=== PATIENT | female | born 1975 | race Two or more races ===

== ENCOUNTER 2020-01-22 07:28 | Outpatient (REF) | payer OTHER, SELFPAY ==
--- NOTE | 2020-01-22 07:33 | MM_ITS ---
EXAMINATION: MM SCREENING DIGITAL BREAST TOMOSYNTHESIS, BILATERAL CLINICAL INFORMATION: Screening. Asymptomatic. The lifetime risk of breast cancer based on the Tyrer-Cuzick Model is 7.1%. COMPARISON: Mammography: September 05, 2018 and studies dating back to September 06, 2016 TECHNIQUE: Digital breast tomosynthesis is performed in both the craniocaudal and mediolateral oblique views along with computer-aided detection (CAD). Synthesized 2D images are generated from the tomosynthesis. FINDINGS: There are scattered areas of fibroglandular density (ACR BI-RADS breast composition Category b). There are no significant masses, abnormal calcifications, or other abnormalities. MM/MM tomosynthesis screening BI IMPRESSION: There are no significant changes from prior study. ASSESSMENT: BI-RADS 1: Negative RECOMMENDATION: Routine annual mammography screening. This patient's information was entered into a reminder system with a target due date for their next mammogram.
== END 2020-01-22 07:29 | disposition home or self-care (01) ==
LOC: HO.MAMMO 07:28
PROVIDERS: PCP Internal Medicine; Visit Provider Internal Medicine
DX: Z12.31 Encounter for screening mammogram for malignant neoplasm of breast (principal)
CPT/HCPCS: 77063; 77067

== ENCOUNTER → 2020-05-19 10:02 | Outpatient (BNVA) | payer OTHER, SELFPAY | PROVIDERS: PCP Internal Medicine; Visit Provider Internal Medicine ==

== ENCOUNTER 2020-09-09 09:20 | Outpatient (REF) | payer OTHER, SELFPAY ==
--- NOTE | ~2020-09-09 | XR_ITS ---
EXAMINATION: XR HIP, LEFT CLINICAL INFORMATION: Trauma, left hip pain COMPARISON: None TECHNIQUE: AP and frog-lateral projections left hip are obtained. FINDINGS: There is no fracture or dislocation. No joint narrowing or erosive change. Soft tissue planes are unremarkable. There is no diastases SI joint or pubis. Bowel gas unremarkable. XR/XR hip LT min 2V IMPRESSION: No fracture or dislocation.
--- NOTE | ~2020-09-09 | XR_ITS ---
EXAMINATION: XR KNEE, LEFT CLINICAL INFORMATION: Trauma, pain COMPARISON: Radiographs left knee 02/01/2016 TECHNIQUE: Four views of the left knee. FINDINGS: There are degenerative changes medial knee joint compartment with joint narrowing and marginal osteophyte medial femoral condyle. There is no erosive change or visible chondrocalcinosis. Lateral view suggests small suprapatellar effusion. There is no fracture or dislocation. No destructive process. XR/XR knee LT 4V IMPRESSION: 1. No fracture or dislocation. 2. Degenerative changes medial knee joint compartment with small suprapatellar effusion.
--- NOTE | ~2020-09-09 | XR_ITS ---
EXAMINATION: XR ANKLE, LEFT CLINICAL INFORMATION: Trauma, pain COMPARISON: None TECHNIQUE: AP, lateral, and mortise views of the left ankle. FINDINGS: There is no fracture or dislocation. The malleoli appear intact and the ankle mortise is symmetric. There is no visible ankle capsular effusion. Subtalar joint unremarkable. Retrocalcaneal recess is preserved. There is plantar calcaneal spur. XR/XR ankle LT min 3V IMPRESSION: No fracture or dislocation.
[2020-09-09 11:41] LABS: MANUAL DIFF FLAG NO
[2020-09-09 11:47] LABS: Basophils Percent Auto 0.5 % (0-2); Eosinophils Absolute Auto 0.3 X10*3/uL (0.0-0.4); Eosinophils Percent Auto 5.2 % (0-4); Hematocrit 37.6 % (37-47); Imm Gran Abs Auto 0.01 X10*3/uL (0.00-0.03); Imm Gran Pct Auto 0.2 % (0.0-0.4); Lymphocytes Absolute Auto 2.7 X10*3/uL (1.2-4.9); Lymphocytes Percent Auto 44.3 % (20-40); Mean Corpuscular HGB Conc 31.9 g/dl (31.0-35.0); Mean Corpuscular Hemoglobin 27.8 pg (27.0-33.0); Mean Corpuscular Volume 87.2 fL (80-98); Mean Platelet Volume 12.7 fL (9.4-12.3); Monocytes Absolute Auto 0.5 X10*3/uL (0.1-1.2); Monocytes Percent Auto 7.4 % (2-11); Neutrophils Absolute Auto 2.6 X10*3/uL (2.0-8.3); Neutrophils Percent Auto 42.4 % (45-73); Platelet Count 191 X10*3/uL (160-400); Red Blood Count 4.31 X10*6/uL (4.20-5.50); Red Cell Distribution Width 13.2 % (11.0-16.0); White Blood Count 6.2 X10*3/uL (4.8-10.8)
[2020-09-09 12:11] LABS: Alanine Aminotransferase 27 U/L (0-31); Anion Gap 12 (12-20); Aspartate Amino Transferase 17 U/L (5-31); Blood Urea Nitrogen 23 mg/dL (9-16); Calcium 10.1 mg/dL (8.4-10.2); Carbon Dioxide 26 mmol/L (22-29); Chloride 105 mmol/L (96-108); Cholesterol 212 mg/dL; Estimated Glomerular Filt Rate > 60; Glucose Fasting 91 mg/dL (60-99); HDL Cholesterol 53 mg/dL; Iron 77 mcg/dL (30-160); LDL Cholesterol Calculated 127 mg/dl; Percent Iron Saturation 25 % (15-50); Potassium 4.2 mmol/L (3.3-5.1); Sodium 139 mmol/L (135-145); Total Iron Binding Capacity 303 mcg/dL (228-428); Triglycerides 162 mg/dL; Unsaturated Iron Binding 226 ug/dL
[2020-09-09 12:34] LABS: Vitamin D 25-OH Total 45.9 ng/mL (>30)
== END 2020-09-09 09:21 | disposition home or self-care (01) ==
LOC: HO.HMGCX 09:20
PROVIDERS: PCP Internal Medicine; Visit Provider Internal Medicine
DX: Z00.00 Encounter for general adult medical examination without abnormal findings (principal); M25.562 Pain in left knee; M25.552 Pain in left hip; M25.572 Pain in left ankle and joints of left foot; I10 Essential (primary) hypertension; E66.9 Obesity, unspecified; Z68.32 Body mass index [BMI] 32.0-32.9, adult
CPT/HCPCS: 36415; 73502; 73564; 73610; 80048; 80061; 82306; 83540; 84450; 84460; 85025

== ENCOUNTER → 2020-11-15 09:34 | Outpatient (BNVA) | payer OTHER, SELFPAY | PROVIDERS: PCP Internal Medicine; Visit Provider Internal Medicine ==

== ENCOUNTER 2020-11-22 16:17 | Outpatient (REF) | payer OTHER, SELFPAY ==
[2020-11-23 01:26] LABS: CT PCR NOT DETECTED (Not Detect.); NG PCR NOT DETECTED (Not Detect.)
[2020-11-23 08:24] LABS: BV Int Neg Control Negative (Negative); BV Int Pos Control Positive (Positive)
== END 2020-11-22 16:18 | disposition home or self-care (01) ==
LOC: HO.LNP 16:17
PROVIDERS: Visit Provider Physician Assistant Medical
DX: N93.9 Abnormal uterine and vaginal bleeding, unspecified (principal); N39.0 Urinary tract infection, site not specified
CPT/HCPCS: 87086; 87147; 87480; 87491; 87510; 87591; 87660

== ENCOUNTER 2021-04-03 10:09 | Emergency (ER) | payer OTHER, SELFPAY ==
--- NOTE | ~2021-04-03 | US_ITS ---
EXAMINATION: US PELVIS CLINICAL INFORMATION: Left lower quadrant pain. Rule out torsion. COMPARISON: Previous CT of the abdomen and pelvis from earlier the same day and previous pelvic ultrasound March 2010 TECHNIQUE: Ultrasound of the pelvis is performed using both transabdominal and transvaginal transducers along with Doppler. Transvaginal imaging is performed due to inadequate visualization transabdominally. Doppler color and grayscale evaluation of the ovaries including waveform spectral analysis was also performed. FINDINGS: The uterus has been removed. There are nabothian cysts in the cervix. The right ovary measures 2.2 x 1.8 x 1.9 cm. There is a 1.5 x 1.1 x 1.2 cm right ovarian cyst. Left ovary measures 2.7 x 2.5 x 2.1 cm. There is a 1.6 x 1.5 x 1 cm left ovarian cyst. There is a 3.3 x 2.3 x 2.4 cm simple left adnexal or paraovarian cyst. It is difficult to obtain color and Doppler flow to the ovaries, particularly on the right, possibly due to patient body habitus. The ovaries are morphologically normal appearing making torsion unlikely. There is no fluid in the pelvis. US/US pelvic ovarian doppler IMPRESSION: Morphologically normal-appearing ovaries. Small simple bilateral ovarian cysts. 3.3 x 2.3 x 2.4 cm simple left adnexal or paraovarian cyst. It is difficult to obtain color and Doppler flow to the ovaries, particularly on the right. This may be due to technical factors/patient body habitus. Imaging follow-up, probably repeat pelvic ultrasound with Doppler, should be considered if clinically indicated.
--- NOTE | ~2021-04-03 | CT_ITS ---
EXAMINATION: CT ABDOMEN AND PELVIS WITHOUT CONTRAST CLINICAL INFORMATION: Left back and flank pain. Dysuria. COMPARISON: CT abdomen pelvis June 23, 2015 TECHNIQUE: Multidetector volumetric imaging was performed from the superior aspect of the liver through the pubic symphysis. Sagittal and coronal reformatted images were obtained on the technologist's workstation. This CT examination was performed using dose optimization techniques as appropriate, variously including the following: *Automated exposure control *Adjustment of mA and/or kV according to patient size (this includes techniques or standardized protocols for targeted exams where dose is matched to indication/reason for exam; i.e. extremities or head) *Use of iterative reconstruction technique DLP: 697 mGy-cm FINDINGS: Visualized lung bases demonstrate mild dependent atelectasis. The liver demonstrates normal size, contour and attenuation. The gallbladder is surgically absent. The pancreas, spleen and adrenal glands are unremarkable. Small inferior splenule. Symmetrically sized kidneys. No renal calculi or hydronephrosis bilaterally. The stomach is decompressed. Normal caliber loops of small and large bowel. Normal appendix. Tiny fat-containing left periumbilical hernia. The bladder is normal in appearance. Unremarkable CT appearance of the uterus. 3.4 cm left adnexal cyst. No inguinal lymphadenopathy. No gross free pelvic fluid. Mild diffuse degenerative changes of the spine. CT/CT abdomen pelvis wo con IMPRESSION: -No CT evidence for acute abnormality within the abdomen or pelvis. -3.4 cm left adnexal cyst. Fleischner guidelines were followed.
--- NOTE | ~2021-04-03 | US_ITS ---
EXAMINATION: US PELVIS CLINICAL INFORMATION: Left lower quadrant pain. Rule out torsion. COMPARISON: Previous CT of the abdomen and pelvis from earlier the same day and previous pelvic ultrasound March 2010 TECHNIQUE: Ultrasound of the pelvis is performed using both transabdominal and transvaginal transducers along with Doppler. Transvaginal imaging is performed due to inadequate visualization transabdominally. Doppler color and grayscale evaluation of the ovaries including waveform spectral analysis was also performed. FINDINGS: The uterus has been removed. There are nabothian cysts in the cervix. The right ovary measures 2.2 x 1.8 x 1.9 cm. There is a 1.5 x 1.1 x 1.2 cm right ovarian cyst. Left ovary measures 2.7 x 2.5 x 2.1 cm. There is a 1.6 x 1.5 x 1 cm left ovarian cyst. There is a 3.3 x 2.3 x 2.4 cm simple left adnexal or paraovarian cyst. It is difficult to obtain color and Doppler flow to the ovaries, particularly on the right, possibly due to patient body habitus. The ovaries are morphologically normal appearing making torsion unlikely. There is no fluid in the pelvis. US/US pelvic and transvaginal IMPRESSION: Morphologically normal-appearing ovaries. Small simple bilateral ovarian cysts. 3.3 x 2.3 x 2.4 cm simple left adnexal or paraovarian cyst. It is difficult to obtain color and Doppler flow to the ovaries, particularly on the right. This may be due to technical factors/patient body habitus. Imaging follow-up, probably repeat pelvic ultrasound with Doppler, should be considered if clinically indicated.
[2021-04-03 10:19] VITALS: BP 141/64; PULSE 76; RESP 18; O2SAT 99; BMI 32.5
[2021-04-03] MEDS: Ketorolac Tromethamine 60 MG/2 ML VIAL IM (11:07)
[2021-04-03 11:20] LABS: Appearance Urine HAZY; Color Urine YELLOW; Glucose Urine UA NEG (NEG); Leukocyte Esterase Urine 1+ (NEG); Nitrite Urine NEG (NEG); UACC Culture Trigger YES; Urine Blood 1+ (NEG); Urine Ketones NEG (NEG); Urine Protein NEG (NEG-TRACE)
[2021-04-03 11:22] LABS: UPreg QC Valid YES; Urine Pregnancy NEGATIVE (NEGATIVE)
[2021-04-03 11:33] LABS: Squamous Epithelial Cell Urine 2+ /LPF
[2021-04-03 11:35] LABS: Bacteria Urine 2+ /LPF
--- NOTE | 2021-04-03 12:41 | ED_ITS ---
HPI - Back Pain/Injury General Chief Complaint: Back Pain/Injury Stated Complaint: lower back and abd pain Time Seen by Provider: 04/03/21 10:35 Source: patient Mode of arrival: ambulatory Limitations: no limitations History of Present Illness HPI Narrative: 45-year-old female with a past medical history of hypertension, anxiety and depression, anemia, obstructive sleep apnea on CPAP, obesity and recurrent UTIs presenting to the ED with complaints of lower back pain that started Sunday that is now radiating to her left flank/left lower quadrant. She reports associated increased urinary frequency/urgency. 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 Patient denies any fevers, chills, dizziness, headaches, neck pain/stiffness, sore throat, trouble swallowing breathing, chest pain or shortness of breath, rashes, nausea/vomiting/diarrhea constipation, upper abdominal pain, recent falls or trauma that she is aware of, hematuria, abnormal vaginal discharge, thoughts of STDs, paresthesias, saddle anesthesia, history of IV drug use or any other symptoms complaints or concerns at this time. MD elicited complaint: back pain Onset (ago): day(s) (3) Timing: constant and progressively worsening Severity: moderate Similar Symptoms Previously: No Quality: aching Location: left flank and left lower back Radiation: abdomen (LLQ) Exacerbating factors: movement, supine positioning, walking and lifting Relieving factors: none Context: while lifting, turning/twisting and bending Associated symptoms: increased urinary urgency and increased urinary frequency Work related injury: Yes (Patient is not completely sure although started Sunday and she was working ) Related Data Home Medications Medication Instructions Recorded Confirmed docusate sodium 100 mg capsule 100 mg PO DAILY 05/19/20 07/12/20 omeprazole 20 mg capsule,delayed 20 mg PO DAILY 05/19/20 07/12/20 release diclofenac sodium 1 % topical gel 2 g TOPICAL QID 11/01/20 (Arthritis Pain (diclofenac)) Previous Rx's Medication Instructions Recorded montelukast 10 mg tablet 10 mg PO DAILY #30 tab 12/01/19 clotrimazole-betamethasone 1 1 appl TOPICAL BID 10 Days #45 g 09/28/20 %-0.05 % topical cream buspirone 5 mg tablet 5 mg PO TID #90 tab 09/30/20 nitrofurantoin macrocrystal 100 mg 100 mg PO Q12H 7 Days #14 cap 11/22/20 capsule metronidazole 0.75 % vaginal gel 1 appful VAGINAL DAILY 5 Days #70 g 11/23/20 (Metrogel Vaginal) triamcinolone acetonide 0.5 % 1 appl TOPICAL BID 10 Days #15 g 12/06/20 topical cream lisinopril 10 mg tablet 10 mg PO QAM #90 tab 02/28/21 cyclobenzaprine 10 mg tablet 10 mg PO Q8H PRN #14 tab 04/03/21 naproxen 500 mg tablet 500 mg PO BID PRN #14 tab 04/03/21 oxycodone 5 mg tablet 5 mg PO Q6H PRN #14 tab 04/03/21 Allergies Allergy/AdvReac Type Severity Reaction Status Date / Time penicillin V Allergy Unknown hives, Verified 11/22/20 13:13 closes throat Review of Systems Review of Systems: Constitutional : No trauma, No Weight loss, No Fever, No Chills, ENT/Mouth : No Hearing loss, No Ear Pain, No Nasal Congestion, No Sinus Pain, No Hoarseness, No sore throat, No Rhinorrhea, No Swallowing Difficulty Cardiovascular : No Chest Pain, No SOB Respiratory : No Cough, No Dyspnea Gastrointestinal : No Nausea, No Vomiting, No Diarrhea, No abdominal Pain, No Hematochezia, No Melena Genitourinary : No Dysuria, + Urinary Frequency, No Hematuria, No Urinary or Bowel Incontinence/retention Musculoskeletal : + Back pain, No neck pain, No joint stiffness, No joint swelling Skin : No Skin Lesions, No rash or signs of infection Neuro : No Weakness, No radiation, No Numbness, No Paresthesias, No headache, no loss of bowel or bladder incontinence, no saddle anesthesia, Focal weakness, No radiation Denies history of IV drug usage. Yes all other systems are reviewed and are negative [facility] Past Medical History Attestation statement: The following information was validated with the patient. Medical History Allergic rhinitis Congenital hearing loss of left ear Depression with anxiety Eczema of both hands Essential hypertension History of anemia History of gestational diabetes Intertrigo Left ankle pain Left anterior knee pain Left hip pain Obesity (BMI 30-39.9) BARBY on CPAP Plantar fasciitis Postsurgical menopause Tendinitis of knee Surgical History History of bilateral breast reduction surgery History of hysterectomy, supracervical History of sinus surgery History of tubal ligation Family History Family History Father CAD (coronary artery disease) Mother HTN (hypertension) Social History Social History Housing: House Alcohol intake: current Alcohol intake frequency: holidays/special occasions only Patient Tobacco Use Status: Never used Tobacco e-Cigarette/Vaping Use: Never Used Second Hand Smoke Exposure: Yes Advance Directives: No Advance Directives Information Provided: No service: No Current occupational status: employed 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 Blood pressure normal. Heart rate normal. Respiration rate normal. Temperature normal. Oxygen saturation normal. Appearance: Alert. Oriented X3. No acute distress. Head: Normal external exam. Normocephalic. Atraumatic. Eyes: PERRLA. EOMI. Conjunctiva and sclera normal. Eyelids normal. ENT: Pharynx normal. Uvula midline. Moist mucous membranes. Neck: Normal inspection. Neck supple. FROM. No adenopathy. Thyroid Normal. No meningeal signs. No neck mass noted. CVS: Normal heart rate and rhythm. Heart sound normal. No murmurs noted. Pulses normal throughout. Respiratory: No respiratory distress. Painless inspiration. Breath sounds normal. No wheezes/rales/rhonchi noted. Chest nontender. No accessory muscle usage noted or decreased air movement noted. Abdomen: Soft and mild TTP to LLQ/L flank. Bowel sounds normal in all 4 quadrants. No distention noted. No organomegaly noted. No visible injury noted. Back: No CVA tenderness. Full range of motion noted. No obvious deformities, or edema. Mild para-spinal muscular tenderness from lumbar region to coccyx. Full ROM in back and lower extremities. 5/5 strength hip extension/flexion, abducti on, adduction. Mild Lumbar pain with hip flexion against resistance. Straight leg raise test negative on right; Straight leg raise test negative on left; Reflexes normal ankle and knee bilaterally; EHL motor strength normal bilaterally. No rashes/lesion/induration/fluctuance or signs infection noted. Skin: Skin warm and dry. Normal skin color. Normal skin turgor. No rashes/lesions/lacerations noted. Extremities: Extremities exhibit normal range of motion. Extremities nontender. Neuro: Oriented X 3. No motor deficit. No sensory deficit. Reflexes normal. Patient has a normal steady gait. Course Course Course Narrative: 11am - Pt c likely muscular pain, but could be herniated disc. Neuro exam shows no deficits. Not c/w AAA/epidural abscess/dissection.No high risk Hx (Incont, fever, immunosupp, recent surgery/LP, coag, signif trauma, wt loss, puls mass, hx/o Ca, TB, or IVDU) to warrant MRI/CT today. Not c/w spinal fx. Not cauda equina syndrome. Although due to patient reporting increased urinary urgency/frequency and radiation to the left flank/left lower quadrant will obtain a UA, UHCG and a CT scan abdomen pelvis oral IV contrast to evaluate for possible UTI versus kidney stones or any other acute processes. Provide IM Toradol then re-evaluate. Reevaluation(s) Reevaluation #1: - UA with blood and leukocytes although she is noted to have epithelial cells no nitrates. Negative . - CT scan abdomen pelvis without IV contrast negative for kidney stones although they did reveal a 3.4 cm left adnexal cyst therefore will obtain ultrasound of ovary/transvaginal and re-evaluate. Time: 13:00 Reevaluation #2: - ultrasound revealed cyst to bilateral ovaries they were unable to rule out torsion although they report that the ovaries appear normal making torsion unlikely and honestly on my exam it does not appear that the patient is in torsion she is complaining more of her back therefore at this time will DC home with muscle relaxants and symptomatic treatment for back strain and a work note instructions return if any new or worsening symptoms. Patient understands agrees with this plan. Time: 15:00 [facility] - Back Pain/Injury Medical Records Attestation: I reviewed the patient's medical records. Lab Data Attestation: I reviewed the patient's lab results. Labs: Lab Results 04/03/21 04/03/21 Range/Units 11:12 11:12 Urine Color YELLOW Urine Appearance HAZY Urine pH 6.0 (5.0-8.0) Ur Specific [place] 1.010 (1.005-1.025) Urine Protein NEG (NEG-TRACE) MG/DL Urine Glucose (UA) NEG (NEG) MG/DL Urine Ketones NEG (NEG) MG/DL Urine Blood 1+ H (NEG) Urine Nitrite NEG (NEG) Ur Leukocyte Esterase 1+ H (NEG) Urine RBC 1-4 (0) /HPF Urine WBC 5-9 H (0-4) /HPF Ur Squamous Epith Cells 2+ /LPF Urine Bacteria 2+ /LPF Urine Test NEGATIVE (NEGATIVE) Imaging Data CT scan abdomen pelvis without IV contrast: Attestation: I personally reviewed and interpreted this imaging study as follows: Radiologist's impression: FINDINGS: Visualized lung bases demonstrate mild dependent atelectasis. The liver demonstrates normal size, contour and attenuation. The gallbladder is surgically absent. The pancreas, spleen and adrenal glands are unremarkable. Small inferior splenule. Symmetrically sized kidneys. No renal calculi or hydronephrosis bilaterally. The stomach is decompressed. Normal caliber loops of small and large bowel. Normal appendix. Tiny fat-containing left periumbilical hernia. The bladder is normal in appearance. Unremarkable CT appearance of the uterus. 3.4 cm left adnexal cyst. No inguinal lymphadenopathy. No gross free pelvic fluid. Mild diffuse degenerative changes of the spine. CT/CT abdomen pelvis wo con IMPRESSION: -No CT evidence for acute abnormality within the abdomen or pelvis. -3.4 cm left adnexal cyst.? ? Fleischner guidelines were followed. Ovarian/transvaginal/pelvic ultrasound: Attestation: I personally reviewed and interpreted this imaging study as follows: Radiologist's impression: FINDINGS: The uterus has been removed. There are nabothian cysts in the cervix. The right ovary measures 2.2 x 1.8 x 1.9 cm. There is a 1.5 x 1.1 x 1.2 cm right ovarian cyst. Left ovary measures 2.7 x 2.5 x 2.1 cm. There is a 1.6 x 1.5 x 1 cm left ovarian cyst. There is a 3.3 x 2.3 x 2.4 cm simple left adnexal or paraovarian cyst. It is difficult to obtain color and Doppler flow to the ovaries, particularly on the right, possibly due to patient body habitus. The ovaries are morphologically normal appearing making torsion unlikely. There is no fluid in the pelvis. US/US pelvic ovarian doppler IMPRESSION: Morphologically normal-appearing ovaries. Small simple bilateral ovarian cysts. 3.3 x 2.3 x 2.4 cm simple left adnexal or paraovarian cyst. It is difficult to obtain color and Doppler flow to the ovaries, particularly on the right. This may be due to technical factors/patient body habitus. Imaging follow-up, probably repeat pelvic ultrasound with Doppler, should be considered if clinically indicated. Discharge Plan Discharge Clinical Impression: Ovarian cyst, UTI (urinary tract infection), Back strain Patient Disposition: Home, Self-Care Instructions: Ovarian Cyst (ED), Urinary Tract Infection in Women (DC), Back Pain (ED) Prescriptions: New naproxen 500 mg tablet 500 mg PO BID PRN (Reason: pain) Qty: 14 0RF cyclobenzaprine 10 mg tablet 10 mg PO Q8H PRN (Reason: Muscle spasm) Qty: 14 0RF oxycodone 5 mg tablet 5 mg PO Q6H PRN (Reason: pain) Qty: 14 0RF No Action montelukast 10 mg tablet 10 mg PO DAILY Qty: 30 5RF clotrimazole-betamethasone 1-0.05 % cream 1 appl topical BID 10 Days Qty: 45 1RF buspirone 5 mg tablet 5 mg PO TID Qty: 90 0RF diclofenac sodium [Arthritis Pain (diclofenac)] 1 % gel 2 g topical QID 0RF Rx Instructions: apply to single elbow, wrist or hand; for hand includes palm/fingers/back of hand metronidazole [Metrogel Vaginal] 0.75 % gel 1 appful vaginal DAILY 5 Days Qty: 70 0RF triamcinolone acetonide 0.5 % cream 1 appl topical BID 10 Days Qty: 15 2RF lisinopril 10 mg tablet 10 mg PO QAM Qty: 90 0RF nitrofurantoin macrocrystal 100 mg capsule 100 mg PO Q12H 7 Days Qty: 14 0RF Rx Instructions: must administer with a meal/food docusate sodium 100 mg capsule 100 mg PO DAILY 0RF omeprazole 20 mg capsule,delayed release(DR/EC) 20 mg PO DAILY 0RF Referrals: Maria E Pappas MD [Primary Care Provider] - 2 days Stand Alone Forms: Work/School Release
[2021-04-03 15:13] VITALS: BP 139/80; PULSE 75; RESP 17; O2SAT 97
== END 2021-04-03 15:19 | disposition home or self-care (01) ==
PROVIDERS: Physician Assistant Medical; Emergency Provider Emergency Medicine; PCP Internal Medicine
DX: N83.202 Unspecified ovarian cyst, left side (principal); N83.201 Unspecified ovarian cyst, right side; M54.50 Low back pain, unspecified; R10.2 Pelvic and perineal pain; R10.32 Left lower quadrant pain; F41.9 Anxiety disorder, unspecified; Z79.899 Other long term (current) drug therapy
CPT/HCPCS: 74176; 76830; 76856; 81001; 81025; 87086; 93975; 96372; 99284; J1885

== ENCOUNTER 2021-04-08 08:49 | Outpatient (REF) | payer OTHER, SELFPAY ==
[2021-04-08 15:10] LABS: CT PCR NOT DETECTED (Not Detect.); NG PCR NOT DETECTED (Not Detect.)
[2021-04-09 11:58] LABS: BV Int Neg Control Negative (Negative); BV Int Pos Control Positive (Positive)
[2021-04-14 01:46] LABS: HPV mRNA E6/E7 rflx Not Detected (Not Detected)
== END 2021-04-08 08:50 | disposition home or self-care (01) ==
LOC: HO.LAB 08:49
PROVIDERS: PCP Internal Medicine; Visit Provider Advanced Practice Midwife
DX: Z12.4 Encounter for screening for malignant neoplasm of cervix (principal); Z11.51 Encounter for screening for human papillomavirus (HPV); Z11.3 Encounter for screening for infections with a predominantly sexual mode of transmission; N83.209 Unspecified ovarian cyst, unspecified side; N93.0 Postcoital and contact bleeding; R10.2 Pelvic and perineal pain
CPT/HCPCS: 87480; 87491; 87510; 87591; 87624; 87660; 88142

== ENCOUNTER → 2021-05-16 09:35 | Outpatient (BNVA) | payer OTHER, SELFPAY | PROVIDERS: PCP Internal Medicine; Visit Provider Internal Medicine | DX: Z13.89 Encounter for screening for other disorder (principal) ==

== ENCOUNTER 2021-06-03 15:22 | Outpatient (REF) | payer OTHER, SELFPAY ==
--- NOTE | ~2021-06-03 | US_ITS ---
EXAMINATION: US PELVIS CLINICAL INFORMATION: Postcoital and contact bleeding. COMPARISON: None TECHNIQUE: Ultrasound of the pelvis was performed using both transabdominal and transvaginal transducers along with Doppler. Transvaginal imaging was performed due to inadequate visualization transabdominally. FINDINGS: Uterus: The uterus is surgically absent. There are multiple anechoic cysts in the cervix. Right ovary measures 2.0 x 1.0 x 1.0 cm and volume 1.0 mL. No focal lesion is seen. Previously the right ovary measured 2.2 x 1.8 x 1.9 cm. The left ovary is not visualized. There is no free fluid in the cul-de-sac. US/US pelvic and transvaginal IMPRESSION: Multiple nabothian cysts in the cervix. The uterus is surgically absent. Unremarkable right ovary.
== END 2021-06-03 15:23 | disposition home or self-care (01) ==
LOC: HO.US 15:22
PROVIDERS: Visit Provider Advanced Practice Midwife
DX: R10.2 Pelvic and perineal pain (principal); N83.209 Unspecified ovarian cyst, unspecified side; N93.0 Postcoital and contact bleeding
CPT/HCPCS: 76830; 76856

== ENCOUNTER 2021-10-06 09:59 | Outpatient (REF) | payer OTHER, SELFPAY ==
[2021-10-06 11:21] LABS: MANUAL DIFF FLAG NO
[2021-10-06 11:33] LABS: Basophils Percent Auto 0.6 % (0-2); Eosinophils Absolute Auto 0.3 X10*3/uL (0.0-0.4); Eosinophils Percent Auto 3.6 % (0-4); Hematocrit 37.9 % (37.0-47.0); Hemoglobin 12.7 g/dl (12.0-16.0); Imm Gran Abs Auto 0.02 X10*3/uL (0.00-0.03); Imm Gran Pct Auto 0.3 % (0.0-0.4); Lymphocytes Absolute Auto 2.9 X10*3/uL (1.2-4.9); Lymphocytes Percent Auto 40.3 % (20-40); Mean Corpuscular HGB Conc 33.5 g/dl (31.0-35.0); Mean Corpuscular Hemoglobin 28.3 pg (27.0-33.0); Mean Corpuscular Volume 84.4 fL (80.0-98.0); Mean Platelet Volume 12.6 fL (9.4-12.3); Monocytes Absolute Auto 0.5 X10*3/uL (0.1-1.2); Monocytes Percent Auto 6.8 % (2-11); Neutrophils Absolute Auto 3.5 x10*3/uL (2.0-8.3); Neutrophils Percent Auto 48.4 % (45-73); Platelet Count 181 X10*3/uL (160-400); Red Blood Count 4.49 X10*6/uL (4.20-5.50); Red Cell Distribution Width 12.5 % (11.0-16.0); White Blood Count 7.2 X10*3/uL (4.8-10.8)
[2021-10-06 11:47] LABS: Alanine Aminotransferase 25 U/L (0-31); Anion Gap 15 (12-20); Aspartate Amino Transferase 17 U/L (5-31); Blood Urea Nitrogen 14 mg/dL (9-16); Calcium 9.8 mg/dL (8.4-10.2); Carbon Dioxide 26 mmol/L (22-29); Chloride 101 mmol/L (96-108); Cholesterol 218 mg/dL; Estimated Glomerular Filt Rate > 60; Glucose Fasting 87 mg/dL (60-99); HDL Cholesterol 58 mg/dL; LDL Cholesterol Calculated 135 mg/dl; Potassium 4.1 mmol/L (3.3-5.1); Sodium 138 mmol/L (135-145); Triglycerides 129 mg/dL
[2021-10-06 12:14] LABS: Vitamin D 25-OH Total 38.1 ng/mL (>30)
== END 2021-10-06 10:00 | disposition home or self-care (01) ==
LOC: HO.HMGCLDS 09:59
PROVIDERS: PCP Internal Medicine; Visit Provider Internal Medicine
DX: I10 Essential (primary) hypertension (principal); E89.40 Asymptomatic postprocedural ovarian failure; F41.8 Other specified anxiety disorders; E66.9 Obesity, unspecified; Z86.32 Personal history of gestational diabetes; Z86.2 Personal history of diseases of the blood and blood-forming organs and certain disorders involving the immune mechanism
CPT/HCPCS: 36415; 80048; 80061; 82306; 84450; 84460; 85025

== ENCOUNTER 2021-11-14 07:31 | Outpatient (REF) | payer OTHER, SELFPAY ==
[2021-11-14 08:31] LABS: COVID-19 Test Negative (Negative); IDNOW Serial# 16C4AD1C
== END 2021-11-14 07:32 | disposition home or self-care (01) ==
LOC: HO.LAB 07:31
PROVIDERS: Visit Provider Internal Medicine
DX: Z20.822 Contact with and (suspected) exposure to COVID-19 (principal)
CPT/HCPCS: 87635; C9803

== ENCOUNTER 2021-11-16 08:33 | Outpatient (REF) | payer OTHER, SELFPAY ==
--- NOTE | ~2021-11-16 | MM_ITS ---
EXAMINATION: MM SCREENING DIGITAL BREAST TOMOSYNTHESIS, BILATERAL CLINICAL INFORMATION: Screening. Asymptomatic. Remote reduction mammoplasty, 1994. The lifetime risk of breast cancer based on the Tyrer-Cuzick Model is 7%. COMPARISON: Mammography: 01/22/2020, 09/05/2018, 09/19/2016, 09/06/2016 (baseline); targeted left breast ultrasound 09/19/2016 TECHNIQUE: Digital breast tomosynthesis is performed in both the craniocaudal and mediolateral oblique views along with computer-aided detection (CAD). Synthesized 2D images are generated from the tomosynthesis. Additional right MLO view is provided. FINDINGS: There are scattered areas of fibroglandular density (ACR BI-RADS breast composition Category b). Parenchymal pattern is similar to prior studies and there is no developing density or interval mass or architectural abnormality or abnormal calcifications. There is minor scarring and some fine round and rim and dermal calcifications consistent with the reduction mammoplasty. Small oval nodule posterior 8:00 left breast is decreased since 2017. The axilla are unremarkable. No significant changes. MM/MM tomosynthesis screening BI IMPRESSION: No mammographic evidence of malignancy. ASSESSMENT: BI-RADS 2: Benign RECOMMENDATION: Routine annual mammography screening. This patient's information was entered into a reminder system with a target due date for their next mammogram.
== END 2021-11-16 08:34 | disposition home or self-care (01) ==
LOC: HO.MAMMO 08:33
PROVIDERS: Visit Provider Internal Medicine
DX: Z12.31 Encounter for screening mammogram for malignant neoplasm of breast (principal)
CPT/HCPCS: 77063; 77067

== ENCOUNTER 2022-04-13 06:21 | Day surgery (SDC) | payer OTHER, SELFPAY ==
[2022-03-31 12:33] VITALS: BMI 35.2
[2022-04-04 14:27] VITALS: BMI 36.0
[2022-04-04 14:32] VITALS: PULSE 74; RESP 20; O2SAT 97
--- NOTE | 2022-04-12 11:34 | P.CONAN_ITS ---
Documented by User: Leandra Ibanez NP 04/12/22 11:39 HPI - Anesthesia Eval Consult details Narrative: 46yo F for Colonoscopy Eval by Dr Sexton in [facility] Hx of DI 2012 with hyst. Anesthesia record not avail. Per Operative Report Some difficulty with intubation due to edema and the fiberoptic set up was brought in. She was then successfully intubated. No report of respiratory issues on post-op progress note POD 1. [facility] Active Problems Active Problems: All Active Problems (Updated 04/12/22 @ 09:54 by Jennifer Castaneda RN) Essential hypertension (Acute) Acute allergic rhinitis (Acute) Allergic asthma (Acute) Skin rash (Acute) Acquired deformity of toenail (Acute) Essential hypertension (Acute) Postsurgical menopause (Acute) History of anemia (Acute) Depression with anxiety (Acute) History of gestational diabetes (Acute) Congenital hearing loss of left ear (Acute) Allergic rhinitis (Acute) Plantar fasciitis (Acute) BARBY on CPAP (Acute) Obesity (BMI 30-39.9) (Acute) Past Medical History Medical History Acquired deformity of toenail Allergic rhinitis Congenital hearing loss of left ear Depression with anxiety Eczema of both hands Essential hypertension History of anemia History of gestational diabetes Intertrigo Left ankle pain Left anterior knee pain Left hip pain Obesity (BMI 30-39.9) BARBY on CPAP Plantar fasciitis Postsurgical menopause Tendinitis of knee Tooth ache Family History Family History Father CAD (coronary artery disease) Mother HTN (hypertension) Surgical History Surgical History History of bilateral breast reduction surgery History of hysterectomy, supracervical History of sinus surgery History of tubal ligation Hx of knee surgery Social History Social History Household Members Other:: son Housing: House Are you a primary home care rn to a significant other at home: No Do you presently have visiting nurse or other home services: No Alcohol intake: current Alcohol intake frequency: holidays/special occasions only Patient Tobacco Use Status: Never used Tobacco e-Cigarette/Vaping Use: Never Used Second Hand Smoke Exposure: Yes Use of substances other than those prescribed or required for medical reasons: No Have you been hit, kicked, punched, or otherwise hurt by someone within the past year? If so, by whom?: No Are you DNR?: No Advance Directives: No Advance Directives Information Provided: Yes Advance Directives on File: No Recently lost weight without trying: No Nutrition Risks: No Nutritional Risk Patient : No : No Poor oral hygiene: No (partial upper. 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 Current occupational exposures/hazards: No Cognitive needs: No Hearing needs: No Vision needs: No Meds Allergies Allergy/AdvReac Type Severity Reaction Status Date / Time Penicillins Allergy Severe Anaphylaxis Verified 04/13/22 06:33 Home Medications Medication Instructions Recorded Confirmed Last Taken Type docusate sodium 100 mg capsule 100 mg PO DAILY 05/19/20 04/13/22 Unknown History fexofenadine-pseudoephedrine ER 1 tab PO QAM PRN sinus symptoms 10/24/21 04/13/22 Unknown History 180 mg-240 mg tablet,ext.release 24 hr Exam Exam Date and Time: April 12, 2022 1134 Height,Weight and Vital Signs: Height 5 ft 4 in Weight 95.254 kg Last Vital Signs Pulse 74 04/04/22 14:32 Resp 20 04/04/22 14:32 Pulse Ox 97 04/04/22 14:32 O2 Del Method 04/04/22 14:32 Pertinent Lab Results Pertinent Lab Results: Laboratory Tests 10/06/21 10/06/21 10:03 10:03 WBC 7.2 Hgb 12.7 Hct 37.9 Plt Count 181 Sodium 138 Potassium 4.1 Chloride 101 Carbon Dioxide 26 BUN 14 Creatinine 0.66 Assessment and Plan Assessment Anesthesia Assessment: Chart Reviewed Documented by User: Elsie Sexton MD 04/13/22 07:52 [facility] Past Medical History Medical History Acquired deformity of toenail Allergic rhinitis Congenital hearing loss of left ear Depression with anxiety Eczema of both hands Essential hypertension History of anemia History of gestational diabetes Intertrigo Left ankle pain Left anterior knee pain Left hip pain Obesity (BMI 30-39.9) BARBY on CPAP Plantar fasciitis Postsurgical menopause Tendinitis of knee Tooth ache Functional capacity: independent ambulation Patient : No Family History Family History Father CAD (coronary artery disease) Mother HTN (hypertension) Family history of problems with anesthesia: No (She has h/o difficult intubation) Surgical History Surgical History History of bilateral breast reduction surgery History of hysterectomy, supracervical History of sinus surgery History of tubal ligation Hx of knee surgery Social History Social History Household Members Other:: son Housing: House Are you a primary home care rn to a significant other at home: No Do you presently have visiting nurse or other home services: No Alcohol intake: current Alcohol intake frequency: holidays/special occasions only Patient Tobacco Use Status: Never used Tobacco e-Cigarette/Vaping Use: Never Used Second Hand Smoke Exposure: Yes Use of substances other than those prescribed or required for medical reasons: No Have you been hit, kicked, punched, or otherwise hurt by someone within the past year? If so, by whom?: No Are you DNR?: No Advance Directives: No Advance Directives Information Provided: Yes Advance Directives on File: No Recently lost weight without trying: No Nutrition Risks: No Nutritional Risk Patient : No : No Poor oral hygiene: No (partial upper. 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 Current occupational exposures/hazards: No Cognitive needs: No Hearing needs: No Vision needs: No Meds Allergies Allergy/AdvReac Type Severity Reaction Status Date / Time Penicillins Allergy Severe Anaphylaxis Verified 04/13/22 06:33 Home Medications Medication Instructions Recorded Confirmed Last Taken Type docusate sodium 100 mg capsule 100 mg PO DAILY 05/19/20 04/13/22 Unknown History fexofenadine-pseudoephedrine ER 1 tab PO QAM PRN sinus symptoms 10/24/21 04/13/22 Unknown History 180 mg-240 mg tablet,ext.release 24 hr Exam Airway Mallampati Class: IV TM Dist: >3cm Neck ROM: Full Heart: RRR Lungs: CTA Assessment and Plan Final Anesthetic Review Family History of Problems with Anesthesia: No (She has h/o difficult intubation) ASA Class: II Final Preanesthetic Review: No Changes in Pt Med Stat, Meds/Allgs Chart Reviewed, Consent Obtained/Reviewed and Anes Risks/Benef Reviewed Patient Risk: Intermediate Procedure Risk: Low Anesthetic Plan Anesthetic Plan: MAC: Disposition: Standard PACU
[2022-04-13 06:36] VITALS: BP 162/82; PULSE 74; RESP 16; TEMP 36.7; O2SAT 98
[2022-04-13] MEDS: Lactated Ringers 1,000 ML 100 ML IVCONT (06:55)
--- NOTE | 2022-04-13 07:30 | PC.NURSE ---
Patient finished Miramax prep mixed with water at 0200. Dr. Wise made aware. Patient also voiced history of difficult intubation. Very nervous about procedure today. Nurse consoled patient and discussed procedure together. Notes from [facility] regarding this in chart. Dr. Wise at bedside and made aware.
--- NOTE | 2022-04-13 07:37 | P.OP_ITS ---
Operative Note Operative Note Date of Service: 04/13/22 Narrative: Procedure: Colonoscopy Indication: Screening Endoscopist: Romina Hayden MD Anesthesia Provider: Dr Elsei Wise Anesthesia type: MAC Instrument: Olympus [id number]-H190L Consent: Indication, risks vs benefits, and alternatives were discussed with the patient who gave written informed consent to proceed. EKG, pulse, pulse oximetry and blood pressure were monitored throughout the procedure. Please see anesthesia flowsheet. Procedure: The patient was brought to the procedure room and placed in the left lateral decubitus position. IV medications were administered by the anesthesia provider in attendance. A digital rectal exam was performed which was abnormal due to finding of hemorrhoids. A distal cap was affixed to the tip of the colonoscope and it was then inserted through the anus and advanced through the colon to the cecum at 85 cm. Appendiceal orifice and ileocecal valve identified. Mucosa was carefully examined under high definition white light as the instrument was slowly withdrawn in a retrograde panoramic fashion. Ascending colon was intubated twice. Retroflexion was performed in rectum. The procedure was not difficult. There were no immediate obvious complications. The quality of the prep was BBPS: 3+3+2 = adequate Withdrawal time 18 minutes. Limitations: No limitations. Findings: Mucosa: Normal to cecum. Protruding lesions: * Large internal hemorrhoids without stigmata of recent bleeding. Impression: 1. Normal colon mucosa 2. External and internal hemorrhoids Recommendations: - Increase fiber intake - Combination lidocaine-hydrocortisone cream to be applied MD at night x 7 days. - Repeat colonoscopy in 10 years for CRC screening.
--- NOTE | 2022-04-13 07:37 | MHC.SHP ---
Pre-Procedural Eval Section A Date of Service: 04/13/22 Section B Chief Complaint: screening Details of Present Illness: PMH: Acquired deformity of toenail Allergic rhinitis Congenital hearing loss of left ear Depression with anxiety Eczema of both hands Essential hypertension Essential hypertension History of anemia History of gestational diabetes Intertrigo Left ankle pain Left anterior knee pain Left hip pain Obesity (BMI 30-39.9) BARBY on CPAP Plantar fasciitis Postsurgical menopause Tendinitis of knee Surgical History: History of bilateral breast reduction surgery History of hysterectomy, supracervical History of sinus surgery History of tubal ligation Relevant Social History: None Present Medications: see Short Stay Collaborative assessment Allergies: Allergies Allergy/AdvReac Type Severity Reaction Status Date / Time Penicillins Allergy Severe Anaphylaxis Verified 04/13/22 06:33 Review of Systems Review of Systems Comment: 10 point ROS negative except as above Exam Exam Comment: Gen appear: No acute distress HEENT: no icterus Chest: No overt resp distress Abd: soft, nontender, nondistended Psych: Stable affect, answering questions appropriately Neuro: A/Ox3 noted to move all extremities spontaneously Ext: no peripheral edema Plan Diagnosis/Plan: Unchanged I have reviewed the history and physical and performed a pertinent physical examination on my patient. No changes have occurred unless specified. Time Spent With Patient Time: Total time managing care of this patient today ____ minutes.
[2022-04-13 08:27] VITALS: BP 115/68; PULSE 82; RESP 16; TEMP 36.3; O2SAT 95
[2022-04-13 08:42] VITALS: BP 134/73; PULSE 63; RESP 16; TEMP 36.2; O2SAT 99
[2022-04-13 08:57] VITALS: BP 139/69; PULSE 65; RESP 18; TEMP 36.8; O2SAT 98
--- NOTE | 2022-04-13 11:03 | HO.POSTANES ---
Post Anesthesia Evaluation Post Anesthesia Evaluation Vital Signs: Vital Signs Temp Pulse Resp BP Pulse Ox O2 Del Method 04/13/22 08:57 98.3 F 65 18 139/69 98 Room Air 04/13/22 08:42 97.2 F 63 16 134/73 99 Room Air 04/13/22 08:27 97.4 F 82 16 115/68 95 Room Air 04/13/22 06:36 98.0 F 74 16 162/82 H 98 Room Air Anesthesia: Monitored Mental Status: Awake Pain Control: Satisfactory Nausea/Vomiting: None Hydration: Adequate
== END 2022-04-13 09:26 | disposition home or self-care (01) ==
PROVIDERS: PCP Internal Medicine; Visit Provider Internal Medicine
PROC: 0DJD8ZZ Inspection of Lower Intestinal Tract, Via Natural or Artificial Opening Endoscopic (ICD-10-PCS; CPT 45378; principal; 2022-04-13 07:30)
DX: Z12.11 Encounter for screening for malignant neoplasm of colon (principal); K64.8 Other hemorrhoids; K64.4 Residual hemorrhoidal skin tags; K59.00 Constipation, unspecified; I10 Essential (primary) hypertension; G47.33 Obstructive sleep apnea (adult) (pediatric); R12 Heartburn; Z79.899 Other long term (current) drug therapy; Z99.89 Dependence on other enabling machines and devices; Z88.0 Allergy status to penicillin
CPT/HCPCS: 45378

== ENCOUNTER → 2022-04-28 15:52 | Outpatient (BNVA) | payer OTHER, SELFPAY | PROVIDERS: PCP Internal Medicine; Visit Provider Internal Medicine | DX: Z13.89 Encounter for screening for other disorder (principal) ==

== ENCOUNTER 2022-07-24 13:37 | Outpatient (REF) | payer OTHER, SELFPAY ==
[2022-07-24 17:09] LABS: Alanine Aminotransferase 20 U/L (0-31); Albumin Level 4.1 g/dL (3.5-5.0); Alkaline Phosphatase 61 U/L (39-117); Aspartate Amino Transferase 16 U/L (5-31); Bilirubin Direct < 0.1 mg/dL (0.0-0.5); Bilirubin Total 0.4 mg/dL (0.0-1.0); Total Protein 7.2 g/dL (6.5-8.0)
== END 2022-07-24 13:38 | disposition home or self-care (01) ==
LOC: HO.HMGCLDS 13:37
PROVIDERS: PCP Internal Medicine; Visit Provider Podiatrist
DX: B35.1 Tinea unguium (principal)
CPT/HCPCS: 36415; 80076

== ENCOUNTER 2022-10-09 08:04 | Outpatient (AMB) | payer OTHER, SELFPAY ==
--- NOTE | 2022-10-09 08:06 | A.OFFPC_ITS ---
Vital Signs 10/09/22 08:14 Height 5 ft 4 in Weight 222 lb BMI 38.1 BP 132/80 Blood Pressure Location Rt brachial Position Sitting Pulse 68 Pulse Source Pulse Oximeter Pulse Oximetry (%) 98 Oxygen Delivery Method Room Air Intake Visit Reasons: Annual Physical Intake Note: Pt is here today for her PE Allergies Penicillins Allergy (Severe, Verified 10/09/22 08:29) Anaphylaxis Medication List - Last Reconciled 10/09/22 by Maria E Pappas MD albuterol sulfate 90 mcg/actuation (ProAir HFA) 2 puffs inhalation Q6H PRN buspirone 5 mg PO TID clotrimazole-betamethasone 1-0.05 % 1 appl topical BID 10 days docusate sodium 100 mg PO DAILY famotidine 20 mg PO DAILY fexofenadine-pseudoephedrine 180-240 mg ER 1 tab PO QAM PRN lidocaine HCl-hydrocortison ac 3-0.5 % 1 appl RI BEDTIME lisinopril 5 mg PO .QAP meloxicam 15 mg PO DAILY montelukast 10 mg PO DAILY naproxen 500 mg PO BID PRN triamcinolone acetonide 0.5% 1 appl topical BID 10 days Tobacco use date assessed: 10/09/22 Dental Screening Dental Screen Date: 10/09/22 Did you have a dental visit in the last 12 months?: Yes Did you have a dental problem in the last 6 months where you did not have access to dental care?: Yes Was dental information given to patient?: Patient has dentist HPI Annual Physical HPI Details 47-year-old lady here today for physical exam. She is currently up-to-date with her cervical cancer screening, goes to [facility], with last Pap smear normal last year. She is up-to-date with her screening mammogram due again in November this year.. She gets yearly flu shots and is up-to-date with her Tdap but does not want to get a COVID vaccine. She is up-to-date with her screening colonoscopy done earlier this year with normal findings except for presence of internal and external hemorrhoids. Takes buspirone for depression and anxiety, but states that it does not seem to be helping. She states that she stress eats whenever she has a low mood or having anxiety. Frustrated that she gained a lot of weight since last visit. . Has hypertension, with blood pressure currently stable on lisinopril 5 mg daily. She has obstructive sleep apnea on CPAP. Complains of having pain in her left shoulder, mainly in the posterior aspect of her left shoulder, accompanied by intermittent episodes of numbness and tingling going down her left arm and fingers. Any history of trauma or strenuous exercise. Has been taking Aleve and applying heat to affected area which affords only temporary relief she also has been having intermittent episodes of pain in her left knee, where she has torn her meniscus in the past [facility] Medical History (Updated 10/09/22 @ 09:00 by Maria E Pappas MD) Acquired deformity of toenail Allergic rhinitis Congenital hearing loss of left ear Depression with anxiety Eczema of both hands History of anemia History of gestational diabetes History of torn meniscus of left knee Intertrigo Left ankle pain Left anterior knee pain Left hip pain Obesity (BMI 30-39.9) BARBY on CPAP Pain of left shoulder with external rotation Plantar fasciitis Postsurgical menopause Tendinitis of knee Tooth ache Surgical History (Updated 10/09/22 @ 08:35 by Maria E Pappas MD) History of bilateral breast reduction surgery History of hysterectomy, supracervical History of sinus surgery History of tubal ligation Hx of colonoscopy Hx of knee surgery Family History Father CAD (coronary artery disease) Mother HTN (hypertension) Social History Household Members Other:: son Housing: House Are you a primary health care sanitary technician to a significant other at home: No Do you presently have visiting nurse or other home services: No Alcohol intake: current Alcohol intake frequency: holidays/special occasions only Patient Tobacco Use Status: Never used Tobacco e-Cigarette/Vaping Use: Never Used Second Hand Smoke Exposure: Yes service: No Current occupational status: employed 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 1. Little interest or pleasure in doing things: more than half the days 2. Feeling down, depressed, or hopeless: several days 3. Trouble falling or staying asleep, or sleeping too much: several days 4. Feeling tired or having little energy: several days 5. Poor appetite or overeating: nearly every day 6. Feeling bad about yourself - or that you are a failure or have let yourself or your family down: not at all 7. Trouble concentrating on things, such as reading the newspaper or watching television: nearly every day 8. Moving or speaking so slowly that other people could have noticed. Or the opposite - being so fidgety or restless that you have been moving around a lot more than usual: several days 9. Thoughts that you would be better off or of hurting yourself in some way: not at all Total score: 12 Depression Screening Interpretation: Positive Depression Screening Follow-up: Existing condition, In treatment and Community Mental Health Worker F/U Source: Developed by Drs. Jin Butler, Joleen Velasco, Otis Ceballos and colleagues, with an educational rashad from [employer]. Thrive Questionnaire Date Thrive assessed: 10/09/22 I am a: Patient What is your living situation today?: I have a steady place to live Within the past 12 months, did the food you bought not last and you didn't have the money to get more?: Sometimes True Within the past 12 months, did you worry whether your food would run out before you got money to buy more?: I choose not to answer this question Do you have trouble paying for medicines?: I choose not to answer this question Do you have trouble getting transportation to medical appointments?: No Do you have trouble paying your heating and electricity bill?: No Do you have trouble taking care of your child, family member or friend?: No Do you have trouble with day-to-day activities such as bathing, preparing meals, shopping, managing finances, etc.?: No Are you currently unemployed and looking for a job?: No Are you interested in more education?: No AUDIT C Alcohol Use Questionnaire (AUDIT-C) 1. How often do you have a drink containing alcohol?: Monthly or less 2. How many drinks containing alcohol do you have on a typical day when you are drinking?: 1 or 2 3. How often do you have six or more drinks on one occasion?: Never Total Score: 1 MARQUISE-7 AMB Questionnaire MARQUISE-7 Date MARQUISE - 7 assessed: 10/09/22 Feeling nervous, anxious, or on edge: 1 = Several days Not being able to stop or control worryin = More than half the days Worrying too much about different things: 2 = More than half the days Trouble relaxin = Several days Being so restless that it is hard to sit still: 1 = Several days Becoming easily annoyed or irritable: 1 = Several days Feeling afraid as if something awful might happen: 0 = Not at all Total MARQUISE-7 score (0-4 normal; 5-9 mild; 10-14 moderate; 15-21 severe): 8 Source: Developed by Drs. Jin Butler, Joleen Velasco, Otis Ceballos and colleagues, with an educational rashad from [employer]. MARQUISE-7 Assessment Billing MARQUISE-7 Assessment Tool: MARQUISE-7 Assessment 34611 Review of Systems Const Denies body aches, Denies fatigue, Denies fever(s), Denies headache(s), Denies weakness and Reports weight gain (Approximately 13 lb in 5 months) Eyes Denies change in vision, Denies eye discharge and Denies itchy eyes ENT Denies dizziness, Denies headache(s), Denies nasal congestion, Denies nasal discharge and Denies sore throat Card Denies chest pain, Denies lightheadedness, Denies palpitations and Denies dyspnea Resp Denies chest congestion, Denies cough, Denies dyspnea and Denies wheezing GI Denies abdominal pain, Denies change in bowel habits and Denies heartburn Denies hematuria, Denies urinary frequency, Denies dysuria and Denies urinary urgency Musc Reports as per HPI Skin/Breast Denies breast pain, Denies breast mass, Denies lesions and Denies rash Neuro Denies dizziness, Denies headache(s) and Denies weakness Psych Reports as per HPI Endo Denies fatigue, Denies polydipsia, Denies polyuria and Denies palpitations Crispin/Lymph Denies easy bruising Aller/Immun Denies itchy eyes, Reports seasonal rhinorrhea and Denies wheezing Physical exam (Primary Care) Vital Signs: Last Vital Signs Pulse 68 10/09/22 08:14 BP 132/80 10/09/22 08:14 Pulse Ox 98 10/09/22 08:14 Oxygen Delivery Method Room Air 10/09/22 08:14 BMI result Body Mass Index 38.1 BMI Assessment/Plan discussion: High BMI High, discussed plan: lifestyle, weight reduction, dietary and physical activity Tobacco/Smoking Status: Tobacco use Status Tobacco use date assessed 10/09/22 10/09/22 08:11 Patient Tobacco Use Status Never used Tobacco 10/09/22 08:11 e-Cigarette/Vaping Use Never Used 10/09/22 08:11 PHQ-9: PHQ-9 Score PHQ-9: Total score 12 10/09/22 08:37 Depression Screening Interpretation: Positive Depression Screening Follow-up: Existing condition, In treatment and Community Mental Health Worker F/U Thrive Assessment: Date of Thrive Assessment Date Thrive assessed 10/09/22 10/09/22 08:27 Const General: cooperative, comfortable and no acute distress Nutritional Appearance: obese Orientation/consciousness: patient oriented x3 HENMT Head: Yes normocephalic Ears: external ears normal, TM's normal bilaterally and EAC's normal General nose exam: Normal external nose present, Normal nasal mucous membranes and turbinates present and No nasal discharge present Mouth: Normal oral and palatal mucosa present, oropharynx normal and moist mucous membranes Throat: Yes posterior oropharynx normal Eyes General: appearance normal, both eyes and all related structures Conjunctivae: conjunctivae normal Pupils: Equal, round and reactive pupils present EOM: EOMs intact bilaterally Neck Neck: Yes normal visual inspection, Yes full ROM, Yes no lymphadenopathy and Yes supple Thyroid: Thyroid normal Chest Chest palpation & inspection: normal inspection of the chest (Bilateral mammoplasties old surgical scar) Breast/axilla inspection: normal inspection of the breasts Breast/axilla palpation: normal palpation of the breasts Resp Effort & Inspection: normal respiratory effort and able to speak in complete sentences Auscultation: clear to auscultation bilaterally Cardio Rate: regular rate Rhythm: regular rhythm Heart sounds: S1 normal heart sound present and S2 normal heart sound present GI Inspection: Yes normal to inspection Palpation (GI): Soft to palpation, nontender and no masses Auscultation: normal bowel sounds General: Yes no CVA tenderness Back/Spine/Pelvis Back: no CVA tenderness Cervical Spine: cervical ROM normal Thoracic/Lumbar Spine: thoracic and lumbar spine normal to inspection Sacroiliac joints: on the left tender to palpation Skin General skin exam: no rashes or lesions noted Neuro General: patient oriented x3, gait normal, tone normal, moves all extremities, Normal light touch and pain sensation and no focal motor deficits Cranial nerves: Yes Equal, round and reactive pupils present Cognition (Neuro): normal cognition Gait exam (Neuro): Normal gait present Motor exam (neuro): 5/5 motor strength present throughout Extrem Other: Unable to abduct left arm more than 90 degrees due to pain in left shoulder, positive impingement sign General: Yes no joint enlargement, Yes no pedal edema and Yes normal gait Psych Appearance: grossly normal Mental Status: mental status grossly normal Speech and movement: Normal speech and movement present Affect: normal affect Attitude: cooperative Thought process: Normal thought process present Thought content: Normal thought content present Assessment and Plan Assessment & Plan (1) Essential hypertension: Code(s): I10 - Essential (primary) hypertension Plan: Blood pressure at goal of less than 130/80. Continue with current medication. Reinforced importance of following a low sodium diet, getting regular exercise, and lowering stress levels. (2) Postsurgical menopause: Code(s): E89.40 - Asymptomatic postprocedural ovarian failure Plan: Will check vitamin-D level advised to do regular weight-bearing exercise, and take adequate calcium from dietary sources. (3) Depression with anxiety: Code(s): F41.8 - Other specified anxiety disorders Plan: Stop buspirone and will change to bupropion XL 150 mg per tablet to take once a day in a.m.. Discussed possible side effects of the medication which includes increased risk for seizure disorder . Declines referral for counseling, will see her back for follow-up in 6 weeks (4) BARBY on CPAP: Comment: Very Compliant and benefitting . ADVISED TO KEEP ON USING IT REGULARLY, Code(s): G47.33 - Obstructive sleep apnea (adult) (pediatric); Z99.89 - Dependence on other enabling machines and devices (5) Obesity (BMI 30-39.9): Comment: Patient is aware of being overweight,. We discussed about diet , to be low in calories in low carbs. and need to do some exercise. Code(s): E66.9 - Obesity, unspecified Plan: Discussed need to increase activity and wt reduction. Recommended focusing on improving your health instead of dieting. : Eat Mediterranean diet, limit foods high in fat, sugar, and calories, eat slowly, pay attention to portion sizes, plan your meals ahead of time, start regular phy sical activity 150 minutes of moderate intensity exercise or 90 minutes/week of vigorous exercise and increase water intake. Referral to weight management clinic at [place], per patient request (6) Annual visit for general adult medical examination with abnormal findings: Code(s): Z00.01 - Encounter for general adult medical examination with abnormal findings Plan: Will check appropriate labs. Recommended dental visit every 6 months and regular eye exams, at least every 2 years, currently up-to-date want to well [facility]. Take adequate calcium in diet and vitamin-D 3 at 2000 IU per cap once a day, in addition to weight-bearing exercises to help maintain good muscle tone and weight control. Instructed to do self-breast exam, and reminded to get yearly mammogram, has appointment already scheduled for November 2022 does not want to get COVID vaccines, up-to-date with her Tdap, and gets yearly flu vaccines. She is also up-to-date with her screening colonoscopy done earlier this year which only showed presence of internal external hemorrhoids. Repeat again in 10 years (7) Pain of left shoulder with external rotation: Code(s): M25.512 - Pain in left shoulder Plan: Has already been taking naproxen and Tylenol with minimal relief, referred to orthopedic clinic for further evaluation management (8) History of torn meniscus of left knee: Code(s): Z87.828 - Personal history of other (healed) physical injury and trauma Plan: Referral to Orthopedic ordered (9) Left anterior knee pain: Code(s): M25.562 - Pain in left knee Plan: Orthopedic consult ordered Orders: Orders Alanine Aminotransferase 10/09/22 E66.9 - Obesity, unspecified, E89.40 - Asymptomatic postprocedural ovarian failure, F41.8 - Other specified anxiety disorders, G47.33 - Obstructive sleep apnea (adult) (pediatric), I10 - Essential (primary) hypertension, Z00.01 - Encounter for general adult medical examination with abnormal findings, Z13.220 - Encounter for screening for lipoid disorders, Z86.32 - Personal history of gestational diabetes, Z99.89 - Dependence on other enabling machines and devices Aspartate Amino Transferase 10/09/22 E66.9 - Obesity, unspecified, E89.40 - Asymptomatic postprocedural ovarian failure, F41.8 - Other specified anxiety disorders, G47.33 - Obstructive sleep apnea (adult) (pediatric), I10 - Essential (primary) hypertension, Z00.01 - Encounter for general adult medical examination with abnormal findings, Z13.220 - Encounter for screening for lipoid disorders, Z86.32 - Personal history of gestational diabetes, Z99.89 - Dependence on other enabling machines and devices Basic Metabolic Panel Fasting 10/09/22 E66.9 - Obesity, unspecified, E89.40 - Asymptomatic postprocedural ovarian failure, F41.8 - Other specified anxiety disorders, G47.33 - Obstructive sleep apnea (adult) (pediatric), I10 - Essential (primary) hypertension, Z00.01 - Encounter for general adult medical examination with abnormal findings, Z13.220 - Encounter for screening for lipoid disorders, Z86.32 - Personal history of gestational diabetes, Z99.89 - Dependence on other enabling machines and devices Lipid Panel 10/09/22 E66.9 - Obesity, unspecified, E89.40 - Asymptomatic postprocedural ovarian failure, F41.8 - Other specified anxiety disorders, G47.33 - Obstructive sleep apnea (adult) (pediatric), I10 - Essential (primary) hypertension, Z00.01 - Encounter for general adult medical examination with abnormal findings, Z13.220 - Encounter for screening for lipoid disorders, Z86.32 - Personal history of gestational diabetes, Z99.89 - Dependence on other enabling machines and devices TSH reflex Free T4 10/09/22 E66.9 - Obesity, unspecified, E89.40 - Asymptomatic postprocedural ovarian failure, F41.8 - Other specified anxiety disorders, G47.33 - Obstructive sleep apnea (adult) (pediatric), I10 - Essential (primary) hypertension, Z00.01 - Encounter for general adult medical examination with abnormal findings, Z13.220 - Encounter for screening for lipoid disorders, Z86.32 - Personal history of gestational diabetes, Z99.89 - Dependence on other enabling machines and devices Vitamin D 25-OH Total 10/09/22 E66.9 - Obesity, unspecified, E89.40 - Asymptomatic postprocedural ovarian failure, F41.8 - Other specified anxiety disorders, G47.33 - Obstructive sleep apnea (adult) (pediatric), I10 - Essential (primary) hypertension, Z00.01 - Encounter for general adult medical examination with abnormal findings, Z13.220 - Encounter for screening for lipoid disorders, Z86.32 - Personal history of gestational diabetes, Z99.89 - Dependence on other enabling machines and devices Referrals Medical Weight Management Referral E66.9 - Obesity, unspecified Orthopedics Referral M25.512 - Pain in left shoulder, M25.562 - Pain in left knee, Z87.828 - Personal history of other (healed) physical injury and trauma Medications: New bupropion HCl 150 mg PO QAM 30 tabs 1RF Discontinued buspirone Discontinued Reason: Doctor's Order 5 mg PO TID 90 tabs 5RF F41.8 - Other specified anxiety disorders Coding Level of Care Code Est Pt Prev Care 40-64y(31322) Diagnoses Essential hypertension I10 Postsurgical menopause E89.40 Depression with anxiety F41.8 BARBY on CPAP G47.33; Z99.89 Obesity (BMI 30-39.9) E66.9 Annual visit for general adult medical examination with abnormal findings Z00.01 Pain of left shoulder with external rotation M25.512 History of torn meniscus of left knee Z87.828 Left anterior knee pain M25.562 Additional Codes MARQUISE-7 Assessment Billing - MARQUISE-7 Assessment Tool: MARQUISE-7 Assessment [id number] ([id number])
[2022-10-09 08:14] VITALS: BP 132/80; PULSE 68; O2SAT 98; BMI 38.1
== END 2022-10-09 09:04 | disposition home or self-care (01) ==
PROVIDERS: Visit Provider Internal Medicine
DX: Z00.00 Encounter for general adult medical examination without abnormal findings (principal); I10 Essential (primary) hypertension; E89.40 Asymptomatic postprocedural ovarian failure; F41.8 Other specified anxiety disorders; Z87.828 Personal history of other (healed) physical injury and trauma; G47.33 Obstructive sleep apnea (adult) (pediatric); Z99.89 Dependence on other enabling machines and devices; E66.9 Obesity, unspecified; M25.512 Pain in left shoulder; M25.562 Pain in left knee
CPT/HCPCS: 99396

== ENCOUNTER 2022-10-09 09:04 | Outpatient (REF) | payer OTHER, SELFPAY ==
[2022-10-09 13:04] LABS: Alanine Aminotransferase 21 U/L (0-31); Anion Gap 11 (12-20); Aspartate Amino Transferase 16 U/L (5-31); Blood Urea Nitrogen 12 mg/dL (9-16); Carbon Dioxide 26 mmol/L (22-29); Chloride 105 mmol/L (96-108); Cholesterol 196 mg/dL (<200); Estimated Glomerular Filt Rate > 60; Glucose Fasting 82 mg/dL (60-99); HDL Cholesterol 52 mg/dL (>40); LDL Cholesterol Calculated 115 mg/dL (<100); Sodium 138 mmol/L (135-145); Triglycerides 145 mg/dL (<150)
[2022-10-09 13:22] LABS: TSH reflex Free T4 1.74 uIU/mL (0.32-4.0); Vitamin D 25-OH Total 28.9 ng/mL (>30)
== END 2022-10-09 09:05 | disposition home or self-care (01) ==
LOC: HO.HMGCLDS 09:04
PROVIDERS: PCP Internal Medicine; Visit Provider Internal Medicine
DX: Z00.01 Encounter for general adult medical examination with abnormal findings (principal); Z13.220 Encounter for screening for lipoid disorders; E66.9 Obesity, unspecified; E89.40 Asymptomatic postprocedural ovarian failure; F41.8 Other specified anxiety disorders; G47.33 Obstructive sleep apnea (adult) (pediatric); I10 Essential (primary) hypertension; Z86.32 Personal history of gestational diabetes; Z99.89 Dependence on other enabling machines and devices
CPT/HCPCS: 36415; 80048; 80061; 82306; 84443; 84450; 84460

== ENCOUNTER 2022-10-20 06:44 | Outpatient (REF) | payer OTHER, SELFPAY ==
--- NOTE | ~2022-10-20 | XR_ITS ---
EXAMINATION: XR SHOULDER, LEFT CLINICAL INFORMATION: Pain. COMPARISON: None available. TECHNIQUE: AP neutral, scapular Y, and axillary views of the left shoulder. FINDINGS: Bony alignment and mineralization are normal. The glenohumeral joint is intact. A large peripheral osteophyte arises from the inferior articular margin of the left humeral head. The acromioclavicular and coracoclavicular intervals are normal. No fracture or dislocation is seen. There is no focal soft tissue calcification or foreign body. No left pneumothorax is seen. XR/XR shoulder LT min 2V IMPRESSION: 1. There is marked osteoarthritic change of the left glenohumeral joint. 2. No fracture or dislocation is seen.
== END 2022-10-20 06:45 | disposition home or self-care (01) ==
LOC: HO.HOSX 06:44
PROVIDERS: Visit Provider Physician Assistant
DX: M19.012 Primary osteoarthritis, left shoulder (principal); M75.82 Other shoulder lesions, left shoulder; M54.12 Radiculopathy, cervical region
CPT/HCPCS: 20610; 73030; J1040

== ENCOUNTER 2022-10-20 09:02 | Outpatient (AMB) | payer OTHER, SELFPAY ==
--- NOTE | 2022-10-20 09:12 | A.OFFVIS_ITS ---
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 Patient reports pain has been present for a couple of months that has been getting worse. Denies injury. Intermittent episodes of numbness and tingling that goes down her left arm to her fingers. Limited ROM. No previous tx. Has been taking naproxen and Tylenol with minimal relief. 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 She states she has limited ROM and worsening pain in the posterior aspect of the shoulder. Her pain is aggravated at night which makes her unable to sleep. She also c/o intermittent numbness and tingling on the left arm which radiates to her fingers. She finds no relief with naproxen, heat or ice treatment. She has not had any treatment or injury in the past. She does not have a history of diabetes. [facility] Medical History (Updated 10/20/22 @ 09:46 by Suzie Quinonez PA-C) History of torn meniscus of left knee Pain of left shoulder with external rotation Tooth ache Acquired deformity of toenail Postsurgical menopause History of anemia Depression with anxiety Left ankle pain Left hip pain Left anterior knee pain Tendinitis of knee History of gestational diabetes Congenital hearing loss of left ear Allergic rhinitis Plantar fasciitis Intertrigo Eczema of both hands BARBY on CPAP Obesity (BMI 30-39.9) Surgical History (Updated 10/09/22 @ 08:35 by Maria E Pappas MD) Hx of colonoscopy Hx of knee surgery History of bilateral breast reduction surgery History of sinus surgery History of tubal ligation History of hysterectomy, supracervical Family History Father CAD (coronary artery disease) Mother HTN (hypertension) Social History (Updated 10/20/22 @ 09:17 by Deonna Ferreira Fahad) Household Members Other:: son Housing: House Are you a primary chiropractic care to a significant other at home: No Do you presently have visiting nurse or other home services: No Alcohol intake: current Alcohol intake frequency: holidays/special occasions only Patient Tobacco Use Status: Never used Tobacco e-Cigarette/Vaping Use: Never Used Second Hand Smoke Exposure: Yes service: No Current occupational status: employed 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 Current occupational exposures/hazards: No Cognitive needs: No Hearing needs: No Vision needs: No Female Reproductive History Menstrual Age of Menarche: 12 Review of Systems Const All systems reviewed & are unremarkable except as noted in HPI and below Physical Exam Vital Signs: BMI result Body Mass Index 38.1 Const General: cooperative, healthy appearing, comfortable, no acute distress, well developed and alert Orientation/consciousness: patient oriented x3 HEENT Head: Yes normal to inspection, Yes normocephalic and Yes atraumatic Eyes General: appearance normal, both eyes and all related structures Resp Effort & Inspection: normal respiratory effort and able to speak in complete sentences Cardio Rate: regular rate Peripheral pulses: Peripheral pulses 2+ throughout GI Palpation (GI): Soft to palpation Skin Lesions: no lesions Rashes: no rashes Neuro General: patient oriented x3 Extrem Other: Left shoulder normal to inspection. Tenderness over the bicipital groove and along the deltoid region of the shoulder. Forward flexion to 90, external rotation to 90, internal rotation to S1. 5/5 RTC strength. Negative Pablo and cross body abduction. NVI. Office Procedures Joint Injection/Drain Joint Injection/Drain Primary Site: left shoulder Prep: site was prepped using aseptic technique, ethochloride spray was applied and injection warnings given Injected: 80 mg of, DepoMedrol, with 8 mL of, 1% plain lidocaine and in the subcromial space Approach Used: posterolateral Procedure: The patient tolerated the procedure well and there was some relief with the local anesthesia Coding 81832 - Glenohumeral/Tronchanteric Bursa/Intraarticular Procedure code (CPT) selection complete Results Reviewed Results Reviewed: 10/20/22 09:45 Lidocaine HCl 2 % MPF [Xylocaine 2 % MPF] 5 ml .ROUTE .STK-MED ONE methylPREDNISolone acetate [DEPO-MedroL] 80 mg .ROUTE .STK-MED ONE Assessment & Plan Assessment & Plan (1) Arthritis of left shoulder region: Code(s): M19.012 - Primary osteoarthritis, left shoulder (2) Tendonitis of left rotator cuff: Code(s): M75.82 - Other shoulder lesions, left shoulder (3) Cervical radiculopathy: Code(s): M54.12 - Radiculopathy, cervical region Plan We discussed options today which include steroid injection. They did consent to move forward with the left shoulder injection, which was tolerated well. I recommended rest, ice and elevation and OTC anti-inflammatories PRN for discomfort. She was also given a course of physical therapy for her left shoulder and neck. If symptoms does not improve in the neck and she continues to have numbness and tingling, I would consider referring her to pain management or the spine group within our hospital. She is content with this plan and will see us back as needed. Orders: Orders PT Evaluation and Treatment Today M19.012 - Primary osteoarthritis, left shoulder, M54.12 - Radiculopathy, cervical region, M75.82 - Other shoulder lesions, left shoulder XR shoulder LT min 2V Today M25.512 - Pain in left shoulder Patient Instructions: Scribed for Suzie Quinonez PA-C, by Yovany Kennedy medical billing clerk, on 10/20/2022 at 9:15 AM EST. I, Suzie Quinonez PA-C, have personally reviewed and agree with the information entered by the scribe. Coding Level of Care Code New Pt Level 3 (16176) Diagnoses Arthritis of left shoulder region M19.012 Tendonitis of left rotator cuff M75.82 Cervical radiculopathy M54.12 CPT Codes Coding - Joint 7: 81096 - Glenohumeral/Tronchanteric Bursa/Intraarticular ([id number])
[2022-10-20 09:21] VITALS: BMI 38.1
== END 2022-10-20 10:06 | disposition home or self-care (01) ==
PROVIDERS: PCP Internal Medicine; Visit Provider Physician Assistant
DX: M19.012 Primary osteoarthritis, left shoulder (principal); M75.82 Other shoulder lesions, left shoulder; M54.12 Radiculopathy, cervical region
CPT/HCPCS: 20610; 99204

== ENCOUNTER 2022-11-16 15:30 | Outpatient (AMB) | payer OTHER, SELFPAY ==
[2022-11-16 15:50] VITALS: BP 150/96; PULSE 76; O2SAT 98; BMI 36.1
--- NOTE | 2022-11-16 15:50 | MHC.PC.OV ---
Vital Signs 11/16/22 15:50 Height 5 ft 4 in Weight 210 lb 4 oz BMI 36.1 BP 150/96 H Blood Pressure Location Lt brachial Position Sitting Pulse 76 Pulse Source Pulse Oximeter Pulse Oximetry (%) 98 Oxygen Delivery Method Room Air Intake Visit Reasons: 4-6 week follow up Intake Note: pt is here to follow up 4-6 weeks she picked up the bupropion but she never started it after she read all the side effects Allergies Penicillins Allergy (Severe, Verified 11/16/22 16:02) Anaphylaxis Medication List - Last Reconciled 11/16/22 by Maria E Pappas MD albuterol sulfate 90 mcg/actuation (ProAir HFA) 2 puffs inhalation Q6H PRN clotrimazole-betamethasone 1-0.05 % 1 appl topical BID 10 days docusate sodium 100 mg PO DAILY famotidine 20 mg PO DAILY fexofenadine-pseudoephedrine 180-240 mg ER 1 tab PO QAM PRN lidocaine HCl-hydrocortison ac 3-0.5 % 1 appl OH BEDTIME lisinopril 5 mg PO .QAP montelukast 10 mg PO DAILY naproxen 500 mg PO BID PRN triamcinolone acetonide 0.5% 1 appl topical BID 10 days Tobacco use date assessed: 11/16/22 Dental Screening Dental Screen Date: 11/16/22 Did you have a dental visit in the last 12 months?: Yes Did you have a dental problem in the last 6 months where you did not have access to dental care?: No Was dental information given to patient?: Patient has dentist HPI 4-6 week follow up HPI Details 47-year-old lady here today for follow-up regarding her anxiety depression. She was seen and started on bupropion on last visit, but patient never started taking the medication as she was scared of the side effects of the medication when she read the package insert. Prefers not to start taking any medication but would like to see a therapist. He has been referred and been seen by psych wellness care in the past, but patient does not want to be referred back there again as she states that the therapist was not really helping her. She is also complete having recurrent pain in her left shoulder joint, worse when she abducts her left arm or does overhead movements with her left arm. She has been seen by orthopedics for this and x-ray of the left shoulder showed marked osteoarthritic change of the left glenohumeral joint, o fracture or dislocation seen. She was referred by Orthopedics tooth physical therapy but patient never went stating that she does not think that it was going to help, has tried in the past. Has only been taking naproxen which has helped temporarily.. [facility] Medical History History of torn meniscus of left knee Pain of left shoulder with external rotation Tooth ache Acquired deformity of toenail Postsurgical menopause History of anemia Depression with anxiety Left ankle pain Left hip pain Left anterior knee pain Tendinitis of knee History of gestational diabetes Congenital hearing loss of left ear Allergic rhinitis Plantar fasciitis Intertrigo Eczema of both hands BARBY on CPAP Obesity (BMI 30-39.9) Surgical History Hx of colonoscopy Hx of knee surgery History of bilateral breast reduction surgery History of sinus surgery History of tubal ligation History of hysterectomy, supracervical Family History Father CAD (coronary artery disease) Mother HTN (hypertension) Social History Household Members Other:: son Housing: House Are you a primary daycare provider to a significant other at home: No Do you presently have visiting nurse or other home services: No Alcohol intake: current Alcohol intake frequency: holidays/special occasions only Patient Tobacco Use Status: Never used Tobacco e-Cigarette/Vaping Use: Never Used Second Hand Smoke Exposure: Yes service: No Current occupational status: employed 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 1. Little interest or pleasure in doing things: more than half the days 2. Feeling down, depressed, or hopeless: several days 3. Trouble falling or staying asleep, or sleeping too much: several days 4. Feeling tired or having little energy: several days 5. Poor appetite or overeating: nearly every day 6. Feeling bad about yourself - or that you are a failure or have let yourself or your family down: not at all 7. Trouble concentrating on things, such as reading the newspaper or watching television: nearly every day 8. Moving or speaking so slowly that other people could have noticed. Or the opposite - being so fidgety or restless that you have been moving around a lot more than usual: several days 9. Thoughts that you would be better off or of hurting yourself in some way: not at all Total score: 12 Depression Screening Interpretation: Positive Depression Screening Follow-up: Existing condition and Community Mental Health Worker F/U Depression Screening Done: Yes Source: Developed by Drs. Jin Butler, Joleen Velasco, Otis Ceballos and colleagues, with an educational rashad from [employer]. Thrive Questionnaire Date Thrive assessed: 10/09/22 MARQUISE-7 AMB Questionnaire MARQUISE-7 Date MARQUISE - 7 assessed: 11/16/22 Feeling nervous, anxious, or on edge: 1 = Several days Not being able to stop or control worryin = More than half the days Worrying too much about different things: 2 = More than half the days Trouble relaxin = Several days Being so restless that it is hard to sit still: 1 = Several days Becoming easily annoyed or irritable: 1 = Several days Feeling afraid as if something awful might happen: 0 = Not at all Total MARQUISE-7 score (0-4 normal; 5-9 mild; 10-14 moderate; 15-21 severe): 8 Source: Developed by Drs. Jin Butler, Joleen Velasco, Otis Ceballos and colleagues, with an educational rashad from [employer]. MARQUISE-7 Assessment Billing MARQUISE-7 Assessment Tool: MARQUISE-7 Assessment 93555 Review of Systems Const Denies headache(s) and Denies weakness ENT Denies dizziness, Denies headache(s), Denies nasal congestion, Denies nasal discharge and Denies sore throat Card Denies chest pain, Denies lightheadedness and Denies dyspnea Resp Denies chest congestion, Denies cough and Denies dyspnea GI Denies abdominal pain, Denies change in bowel habits and Denies heartburn Musc Reports as per HPI Skin/Breast Denies lesions and Denies rash Neuro Denies dizziness, Denies headache(s) and Denies weakness Psych Reports as per HPI Physical exam (Primary Care) Vital Signs: Last Vital Signs Pulse 76 11/16/22 15:50 BP 150/96 H 11/16/22 15:50 Pulse Ox 98 11/16/22 15:50 Oxygen Delivery Method Room Air 11/16/22 15:50 BMI result Body Mass Index 36.1 BMI Assessment/Plan discussion: High BMI High, discussed plan: lifestyle, weight reduction, dietary and physical activity Tobacco/Smoking Status: Tobacco use Status Tobacco use date assessed 11/16/22 11/16/22 15:56 Patient Tobacco Use Status Never used Tobacco 11/16/22 15:54 e-Cigarette/Vaping Use Never Used 11/16/22 15:54 Depression Screening Interpretation: Positive Depression Screening Follow-up: Existing condition and Community Mental Health Worker F/U Thrive Assessment: Date of Thrive Assessment Date Thrive assessed 10/09/22 11/16/22 15:54 Const General: cooperative, comfortable and no acute distress Nutritional Appearance: obese Orientation/consciousness: patient oriented x3 HENMT Head: Yes normocephalic General nose exam: Normal external nose present and No nasal discharge present Mouth: oropharynx normal and moist mucous membranes Eyes General: appearance normal, both eyes and all related structures Neck Neck: Yes full ROM, Yes no lymphadenopathy and Yes supple Thyroid: Thyroid normal Resp Effort & Inspection: normal respiratory effort and able to speak in complete sentences Auscultation: clear to auscultation bilaterally Cardio Rate: regular rate Rhythm: regular rhythm Heart sounds: S1 normal heart sound present and S2 normal heart sound present GI Inspection: Yes normal to inspection Palpation (GI): Soft to palpation, nontender and no masses Auscultation: normal bowel sounds Back/Spine/Pelvis Cervical Spine: cervical ROM normal Thoracic/Lumbar Spine: thoracic and lumbar spine normal to inspection Sacroiliac joints: on the left tender to palpation Skin General skin exam: no rashes or lesions noted Neuro General: patient oriented x3, gait normal, tone normal, moves all extremities, Normal light touch and pain sensation and no focal motor deficits Cognition (Neuro): normal cognition Gait exam (Neuro): Normal gait present Motor exam (neuro): 5/5 motor strength present throughout Extrem Other: Unable to abduct left arm more than 90 degrees due to pain in left shoulder, positive impingement sign General: Yes no joint enlargement, Yes no pedal edema and Yes normal gait Psych Appearance: grossly normal Mental Status: mental status grossly normal Speech and movement: Normal speech and movement present Affect: normal affect Attitude: cooperative Thought process: Normal thought process present Thought content: Normal thought content present Assessment and Plan Assessment & Plan (1) Depression with anxiety: Code(s): F41.8 - Other specified anxiety disorders Plan: Patient did not want to start taking the bupropion prescription that was sent after she read the side effects of the medication. She states that she does not really want to start any medication at present time and would prefer referral for counseling. She has tried therapy before a year ago and was referred to psych wellness care but did not like the therapist she had there. Would like to be referred somewhere else. Patient counseled that Trudy Irvingfly will be calling her to go over alternatives for therapy in the area (2) Arthritis of left shoulder region: Code(s): M19.012 - Primary osteoarthritis, left shoulder Plan: Refill prescription was sent for naproxen 500 mg to take 1 tablet twice a day as needed for pain, counseled patient to take it always with milk or on a full stomach. Advised to follow up again with ortho and inform them that the injection that she received did not afford any relief at all. Medications: Refilled naproxen 500 mg PO BID PRN 20 tabs 0RF pain Coding Level of Care Code Est Pt Level 3 (37339) Diagnoses Depression with anxiety F41.8 Arthritis of left shoulder region M19.012 Additional Codes MARQUISE-7 Assessment Billing - MARQUISE-7 Assessment Tool: MARQUISE-7 Assessment 81317 ([id number])
== END 2022-11-16 16:24 | disposition home or self-care (01) ==
PROVIDERS: PCP Internal Medicine; Visit Provider Internal Medicine
DX: F41.8 Other specified anxiety disorders (principal); M19.012 Primary osteoarthritis, left shoulder
CPT/HCPCS: 99213

== ENCOUNTER → 2022-11-22 07:45 | Outpatient (BNV) | payer OTHER, SELFPAY | PROVIDERS: PCP Internal Medicine; Visit Provider Radiology Diagnostic Radiology | DX: Z12.31 Encounter for screening mammogram for malignant neoplasm of breast (principal) | CPT/HCPCS: 77063; 77067 ==

== ENCOUNTER 2022-11-22 07:49 | Outpatient (REF) | payer OTHER, SELFPAY ==
--- NOTE | ~2022-11-22 | MM_ITS ---
EXAMINATION: MM SCREENING DIGITAL BREAST TOMOSYNTHESIS, BILATERAL CLINICAL INFORMATION: Screening. Asymptomatic. COMPARISON: Mammography: This study is compared with prior exams dating back to 2017. TECHNIQUE: Digital breast tomosynthesis is performed in both the craniocaudal and mediolateral oblique views along with computer-aided detection (CAD). Synthesized 2D images are generated from the tomosynthesis. FINDINGS: There are scattered areas of fibroglandular density (ACR BI-RADS breast composition Category b). There are no significant masses, abnormal calcifications, or other abnormalities. There is a coarse, benign calcification in the superficial third of the right breast at 12:00. This is inside outside sales representative of an involuted fibroadenoma. MM/MM tomosynthesis screening BI IMPRESSION: No mammographic evidence of malignancy. ASSESSMENT: BI-RADS BI-RADS 2 - Benign Findings RECOMMENDATION: Routine annual mammography screening. 1 year F/U This examination should not preclude the clinical evaluation of a suspicious palpable abnormality. This patient's information was entered into a reminder system with a target due date for their next mammogram.
== END 2022-11-22 07:50 | disposition home or self-care (01) ==
LOC: HO.MAMMO 07:49
PROVIDERS: PCP Internal Medicine; Visit Provider Internal Medicine
DX: Z12.31 Encounter for screening mammogram for malignant neoplasm of breast (principal)
CPT/HCPCS: 77063; 77067

== ENCOUNTER → 2023-01-03 14:54 | Outpatient (BNVA) | payer OTHER, SELFPAY | PROVIDERS: PCP Internal Medicine; Visit Provider Physician Assistant ==

== ENCOUNTER 2023-01-03 15:00 | Outpatient (AMB) | payer OTHER, SELFPAY ==
--- NOTE | 2023-01-03 14:59 | A.OFFVIS_ITS ---
Intake Vital Signs 01/03/23 15:08 Height 5 ft 4 in Weight 210 lb BMI 36.0 Intake Visit Reasons: Newprob-Pain in left knee Intake Note: Blossom ken 47 year old female presents today for an evaluation of left knee pain. Patient reports that she had a left knee injury in 2016 that required a meniscus surgery in 2017 at [facility]. Currently she has constant pain at the anterior aspect of knee that radiates down the medial aspect of leg. Her pain is worse with stair use and walking. Finds no relief with Tylenol or ibuprofen, stating unable to continues ibuprofen due to GI upset. Allergies Penicillins Allergy (Severe, Verified 01/03/23 15:08) Anaphylaxis HPI Newprob-Pain in left knee HPI Details 47-year-old female who presents to the o ffice today for evaluation of left knee pain. She currently states she has constant pain in the anterior aspect of her knee which radiates down to the medial aspect of her leg. Her pain is aggravated with stair use and ambulation. She also c/o crunching and grinding in her knee. She finds no relief with Tylenol and ibuprofen. She was unable to continue ibuprofen due to GI upset. She has a history of left knee injury in 2016 and required a meniscus surgery in 2017 at [facility]. She also continues to have pain in her left shoulder pain which is aggravated with physical therapy. She reports she cannot move her shoulder. She denies any numbness or tingling. [facility] Medical History History of torn meniscus of left knee Pain of left shoulder with external rotation Tooth ache Acquired deformity of toenail Postsurgical menopause History of anemia Depression with anxiety Left ankle pain Left hip pain Left anterior knee pain Tendinitis of knee History of gestational diabetes Congenital hearing loss of left ear Allergic rhinitis Plantar fasciitis Intertrigo Eczema of both hands BARBY on CPAP Obesity (BMI 30-39.9) Surgical History Hx of colonoscopy Hx of knee surgery History of bilateral breast reduction surgery History of sinus surgery History of tubal ligation History of hysterectomy, supracervical Family History Father CAD (coronary artery disease) Mother HTN (hypertension) Household Members Other:: son Housing: House Are you a primary child care attendant to a significant other at home: No Do you presently have visiting nurse or other home services: No Alcohol intake: current Alcohol intake frequency: holidays/special occasions only Patient Tobacco Use Status: Never used Tobacco e-Cigarette/Vaping Use: Never Used Second Hand Smoke Exposure: Yes service: No Current occupational status: employed 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 Current occupational exposures/hazards: No Cognitive needs: No Hearing needs: No Vision needs: No Female Reproductive History Menstrual Age of Menarche: 12 Review of Systems Const All systems reviewed & are unremarkable except as noted in HPI and below Physical Exam Vital Signs: BMI result Body Mass Index 36.0 Const General: cooperative, healthy appearing, comfortable, no acute distress, well developed and alert Orientation/consciousness: patient oriented x3 HEENT Head: Yes normal to inspection, Yes normocephalic and Yes atraumatic Eyes General: appearance normal, both eyes and all related structures Resp Effort & Inspection: normal respiratory effort and able to speak in complete sentences Cardio Rate: regular rate Peripheral pulses: Peripheral pulses 2+ throughout GI Palpation (GI): Soft to palpation Skin Lesions: no lesions Rashes: no rashes Neuro General: patient oriented x3 Extrem Other: Left shoulder normal to inspection. Tenderness over the bicipital groove and along the deltoid region of the shoulder. Forward flexion to 90, external rotation to 90, internal rotation to S1. 5/5 RTC strength. Negative Pablo and cross body abduction. NVI. Left knee skin intact, no erythema or joint effusion. Tenderness along the medial joint line. ROM full with crepitus. Negative steinmans. No ligamentous laxity. NVI. Results Reviewed Results Reviewed: xrays of the left shoulder obtained 10/20/22 IMPRESSION: 1. There is marked osteoarthritic change of the left glenohumeral joint. 2. No fracture or dislocation is seen. Lt knee xrays 09/09/20 IMPRESSION: 1. No fracture or dislocation. 2. Degenerative changes medial knee joint compartment with small suprapatellar effusion. Assessment & Plan Assessment & Plan (1) Tendonitis of left rotator cuff: Code(s): M75.82 - Other shoulder lesions, left shoulder (2) Arthritis of left shoulder region: Code(s): M19.012 - Primary osteoarthritis, left shoulder (3) Internal derangement of left knee: Code(s): M23.92 - Unspecified internal derangement of left knee (4) Pes anserinus bursitis of left knee: Code(s): M70.52 - Other bursitis of knee, left knee Plan We discussed options for her knee. She will begin a course of physical therapy to work on some strengthening and conditioning exercises. An MRI of her left knee has been ordered to further evaluate the ligamentous structures of the knee. We also discussed her left shoulder. She continues to have difficulty with daily activities, therefore we discussed and MRI imaging of the left shoulder as well. Once this is complete, I will contact with the results, otherwise she will follow-up as needed. Orders: Orders MR shoulder LT wo con 01/03/23 S46.009A - Unspecified injury of muscle(s) and tendon(s) of the rotator cuff of unspecified shoulder, initial encounter MR knee LT wo con 01/03/23 M17.12 - Unilateral primary osteoarthritis, left knee, M23.92 - Unspecified internal derangement of left knee, M70.52 - Other bursitis of knee, left knee PT Evaluation and Treatment 01/03/23 M23.92 - Unspecified internal derangement of left knee, M70.52 - Other bursitis of knee, left knee Patient Instructions: Scribed for Suzie Quinonez PA-C, by Yovany Kennedy medical social worker, on 01/03/2023 at 3:00 PM EST. ISuzie PA-C, have personally reviewed and agree with the information entered by the scribe. Coding Level of Care Code New Pt Level 3 (27372) Diagnoses Tendonitis of left rotator cuff M75.82 Arthritis of left shoulder region M19.012 Internal derangement of left knee M23.92 Pes anserinus bursitis of left knee M70.52
[2023-01-03 15:08] VITALS: BMI 36.0
== END 2023-01-03 15:39 | disposition home or self-care (01) ==
PROVIDERS: PCP Internal Medicine; Visit Provider Physician Assistant
DX: M23.92 Unspecified internal derangement of left knee (principal); M70.52 Other bursitis of knee, left knee; M75.82 Other shoulder lesions, left shoulder; M19.012 Primary osteoarthritis, left shoulder
CPT/HCPCS: 99214

== ENCOUNTER 2023-01-09 15:20 | Outpatient (AMB) | payer OTHER, SELFPAY ==
[2023-01-09 15:30] VITALS: BP 110/70; PULSE 76; O2SAT 97; BMI 36.9
--- NOTE | 2023-01-09 15:30 | A.OFFVIS_ITS ---
Intake Vital Signs 01/09/23 15:30 Height 5 ft 4 in Weight 214 lb 15.211 oz BMI 36.9 BP 110/70 Blood Pressure Location Lt brachial Position Sitting Pulse 76 Pulse Source Pulse Oximeter Pulse Oximetry (%) 97 Oxygen Delivery Method Room Air Intake Visit Reasons: Obstructive sleep apnea Intake Note: pt is here for follow up and having some issues strap is bothering her neck and pressure is bothering her. Meteorology Teacher Required: No Allergies Penicillins Allergy (Severe, Verified 01/09/23 16:05) Anaphylaxis Medication List - Last Reconciled 01/09/23 by Mo Holcomb MD albuterol sulfate 90 mcg/actuation (ProAir HFA) 2 puffs inhalation Q6H PRN clotrimazole-betamethasone 1-0.05 % 1 appl topical BID 10 days docusate sodium 100 mg PO DAILY PRN famotidine 20 mg PO DAILY fexofenadine-pseudoephedrine 180-240 mg ER 1 tab PO QAM PRN lidocaine HCl-hydrocortison ac 3-0.5 % 1 appl ND BEDTIME lisinopril 5 mg PO .QAP montelukast 10 mg PO DAILY naproxen 500 mg PO BID PRN triamcinolone acetonide 0.5% 1 appl topical BID 10 days Do you need a note to return to daycare/school/sports/work: No HPI Obstructive sleep apnea HPI Details This 47 years old female grossly obese is coming after more than a year for follow-up. She has been using CPAP regularly but, complains of the strap around the neck being too tight, and also is having lot of air leak problem. She has a fullface mask, but wants to try a nasal pillows or nasal mask. Has not been able to lose weight. Remains tired during the daytime. Also getting frequent headache which she attributes to tight strap around the neck. [facility] Medical History History of torn meniscus of left knee Pain of left shoulder with external rotation Tooth ache Acquired deformity of toenail Postsurgical menopause History of anemia Depression with anxiety Left ankle pain Left hip pain Left anterior knee pain Tendinitis of knee History of gestational diabetes Congenital hearing loss of left ear Allergic rhinitis Plantar fasciitis Intertrigo Eczema of both hands BARBY on CPAP Obesity (BMI 30-39.9) Surgical History Hx of colonoscopy Hx of knee surgery History of bilateral breast reduction surgery History of sinus surgery History of tubal ligation History of hysterectomy, supracervical Family History Father CAD (coronary artery disease) Mother HTN (hypertension) Social History Household Members Other:: son Housing: House Are you a primary career and technology education teacher to a significant other at home: No Do you presently have visiting nurse or other home services: No Alcohol intake: current Alcohol intake frequency: holidays/special occasions only Patient Tobacco Use Status: Never used Tobacco e-Cigarette/Vaping Use: Never Used Second Hand Smoke Exposure: Yes service: No Current occupational status: employed 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 Current occupational exposures/hazards: No Cognitive needs: No Hearing needs: No Vision needs: No Female Reproductive History Menstrual Age of Menarche: 12 Review of Systems Const All systems reviewed & are unremarkable except as noted in HPI and below Eyes Reports no additional complaints ENT Reports nasal congestion (Mild off and on) Card Denies chest pain, Denies leg edema and Denies radiating jaw, neck or arm pain Resp Reports no additional complaints, Denies cough and Denies pain with cough GI Reports heartburn (Controlled with med) Reports no additional complaints Musc Reports arthralgias (Left knee and ankle pain) Skin/Breast Reports system reviewed and no additional complaints, except as documented Neuro Reports no additional complaints Psych Reports no additional complaints Physical Exam Vital Signs: Last Vital Signs Pulse 76 01/09/23 15:30 BP 110/70 01/09/23 15:30 Pulse Ox 97 01/09/23 15:30 Oxygen Delivery Method Room Air 01/09/23 15:30 BMI result Body Mass Index 36.9 Const General: healthy appearing (Except for being overweight), comfortable, no acute distress, alert and awake Orientation/consciousness: patient oriented x3 HEENT Head: Yes normal to inspection General nose exam: No nasal polyps present and No nasal discharge present Face and sinus: Yes sinuses nontender Mouth: oropharynx normal Throat: Yes posterior oropharynx normal Eyes General: appearance normal, both eyes and all related structures Neck Neck: Yes normal visual inspection, Yes no lymphadenopathy, Yes trachea midline and Yes no JVD Thyroid: Thyroid normal Chest Chest palpation & inspection: normal inspection of the chest, normal palpation of entire chest wall and no tenderness Resp Effort & Inspection: normal respiratory effort Auscultation: clear to auscultation bilaterally, no rhonchi and no wheezes Percussion: percussion normal Cardio Palpation: normal PMI Rate: regular rate Rhythm: regular rhythm Heart sounds: no gallops and no murmurs Peripheral pulses: Peripheral pulses 2+ throughout GI Palpation (GI): Soft to palpation, nontender, No hepatosplenomegaly present and no masses Auscultation: normal bowel sounds Back/Spine/Pelvis Thoracic/Lumbar Spine: thoracic and lumbar spine normal to inspection and thoraco-lumbar ROM limited Skin General skin exam: no rashes or lesions noted Neuro General: patient oriented x3 and no focal motor deficits Cranial nerves: Yes CN's II-XII intact bilaterally Extrem General: Yes normal to inspection, Yes no clubbing, cyanosis or edema and Yes no calf tenderness Psych Appearance: grossly normal and well kempt Speech and movement: Normal speech and movement present Results Reviewed Results Reviewed: Compliance report for the last 30 nights is reviewed. She has used 30/30 nights, 100%. Average use per night 8 hours 23 minutes. Pressure 12 cm There is significant air leak recorded maximum 84 L/minute. Residual AHI 0.5 Assessment & Plan Assessment & Plan (1) Obesity (BMI 30-39.9): Comment: Patient is aware of being overweight,. We discussed about diet , to be low in calories in low carbs. and need to do some exercise. I told her to consider joining weight management program. Code(s): E66.9 - Obesity, unspecified (2) BARBY on CPAP: Comment: She is compliant and benefiting however. Has air leak problem. Complains of the strap around the neck being too tight. Wants to try a nasal interface, nasal pillows or nasal mask. . Orders are being sent I told her that she may need chinstrap, along with the nasal mask. Code(s): G47.33 - Obstructive sleep apnea (adult) (pediatric); Z99.89 - Dependence on other enabling machines and devices Coding Level of Care Code Est Pt Level 3 (20621) Diagnoses Obesity (BMI 30-39.9) E66.9 BARBY on CPAP G47.33; Z99.89
== END 2023-01-09 15:58 | disposition home or self-care (01) ==
PROVIDERS: PCP Internal Medicine; Visit Provider Internal Medicine
DX: E66.9 Obesity, unspecified (principal); G47.33 Obstructive sleep apnea (adult) (pediatric); Z99.89 Dependence on other enabling machines and devices
CPT/HCPCS: 99213

== ENCOUNTER → 2023-01-09 15:20 | Outpatient (BNVA) | payer OTHER, SELFPAY | PROVIDERS: PCP Internal Medicine; Visit Provider Internal Medicine ==

== ENCOUNTER 2023-01-19 08:34 | Outpatient (REF) | payer OTHER, SELFPAY ==
[2023-01-19 17:02] LABS: CT PCR NOT DETECTED (Not Detect.); NG PCR NOT DETECTED (Not Detect.)
[2023-01-20 11:56] LABS: BV Int Neg Control Negative (Negative); BV Int Pos Control Positive (Positive)
[2023-01-26 02:04] LABS: HPV mRNA E6/E7 rflx Not Detected (Not Detected)
== END 2023-01-19 08:35 | disposition home or self-care (01) ==
LOC: HO.LNP 08:34
PROVIDERS: PCP Internal Medicine; Visit Provider Advanced Practice Midwife
DX: Z01.419 Encounter for gynecological examination (general) (routine) without abnormal findings (principal); Z11.51 Encounter for screening for human papillomavirus (HPV); Z20.2 Contact with and (suspected) exposure to infections with a predominantly sexual mode of transmission; R30.0 Dysuria; M54.12 Radiculopathy, cervical region
CPT/HCPCS: 0353U; 81002; 87086; 87480; 87510; 87624; 87660; 88142; 88300; 88305

== ENCOUNTER 2023-01-19 08:34 | Outpatient (AMB) | payer OTHER, SELFPAY ==
--- NOTE | 2023-01-19 08:42 | A.OFFVIS_ITS ---
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 Doing well with concerns. Vaginal itching when she takes Naprosyn, burning around the area when she urinates, no odor. She tries to eat healthy and stays active with exercise. Currently is sexually active. Denies family history of breast, ovarian or colon cancer. Last pap smear 2021, negative. [facility] Medical History History of torn meniscus of left knee Pain of left shoulder with external rotation Tooth ache Acquired deformity of toenail Postsurgical menopause History of anemia Depression with anxiety Left ankle pain Left hip pain Left anterior knee pain Tendinitis of knee History of gestational diabetes Congenital hearing loss of left ear Allergic rhinitis Plantar fasciitis Intertrigo Eczema of both hands BARBY on CPAP Obesity (BMI 30-39.9) Surgical History Hx of colonoscopy Hx of knee surgery History of bilateral breast reduction surgery History of sinus surgery History of tubal ligation History of hysterectomy, supracervical Family History Father CAD (coronary artery disease) Mother HTN (hypertension) Social History (Updated 01/19/23 @ 09:02 by Yoselyn Portillo CMA) Household Members Other:: son Housing: House Are you a primary primary care nurse practitioner to a significant other at home: No Do you presently have visiting nurse or other home services: No Alcohol intake: current Alcohol intake frequency: holidays/special occasions only Patient Tobacco Use Status: Never used Tobacco e-Cigarette/Vaping Use: Never Used Second Hand Smoke Exposure: Yes service: No Current occupational status: employed 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 Current occupational exposures/hazards: No Sexually active: Yes Sexual orientation: Straight/Heterosexual Gender identity: Female Cognitive needs: No Hearing needs: No Vision needs: No Female Reproductive History Menstrual Age of Menarche: 12 Menopause type: surgical Total pregnancies: 4 Full term: 2 Number of Living Children: 2 Ab spontaneous: 2 Date of last pap smear: 04/11/21 Date of Mammogram: 11/22/22 Review of Systems Const All systems reviewed & are unremarkable except as noted in HPI and below Reports as per HPI Eyes Reports no additional complaints ENT Reports no additional complaints Card Reports no additional complaints Resp Reports no additional complaints GI Reports as per HPI and Reports no additional complaints Reports as per HPI Musc Reports no additional complaints Skin/Breast Reports as per HPI Neuro Reports no additional complaints Psych Reports no additional complaints Endo Reports no additional complaints Crispin/Lymph Reports no additional complaints Aller/Immun Reports no additional complaints Physical Exam Vital Signs: Last Vital Signs BP 124/76 01/19/23 08:43 BMI result Body Mass Index 36.9 Const General: cooperative, healthy appearing, no acute distress, well developed and alert Orientation/consciousness: patient oriented x3 HEENT Head: Yes normal to inspection Eyes General: appearance normal, both eyes and all related structures Neck Neck: Yes normal visual inspection Thyroid: Thyroid normal Chest Chest palpation & inspection: normal inspection of the chest and other (no puckering, dimpling, peau de orange, retraction, discharge, masses) Breast/axilla inspection: normal inspection of the breasts Breast/axilla palpation: normal palpation of the breasts Resp Effort & Inspection: normal respiratory effort GI Inspection: Yes normal to inspection Palpation (GI): Soft to palpation Rectal Exam - Female: deferred General: Yes bladder normal to palpation External Female Exam: normal external appearance and normal appearance of the urethra Speculum Exam - Vagina: normal appearance of the vagina, normal palpation and normal vaginal discharge Speculum Exam - Cervix: normal appearance of the cervix and normal palpation Bimanual exam- vagina & uterus: normal bimanual exam, normal palpation, bladder normal to palpation, normal palpation and uterus absent Bimanual Exam- Adnexa, other: no masses Skin General skin exam: no rashes or lesions noted Rashes: no rashes Neuro General: patient oriented x3 Cognition (Neuro): normal cognition Extrem General: Yes normal to inspection Psych Attitude: cooperative Thought process: Normal thought process present Office Procedures Office Procedure Office Procedure Documentation Office Procedure Documentation: The patient is here today for an endocervical curretage due to: post coital bleeding, to rule out any pathology including atypical cells. She was counseled regarding anticipatory guidance for the procedure including the risks for pain, infection, bleeding, perforation, potential injury to the tissues may include the cervix, uterus, tubes, bladder and bowels. These injuries may include further treatment and evaluation including surgery, blood transfusions, antibiotics, hospitalizations and anesthesia. Permanent injury and scarring can occur. She was consented for the procedure, and the consent forms were signed. She is agreeable to have the procedure today. All questions were answered. Endocervical Curretage Procedure: The patient was placed in the dorsal lithotomy position and a speculum inserted. The ECC was performed with a ECC currette with sampling on all four sides, followed by a cytobrush for residual cells. Minimal bleeding was observed. The tissue sample was placed in a patient labeled container by staff assisting and sent to the pathology department for processing and interpretation. The patient tolerate the procedure well and was in good condition when leaving the department. Post ECC Care: There may be some post insertion bleeding for several days that is usually light and can turn to a light brown or pink in color. Mild cramping may occur. Nothing in the vagina including: tampons, douching or intimacy for a week or until the bleeding has stopped. You may take an over the counter mild analgesia like Tylenol or Advil (if no allergies), per the manufacturers recommendations on dosing and frequency. Follow the directions completely. Call the office if any: fever (over 100.4), flu like symptoms, abdominal pain, worsening cramping not resolved with over the counter medications, foul smelling vaginal odor, signs of infected appearing discharge, or heavy bleeding. Return to the office for test results in 2 weeks. Results AMB Urinalysis Dipstick UR Leukocytes Negative Last Edit by Yoselyn Portillo CMA on 01/19/23 09:48 UR Nitrite Negative Last Edit by Yoselyn Portillo CMA on 01/19/23 09:48 UR Urobilinogen Normal Last Edit by Yoselyn Portillo CMA on 01/19/23 09:48 UR Protein Negative Last Edit by Yoselyn Portillo CMA on 01/19/23 09:48 UR Ph 6.0 Last Edit by Yoselyn Portillo CMA on 01/19/23 09:48 UR Blood Moderate Last Edit by Yoselyn Portillo CMA on 01/19/23 09:48 UR Specific [place] 1.015 Last Edit by Yoselyn Portillo CMA on 01/19/23 09:48 UR Ketone Negative Last Edit by Yoselyn Portillo CMA on 01/19/23 09:48 UR Bilirubin Negative Last Edit by Yoselyn Portillo CMA on 01/19/23 09:48 UR Glucose Negative Last Edit by Yoselyn Portillo CMA on 01/19/23 09:48 Results Reviewed Results Reviewed: Laboratory Last Values Urine pH (Clinic) 6.0 01/19/23 09:47 Specific [place] (Clinic) 1.015 01/19/23 09:47 Ur Protein (Clinic) Negative 01/19/23 09:47 Ur Ketones (Clinic) Negative 01/19/23 09:47 Urine Blood (Clinic) Moderate 01/19/23 09:47 Urine Nitrite Negative 01/19/23 09:47 Urine Bilirubin (Clinic) Negative 01/19/23 09:47 Urobilinogen (Clinic) Normal 01/19/23 09:47 Leukocyte Esterase (Clinic) Negative 01/19/23 09:47 Urine Glucose (Clinic) Negative 01/19/23 09:47 Assessment & Plan Assessment & Plan (1) Encounter for well woman exam with routine gynecological exam: Code(s): Z01.419 - Encounter for gynecological examination (general) (routine) without abnormal findings (2) PCB (post coital bleeding): Code(s): N93.0 - Postcoital and contact bleeding Plan: Repeat Pap today, GC chlamydia and BV panel, and endocervical curettage completed. Return to the office in 2 weeks for follow-up results and plan of care. There may be some post insertion bleeding for several days that is usually light and can turn to a light brown or pink in color. Mild cramping may occur. Nothing in the vagina including: tampons, douching or intimacy for several days. You may take an over the counter mild analgesia like Tylenol or Advil (if no allergies), per the manufacturers recommendations on dosing and frequency. Follow the directions completely. Call the office if any: fever (over 100.4), flu like symptoms, abdominal pain, worsening cramping not resolved with over the counter medications, foul smelling vaginal odor, signs of infected appearing discharge, or heavy bleeding. Plan Discussed: Current recommendations for pap smears per ASCCP guidelines. Breast awareness and periodic breast exams. Maintain a healthy lifestyle including a well balanced diet and routine exercise. All of her questions and concerns were addressed to the best of my ability. RTO in one year for annual food service attendant examination. Orders: Orders CT NG by PCR Today Z20.2 - Contact with and (suspected) exposure to infections with a predominantly sexual mode of transmission Bacterial Vaginosis Panel Today Z20.2 - Contact with and (suspected) exposure to infections with a predominantly sexual mode of transmission Urine Culture Today R30.0 - Dysuria Surgical Today M54.12 - Radiculopathy, cervical region Pap Smear Today M54.12 - Radiculopathy, cervical region AMB Urinalysis Dipstick Today R30.0 - Dysuria Coding Level of Care Code Est Pt Prev Care 40-64y(73765) Diagnoses Encounter for well woman exam with routine gynecological exam Z01.419 PCB (post coital bleeding) N93.0 Comment add modifier for ECC procedure
[2023-01-19 08:43] VITALS: BP 124/76; BMI 36.9
== END 2023-01-19 09:51 | disposition home or self-care (01) ==
LOC: HO.HWS 08:34
PROVIDERS: PCP Internal Medicine; Visit Provider Advanced Practice Midwife
DX: Z01.419 Encounter for gynecological examination (general) (routine) without abnormal findings (principal); N93.0 Postcoital and contact bleeding; R30.0 Dysuria
CPT/HCPCS: 99396

== ENCOUNTER 2023-02-16 07:20 | Outpatient (REF) | payer OTHER, SELFPAY | END 2023-02-16 07:21 | disposition home or self-care (01) | LOC: HO.MRI 07:20 | PROVIDERS: PCP Internal Medicine; Visit Provider Physician Assistant | DX: M17.12 Unilateral primary osteoarthritis, left knee (principal); M70.52 Other bursitis of knee, left knee; M23.92 Unspecified internal derangement of left knee | CPT/HCPCS: 73721 ==

== ENCOUNTER 2023-03-14 12:58 | Outpatient (AMB) | payer OTHER, SELFPAY ==
--- NOTE | 2023-03-14 13:04 | A.OFFVIS_ITS ---
Intake Intake Visit Reasons: ov- MRI Knee LT review Intake Note: 47 year old female presents to the office today for a review of her MRI of her left knee. Pt states she is still having pain and swelling in her right knee. Pt states the pain hasn't gotten any better. Pt states she is currently doing PT and states that after her PT visit she has worse pain for at least a day after her PT. Allergies Penicillins Allergy (Severe, Verified 03/14/23 13:04) Anaphylaxis HPI ov- MRI Knee LT review HPI Details 47-year-old female who returns to the [facility] today for a left knee MRI review. She states she has no change in her symptoms since the last visit and continues to have pain and swelling in her knee. She also c/o her knee giving out. She denies any catching, locking, or sharp pain in her knee. She is working with physical therapy as instructed and reports her pain is worse for at least a day s/p therapy. She had a cortisone injection in the past which provided her transient relief. [facility] Medical History History of torn meniscus of left knee Pain of left shoulder with external rotation Tooth ache Acquired deformity of toenail Postsurgical menopause History of anemia Depression with anxiety Left ankle pain Left hip pain Left anterior knee pain Tendinitis of knee History of gestational diabetes Congenital hearing loss of left ear Allergic rhinitis Plantar fasciitis Intertrigo Eczema of both hands BARBY on CPAP Obesity (BMI 30-39.9) Surgical History Hx of colonoscopy Hx of knee surgery History of bilateral breast reduction surgery History of sinus surgery History of tubal ligation History of hysterectomy, supracervical Family History Father CAD (coronary artery disease) Mother HTN (hypertension) Social History Household Members Other:: son Housing: House Are you a primary senior care provider to a significant other at home: No Do you presently have visiting nurse or other home services: No Alcohol intake: current Alcohol intake frequency: holidays/special occasions only Patient Tobacco Use Status: Never used Tobacco e-Cigarette/Vaping Use: Never Used Second Hand Smoke Exposure: Yes service: No Current occupational status: employed 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 Current occupational exposures/hazards: No Sexual orientation: Straight/Heterosexual Gender identity: Female Cognitive needs: No Hearing needs: No Vision needs: No Female Reproductive History Menstrual Age of Menarche: 12 Review of Systems Const All systems reviewed & are unremarkable except as noted in HPI and below Physical Exam Const General: cooperative, healthy appearing, comfortable, no acute distress, well developed and alert Orientation/consciousness: patient oriented x3 HEENT Head: Yes normal to inspection, Yes normocephalic and Yes atraumatic Eyes General: appearance normal, both eyes and all related structures Resp Effort & Inspection: normal respiratory effort and able to speak in complete sentences Cardio Rate: regular rate Peripheral pulses: Peripheral pulses 2+ throughout GI Palpation (GI): Soft to palpation Skin Lesions: no lesions Rashes: no rashes Neuro General: patient oriented x3 Extrem Other: Left knee skin intact, no erythema or joint effusion. Tenderness along the medial aspect of proximal tibia. ROM full with crepitus. Negative Jose's. No ligamentous laxity. NVI. Results Reviewed Results Reviewed: MR knee LT wo con 02/16/23 IMPRESSION: 1. Interval attenuation of the medial meniscal body and posterior horn when compared to the prior examination consistent with prior meniscectomy and repair of the previously seen horizontal tear. New inner margin tear of the posterior meniscal body with an inferiorly displaced meniscal flap within the medial meniscotibial recess. 2. Inner margin fraying of the lateral meniscus posterior horn/root, unchanged. 3. Severe medial as well as mild patellofemoral and lateral compartment osteoarthritis, progressed when compared to the prior examination. Small joint effusion. Focal synovitis adjacent to the lateral meniscus posterior root. Assessment & Plan Assessment & Plan (1) Internal derangement of left knee: Code(s): M23.92 - Unspecified internal derangement of left knee (2) Pes anserinus bursitis of left knee: Code(s): M70.52 - Other bursitis of knee, left knee Plan We discussed MRI findings which consist of meniscus pathology with severe arthritis. We discussed the option of cortisone injection to be diagnostic as well as therapeutic. Right knee menisectomy may not be beneficial given the amount of arthritis she has. Given her tenderness along the proximal aspect of tibia and findings on MRI suggestive for subchondral edema, she may be a candidate for an internal fixation as she is not a candidate for TKA. She will defer on injection at this time and she will make an appointment with Dr. Randall to discuss surgical intervention. I did give her a prescription of Celebrex to take twice a day for 2 weeks and once a day thereafter. She will see us back as planned. Medications: New celecoxib (Celebrex) 200 mg PO BID 60 caps 3RF 30 days Patient Instructions: Scribed for Suzie Quinonez PA-C, by Yovany Kennedy medical and health services manager, on 03/14/2023 at 1:15 PM EST. Selena, Suzie Quinonez PA-C, have personally reviewed and agree with the information entered by the scribe. Coding Level of Care Code Est Pt Level 3 (28257) Diagnoses Internal derangement of left knee M23.92 Pes anserinus bursitis of left knee M70.52
== END 2023-03-14 13:27 | disposition home or self-care (01) ==
PROVIDERS: PCP Internal Medicine; Visit Provider Physician Assistant
DX: M23.92 Unspecified internal derangement of left knee (principal); M70.52 Other bursitis of knee, left knee
CPT/HCPCS: 99214

== ENCOUNTER → 2023-03-14 12:58 | Outpatient (BNVA) | payer OTHER, SELFPAY | PROVIDERS: PCP Internal Medicine; Visit Provider Physician Assistant ==

== ENCOUNTER 2023-03-14 15:55 | Outpatient (AMB) | payer OTHER, SELFPAY ==
[2023-03-14 16:01] VITALS: BP 120/70; PULSE 88; O2SAT 96; BMI 37.8
--- NOTE | 2023-03-14 16:01 | A.OFFVIS_ITS ---
Intake Vital Signs 03/14/23 16:01 Height 5 ft 4 in Weight 220 lb BMI 37.8 BP 120/70 Blood Pressure Location Lt brachial Position Sitting Pulse 88 Pulse Source Pulse Oximeter Pulse Oximetry (%) 96 Oxygen Delivery Method Room Air Intake Visit Reasons: Obstructive sleep apnea Intake Note: pt is here for follow up and states she is using the old machine, and using it every night. 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: No Allergies Penicillins Allergy (Severe, Verified 03/14/23 16:19) Anaphylaxis Medication List - Last Reconciled 03/14/23 by Mo Holcomb MD albuterol sulfate 90 mcg/actuation (ProAir HFA) 2 puffs inhalation Q6H PRN celecoxib (Celebrex) 200 mg PO BID 30 days clotrimazole-betamethasone 1-0.05 % 1 appl topical BID 10 days docusate sodium 100 mg PO DAILY PRN famotidine 20 mg PO DAILY fexofenadine-pseudoephedrine 180-240 mg ER 1 tab PO QAM PRN lidocaine HCl-hydrocortison ac 3-0.5 % 1 appl [place] BEDTIME lidocaine HCl-hydrocortison ac 3-0.5 % appl topical BEDTIME lisinopril 5 mg PO DAILY montelukast 10 mg PO DAILY naproxen 500 mg PO BID PRN triamcinolone acetonide 0.5% 1 appl topical BID 10 days Do you need a note to return to daycare/school/sports/work: No HPI Obstructive sleep apnea HPI Details This 47 years old female is here after 2 months for follow-up. She did not get nasal pillows and has continue to use the previous mask which is full face mask. She say is it is working fine and she is really using her CPAP every night, sleeping good. She has chronic allergic rhinitis and has intermittent nasal congestion , The nasal symptoms are mostly controlled with use of montelukast and use of fexofenadine p.r.n.. Breathing has been good and she needs to use albuterol only once in a while . Weight is a problem and she has actually put on more weight. She is concerned about this. 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 [facility] Medical History History of torn meniscus of left knee Pain of left shoulder with external rotation Tooth ache Acquired deformity of toenail Postsurgical menopause History of anemia Depression with anxiety Left ankle pain Left hip pain Left anterior knee pain Tendinitis of knee History of gestational diabetes Congenital hearing loss of left ear Allergic rhinitis Plantar fasciitis Intertrigo Eczema of both hands BARBY on CPAP Obesity (BMI 30-39.9) Surgical History Hx of colonoscopy Hx of knee surgery History of bilateral breast reduction surgery History of sinus surgery History of tubal ligation History of hysterectomy, supracervical Family History Father CAD (coronary artery disease) Mother HTN (hypertension) Social History Household Members Other:: son Housing: House Are you a primary healthcare marketer to a significant other at home: No Do you presently have visiting nurse or other home services: No Alcohol intake: current Alcohol intake frequency: holidays/special occasions only Patient Tobacco Use Status: Never used Tobacco e-Cigarette/Vaping Use: Never Used Second Hand Smoke Exposure: Yes service: No Current occupational status: employed 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 Current occupational exposures/hazards: No Sexual orientation: Straight/Heterosexual Gender identity: Female Cognitive needs: No Hearing needs: No Vision needs: No Female Reproductive History Menstrual Age of Menarche: 12 Review of Systems Const All systems reviewed & are unremarkable except as noted in HPI and below Eyes Reports no additional complaints ENT Reports nasal congestion (Mild off and on) Card Denies chest pain, Denies leg edema and Denies radiating jaw, neck or arm pain Resp Reports no additional complaints, Denies cough and Denies pain with cough GI Reports heartburn (Controlled with med) Reports no additional complaints Musc Reports arthralgias (Left knee and ankle pain) Skin/Breast Reports system reviewed and no additional complaints, except as documented Neuro Reports no additional complaints Psych Reports no additional complaints Physical Exam Vital Signs: Last Vital Signs Pulse 88 03/14/23 16:01 BP 120/70 03/14/23 16:01 Pulse Ox 96 03/14/23 16:01 Oxygen Delivery Method Room Air 03/14/23 16:01 BMI result Body Mass Index 37.8 Const General: healthy appearing (Except for being overweight), comfortable, no acute distress, alert and awake Orientation/consciousness: patient oriented x3 HEENT Head: Yes normal to inspection General nose exam: No nasal polyps present and No nasal discharge present Face and sinus: Yes sinuses nontender Mouth: oropharynx normal Throat: Yes posterior oropharynx normal Eyes General: appearance normal, both eyes and all related structures Neck Neck: Yes normal visual inspection, Yes no lymphadenopathy, Yes trachea midline and Yes no JVD Thyroid: Thyroid normal Chest Chest palpation & inspection: normal inspection of the chest, normal palpation of entire chest wall and no tenderness Resp Effort & Inspection: normal respiratory effort Auscultation: clear to auscultation bilaterally, no rhonchi and no wheezes Percussion: percussion normal Cardio Palpation: normal PMI Rate: regular rate Rhythm: regular rhythm Heart sounds: no gallops and no murmurs Peripheral pulses: Peripheral pulses 2+ throughout GI Palpation (GI): Soft to palpation, nontender, No hepatosplenomegaly present and no masses Auscultation: normal bowel sounds Back/Spine/Pelvis Thoracic/Lumbar Spine: thoracic and lumbar spine normal to inspection and thoraco-lumbar ROM limited Skin General skin exam: no rashes or lesions noted Neuro General: patient oriented x3 and no focal motor deficits Cranial nerves: Yes CN's II-XII intact bilaterally Extrem General: Yes normal to inspection, Yes no clubbing, cyanosis or edema and Yes no calf tenderness Psych Appearance: grossly normal and well kempt Speech and movement: Normal speech and movement present Results Reviewed Results Reviewed: Compliance report for the last 30 nights is reviewed. She has used 30/30 nights,. 100% average use per night 8 hours 32 minutes. CPAP setting is 12 cm. She does have moderate amount of air leak maximum 97.8 L/minute. Residual AHI only 0.4 Assessment & Plan Assessment & Plan (1) Obesity (BMI 30-39.9): Comment: Patient is aware of being overweight,. We discussed about diet , to be low in calories in low carbs. and need to do some exercise. Code(s): E66.9 - Obesity, unspecified Plan: Discussed about weight management program or seeing a raw shellfish preparer She wants to join weight management program.. We have given her the information, she can also discussed with her PCP, if she would need any referral. In the meantime continue to cut down the calories intake and do daily exercise. (2) BARBY on CPAP: Comment: She is compliant and benefiting however. Still has air leak problem. She stayed with full face mask and now feels comfortable. Her COMPLIANCE IS GOOD , USING 8 HOURS 32 MINUTES EVERY NIGHT. Code(s): G47.33 - Obstructive sleep apnea (adult) (pediatric); Z99.89 - Dependence on other enabling machines and devices Plan: Commended for good compliance. Encouraged to continue using CPAP every night. (3) Allergic rhinitis: Comment: Mild intermittent, well controlled with use of montelukast 10 mg daily. And uses fexofenadine-pseudo ephedrine tablet only p.r.n.. Code(s): J30.9 - Allergic rhinitis, unspecified Plan: as above (4) Allergic asthma: Comment: She has a mild intermittent bronchial asthma which is more allergic in type, associated with her allergic rhinitis. Code(s): J45.909 - Unspecified asthma, uncomplicated Qualifiers: Asthma severity: mild Asthma persistence: intermittent Asthma complication type: with acute exacerbation Qualified Code(s): J45.21 - Mild intermittent asthma with (acute) exacerbation Plan: Continue montelukast 10 mg daily. Use albuterol HFA 2 puffs Q 6 hours only p.r.n. Coding Level of Care Code Est Pt Level 3 (21126) Diagnoses Obesity (BMI 30-39.9) E66.9 BARBY on CPAP G47.33; Z99.89 Allergic rhinitis J30.9 Mild intermittent extrinsic asthma with acute exacerbation J45.21 Asthma severity: mild Asthma persistence: intermittent Asthma complication type: with acute exacerbation
== END 2023-03-14 16:20 | disposition home or self-care (01) ==
PROVIDERS: PCP Internal Medicine; Visit Provider Internal Medicine
DX: E66.9 Obesity, unspecified (principal); G47.33 Obstructive sleep apnea (adult) (pediatric); Z99.89 Dependence on other enabling machines and devices; J30.9 Allergic rhinitis, unspecified; J45.21 Mild intermittent asthma with (acute) exacerbation
CPT/HCPCS: 99213

== ENCOUNTER 2023-03-15 17:00 | Outpatient (RCR) | payer OTHER, SELFPAY ==
--- NOTE | 2023-02-07 17:29 | MHC.PT.EP ---
[facility] [place] Office [place] Office [place] Office [address] [phone] F: [phone] F: [phone] F: [phone] F: [phone] Physical Therapy Plan of Care Date of Evaluation: 02/07/23 Date of Surgery: 2015 Diagnosis: bursitis of knee, left knee (RL) PT diagnosis: lumbar radiculopathy L side Assessment: pt is a 47 y/o female presenting to physical therapy w/ referring diagnosis of bursitis of knee, L knee. Her signs and symptoms are more consistent w/ lumbar radiculopathy. Impairments include pain, decreased range of motion, decreased strength, impaired functional mobility, impaired postural awareness, and altered ambulation mechanics. pt is a good candidate for skilled PT due to age, potential remediation of impairments, typical disease/condition progression and prognosis, comorbidities, and motivation. pt would benefit from skilled PT intervention to provide a tailored strengthening and stretching exercise program, functional training, gait training, postural re-training, neuromuscular re-education, modalities as needed for pain, equipment safety demonstration. Frequency and Duration: The patient will be seen 2x/wk for 4 wks Short Term Goals: pt will be I w/ HEP to promote self-management of condition. pt will demo proper sitting posture w/ lumbar roll to promote neutral spine w/ seated ADLs. Residential Goals: pt will report a statistically significant improvement in self-reported outcome measure, Joao, to promote return to PLOF. 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 Treatment Plan: Modalities to reduce pain, spasms and effusion. Manual therapy to restore motion and function. Therapeutic exercise to improve strength and flexibility. Neuromuscular re-education for posture and balance. Therapeutic activities to return to functional activities of daily living. Electronically signed by: Katelyn Naik PT, DPT Please sign and return to therapist. Thank you for your referral.
--- NOTE | 2023-03-29 10:26 | MHC.PT.DC ---
[facility] [place] Office [place] Office [place] Office [address] [phone] F: [phone] F: [phone] F: [phone] F: [phone] Physical Therapy Discharge Report Diagnosis: bursitis of knee, left knee (RL) PT diagnosis: lumbar radiculopathy L side Date of Surgery: 2015 Date of Evaluation: 02/07/23 Date of Discharge: 03/29/23 Treatments to Date: 9 Cancellations to Date: 2 No Shows to Date: 0 Discharge Status: Achieved Goals Improved Function Independent with HEP Discharge Summary: The patient overall was reporting improved back pain with physical therapy. She achieved all her short and buttermaker goals established at the initial evaluation. She is independent with her home exercise program and was encouraged to continue with this to maintain the gains she has made. Her progress was limited by ongoing left knee pain. She is discharged from this physical therapy plan of care. Electronically signed by: Katelyn Naik PT, DPT Please sign and return to therapist. Thank you for your referral.
== END 2023-03-29 10:26 | disposition home or self-care (01) ==
LOC: HO.PT 17:00
PROVIDERS: PCP Internal Medicine; Visit Provider Physician Assistant
DX: M23.92 Unspecified internal derangement of left knee (principal); M70.52 Other bursitis of knee, left knee
CPT/HCPCS: 97110; 97140; 97162; 97530

== ENCOUNTER 2023-03-19 14:20 | Outpatient (AMB) | payer OTHER, SELFPAY ==
--- NOTE | 2023-03-19 14:22 | A.OFFVIS_ITS ---
Intake Vital Signs 03/19/23 14:23 Height 5 ft 4 in Weight 220 lb BMI 37.8 Intake Visit Reasons: OV-s/p MRI left knee review Intake Note: Blossom is a 47 year old female who presents today for a follow up of her left knee. She was last seen with Suzie, who prescribed PT. hx meniscus surgery [place] [address] [facility]. Patient reports that the knee is feeling the same. Allergies Penicillins Allergy (Severe, Verified 03/14/23 16:19) Anaphylaxis HPI OV-s/p MRI left knee review HPI Details Blossom is a 47 year old woman who presents for an MRI review of her left knee. She complains of pain with daily activity. At her last appointment PT was ordered, and she says this has been somewhat helpful. She has a hx of a left knee done at [facility] in ~2017 [facility] Medical History History of torn meniscus of left knee Pain of left shoulder with external rotation Tooth ache Acquired deformity of toenail Postsurgical menopause History of anemia Depression with anxiety Left ankle pain Left hip pain Left anterior knee pain Tendinitis of knee History of gestational diabetes Congenital hearing loss of left ear Allergic rhinitis Plantar fasciitis Intertrigo Eczema of both hands BARBY on CPAP Obesity (BMI 30-39.9) Surgical History Hx of colonoscopy Hx of knee surgery History of bilateral breast reduction surgery History of sinus surgery History of tubal ligation History of hysterectomy, supracervical Family History Father CAD (coronary artery disease) Mother HTN (hypertension) Social History Household Members Other:: son Housing: House Are you a primary day care provider to a significant other at home: No Do you presently have visiting nurse or other home services: No Alcohol intake: current Alcohol intake frequency: holidays/special occasions only Patient Tobacco Use Status: Never used Tobacco e-Cigarette/Vaping Use: Never Used Second Hand Smoke Exposure: Yes service: No Current occupational status: employed 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 Current occupational exposures/hazards: No Sexual orientation: Straight/Heterosexual Gender identity: Female Cognitive needs: No Hearing needs: No Vision needs: No Female Reproductive History Menstrual Age of Menarche: 12 Review of Systems Const All systems reviewed & are unremarkable except as noted in HPI and below Physical Exam Vital Signs: BMI result Body Mass Index 37.8 Const General: no acute distress, alert and awake Orientation/consciousness: patient oriented x3 HEENT Head: Yes normocephalic and Yes atraumatic Eyes EOM: EOMs intact bilaterally Resp Effort & Inspection: normal respiratory effort and able to speak in complete sentences Cardio Jugular venous distension: no JVD Skin General skin exam: turgor normal Rashes: no rashes Neuro General: patient oriented x3 Extrem Other: ttp medial compartment left knee 1+ varus laxity Psych Appearance: grossly normal Affect: normal affect Attitude: cooperative Results Reviewed Results Reviewed: I personally reviewed the MR images. Severe degenerative arthritis medial compartment left knee Assessment & Plan Assessment & Plan (1) Osteoarthritis of left knee: Code(s): M17.12 - Unilateral primary osteoarthritis, left knee Plan: This is a 47 yo F with left knee medial compartment pain and advanced OA on plain imaging and MRI. 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 Plan Prepared for Andrea Rnadall MD by Praneeth Naik, medical records secretary, on 03/19/23 at 2:25 PM, EST. Orders: Orders XR knee standing BI 03/19/23 M25.569 - Pain in unspecified knee PT Evaluation and Treatment Today M17.12 - Unilateral primary osteoarthritis, left knee XR knee LT 2V 03/19/23 M25.569 - Pain in unspecified knee Coding Level of Care Code Est Pt Level 4 (86045) Diagnoses Osteoarthritis of left knee M17.12
[2023-03-19 14:23] VITALS: BMI 37.8
== END 2023-03-19 15:09 | disposition home or self-care (01) ==
PROVIDERS: PCP Internal Medicine; Visit Provider Orthopaedic Surgery
DX: M17.12 Unilateral primary osteoarthritis, left knee (principal)
CPT/HCPCS: 99213

== ENCOUNTER 2023-03-19 14:20 | Outpatient (REF) | payer OTHER, SELFPAY ==
--- NOTE | ~2023-03-19 | XR_ITS ---
EXAMINATION: XR KNEE, LEFT XR KNEE AP STANDING CLINICAL INFORMATION: Pain. COMPARISON: Radiographs dated 09/09/2020. TECHNIQUE: Lateral and axial views of the left knee are submitted. AP bilateral standing view of the knees was obtained. FINDINGS: The lateral and medial joint space compartments of the right knee are well-maintained. There is moderate asymmetric narrowing of the medial joint space compartment of the left knee, with peripheral osteophyte formation. The lateral and patellofemoral joint space compartments are well-maintained. There is mild peripheral osteophyte formation of the patellofemoral compartment. No fracture, dislocation or joint effusion is seen. There is no significant varus or valgus configuration noted bilaterally. XR/XR knee standing BI IMPRESSION: 1. No unusual degenerative change is seen of the right knee. 2. There is moderate osteoarthritic change of the medial joint space compartment of the left knee, and mild osteoarthritic change is seen of the left patellofemoral compartment. 3. No fracture, dislocation or joint effusion is seen bilaterally. 4. There is no significant varus or valgus configuration noted bilaterally.
--- NOTE | ~2023-03-19 | XR_ITS ---
EXAMINATION: XR KNEE, LEFT XR KNEE AP STANDING CLINICAL INFORMATION: Pain. COMPARISON: Radiographs dated 09/09/2020. TECHNIQUE: Lateral and axial views of the left knee are submitted. AP bilateral standing view of the knees was obtained. FINDINGS: The lateral and medial joint space compartments of the right knee are well-maintained. There is moderate asymmetric narrowing of the medial joint space compartment of the left knee, with peripheral osteophyte formation. The lateral and patellofemoral joint space compartments are well-maintained. There is mild peripheral osteophyte formation of the patellofemoral compartment. No fracture, dislocation or joint effusion is seen. There is no significant varus or valgus configuration noted bilaterally. XR/XR knee LT 2V IMPRESSION: 1. No unusual degenerative change is seen of the right knee. 2. There is moderate osteoarthritic change of the medial joint space compartment of the left knee, and mild osteoarthritic change is seen of the left patellofemoral compartment. 3. No fracture, dislocation or joint effusion is seen bilaterally. 4. There is no significant varus or valgus configuration noted bilaterally.
== END 2023-03-19 14:21 | disposition home or self-care (01) ==
LOC: HO.HOSX 14:20
PROVIDERS: PCP Internal Medicine; Visit Provider Orthopaedic Surgery
DX: M17.12 Unilateral primary osteoarthritis, left knee (principal)
CPT/HCPCS: 73560; 73565

== ENCOUNTER 2023-04-05 13:34 | Outpatient (AMB) | payer OTHER, SELFPAY ==
--- NOTE | 2023-04-05 13:48 | MHC.OFFVIS ---
Intake Vital Signs 04/05/23 13:49 Height 5 ft 4 in Weight 220 lb BMI 37.8 Intake Visit Reasons: Left Knee Synvisc One Intake Note: Blossom is a 47 year old female who presents today for a Left Knee Synvisc One Injection. Allergies Penicillins Allergy (Severe, Verified 03/14/23 16:19) Anaphylaxis HPI Left Knee Synvisc One HPI Details Blossom is a 47 year old woman with left knee OA, who presents for a Synvisc One injection. She denies any changes in her symptoms or medical history. [facility] Medical History History of torn meniscus of left knee Pain of left shoulder with external rotation Tooth ache Acquired deformity of toenail Postsurgical menopause History of anemia Depression with anxiety Left ankle pain Left hip pain Left anterior knee pain Tendinitis of knee History of gestational diabetes Congenital hearing loss of left ear Allergic rhinitis Plantar fasciitis Intertrigo Eczema of both hands BARBY on CPAP Obesity (BMI 30-39.9) Surgical History Hx of colonoscopy Hx of knee surgery History of bilateral breast reduction surgery History of sinus surgery History of tubal ligation History of hysterectomy, supracervical Family History Father CAD (coronary artery disease) Mother HTN (hypertension) Social History Household Members Other:: son Housing: House Are you a primary childbirth and infant care teacher to a significant other at home: No Do you presently have visiting nurse or other home services: No Alcohol intake: current Alcohol intake frequency: holidays/special occasions only Patient Tobacco Use Status: Never used Tobacco e-Cigarette/Vaping Use: Never Used Second Hand Smoke Exposure: Yes service: No Current occupational status: employed 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 Current occupational exposures/hazards: No Sexual orientation: Straight/Heterosexual Gender identity: Female Cognitive needs: No Hearing needs: No Vision needs: No Female Reproductive History Menstrual Age of Menarche: 12 Review of Systems Const All systems reviewed & are unremarkable except as noted in HPI and below Physical Exam Vital Signs: BMI result Body Mass Index 37.8 Const General: no acute distress, alert and awake Orientation/consciousness: patient oriented x3 HEENT Head: Yes normocephalic and Yes atraumatic Eyes EOM: EOMs intact bilaterally Resp Effort & Inspection: normal respiratory effort and able to speak in complete sentences Cardio Jugular venous distension: no JVD Skin General skin exam: turgor normal Rashes: no rashes Neuro General: patient oriented x3 Extrem Other: skin c/d/i Psych Appearance: grossly normal Affect: normal affect Attitude: cooperative Office Procedures Joint Injection/Drain Joint Injection/Drain Details: Injected Synvisc One. Site was prepped using aseptic technique. Patient tolerated the procedure well. Primary Site: left knee Approach Used: anterolateral Coding - Large joint Procedure code (CPT) selection complete Assessment & Plan Assessment & Plan (1) Osteoarthritis of left knee: Code(s): M17.12 - Unilateral primary osteoarthritis, left knee Plan: Left knee OA in 47 yo F. Injected Synvisc One. No complications. f/u 6 months. Plan Prepared for Andrea Randall MD by Praneeth Naik, biomedical repair technician, on 04/05/23 at 1:51 PM, EST. Coding Level of Care Code Est Pt Level 2 (81365) Diagnoses Osteoarthritis of left knee M17.12 CPT Codes Coding - Large joint: 24887 - Large joint ([id number])
[2023-04-05 13:49] VITALS: BMI 37.8
== END 2023-04-05 14:07 | disposition home or self-care (01) ==
PROVIDERS: PCP Internal Medicine; Visit Provider Orthopaedic Surgery
DX: M17.12 Unilateral primary osteoarthritis, left knee (principal)
CPT/HCPCS: 20610

== ENCOUNTER → 2023-04-05 13:34 | Outpatient (BNVA) | payer OTHER, SELFPAY | PROVIDERS: PCP Internal Medicine; Visit Provider Orthopaedic Surgery | DX: M17.12 Unilateral primary osteoarthritis, left knee (principal) | CPT/HCPCS: 20610; J7325 ==

== ENCOUNTER 2023-05-22 17:00 | Outpatient (RCR) | payer OTHER, SELFPAY ==
--- NOTE | 2023-04-10 18:21 | MHC.PT.EP ---
[facility] [place] Office [place] Office [place] Office [address] [phone] F: [phone] F: [phone] F: [phone] F: [phone] Physical Therapy Plan of Care Date of Evaluation: 04/10/23 Date of Surgery: Diagnosis: LEFT cervical radiculopathy, LEFT shoulder pain (MD Dx) LEFT shoulder subacromial impingement syndrome (Added PT Dx) (RS) Assessment: Patient is a pleasant 47 y.o. female who is referred to PT by Suzie Quinonez PA-C with Dx of LEFT cervical radiculopathy and LEFT shoulder pain. PT diagnosis also includes LEFT shoulder subacromial impingement syndrome. Patient impairments include pain, radicular sxs, poor posture, limited ROM, weakness in L UE. Patient current functional limitations are disturbing her sleep, looking at and holding cell phone, difficulty turning to L side, carrying purse, needs help taking off shirt, cannot reach overhead, driving (to back in), reach back pocket. Patient will benefit from skilled PT to address aforementioned impairments and functional limitations to meet established goals. Frequency and Duration: The patient will be seen 2x/week for 4 weeks Short Term Goals: 2 weeks Patient demonstrates consistency and independence with HEP to self manage symptoms. Patient shows improved seated posture with neutral cervical spine and shoulder girdle. Quality Assurance Project Manager Goals: 4 weeks Patient presents with increased cervical rotation 50 degrees bilaterally to look over shoulders when driving. Patient presents with increased LEFT shoulder flexion AROM 140 degrees to be able to reach overhead to wash/dry hair. Treatment Plan: Modalities to reduce pain, spasms and effusion. Manual therapy to restore motion and function. Therapeutic exercise to improve strength and flexibility. Neuromuscular re-education for posture and balance. Therapeutic activities to return to functional activities of daily living. Electronically signed by: Lee Ann Flood, PT, DPT Please sign and return to therapist. Thank you for your referral.
--- NOTE | 2023-07-10 12:38 | MHC.PT.EP ---
[facility] [place] Office [place] Office [place] Office [address] [phone] F: [phone] F: [phone] F: [phone] F: [phone] Physical Therapy Plan of Care Date of Evaluation: 04/10/23 Date of Surgery: Diagnosis: LEFT cervical radiculopathy, LEFT shoulder pain (MD Dx) LEFT shoulder subacromial impingement syndrome (Added PT Dx) (RS) Assessment: Patient is a pleasant 47 y.o. female who is referred to PT by Suzie Quinonez PA-C with Dx of LEFT cervical radiculopathy and LEFT shoulder pain. PT diagnosis also includes LEFT shoulder subacromial impingement syndrome. Patient impairments include pain, radicular sxs, poor posture, limited ROM, weakness in L UE. Patient current functional limitations are disturbing her sleep, looking at and holding cell phone, difficulty turning to L side, carrying purse, needs help taking off shirt, cannot reach overhead, driving (to back in), reach back pocket. Patient will benefit from skilled PT to address aforementioned impairments and functional limitations to meet established goals. Frequency and Duration: The patient will be seen 2x/week for 4 weeks Short Term Goals: 2 weeks Patient demonstrates consistency and independence with HEP to self manage symptoms. Patient shows improved seated posture with neutral cervical spine and shoulder girdle. Corn Miller Goals: 4 weeks Patient presents with increased cervical rotation 50 degrees bilaterally to look over shoulders when driving. Patient presents with increased LEFT shoulder flexion AROM 140 degrees to be able to reach overhead to wash/dry hair. Treatment Plan: Modalities to reduce pain, spasms and effusion. Manual therapy to restore motion and function. Therapeutic exercise to improve strength and flexibility. Neuromuscular re-education for posture and balance. Therapeutic activities to return to functional activities of daily living. Electronically signed by: Lee Ann Flood, PT, DPT Please sign and return to therapist. Thank you for your referral.
== END 2023-07-10 12:39 | disposition home or self-care (01) ==
LOC: HO.PT 17:00
PROVIDERS: PCP Internal Medicine; Visit Provider Physician Assistant
DX: M54.12 Radiculopathy, cervical region (principal); M75.82 Other shoulder lesions, left shoulder; M19.012 Primary osteoarthritis, left shoulder
CPT/HCPCS: 97012; 97110; 97140; 97161

== ENCOUNTER → 2023-09-13 15:51 | Outpatient (BNVA) | payer BC, SELFPAY | PROVIDERS: PCP Internal Medicine; Visit Provider Internal Medicine ==

== ENCOUNTER 2023-09-25 16:00 | Outpatient (AMB) | payer BC, SELFPAY ==
--- NOTE | 2023-09-25 16:00 | MHC.OFFVIS ---
Vital Signs 09/25/23 16:02 Height 5 ft 4 in Weight 223 lb 12.307 oz BMI 38.4 BP 126/82 Blood Pressure Location Lt brachial Position Sitting Respiration 16 Pulse 97 Pulse Source Pulse Oximeter Pulse Oximetry (%) 95 Oxygen Delivery Method Room Air Intake Visit Reasons: Obstructive sleep apnea Intake Note: Patient comes in for follow up. Allergies Penicillins Allergy (Severe, Verified 09/25/23 16:18) Anaphylaxis Medication List - Last Reconciled 09/25/23 by Mo Holcomb MD albuterol sulfate 90 mcg/actuation (ProAir HFA) 2 puffs inhalation Q6H PRN celecoxib (Celebrex) 200 mg PO BID 30 days clotrimazole-betamethasone 1-0.05 % 1 appl topical BID 10 days docusate sodium 100 mg PO DAILY PRN famotidine 20 mg PO DAILY lidocaine HCl-hydrocortison ac 3-0.5 % 1 appl DC BEDTIME lidocaine HCl-hydrocortison ac 3-0.5 % appl topical BEDTIME lisinopril 5 mg PO DAILY loratadine (Claritin) 10 mg PO DAILY montelukast 10 mg PO DAILY naproxen 500 mg PO BID PRN triamcinolone acetonide 0.5% 1 appl topical BID 10 days Do you need a note to return to daycare/school/sports/work: No HPI HPI Obstructive sleep apnea: Details: THIS 48 YEARS OLD FEMALE WHO IS GROSSLY OBESE AND HAD DIAGNOSIS OF OBSTRUCTIVE SLEEP APNEA, IN ADDITION TO ALLERGIC RHINITIS AND MILD BRONCHIAL ASTHMA, COMES FOR FOLLOW-UP AND MAINLY BECAUSE HER CPAP MACHINE IS NOT WORKING PROPERLY. SHE HAS BEEN USING THIS CPAP MACHINE SINCE ABOUT 1 YEAR AGO, BUT IN THE LAST 2-3 WEEKS IT MAKES LOT OF NOISE, SO SHE IS NOT. USING HER OWN MACHINE SHE HAS BORROWED A MACHINE FROM 1 OF HER FRIENDS WHICH SHE IS USING SHE JUST CAN NOT SLEEP WITHOUT THE CPAP USAGE. SHE ALSO HAS ONGOING NASAL ALLERGY CURRENTLY CONTROLLED WITH CLARITIN 10 MG DAILY AND ALSO MONTELUKAST. 10 MG DAILY BRONCHIAL ASTHMA IS MILD AND INTERMITTENT AND SHE USES ALBUTEROL HFA ONLY P.R.N.. HER WEIGHT REMAINS JUST THE SAME SHE HAS NOT BEEN. ABLE TO LOSE MUCH [facility] Medical History History of torn meniscus of left knee Pain of left shoulder with external rotation Tooth ache Acquired deformity of toenail Postsurgical menopause History of anemia Depression with anxiety Left ankle pain Left hip pain Left anterior knee pain Tendinitis of knee History of gestational diabetes Congenital hearing loss of left ear Allergic rhinitis Plantar fasciitis Intertrigo Eczema of both hands BARBY on CPAP Obesity (BMI 30-39.9) Surgical History Hx of colonoscopy Hx of knee surgery History of bilateral breast reduction surgery History of sinus surgery History of tubal ligation History of hysterectomy, supracervical Family History Father CAD (coronary artery disease) Mother HTN (hypertension) Social History Household Members Other:: son Housing: House Are you a primary manager of care to a significant other at home: No Do you presently have visiting nurse or other home services: No Alcohol intake: current Alcohol intake frequency: holidays/special occasions only Patient Tobacco Use Status: Never used Tobacco e-Cigarette/Vaping Use: Never Used Second Hand Smoke Exposure: Yes service: No Current occupational status: employed 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 Current occupational exposures/hazards: No Sexual orientation: Straight/Heterosexual Gender identity: Female Cognitive needs: No Hearing needs: No Vision needs: No Female Reproductive History Menstrual Age of Menarche: 12 Review of Systems Const All systems reviewed & are unremarkable except as noted in HPI and below Eyes Reports no additional complaints ENT Reports nasal congestion (Mild off and on) Card Denies chest pain, Denies leg edema and Denies radiating jaw, neck or arm pain Resp Reports no additional complaints, Denies cough and Denies pain with cough GI Reports heartburn (Controlled with med) Reports no additional complaints Musc Reports arthralgias (Left knee and ankle pain) Skin/Breast Reports system reviewed and no additional complaints, except as documented Neuro Reports no additional complaints Psych Reports no additional complaints Physical Exam Vital Signs: Last Vital Signs Pulse 97 09/25/23 16:02 BP 126/82 09/25/23 16:02 Pulse Ox 95 09/25/23 16:02 Oxygen Delivery Method Room Air 09/25/23 16:02 BMI result Body Mass Index 38.4 Const General: healthy appearing (Except for being overweight), comfortable, no acute distress, alert and awake Orientation/consciousness: patient oriented x3 HEENT Head: Yes normal to inspection General nose exam: No nasal polyps present and No nasal discharge present Face and sinus: Yes sinuses nontender Mouth: oropharynx normal Throat: Yes posterior oropharynx normal Eyes General: appearance normal, both eyes and all related structures Neck Neck: Yes normal visual inspection, Yes no lymphadenopathy, Yes trachea midline and Yes no JVD Thyroid: Thyroid normal Chest Chest palpation & inspection: normal inspection of the chest, normal palpation of entire chest wall and no tenderness Resp Effort & Inspection: normal respiratory effort Auscultation: clear to auscultation bilaterally, no rhonchi and no wheezes Percussion: percussion normal Cardio Palpation: normal PMI Rate: regular rate Rhythm: regular rhythm Heart sounds: no gallops and no murmurs Peripheral pulses: Peripheral pulses 2+ throughout GI Palpation (GI): Soft to palpation, nontender, No hepatosplenomegaly present and no masses Auscultation: normal bowel sounds Back/Spine/Pelvis Thoracic/Lumbar Spine: thoracic and lumbar spine normal to inspection and thoraco-lumbar ROM limited Skin General skin exam: no rashes or lesions noted Neuro General: patient oriented x3 and no focal motor deficits Cranial nerves: Yes CN's II-XII intact bilaterally Extrem General: Yes normal to inspection, Yes no clubbing, cyanosis or edema and Yes no calf tenderness Psych Appearance: grossly normal and well kempt Speech and movement: Normal speech and movement present Results Reviewed Results Reviewed: COMPLIANCE REPORT NOT AVAILABLE Assessment & Plan Assessment & Plan (1) Obesity (BMI 30-39.9): Comment: Patient is aware of being overweight, has not been able to lose any weight, Code(s): E66.9 - Obesity, unspecified Category: Medical Plan: We discussed about diet , to be low in calories in low carbs. and need to do some exercise. (2) BARBY on CPAP: Comment: She is compliant and benefiting however. She stayed with full face mask and now feels comfortable. She has been very, and however states that in the last several weeks her CPAP device is not working, it is making lot of noise . Currently she is using a borrowed CPAP device from 1 of her friends. Code(s): G47.33 - Obstructive sleep apnea (adult) (pediatric); Z99.89 - Dependence on other enabling machines and devices Category: Medical Plan: We are going to call DME provider , and discuss what would be the next step to do. Once they inspect and declare that CPAP device is dysfunctional, then . Then will proceed with ordering a new machine (3) Allergic rhinitis: Comment: Mild intermittent, well controlled . At this time. Code(s): J30.9 - Allergic rhinitis, unspecified Category: Medical Plan: Continue using Claritin 10 mg daily,. As needed Continue montelukast 10 mg daily. (4) Allergic asthma: Comment: She has a mild intermittent bronchial asthma which is more allergic in type, associated with her allergic rhinitis. Code(s): J45.909 - Unspecified asthma, uncomplicated Category: Medical Qualifiers: Asthma severity: mild Asthma persistence: intermittent Asthma complication type: with acute exacerbation Qualified Code(s): J45.21 - Mild intermittent asthma with (acute) exacerbation Plan: Continue to use ProAir 1 or 2 puffs Q 6 hours p.r.n. Coding Level of Care Code Est Pt Level 3 (47827) Diagnoses Obesity (BMI 30-39.9) E66.9 BARBY on CPAP G47.33; Z99.89 Allergic rhinitis J30.9 Mild intermittent extrinsic asthma with acute exacerbation J45.21 Asthma severity: mild Asthma persistence: intermittent Asthma complication type: with acute exacerbation
[2023-09-25 16:02] VITALS: BP 126/82; PULSE 97; RESP 16; O2SAT 95; BMI 38.4
== END 2023-09-25 16:19 | disposition home or self-care (01) ==
PROVIDERS: PCP Internal Medicine; Referring Provider Internal Medicine; Visit Provider Internal Medicine
DX: E66.9 Obesity, unspecified (principal); G47.33 Obstructive sleep apnea (adult) (pediatric); Z99.89 Dependence on other enabling machines and devices; J30.9 Allergic rhinitis, unspecified; J45.21 Mild intermittent asthma with (acute) exacerbation
CPT/HCPCS: 99213

== ENCOUNTER → 2023-09-25 16:00 | Outpatient (BNVA) | payer BC, SELFPAY | PROVIDERS: PCP Internal Medicine; Visit Provider Internal Medicine ==

== ENCOUNTER 2023-10-18 08:51 | Outpatient (AMB) | payer BC, SELFPAY ==
--- NOTE | 2023-10-18 08:52 | A.OFFPC_ITS ---
Vital Signs 10/18/23 08:53 Height 5 ft 4 in Weight 221 lb 6 oz BMI 38.0 BP 114/78 Blood Pressure Location Lt brachial Position Sitting Pulse 79 Pulse Source Pulse Oximeter Pulse Oximetry (%) 97 Oxygen Delivery Method Room Air Intake Visit Reasons: Annual Physical Intake Note: Patient here for physical exam. last pap: 2022 Last mammo: 2022 Allergies Penicillins Allergy (Severe, Verified 10/18/23 09:21) Anaphylaxis Medication List - Last Reconciled 10/18/23 by Maria E Pappas MD albuterol sulfate 90 mcg/actuation (ProAir HFA) 2 puffs inhalation Q6H PRN albuterol sulfate 90 mcg/actuation 2 puffs inhalation Q4-6H PRN 30 days celecoxib (Celebrex) 200 mg PO BID 30 days clotrimazole-betamethasone 1-0.05 % 1 appl topical BID 10 days docusate sodium 100 mg PO DAILY PRN famotidine 20 mg PO DAILY lidocaine HCl-hydrocortison ac 3-0.5 % 1 appl MD BEDTIME lidocaine HCl-hydrocortison ac 3-0.5 % appl topical BEDTIME lisinopril 5 mg PO DAILY loratadine (Claritin) 10 mg PO DAILY montelukast 10 mg PO DAILY naproxen 500 mg PO BID PRN triamcinolone acetonide 0.5% 1 appl topical BID 10 days Tobacco use date assessed: 11/16/22 Dental Screening Dental Screen Date: 11/16/22 HPI Annual Physical HPI Details 48-year-old lady with hypertension, asth ma, arthralgia, and seasonal environmental allergies, here today for her physical exam. Goes to [facility] for her routine Pap and pelvic exam, currently up-to-date. Up-to-date with her screening: Colonoscopy, done by Dr. Hayden last year, showed presence of internal and external hemorrhoids, repeat screening due again in 2032. She is up-to-date with her screening mammogram, due again next month She has hypertension currently stable and controlled on lisinopril 5 mg taken once a day. Has environmental and seasonal allergies currently stable controlled on the loratadine and montelukast. [facility] Medical History Environmental and seasonal allergies Hearing loss in left ear History of torn meniscus of left knee Pain of left shoulder with external rotation Acquired deformity of toenail Postsurgical menopause Depression with anxiety Tendinitis of knee History of gestational diabetes Congenital hearing loss of left ear Plantar fasciitis BARBY on CPAP Obesity (BMI 30-39.9) Surgical History Hx of colonoscopy Hx of knee surgery History of bilateral breast reduction surgery History of sinus surgery History of tubal ligation History of hysterectomy, supracervical Family History Father CAD (coronary artery disease) Mother HTN (hypertension) Social History Household Members Other:: son Housing: House Are you a primary director of home care hospice to a significant other at home: No Do you presently have visiting nurse or other home services: No Alcohol intake: current Alcohol intake frequency: holidays/special occasions only Patient Tobacco Use Status: Never used Tobacco e-Cigarette/Vaping Use: Never Used Second Hand Smoke Exposure: Yes service: No Current occupational status: employed 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 1. Little interest or pleasure in doing things: not at all 2. Feeling down, depressed, or hopeless: not at all 3. Trouble falling or staying asleep, or sleeping too much: several days 4. Feeling tired or having little energy: several days 5. Poor appetite or overeating: more than half the days 6. Feeling bad about yourself - or that you are a failure or have let yourself or your family down: not at all 7. Trouble concentrating on things, such as reading the newspaper or watching television: several days 8. Moving or speaking so slowly that other people could have noticed. Or the opposite - being so fidgety or restless that you have been moving around a lot more than usual: not at all 9. Thoughts that you would be better off or of hurting yourself in some way: not at all Total score: 5 Depression Screening Interpretation: Negative Depression Screening Done: Yes 48306 - PHQ-9 Billing: Yes Source: Developed by Drs. Jin Butler, Joleen Velasco, Otis Ceballos and colleagues, with an educational rashad from [employer]. Thrive Questionnaire Date Thrive assessed: 10/18/23 I am a: Patient What is your living situation today?: I have a steady place to live Within the past 12 months, did the food you bought not last and you didn't have the money to get more?: Sometimes True Within the past 12 months, did you worry whether your food would run out before you got money to buy more?: Sometimes True Do you have trouble paying for medicines?: I choose not to answer this question Do you have trouble getting transportation to medical appointments?: I choose not to answer this question Do you have trouble paying your heating and electricity bill?: I choose not to answer this question Do you have trouble taking care of your child, family member or friend?: I choose not to answer this question Do you have trouble with day-to-day activities such as bathing, preparing meals, shopping, managing finances, etc.?: I choose not to answer this question Are you currently unemployed and looking for a job?: I choose not to answer this question Are you interested in more education?: I choose not to answer this question Please select the resources that you would like help with: None Currently or been in a relationship where the following occur: No concerns reported THRIVE Score: 2 AUDIT C Alcohol Use Questionnaire (AUDIT-C) 1. How often do you have a drink containing alcohol?: Never Total Score: 0 MARQUISE-7 AMB Questionnaire MARQUISE-7 Date MARQUISE - 7 assessed: 10/18/23 Feeling nervous, anxious, or on edge: 1 = Several days Not being able to stop or control worryin = Not at all Worrying too much about different things: 1 = Several days Trouble relaxin = Not at all Being so restless that it is hard to sit still: 0 = Not at all Becoming easily annoyed or irritable: 1 = Several days Feeling afraid as if something awful might happen: 0 = Not at all Total MARQUISE-7 score (0-4 normal; 5-9 mild; 10-14 moderate; 15-21 severe): 3 Source: Developed by Drs. Jin Butler, Joleen Velasco, Otis Ceballos and colleagues, with an educational rashad from [employer]. MARQUISE-7 Assessment Billing MARQUISE-7 Assessment Tool: MARQUISE-7 Assessment 90031 Review of Systems Const All systems reviewed & are unremarkable except as noted in HPI and below Eyes Reports no additional complaints ENT Reports no additional complaints Card Denies chest pain and Denies leg edema Resp Reports no additional complaints GI Reports heartburn (Controlled with med) Reports no additional complaints Musc Reports arthralgias (Left knee and ankle pain) Skin/Breast Denies breast pain, Denies breast mass and Denies rash Neuro Reports no additional complaints Psych Reports no additional complaints Endo Reports no additional complaints Crispin/Lymph Reports no additional complaints Aller/Immun Reports as per HPI Physical exam (Primary Care) Vital Signs: Last Vital Signs Pulse 79 10/18/23 08:53 BP 114/78 10/18/23 08:53 Pulse Ox 97 10/18/23 08:53 Oxygen Delivery Method Room Air 10/18/23 08:53 BMI result Body Mass Index 38.0 Tobacco/Smoking Status: Tobacco use Status Tobacco use date assessed 11/16/22 10/18/23 08:53 Patient Tobacco Use Status Never used Tobacco 10/18/23 08:53 e-Cigarette/Vaping Use Never Used 10/18/23 08:53 PHQ-9: PHQ-9 Score PHQ-9: Total score 5 10/21/23 17:53 Depression Screening Interpretation: Negative Thrive Assessment: Date of Thrive Assessment Date Thrive assessed 10/18/23 10/21/23 17:53 Currently or been in a relationship where the following occur: No concerns reported Const General: cooperative, comfortable and no acute distress Nutritional Appearance: obese Orientation/consciousness: patient oriented x3 HENMT Head: Yes normocephalic General nose exam: Normal external nose present and No nasal discharge present Mouth: oropharynx normal and moist mucous membranes Eyes General: appearance normal, both eyes and all related structures Neck Neck: Yes full ROM, Yes no lymphadenopathy and Yes supple Thyroid: Thyroid normal Chest Chest palpation & inspection: normal inspection of the chest Breast/axilla palpation: normal palpation of the breasts Resp Effort & Inspection: normal respiratory effort and able to speak in complete sentences Auscultation: clear to auscultation bilaterally Cardio Rate: regular rate Rhythm: regular rhythm Heart sounds: S1 normal heart sound present and S2 normal heart sound present GI Inspection: Yes normal to inspection Palpation (GI): Soft to palpation, nontender and no masses Auscultation: normal bowel sounds General: Yes no CVA tenderness Back/Spine/Pelvis Back: no CVA tenderness Cervical Spine: cervical ROM normal Thoracic/Lumbar Spine: thoracic and lumbar spine normal to inspection Skin General skin exam: no rashes or lesions noted Neuro General: patient oriented x3, gait normal, tone normal, moves all extremities, Normal light touch and pain sensation and no focal motor deficits Cognition (Neuro): normal cognition Gait exam (Neuro): Normal gait present Motor exam (neuro): 5/5 motor strength present throughout Extrem General: Yes no joint enlargement, Yes no pedal edema and Yes normal gait Psych Appearance: grossly normal Mental Status: mental status grossly normal Speech and movement: Normal speech and movement present Affect: normal affect Attitude: cooperative Thought process: Normal thought process present Thought content: Normal thought content present Assessment and Plan Assessment & Plan (1) Annual visit for general adult medical examination with abnormal findings: Code(s): Z00.01 - Encounter for general adult medical examination with abnormal findings Plan: Will check appropriate labs. Recommended dental visit every 6 months and regular eye exams, at least every 2 years. Take adequate calcium in diet and vitamin-D 3 at 2000 IU per cap once a day, in addition to weight-bearing exercises to help maintain good muscle tone and weight control. Instructed to do self-breast exam, and continue to get yearly mammogram, up-to-date with her cervical cancer screening, sees [facility]. Reminded to get her yearly flu shot and COVID booster, up-to-date with Tdap, up-to-date with her colonoscopy screening (2) Essential hypertension: Code(s): I10 - Essential (primary) hypertension Plan: Blood pressure at goal of less than 130/80. Currently on lisinopril 5 mg daily. Reinforced importance of following a low sodium diet, getting regular exercise, and lowering stress levels. (3) Obesity (BMI 30-39.9): Comment: Patient is aware of being overweight, has not been able to lose any weight, Code(s): E66.9 - Obesity, unspecified Plan: Discussed need to increase activity and weight reduction. Recommended focusing on improving health instead of dieting. Mediterranean diet is a healthy diet that helps, limit food high in fat, sugar, and calories. Eat slowly, pay attention to portion sizes, plan your meals ahead of time, start regular physical activity, at least 150 minutes of moderate intensity exercise, or 90 minutes per week of vigorous exercise. Keeping a food diary, tracking what you eat and your physical activity can help assess what improvements you can make. There are many health problems associated with being overweight/obese, so it is important to improve your diet and exercise. There are medications and surgical options available, but Lifestyle changes are the 1st step. (4) Fatigue: Code(s): R53.83 - Other fatigue Qualifiers: Fatigue type: unspecified Qualified Code(s): R53.83 - Other fatigue Plan: Will check TSH with free T4 vitamin-D, CBC (5) Hearing loss in left ear: Code(s): H91.92 - Unspecified hearing loss, left ear Qualifiers: Hearing loss type: unspecified Qualified Code(s): H91.92 - Unspecified hearing loss, left ear Plan: ENT consult ordered for further evaluation and management (6) Environmental and seasonal allergies: Code(s): J30.89 - Other allergic rhinitis Plan: Continue montelukast 10 mg daily, and loratadine 10 mg daily as needed Orders: Orders Vitamin D 25-OH Total 10/18/23 E66.9 - Obesity, unspecified, E89.40 - Asymptomatic postprocedural ovarian failure, I10 - Essential (primary) hypertension, Z00.01 - Encounter for general adult medical examination with abnormal findings Lipid Panel 10/18/23 E66.9 - Obesity, unspecified, E89.40 - Asymptomatic postprocedural ovarian failure, I10 - Essential (primary) hypertension, Z00.01 - Encounter for general adult medical examination with abnormal findings Alanine Aminotransferase 10/18/23 E66.9 - Obesity, unspecified, E89.40 - Asymptomatic postprocedural ovarian failure, I10 - Essential (primary) hypertension, Z00.01 - Encounter for general adult medical examination with abnormal findings TSH reflex Free T4 10/18/23 R53.83 - Other fatigue Basic Metabolic Panel Fasting 10/18/23 E66.9 - Obesity, unspecified, E89.40 - Asymptomatic postprocedural ovarian failure, I10 - Essential (primary) hypertension, Z00.01 - Encounter for general adult medical examination with abnormal findings Aspartate Amino Transferase 10/18/23 E66.9 - Obesity, unspecified, E89.40 - Asymptomatic postprocedural ovarian failure, I10 - Essential (primary) hypertension, Z00.01 - Encounter for general adult medical examination with abnormal findings Complete Blood Count Auto Diff 10/18/23 R53.83 - Other fatigue Referrals Ear/Nose/Throat Referral H91.92 - Unspecified hearing loss, left ear, J30.89 - Other allergic rhinitis Coding Level of Care Code Est Pt Prev Care 40-64y(05111) Diagnoses Annual visit for general adult medical examination with abnormal findings Z00.01 Essential hypertension I10 Obesity (BMI 30-39.9) E66.9 Fatigue, unspecified type R53.83 Fatigue type: unspecified Hearing loss of left ear, unspecified hearing loss type H91.92 Hearing loss type: unspecified Environmental and seasonal allergies J30.89 Additional Codes MARQUISE-7 Assessment Billing - MARQUISE-7 Assessment Tool: MARQUISE-7 Assessment 53221 ([id number])
[2023-10-18 08:53] VITALS: BP 114/78; PULSE 79; O2SAT 97; BMI 38.0
== END 2023-10-18 09:42 | disposition home or self-care (01) ==
PROVIDERS: PCP Internal Medicine; Visit Provider Internal Medicine
DX: Z00.00 Encounter for general adult medical examination without abnormal findings (principal); I10 Essential (primary) hypertension; E66.9 Obesity, unspecified; Z68.38 Body mass index [BMI] 38.0-38.9, adult; R53.83 Other fatigue; H91.92 Unspecified hearing loss, left ear; J30.89 Other allergic rhinitis
CPT/HCPCS: 99396

== ENCOUNTER 2023-11-17 08:32 | Outpatient (REF) | payer BC, SELFPAY ==
[2023-11-17 10:59] LABS: MANUAL DIFF FLAG NO
[2023-11-17 11:20] LABS: Basophils Absolute Auto 0.1 X10*3/uL (0.0-0.2); Basophils Percent Auto 0.6 % (0-2); Eosinophils Absolute Auto 0.3 X10*3/uL (0.0-0.4); Eosinophils Percent Auto 4.3 % (0-4); Hemoglobin 12.6 g/dl (12.0-16.0); Imm Gran Abs Auto 0.01 X10*3/uL (0.00-0.03); Imm Gran Pct Auto 0.1 % (0.0-0.4); Lymphocytes Absolute Auto 3.7 X10*3/uL (1.2-4.9); Mean Corpuscular HGB Conc 33.2 g/dl (31.0-35.0); Mean Corpuscular Hemoglobin 28.4 pg (27.0-33.0); Mean Corpuscular Volume 85.8 fL (80.0-98.0); Mean Platelet Volume 12.6 fL (9.4-12.3); Monocytes Absolute Auto 0.5 X10*3/uL (0.1-1.2); Monocytes Percent Auto 6.6 % (2-11); Neutrophils Absolute Auto 3.2 x10*3/uL (2.0-8.3); Neutrophils Percent Auto 41.4 % (45-73); Platelet Count 245 X10*3/uL (160-400); Red Blood Count 4.43 X10*6/uL (4.20-5.50); Red Cell Distribution Width 13.2 % (11.0-16.0); White Blood Count 7.8 X10*3/uL (4.8-10.8)
[2023-11-17 11:48] LABS: Alanine Aminotransferase 21 U/L (0-31); Anion Gap 13 (12-20); Aspartate Amino Transferase 15 U/L (5-31); Blood Urea Nitrogen 17 mg/dL (9-16); Calcium 10.1 mg/dL (8.4-10.2); Carbon Dioxide 24 mmol/L (22-29); Chloride 106 mmol/L (96-108); Cholesterol 225 mg/dL (<200); Estimated Glomerular Filt Rate > 60; Glucose Fasting 97 mg/dL (60-99); HDL Cholesterol 54 mg/dL (>40); LDL Cholesterol Calculated 138 mg/dL (<100); Potassium 4.1 mmol/L (3.3-5.1); Sodium 139 mmol/L (135-145); Triglycerides 165 mg/dL (<150)
[2023-11-17 12:09] LABS: TSH reflex Free T4 1.36 uIU/mL (0.32-4.0); Vitamin D 25-OH Total 49.3 ng/mL (>30)
== END 2023-11-17 08:33 | disposition home or self-care (01) ==
LOC: HO.HMGCLDS 08:32
PROVIDERS: PCP Internal Medicine; Visit Provider Internal Medicine
DX: Z00.01 Encounter for general adult medical examination with abnormal findings (principal); I10 Essential (primary) hypertension; E89.40 Asymptomatic postprocedural ovarian failure; E66.9 Obesity, unspecified; R53.83 Other fatigue
CPT/HCPCS: 36415; 80048; 80061; 82306; 84443; 84450; 84460; 85025

== ENCOUNTER 2023-11-24 07:37 | Outpatient (REF) | payer BC, SELFPAY ==
--- NOTE | ~2023-11-24 | MM_ITS ---
EXAMINATION: MM SCREENING DIGITAL BREAST TOMOSYNTHESIS, BILATERAL CLINICAL INFORMATION: Screening. Asymptomatic. COMPARISON: Mammography: Comparison is made with available priors TECHNIQUE: Digital breast mammography with tomosynthesis is performed in both the craniocaudal and mediolateral oblique views along with computer-aided detection (CAD). FINDINGS: There are scattered areas of fibroglandular density (ACR BI-RADS breast composition Category b). Bilateral reduction mammoplasty. There are no significant masses, abnormal calcifications, or other abnormalities. MM/MM tomosynthesis screening BI IMPRESSION: No mammographic evidence of malignancy. ASSESSMENT: BI-RADS BI-RADS 2 - Benign Findings RECOMMENDATION: Routine annual mammography screening. 1 year F/U This examination should not preclude the clinical evaluation of a suspicious palpable abnormality. This patient's information was entered into a reminder system with a target due date for their next mammogram. Electronically signed by: Kate Chapin DO 12/06/2023 09:42 PM EDT
== END 2023-11-24 07:38 | disposition home or self-care (01) ==
LOC: HO.MAMMO 07:37
PROVIDERS: PCP Internal Medicine; Visit Provider Internal Medicine
DX: Z12.31 Encounter for screening mammogram for malignant neoplasm of breast (principal)
CPT/HCPCS: 77063; 77067

== ENCOUNTER → 2023-11-24 07:45 | Outpatient (BNV) | payer BC, SELFPAY | PROVIDERS: PCP Internal Medicine; Visit Provider Internal Medicine | DX: Z12.31 Encounter for screening mammogram for malignant neoplasm of breast (principal) | CPT/HCPCS: 77063; 77067 ==

== ENCOUNTER → 2023-11-29 14:45 | Outpatient (BNVA) | payer BC, SELFPAY | PROVIDERS: PCP Internal Medicine ==

== ENCOUNTER 2023-12-20 15:44 | Outpatient (AMB) | payer BC, SELFPAY ==
--- NOTE | 2023-12-20 15:48 | A.OFFVIS_ITS ---
Vital Signs 12/20/23 15:54 Height 5 ft 4 in Weight 228 lb 2.855 oz BMI 39.2 BP 140/78 H Blood Pressure Location Rt brachial Position Sitting Pulse 80 Pulse Source Pulse Oximeter Pulse Oximetry (%) 98 Oxygen Delivery Method Room Air Intake Visit Reasons: Obstructive sleep apnea Automobile Relocation Engineer Required: No Foreign Language Instructor: Foreign Language Instructor offered & declined Accompanied by: Self / Same As Patient Allergies Penicillins Allergy (Severe, Verified 12/20/23 15:57) Anaphylaxis Medication List - Last Reconciled 12/20/23 by Mo Holcomb MD albuterol sulfate 90 mcg/actuation (ProAir HFA) 2 puffs inhalation Q6H PRN albuterol sulfate 90 mcg/actuation 2 puffs inhalation Q4-6H PRN 30 days celecoxib (Celebrex) 200 mg PO BID 30 days clotrimazole-betamethasone 1-0.05 % 1 appl topical BID 10 days docusate sodium 100 mg PO DAILY PRN famotidine 20 mg PO DAILY lidocaine HCl-hydrocortison ac 3-0.5 % [address] BEDTIME lidocaine HCl-hydrocortison ac 3-0.5 % appl topical BEDTIME lisinopril 5 mg PO DAILY loratadine (Claritin) 10 mg PO DAILY montelukast 10 mg PO DAILY naproxen 500 mg PO BID PRN triamcinolone acetonide 0.5% 1 appl topical BID 10 days Do you need a note to return to daycare/school/sports/work: No HPI HPI Obstructive sleep apnea: Details: THIS 48 YEARS OLD FEMALE IS GROSSLY OBESE, WITH DIAGNOSIS OF OBSTRUCTIVE. SLEEP APNEA ALSO HAS MILD INTERMITTENT BRONCHIAL ASTHMA. SHE HAS NEW CPAP DEVICE WHICH SHE STARTED USING ON , AND SHE HAS BEEN USING IT EVERY NIGHT. THE COMPLIANCE IS 100%. SHE HAS SOME ISSUES WITH THE NEW MACHINE ESPECIALLY WITH HUMIDITY LEVEL, AND STATES THAT SHE DOES NOT LIKE THE NEW MODEL IT IS SOMEWHAT DIFFERENT THAN BEFORE. HOWEVER SHE DOES USE IT EVERY NIGHT, SOMETIMES EVEN DURING THE DAYTIME WHEN SHE IS SITTING AND READING SHE PUTS THE MASK ON. ASTHMA HAS BEEN UNDER GOOD CONTROL, SHE USES ALBUTEROL P.R.N., SHE CLAIMS THAT WITH THE VENTOLIN 2 PUFFS SHE EXPERIENCES SOME TACHYCARDIA. SHE SAY IS THAT SHE LIKES TO GO BACK TO PROAIR, HOWEVER I EXPLAINED TO HER THAT BOTH OF THEM HAVE THE SAME MEDICATION ALBUTEROL. [facility] Medical History Environmental and seasonal allergies Hearing loss in left ear History of torn meniscus of left knee Pain of left shoulder with external rotation Acquired deformity of toenail Postsurgical menopause Depression with anxiety Tendinitis of knee History of gestational diabetes Congenital hearing loss of left ear Plantar fasciitis BARBY on CPAP Obesity (BMI 30-39.9) Surgical History Hx of colonoscopy Hx of knee surgery History of bilateral breast reduction surgery History of sinus surgery History of tubal ligation History of hysterectomy, supracervical Family History Father CAD (coronary artery disease) Mother HTN (hypertension) Social History Household Members Other:: son Housing: House Are you a primary tire care manager to a significant other at home: No Do you presently have visiting nurse or other home services: No Alcohol intake: current Alcohol intake frequency: holidays/special occasions only Patient Tobacco Use Status: Never used Tobacco e-Cigarette/Vaping Use: Never Used Second Hand Smoke Exposure: Yes service: No Current occupational status: employed 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 Current occupational exposures/hazards: No Sexual orientation: Straight/Heterosexual Gender identity: Female Cognitive needs: No Hearing needs: No Vision needs: No Female Reproductive History Menstrual Age of Menarche: 12 Review of Systems Const All systems reviewed & are unremarkable except as noted in HPI and below Eyes Reports no additional complaints ENT Reports nasal congestion (Mild off and on) Card Denies chest pain, Denies leg edema and Denies radiating jaw, neck or arm pain Resp Reports no additional complaints, Denies cough and Denies pain with cough GI Reports heartburn (Controlled with med) Reports no additional complaints Musc Reports arthralgias (Left knee and ankle pain) Skin/Breast Reports system reviewed and no additional complaints, except as documented Neuro Reports no additional complaints Psych Reports no additional complaints Physical Exam Const General: healthy appearing (Except for being overweight), comfortable, no acute distress, alert and awake Orientation/consciousness: patient oriented x3 HEENT Head: Yes normal to inspection General nose exam: No nasal polyps present and No nasal discharge present Face and sinus: Yes sinuses nontender Mouth: oropharynx normal Throat: Yes posterior oropharynx normal Eyes General: appearance normal, both eyes and all related structures Neck Neck: Yes normal visual inspection, Yes no lymphadenopathy, Yes trachea midline and Yes no JVD Thyroid: Thyroid normal Chest Chest palpation & inspection: normal inspection of the chest, normal palpation of entire chest wall and no tenderness Resp Effort & Inspection: normal respiratory effort Auscultation: clear to auscultation bilaterally, no rhonchi and no wheezes Percussion: percussion normal Cardio Palpation: normal PMI Rate: regular rate Rhythm: regular rhythm Heart sounds: no gallops and no murmurs Peripheral pulses: Peripheral pulses 2+ throughout GI Palpation (GI): Soft to palpation, nontender, No hepatosplenomegaly present and no masses Auscultation: normal bowel sounds Back/Spine/Pelvis Thoracic/Lumbar Spine: thoracic and lumbar spine normal to inspection and thoraco-lumbar ROM limited Skin General skin exam: no rashes or lesions noted Neuro General: patient oriented x3 and no focal motor deficits Cranial nerves: Yes CN's II-XII intact bilaterally Extrem General: Yes normal to inspection, Yes no clubbing, cyanosis or edema and Yes no calf tenderness Psych Appearance: grossly normal and well kempt Speech and movement: Normal speech and movement present Results Reviewed Results Reviewed: COMPLIANCE REVIEWED, STARTING FROM SHE IS USING EVERY NIGHT, 100%. AVERAGE USE IT PER NIGHT 9 HOURS 7 MINUTES ( THIS INCLUDES THE USE OF CPAP FOR SOMETIME DURING THE DAYS ) THERE IS MODERATE AIR LEAK 95TH PERCENTILE 45 AND MAXIMUM 63 L. RESIDUAL AHI ONLY 0.7 Assessment & Plan Assessment & Plan (1) Obesity (BMI 30-39.9): Comment: Patient is aware of being overweight, has not been able to lose any weight, Code(s): E66.9 - Obesity, unspecified Category: Medical Plan: AGAIN I EXPLAINED TO HER AND STRESS THAT SHE NEEDS TO LOSE WEIGHT, SHE MAY NEED JOIN A WEIGHT MANAGEMENT PROGRAM. (2) BARBY on CPAP: Comment: She has gotten the new machine since about 2 months ago, and is using it regularly. Complains of the humidity issue , that the water finishes during the night. She thinks the new model has a smaller. Water tank Code(s): G47.33 - Obstructive sleep apnea (adult) (pediatric); Z99.89 - Dependence on other enabling machines and devices Category: Medical Plan: I advised her to talk to [employer] tech service and get the humidity level adjusted. Otherwise she can also bring the CPAP device here to our office and we will help her adjusting the humidity level. Encouraged her to keep on using it every night as much as possible. (3) Allergic asthma: Comment: She has a mild intermittent bronchial asthma which is allergic in type, associated with her allergic rhinitis. Code(s): J45.909 - Unspecified asthma, uncomplicated Category: Medical Qualifiers: Asthma severity: mild Asthma persistence: intermittent Asthma complication type: with acute exacerbation Qualified Code(s): J45.21 - Mild intermittent asthma with (acute) exacerbation Plan: Continue to use albuterol HFA 1 or 2 puffs Q 6 hours p.r.n.. Because of the complaint of tachycardia after his usage it may be better to use only 1 spray at a time. (4) Allergic rhinitis: Comment: Mild intermittent, well controlled . At this time. Code(s): J30.9 - Allergic rhinitis, unspecified Category: Medical Plan: Continue using montelukast 10 mg daily and use loratadine 10 mg once a day p.r.n. Coding Level of Care Code Est Pt Level 3 (43008) Diagnoses Obesity (BMI 30-39.9) E66.9 BARBY on CPAP G47.33; Z99.89 Mild intermittent extrinsic asthma with acute exacerbation J45.21 Asthma severity: mild Asthma persistence: intermittent Asthma complication type: with acute exacerbation Allergic rhinitis J30.9
[2023-12-20 15:54] VITALS: BP 140/78; PULSE 80; O2SAT 98; BMI 39.2
== END 2023-12-20 16:10 | disposition home or self-care (01) ==
LOC: HO.HPS 15:44
PROVIDERS: PCP Internal Medicine; Visit Provider Internal Medicine
DX: E66.9 Obesity, unspecified (principal); G47.33 Obstructive sleep apnea (adult) (pediatric); Z99.89 Dependence on other enabling machines and devices; J45.21 Mild intermittent asthma with (acute) exacerbation; J30.9 Allergic rhinitis, unspecified
CPT/HCPCS: 99213

== ENCOUNTER → 2023-12-20 15:44 | Outpatient (BNVA) | payer BC, SELFPAY | PROVIDERS: PCP Internal Medicine; Visit Provider Internal Medicine ==

== ENCOUNTER 2024-02-27 13:45 | Outpatient (AMB) | payer BC, SELFPAY ==
--- NOTE | 2024-02-27 13:48 | MHC.OFFVIS ---
Vital Signs 02/27/24 14:00 Height 5 ft 4 in Weight 228 lb BMI 39.1 Intake Visit Reasons: OV- f/u LT shoulder pain Intake Note: Blossom is a 48 year old female who presents today for a follow up of left shoulder. Patient was last seen for her left shoulder on 01/03/23 and an MRI was ordered, however MRI was not obtained due to insurance. Patient reports ongoing constant pain that is radiating down her arm. Limited ROM that is affecting AODL. She attended PT with no relief. Finds no relief with celebrex and very little relief with naproxen. She is requesting a prescription for naproxen. Allergies Penicillins Allergy (Severe, Verified 02/27/24 14:00) Anaphylaxis Medication List - Last Reconciled 02/27/24 by Suzie Quinonez PA-C albuterol sulfate 90 mcg/actuation 2 puffs inhalation Q4-6H PRN 30 days clotrimazole-betamethasone 1-0.05 % 1 appl topical BID 10 days docusate sodium 100 mg PO DAILY PRN famotidine 20 mg PO DAILY lidocaine HCl-hydrocortison ac 3-0.5 % 1 appl ME BEDTIME lidocaine HCl-hydrocortison ac 3-0.5 % appl topical BEDTIME lisinopril 5 mg PO DAILY loratadine (Claritin) 10 mg PO DAILY lorazepam 0.5 mg PO DAILY PRN montelukast 10 mg PO DAILY naproxen 500 mg PO BID PRN triamcinolone acetonide 0.5% 1 appl topical BID 10 days HPI HPI OV- f/u LT shoulder pain: Details: 48-year-old female returns to the office today for follow-up left shoulder pain. She was previously seen by myself and had left shoulder injections with no relief. She also performed physical therapy for the last 2 months with increased pain with activities. She continues to have difficulty performing anything with lifting or reaching. The pain radiates down the arm and is impacting her quality of life. [facility] Medical History Environmental and seasonal allergies Hearing loss in left ear History of torn meniscus of left knee Pain of left shoulder with external rotation Acquired deformity of toenail Postsurgical menopause Depression with anxiety Tendinitis of knee History of gestational diabetes Congenital hearing loss of left ear Plantar fasciitis BARBY on CPAP Obesity (BMI 30-39.9) Surgical History Hx of colonoscopy Hx of knee surgery History of bilateral breast reduction surgery History of sinus surgery History of tubal ligation History of hysterectomy, supracervical Family History Father CAD (coronary artery disease) Mother HTN (hypertension) Social History Household Members Other:: son Housing: House Are you a primary patient care technician to a significant other at home: No Do you presently have visiting nurse or other home services: No Alcohol intake: current Alcohol intake frequency: holidays/special occasions only Patient Tobacco Use Status: Never used Tobacco e-Cigarette/Vaping Use: Never Used Second Hand Smoke Exposure: Yes service: No Current occupational status: employed 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 Current occupational exposures/hazards: No Sexual orientation: Straight/Heterosexual Gender identity: Female Cognitive needs: No Hearing needs: No Vision needs: No Female Reproductive History Menstrual Age of Menarche: 12 Review of Systems Const All systems reviewed & are unremarkable except as noted in HPI and below Physical Exam Vital Signs: BMI result Body Mass Index 39.1 Const General: cooperative and no acute distress Orientation/consciousness: patient oriented x3 Resp Effort & Inspection: normal respiratory effort and able to speak in complete sentences Cardio Peripheral pulses: Peripheral pulses 2+ throughout Neuro General: patient oriented x3 Extrem Other: Left shoulder is normal to inspection she has significant tenderness over the proximal biceps tendon and into the trapezium muscle. She has limited forward flexion to 90 degrees. Pain with Pablo. She has weakness and pain with rotator cuff strength testing significantly with internal rotation. Assessment & Plan Assessment & Plan (1) Arthritis of left glenohumeral joint: Code(s): M19.012 - Primary osteoarthritis, left shoulder Category: Medical (2) Injury of left rotator cuff: Code(s): S46.002A - Unspecified injury of muscle(s) and tendon(s) of the rotator cuff of left shoulder, initial encounter Category: Medical Plan An MRI of the left shoulder has been ordered to further evaluate the integrity of her rotator cuff and extent of her arthritis. She was given a prescription for lorazepam to take 1 tablet 30 minutes prior to the procedure the 2nd tablet as needed she should not drive while taking this medication. She was also sent a prescription for naproxen to the pharmacy and she will see us back once the scan is complete. Orders: Orders MR shoulder LT wo con Today S46.009A - Unspecified injury of muscle(s) and tendon(s) of the rotator cuff of unspecified shoulder, initial encounter Medications: New lorazepam take 1 tab 30 mins prior to exam, another as needed. Do not drive while taking this medication 0.5 mg PO DAILY PRN 2 tabs 0RF anxiety Refilled naproxen 500 mg PO BID PRN 20 tabs 0RF pain Coding Level of Care Code Est Pt Level 3 (76654) Complex EM visit Add On G2211 Diagnoses Arthritis of left glenohumeral joint M19.012 Injury of left rotator cuff S46.002A
[2024-02-27 14:00] VITALS: BMI 39.1
== END 2024-02-27 14:16 | disposition home or self-care (01) ==
PROVIDERS: PCP Internal Medicine; Visit Provider Physician Assistant
DX: M19.012 Primary osteoarthritis, left shoulder (principal); S46.002A Unspecified injury of muscle(s) and tendon(s) of the rotator cuff of left shoulder, initial encounter
CPT/HCPCS: 99213

== ENCOUNTER 2024-03-15 19:27 | Outpatient (REF) | payer BC, SELFPAY ==
--- NOTE | ~2024-03-15 | MR_ITS ---
EXAMINATION: MR SHOULDER WITHOUT CONTRAST, LEFT CLINICAL INFORMATION: Left shoulder pain, worsening. Decreased range of motion, numbness in arm, chronic. Ineffective cortisone injection. COMPARISON: None TECHNIQUE: Multiplanar multisequence MR imaging of the shoulder was done without IV contrast. Examination performed on a 1.5 Sheila Siemens unit utilizing standard sequences. FINDINGS: Rotator Cuff and Biceps Tendon: Supraspinatus: There is a delamination type tear extending from the medial focal attachment to the region just before the myotendinous junction, measuring 10 mm in length (series 7, image 12). Subtle rim rent type tear medial footplate attachment of the anteriormost tendon (series 7, image 10). There is superior surface fraying of the tendon at the myotendinous junction (series 8, image 19). Diffuse thinning of the tendon is evident, with increased intrasubstance signal consistent with tendinopathy/degeneration. No complete tear or tendon retraction. Muscle belly is normal. Infraspinatus: Appears intact without discrete tear. Diffusely increased intrasubstance signal of the distal tendon is consistent with tendinopathy. Muscle belly is normal. Subscapularis: Full thickness tearing of the superior distal most tendon with subluxation of the bicipital tendon out of the groove. Tendon is otherwise intact with mildly increased signal suggestive of tendinopathy. Muscle belly is normal. Teres Minor: Intact and normal in signal. Muscle belly is normal. Biceps Long Head: The bicipital tendon is subluxed medially out of the groove, indicating full thickness subscapularis tear. The distal non-rotator interval tendon itself appears intact with normal signal. There is increased fluid surrounding the tendon within the sheath, consistent with tenosynovitis. The tendon within the rotator interval demonstrates increased intrasubstance signal suggestive of tendinopathy. AC Joint and Acromiohumeral Arch: There is mild to moderate arthritis in the AC joint with mild capsular distention and superior surface spurring. No significant undersurface spurring or outlet stenosis of the supraspinatus. Neutral lateral acromion without significant undersurface spurs. Glenohumeral Joint and Labrum: Severe degenerative arthritis glenohumeral joint, with large inferiorly projecting humeral head and glenoid osteophytes, moderate size joint effusion, and complete cartilage loss of the posterior and inferior glenoid with glenoid subchondral cystic changes. There are subchondral cystic changes within the articular surface of the humeral head, also demonstrates complete cartilage loss spanning the mid to superior articular surface. There is likely diffuse degenerative type tearing of the glenoid labrum. Subtle signal alterations in the joint fluid may represent small loose bodies. Osseous Structures: Aside from the above, no infiltrating abnormal bone marrow signal or evidence of fracture. Degenerative periarticular high signal as discussed. Spino-glenoid Notch: -Normal. Quadrilateral Space: -Normal. Other: -Small amount of fluid is seen in the subacromial/subdeltoid bursa, consistent with bursitis. -The glenohumeral ligaments appear intact without significant thickening. MR/MR shoulder LT wo con IMPRESSION: 1. Advanced degenerative arthritis glenohumeral joint with foci of complete cartilage loss, subchondral cystic changes in the glenoid and humeral head, and large undersurface osteophytes. There is likely diffuse degenerative type tearing of the glenoid labrum. There is a moderate joint effusion. 2. Mild to moderate degenerative arthritis AC joint. No significant undersurface spurring. 3. Several focal tears within the supraspinatus tendon, which is also somewhat thinned and high signal, consistent with tendinopathy. No full-thickness tear or tendinous retraction. 4. Full-thickness tear of the anterosuperior subscapularis tendon, with medial subluxation of the biceps tendon out of the groove. There is also tendinopathy of the tendon. 5. There is tendinopathy of the infraspinatus tendon without discrete tear. 6. There is tendinopathy of the long head of the biceps tendon with tenosynovitis. 7. See the above report for further details. Electronically signed by: Glenn Lott MD 03/17/2024 11:49 AM [facility]
== END 2024-03-15 19:28 | disposition home or self-care (01) ==
LOC: HO.MRI 19:27
PROVIDERS: Visit Provider Physician Assistant
DX: S46.002D Unspecified injury of muscle(s) and tendon(s) of the rotator cuff of left shoulder, subsequent encounter (principal)
CPT/HCPCS: 73221

== ENCOUNTER → 2024-03-15 19:38 | Outpatient (BNV) | payer BC, SELFPAY | PROVIDERS: Visit Provider Radiology Diagnostic Radiology | DX: M19.012 Primary osteoarthritis, left shoulder (principal); S46.002A Unspecified injury of muscle(s) and tendon(s) of the rotator cuff of left shoulder, initial encounter | CPT/HCPCS: 73221 ==

== ENCOUNTER 2024-04-12 09:13 | Outpatient (REF) | payer BC, SELFPAY ==
[2024-04-12 12:37] LABS: Alanine Aminotransferase 102 U/L (0-31); Anion Gap 12 (12-20); Aspartate Amino Transferase 33 U/L (5-31); Blood Urea Nitrogen 15 mg/dL (9-16); Carbon Dioxide 24 mmol/L (22-29); Chloride 107 mmol/L (96-108); Cholesterol 234 mg/dL (<200); Estimated Glomerular Filt Rate > 60; Glucose Fasting 100 mg/dL (60-99); HDL Cholesterol 52 mg/dL (>40); LDL Cholesterol Calculated 154 mg/dL (<100); Sodium 139 mmol/L (135-145); Triglycerides 141 mg/dL (<150)
[2024-04-12 12:42] LABS: Vitamin D 25-OH Total 32.1 ng/mL (>30)
== END 2024-04-12 09:14 | disposition home or self-care (01) ==
LOC: HO.HMGCLDS 09:13
PROVIDERS: PCP Internal Medicine; Visit Provider Internal Medicine
DX: I10 Essential (primary) hypertension (principal); E66.9 Obesity, unspecified; E78.5 Hyperlipidemia, unspecified; E89.40 Asymptomatic postprocedural ovarian failure; Z13.228 Encounter for screening for other metabolic disorders
CPT/HCPCS: 36415; 80048; 80061; 82306; 84450; 84460

== ENCOUNTER 2024-04-14 08:07 | Outpatient (AMB) | payer BC, SELFPAY ==
[2024-04-14 08:17] VITALS: BP 114/72; PULSE 71; RESP 15; TEMP 36.9; O2SAT 97; BMI 37.1
--- NOTE | 2024-04-14 08:17 | MHC.PC.OV ---
Vital Signs 04/14/24 08:17 Height 5 ft 4 in Weight 216 lb BMI 37.1 BP 114/72 Blood Pressure Location Lt brachial Position Sitting Respiration 15 Pulse 71 Pulse Source Pulse Oximeter Temp 98.5 F Temp Source Oral Pulse Oximetry (%) 97 Oxygen Delivery Method Room Air Intake Visit Reasons: 6 month follow up Intake Note: Pt is here today for her 6mo. f/u Allergies Penicillins Allergy (Severe, Verified 04/14/24 08:42) Anaphylaxis Medication List - Last Reconciled 04/14/24 by Maria E Pappas MD albuterol sulfate 90 mcg/actuation 2 puffs inhalation Q4-6H PRN 30 days clotrimazole-betamethasone 1-0.05 % 1 appl topical BID 10 days docusate sodium 100 mg PO DAILY PRN famotidine 20 mg PO DAILY lidocaine HCl-hydrocortison ac 3-0.5 % 1 appl NM BEDTIME lidocaine HCl-hydrocortison ac 3-0.5 % appl topical BEDTIME lisinopril 5 mg PO DAILY loratadine (Claritin) 10 mg PO DAILY montelukast 10 mg PO DAILY naproxen 500 mg PO BID PRN triamcinolone acetonide 0.5% 1 appl topical BID 10 days Tobacco use date assessed: 04/14/24 Dental Screening Dental Screen Date: 04/14/24 HPI 6 month follow up HPI Details 48-year-old lady with history of obstructive sleep apnea on CPAP, has dyslipidemia, osteoarthritis, and allergic rhinitis, here today for follow-up. Hypertension stable controlled on lisinopril which she takes 5 mg once a day, but fasting lipids on recent labs showed higher LDL cholesterol as compared to last check. Patient also has gained about 5 lb in the last month [facility] Medical History (Updated 04/14/24 @ 08:59 by Maria E Pappas MD) Supraspinatus tendon tear Elevated liver enzymes Dyslipidemia Allergic rhinitis Environmental and seasonal allergies Hearing loss in left ear History of torn meniscus of left knee Pain of left shoulder with external rotation Acquired deformity of toenail Postsurgical menopause Depression with anxiety Tendinitis of knee History of gestational diabetes Congenital hearing loss of left ear Plantar fasciitis BARBY on CPAP Obesity (BMI 30-39.9) Surgical History Hx of colonoscopy Hx of knee surgery History of bilateral breast reduction surgery History of sinus surgery History of tubal ligation History of hysterectomy, supracervical Family History Father CAD (coronary artery disease) Mother HTN (hypertension) Social History Household Members Other:: son Housing: House Are you a primary care manager cna to a significant other at home: No Do you presently have visiting nurse or other home services: No Alcohol intake: current Alcohol intake frequency: holidays/special occasions only Patient Tobacco Use Status: Never used Tobacco e-Cigarette/Vaping Use: Never Used Second Hand Smoke Exposure: Yes service: No Current occupational status: employed 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 1. Little interest or pleasure in doing things: not at all 2. Feeling down, depressed, or hopeless: not at all 3. Trouble falling or staying asleep, or sleeping too much: several days 4. Feeling tired or having little energy: not at all 5. Poor appetite or overeating: not at all 6. Feeling bad about yourself - or that you are a failure or have let yourself or your family down: not at all 7. Trouble concentrating on things, such as reading the newspaper or watching television: not at all 8. Moving or speaking so slowly that other people could have noticed. Or the opposite - being so fidgety or restless that you have been moving around a lot more than usual: not at all 9. Thoughts that you would be better off or of hurting yourself in some way: not at all Total score: 1 Depression Screening Interpretation: Negative Depression Screening Done: Yes 18695 - PHQ-9 Billing: Yes Source: Developed by Drs. Jin Butler, Joleen Velasco, Otis Ceballos and colleagues, with an educational rashad from [employer]. Thrive Questionnaire Date Thrive assessed: 04/14/24 I am a: Patient What is your living situation today?: I have a steady place to live Within the past 12 months, did the food you bought not last and you didn't have the money to get more?: Sometimes True Within the past 12 months, did you worry whether your food would run out before you got money to buy more?: Sometimes True Do you have trouble paying for medicines?: Yes Do you have trouble getting transportation to medical appointments?: No Do you have trouble paying your heating and electricity bill?: No Do you have trouble taking care of your child, family member or friend?: No Do you have trouble with day-to-day activities such as bathing, preparing meals, shopping, managing finances, etc.?: Yes Are you currently unemployed and looking for a job?: No Are you interested in more education?: No Please select the resources that you would like help with: None Currently or been in a relationship where the following occur: No concerns reported THRIVE Score: 2 AUDIT C Alcohol Use Questionnaire (AUDIT-C) 1. How often do you have a drink containing alcohol?: Never Total Score: 0 MARQUISE-7 AMB Questionnaire MARQUISE-7 Date MARQUISE - 7 assessed: 04/14/24 Feeling nervous, anxious, or on edge: 0 = Not at all Not being able to stop or control worryin = Not at all Worrying too much about different things: 0 = Not at all Trouble relaxin = More than half the days Being so restless that it is hard to sit still: 3 = Nearly every day Becoming easily annoyed or irritable: 3 = Nearly every day Feeling afraid as if something awful might happen: 0 = Not at all Total MARQUISE-7 score (0-4 normal; 5-9 mild; 10-14 moderate; 15-21 severe): 8 Source: Developed by Drs. Jin Butler, Joleen Velasco, Otis Ceballos and colleagues, with an educational rashad from [employer]. MARQUISE-7 Assessment Billing MARQUISE-7 Assessment Tool: MARQUISE-7 Assessment 01331 Review of Systems Const All systems reviewed & are unremarkable except as noted in HPI and below Eyes Reports no additional complaints ENT Reports no additional complaints Card Denies chest pain, Denies leg edema and Denies radiating jaw, neck or arm pain Resp Reports no additional complaints, Denies cough and Denies pain with cough GI Reports heartburn (Controlled with med) Reports no additional complaints Musc Reports arthralgias (Left knee and ankle pain) Skin/Breast Reports rash (Inguinal areas) Neuro Reports no additional complaints Psych Reports no additional complaints Endo Reports no additional complaints Aller/Immun Reports seasonal rhinorrhea Physical exam (Primary Care) Vital Signs: Last Vital Signs Temp 98.5 F 04/14/24 08:17 Pulse 71 04/14/24 08:17 Resp 15 04/14/24 08:17 BP 114/72 04/14/24 08:17 Pulse Ox 97 04/14/24 08:17 Oxygen Delivery Method Room Air 04/14/24 08:17 BMI result Body Mass Index 37.1 Tobacco/Smoking Status: Tobacco use Status Tobacco use date assessed 04/14/24 04/14/24 08:19 Patient Tobacco Use Status Never used Tobacco 04/14/24 08:19 e-Cigarette/Vaping Use Never Used 04/14/24 08:19 Depression Screening Interpretation: Negative Thrive Assessment: Date of Thrive Assessment Date Thrive assessed 04/14/24 04/14/24 08:24 Currently or been in a relationship where the following occur: No concerns reported Const General: cooperative, comfortable and no acute distress Nutritional Appearance: obese Orientation/consciousness: patient oriented x3 HENMT Head: Yes normocephalic General nose exam: Normal external nose present and No nasal discharge present Mouth: oropharynx normal and moist mucous membranes Eyes General: appearance normal, both eyes and all related structures Neck Neck: Yes full ROM, Yes no lymphadenopathy and Yes supple Thyroid: Thyroid normal Resp Effort & Inspection: normal respiratory effort and able to speak in complete sentences Auscultation: clear to auscultation bilaterally Cardio Rate: regular rate Rhythm: regular rhythm Heart sounds: S1 normal heart sound present and S2 normal heart sound present GI Inspection: Yes normal to inspection Palpation (GI): Soft to palpation, nontender and no masses Auscultation: normal bowel sounds Skin General skin exam: no rashes or lesions noted Neuro General: patient oriented x3, gait normal, tone normal, moves all extremities, Normal light touch and pain sensation and no focal motor deficits Cognition (Neuro): normal cognition Gait exam (Neuro): Normal gait present Motor exam (neuro): 5/5 motor strength present throughout Extrem General: Yes no joint enlargement, Yes no pedal edema and Yes normal gait Psych Appearance: grossly normal Mental Status: mental status grossly normal Speech and movement: Normal speech and movement present Affect: normal affect Attitude: cooperative Thought process: Normal thought process present Thought content: Normal thought content present Results Reviewed Results Reviewed: joanna: Blossom Lozada Age/Sex: 48/F : 1975 Unit#: [id number] Attend Dr: Maria E Pappas MD Re04/12/24 Status: DEP REF Location: [facility] Disch: SPEC : [id number] HARMONY: 04/12/24 STATUS: COMP REQ : [id number] RECD: 04/12/[address]: Maria E Pappas MD COMP: 04/12/24 ENTERED: 04/12/[address]: ORDERED: Met Prof Fast, AST, ALT, Lipid Panel, Vitamin D 25-OH Test Result Flag Reference Sodium 139 135-145 mmol/L Potassium 4.0 3.3-5.1 mmol/L CL 107 96-108 mmol/L CO2 24 22-29 mmol/L Gap 12 12-20 BUN 15 9-16 mg/dL Creat 0.65 0.5-1.4 mg/dL eGFR > 60 Chronic Kidney Disease: Estimated GFR < 60 mL/min/1.73m2 Severe Kidney Disease: Estimated GFR < 15 mL/min/1.73m2 FBS 100 H 60-99 mg/dL A fasting glucose from 100-125 mg/dl is considered impaired (pre-diabetes). CA 10.0 8.4-10.2 mg/dL AST (GOT) 33 H 5-31 U/L ALT (GPT) 102 H 0-31 U/L Triglyceride 141 <150 mg/dL Desirable Triglyceride: less than 150 mg/dL Borderline High Triglyceride 150-199 mg/dL High Triglyceride: 200-499 mg/dL Very High Triglyceride: greater than or equal to 5OO mg/dL Cholesterol 234 H <200 mg/dL Desirable Cholesterol: less than 200 mg/dL Borderline High Cholesterol: 200-239 mg/dL High Cholesterol: greater than 239 mg/dL LDL Calculated 154 H <100 mg/dL Desirable LDL: less than 100 mg/dL Near Optimal/Above Optimal LDL: 110-129 mg/dL Borderline High LDL: 130-159 mg/dL High LDL: 160-189 mg/dL Very High LDL: greater than or equal to 190 mg/dL HDL 52 >40 mg/dL Desirable HDL: greater than 40 mg/dL Note: This HDL assay may give artificially low results in patients with liver disease. Vit D 25-OH Tot 32.1 >30 ng/mL Health Based Reference Values* < 20 ng/mL Deficient 20-30 ng/mL Insufficient > 30 ng/mL Sufficient Coding Level of Care Code Est Pt Level 4 (86444) Complex EM visit Add On G2211 Diagnoses Dyslipidemia E78.5 Supraspinatus tendon tear M75.100 Arthritis of left glenohumeral joint M19.012 Essential hypertension I10 Obesity (BMI 30-39.9) E66.9 Additional Codes PHQ-9 - 20785 - PHQ-9 Billing: Yes ([id number]) MARQUISE-7 Assessment Billing - MARQUISE-7 Assessment Tool: MARQUISE-7 Assessment 52598 ([id number]) Assessment & Plan Assessment & Plan (1) Dyslipidemia: Code(s): E78.5 - Hyperlipidemia, unspecified Category: Medical Plan: Reviewed recent fasting lab results with patient, which showed higher LDL cholesterol as compared to last check. Reinforced importance of following a low-cholesterol diet and getting regular exercise. (2) Supraspinatus tendon tear: Code(s): M75.100 - Unspecified rotator cuff tear or rupture of unspecified shoulder, not specified as traumatic Category: Medical Plan: Has appointment already scheduled with Dr. Randall on 05/02/2024 for follow-up left shoulder pain (3) Arthritis of left glenohumeral joint: Code(s): M19.012 - Primary osteoarthritis, left shoulder Category: Medical Plan: Followed by Orthopedics (4) Essential hypertension: Code(s): I10 - Essential (primary) hypertension Category: Medical Plan: Blood pressure at goal of less than 130/80. Continue with current medication. Reinforced importance of following a low sodium diet, getting regular exercise, and lowering stress levels. (5) Obesity (BMI 30-39.9): Comment: Patient is aware of being overweight, currently she is more seriously working on her weight. She is doing on her own with restriction of calories. And she has lost about 17 lb in the last month. Code(s): E66.9 - Obesity, unspecified Category: Medical Plan: Continue with lifestyle changes and regular exercise and following recommended diet Orders: Orders Lipid Panel 07/05/24 E78.5 - Hyperlipidemia, unspecified, R74.8 - Abnormal levels of other serum enzymes Liver Panel 07/05/24 E78.5 - Hyperlipidemia, unspecified, R74.8 - Abnormal levels of other serum enzymes Medications: Refilled clotrimazole-betamethasone 1-0.05 % 1 appl topical BID 45 grams 1RF 10 days L30.4 - Erythema intertrigo
--- OUTSIDE RECORDS SUMMARY | 2024-04-14 08:17 | XMS_ITS | Patient Health Record ---
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 Name Role Phone Mian FOWLER, Maria E Zimmerman Primary Care Provider Un available Lyudmila Cantu Unavailable [phone] Allergies Allergen (clinical drug ingredient) Drug/Non Drug Allergy documented on EMR Reaction Allergy Type Onset Date Status Penicillin Unknown Drug Allergy Active Reason For Referral No Information Medications Medication SIG (Take, Route, Frequency, Duration) Notes Start Date End Date Status Albuterol Sulfate 108 (90 Base) MCG/ACT 1 puff as needed Inhalation every 4 hrs Active LamISIL 250 MG 1 tablet Orally Once a day for 30 days Active busPIRone HCl 5 MG 1 tablet Orally Twic e a day Active Naproxen 500 MG 1 tablet with food o r milk as needed Orally every 12 hrs PRN Active Fexofenadine-Pseudoephed ER 180-240 MG 1 tablet Orally Once a day Active Docusate Sodium 100 MG 1 capsule as need ed Orally Once a day Active Clotrimazole-Betamethasone 1-0.05 % 1 application Externally Twice a day Active Montelukast Sodium 10 MG 1 tablet Orally Once a day Active Lisinopril 5 MG 1 tablet Orally Once a day Active Ciclopirox Olamine 0.77 % USE 1 APPLICAT ION TO AFFECTED AREA EXTERNALLY TO FEET TWICE A DAY 30 DAYS for 30 Active Triamcinolone Acetonide 0.5 % 1 application Externally Two times a Week Active Social History Tobacco Use: Social History Observation Description Date Details (start date - stop date) Never Smoker NA - NA Tobacco Use/Smoking Question Answer Notes Are you a: nonsmoker Additional Findings: Tobacco Non-User Current no n-smoker Alcohol Screen Question Answer Notes Did you have a drink contain ing alcohol in the past year? Yes How often did you have a dri nk containing alcohol in the past year? Monthly or less (1 point) Points 1 Interpretation Negative Tobacco use other than smoking: Question Answer Notes Are you an other tobacco user? No Plan Of Treatment Pending Test Test Name Order Date *Liver Function Test (LFT) 06/27/2022 Insurance Providers Payer Name Payer Address Payer Phone Subscriber Number Group Number Insured Name Patient Relationship to Insured Coverage Start Date Coverage End Date [facility] [address] [place] [address] [id number] Blossom Lozada Self - patient is the insured Medical (General) History Medical History History ICD Code Allergic rhinitis Hearing loss Depression Anxiety Eczema Anemia Gestational diabetes Intertrigo Ankle Pain Knee Pain Hip pain BARBY on CPAP Plantar fasciitis Tendonitis of knee asthma Back pain covid-19 Gall bladder problems Headaches/Migraines High blood pressure Sleep apnea Sciatica Chicken pox Surgical History Surgery Date(Month/Year) breast reduction, bilateral hysterectomy, supracervical sinus surgery tubal ligation colonoscopy knee surgery- left 10/2015
== END 2024-04-14 09:01 | disposition home or self-care (01) ==
PROVIDERS: PCP Internal Medicine; Visit Provider Internal Medicine
DX: E78.5 Hyperlipidemia, unspecified (principal); Z68.37 Body mass index [BMI] 37.0-37.9, adult; E66.9 Obesity, unspecified; M75.100 Unspecified rotator cuff tear or rupture of unspecified shoulder, not specified as traumatic; M19.012 Primary osteoarthritis, left shoulder; I10 Essential (primary) hypertension

== ENCOUNTER → 2024-04-14 08:07 | Outpatient (BNVA) | payer BC, SELFPAY | PROVIDERS: PCP Internal Medicine; Visit Provider Internal Medicine | DX: E78.5 Hyperlipidemia, unspecified (principal); M75.102 Unspecified rotator cuff tear or rupture of left shoulder, not specified as traumatic; M19.012 Primary osteoarthritis, left shoulder; I10 Essential (primary) hypertension; E66.9 Obesity, unspecified; Z68.37 Body mass index [BMI] 37.0-37.9, adult; G47.33 Obstructive sleep apnea (adult) (pediatric); Z79.899 Other long term (current) drug therapy; Z99.89 Dependence on other enabling machines and devices | CPT/HCPCS: 96127 ==

== ENCOUNTER 2024-05-02 11:35 | Outpatient (AMB) | payer BC, SELFPAY ==
--- NOTE | 2024-05-02 11:39 | A.OFFVIS_ITS ---
Intake Visit Reasons: OV - Left Shoulder MRI Review Intake Note: Blossom is a 48 year old right hand dominant female who presents today for an MRI review of her left shoulder. Patient was last seen with Suzie who states that patient has tried and failed Physical therapy. Patient reports that she is having difficulty with reaching and lifting, her pain radiates down the arm and is impacting her AODL. Allergies Penicillins Allergy (Severe, Verified 04/14/24 08:42) Anaphylaxis HPI HPI OV - Left Shoulder MRI Review: Details: Blossom is a 48 year old right hand dominant female who presents today for an MRI review of her left shoulder. Patient was last seen with Suzie who states that patient has tried and failed Physical therapy. Patient reports that she is having difficulty with reaching and lifting, her pain radiates down the arm and is impacting her ADLs. She describes burning radiating down entirety of her left arm. This prevents her from sleeping well at night and she is having a difficult time with pain. She has had a long history of shoulder pain but it has not really started bothering until the last year so. She has had injections in the past which she did not find helpful. [facility] Medical History (Updated 04/14/24 @ 08:59 by Maria E Pappas MD) Supraspinatus tendon tear Elevated liver enzymes Dyslipidemia Allergic rhinitis Environmental and seasonal allergies Hearing loss in left ear History of torn meniscus of left knee Pain of left shoulder with external rotation Acquired deformity of toenail Postsurgical menopause Depression with anxiety Tendinitis of knee History of gestational diabetes Congenital hearing loss of left ear Plantar fasciitis BARBY on CPAP Obesity (BMI 30-39.9) Surgical History Hx of colonoscopy Hx of knee surgery History of bilateral breast reduction surgery History of sinus surgery History of tubal ligation History of hysterectomy, supracervical Family History Father CAD (coronary artery disease) Mother HTN (hypertension) Social History Household Members Other:: son Housing: House Are you a primary ambulatory care coordinator to a significant other at home: No Do you presently have visiting nurse or other home services: No Alcohol intake: current Alcohol intake frequency: holidays/special occasions only Patient Tobacco Use Status: Never used Tobacco e-Cigarette/Vaping Use: Never Used Second Hand Smoke Exposure: Yes service: No Current occupational status: employed 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 Positive impingement. External rotation to 15 degrees. Results Reviewed Results Reviewed: I personally reviewed relevant radiographs. IMPRESSION: 1. Advanced degenerative arthritis glenohumeral joint with foci of complete cartilage loss, subchondral cystic changes in the glenoid and humeral head, and large undersurface osteophytes. There is likely diffuse degenerative type tearing of the glenoid labrum. There is a moderate joint effusion. 2. Mild to moderate degenerative arthritis AC joint. No significant undersurface spurring. 3. Several focal tears within the supraspinatus tendon, which is also somewhat thinned and high signal, consistent with tendinopathy. No full-thickness tear or tendinous retraction. 4. Full-thickness tear of the anterosuperior subscapularis tendon, with medial subluxation of the biceps tendon out of the groove. There is also tendinopathy of the tendon. 5. There is tendinopathy of the infraspinatus tendon without discrete tear. 6. There is tendinopathy of the long head of the biceps tendon with tenosynovitis. Assessment & Plan Assessment & Plan (1) Arthritis of left glenohumeral joint: Code(s): M19.012 - Primary osteoarthritis, left shoulder Category: Medical Plan: This is a 48-year-old woman with arthritis of the left glenohumeral joint. Her superior cuff is intact and her subscapularis is partially intact. I do not recommend surgery at this time. We discussed injections which she does not want. Also think she would benefit from elucidation of any coexisting cervicalgia/radiculopathy as her primary complaint seems to be numbness and tingling (2) Cervical radiculopathy: Code(s): M54.12 - Radiculopathy, cervical region Category: Medical Plan: MRI ordered. Follow up status post MRI Orders: Orders MR cervical spine wo con Today M54.12 - Radiculopathy, cervical region Coding Level of Care Code Est Pt Level 3 (52080) Complex EM visit Add On G2211 Diagnoses Arthritis of left glenohumeral joint M19.012 Cervical radiculopathy M54.12
== END 2024-05-02 12:28 | disposition home or self-care (01) ==
LOC: HO.HOS 11:36
PROVIDERS: Visit Provider Orthopaedic Surgery
DX: M19.012 Primary osteoarthritis, left shoulder (principal); M54.12 Radiculopathy, cervical region
CPT/HCPCS: 99213

== ENCOUNTER → 2024-05-24 19:34 | Outpatient (BNV) | payer BC, SELFPAY | PROVIDERS: PCP Internal Medicine; Visit Provider Radiology Diagnostic Radiology | DX: M47.812 Spondylosis without myelopathy or radiculopathy, cervical region (principal) | CPT/HCPCS: 72141 ==

== ENCOUNTER 2024-05-24 19:35 | Outpatient (REF) | payer BC, SELFPAY ==
--- NOTE | ~2024-05-24 | MR_ITS ---
EXAMINATION: MR CERVICAL SPINE WITHOUT CONTRAST CLINICAL INFORMATION: Cervical radiculopathy; neck pain traveling down left shoulder, arm, as well as to the left lower extremity. COMPARISON: None TECHNIQUE: Multiplanar multisequence MR imaging of the cervical spine was done prior to and without the administration IV gadolinium. Examination was performed on a 1.5 Sheila Siemens unit, using standard sequences. FINDINGS: CORONAL ALIGNMENT: -Normal, without significant scoliosis. SAGITTAL ALIGNMENT: -Mild reversal of the normal lordosis centered at C5. -There is a trace 2 mm degenerative type anterolisthesis of C4 on C5. Trace retrolisthesis of C6 on C7. CRANIOCERVICAL JUNCTION/C1-2 ARTICULATIONS: -Intact and aligned. Mild degenerative arthrosis of the C1-2 articulation. VERTEBRAL BODIES/BONE MARROW: -No compression deformities or suspicious bone lesions. No bone marrow edema identified. DISCS: -There is mild to moderate diffuse loss of disc height and signal, more moderate changes at C5-6 and C6-7. CERVICAL CORD: -Normal in caliber and signal throughout. No regions of cord impingement identified. PARAVERTEBRAL SOFT TISSUES: -Normal. -The thyroid is largely obscured by a saturation band. There appears to be a T2 hyperintense left thyroid nodule measuring 2.9 x 3.4 cm, only seen on the oblique T2 sequences (series 10, image 2). VISUALIZED INTRACRANIAL STRUCTURES: -Normal. AXIAL DISC SPACE IMAGING: C2-C3: No central canal or neural foraminal narrowing. Normal facets. C3-C4: Minimal disc bulging without significant mass effect. Mild bilateral uncinate spurs. Normal facets. Minimal central canal narrowing and minimal left lateral recess narrowing. There is mild right and moderate left neural foraminal encroachment. C4-C5: No significant disc bulge. Mild left greater than right uncinate spurring bilaterally. Normal appearing facets. No central canal or lateral recess narrowing. There is mild to moderate left neural foraminal narrowing. The right neural foramen is patent. C5-C6: There is a shallow diffuse disc bulge with a superimposed right lateral protrusion of disc material. This indents upon the ventral thecal sac, minimally flattens the right ventral aspect of the cord, however there is preserved CSF signal dorsal to the cord. No cord signal abnormality. There is mild central canal stenosis. There are normal facets. There is mild to moderate right greater than left uncinate spurring. There is mild right and mild to moderate moderate left neural foraminal. C6-C7: There is a shallow disc bulge with a superimposed shallow right paracentral broad-based protrusion of disc material. This indents upon the ventral thecal sac mildly, but does not contact the cord. There is minimal central canal narrowing. No significant lateral recess narrowing. Mild to moderate uncinate spurring bilaterally, with minimal facet spurring bilaterally. There is mild right and [id number] left neural foraminal narrowing. C7-T1: There is no significant central canal or neural foraminal narrowing. Normal facets. T1-T2: No central canal or neural foraminal narrowing. T2-T3: Broad-based disc bulge without significant mass effect upon the cord. Mild central canal narrowing. Patent neural foramen. T3-T4: Broad-based disc bulge without significant mass effect upon the cord. Mild central canal narrowing. Patent neural foramen. MR/MR cervical spine wo con IMPRESSION: 1. Mild to moderate multilevel spondylosis. No regions of significant central canal narrowing, cord impingement or cord signal abnormality. No high-grade lateral recess or neural foraminal stenosis at any level. See above for details on individual disc levels. 2. Incidental note made of a T2 hyperintense 2.9 x 3.4 cm left thyroid nodule, incompletely imaged on this exam. Consider correlating with ultrasound if not already performed. Electronically signed by: Glenn Lott MD 05/27/2024 08:34 AM EDT
== END 2024-05-24 19:36 | disposition home or self-care (01) ==
LOC: HO.MRI 19:35
PROVIDERS: PCP Internal Medicine; Visit Provider Orthopaedic Surgery
DX: M54.12 Radiculopathy, cervical region (principal)
CPT/HCPCS: 72141

== ENCOUNTER 2024-06-27 10:03 | Outpatient (AMB) | payer BC, SELFPAY ==
[2024-06-27 10:12] VITALS: BMI 37.1
--- NOTE | 2024-06-27 10:12 | A.OFFVIS_ITS ---
Vital Signs 06/27/24 10:12 Height 5 ft 4 in Weight 216 lb BMI 37.1 Intake Visit Reasons: OV - C Spine MRI Follow Up Intake Note: Blossom is a 49 year old right hand dominant female who presents today for a follow up of her left shoulder. At her last visit we discussed that her MRI did not indicate surgical intervention, injections were offered but declined. An MRI of her C Spine was ordered to rule out any coexisting cervicalgia/radiculopathy as her primary complaint seems to be numbness and tingling IMPRESSION: 1. Mild to moderate multilevel spondylosis. No regions of significant central canal narrowing, cord impingement or cord signal abnormality. No high-grade lateral recess or neural foraminal stenosis at any level. See above for details on individual disc levels. 2. Incidental note made of a T2 hyperintense 2.9 x 3.4 cm left thyroid nodule, incompletely imaged on this exam. Consider correlating with ultrasound if not already performed. Allergies Penicillins Allergy (Severe, Verified 06/27/24 10:12) Anaphylaxis HPI HPI OV - C Spine MRI Follow Up: Details: Blossom comes in today for MRI review of her cervical spine. She states she continues to have neck and shoulder pain but numbness and tingling are minimal. [facility] Medical History (Updated 04/14/24 @ 08:59 by Maria E Pappas MD) Supraspinatus tendon tear Elevated liver enzymes Dyslipidemia Allergic rhinitis Environmental and seasonal allergies Hearing loss in left ear History of torn meniscus of left knee Pain of left shoulder with external rotation Acquired deformity of toenail Postsurgical menopause Depression with anxiety Tendinitis of knee History of gestational diabetes Congenital hearing loss of left ear Plantar fasciitis BARBY on CPAP Obesity (BMI 30-39.9) Surgical History Hx of colonoscopy Hx of knee surgery History of bilateral breast reduction surgery History of sinus surgery History of tubal ligation History of hysterectomy, supracervical Family History Father CAD (coronary artery disease) Mother HTN (hypertension) Social History Household Members Other:: son Housing: House Are you a primary md do resident urgent care to a significant other at home: No Do you presently have visiting nurse or other home services: No Alcohol intake: current Alcohol intake frequency: holidays/special occasions only Patient Tobacco Use Status: Never used Tobacco e-Cigarette/Vaping Use: Never Used Second Hand Smoke Exposure: Yes service: No Current occupational status: employed 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 Positive Pablo and Neer Negative empty can Results Reviewed Results Reviewed: I personally reviewed the MR images. IMPRESSION: 1. Mild to moderate multilevel spondylosis. No regions of significant central canal narrowing, cord impingement or cord signal abnormality. No high-grade lateral recess or neural foraminal stenosis at any level. See above for details on individual disc levels. 2. Incidental note made of a T2 hyperintense 2.9 x 3.4 cm left thyroid nodule, incompletely imaged on this exam. Consider correlating with ultrasound if not already performed. Assessment & Plan Assessment & Plan (1) Supraspinatus tendon tear: Code(s): M75.100 - Unspecified rotator cuff tear or rupture of unspecified shoulder, not specified as traumatic Category: Medical Plan: 49-year-old woman with unremarkable MRI of her neck and her symptoms seem minimal. She has underlying shoulder pathology as documented previously with evidence of partial-thickness rotator cuff tearing that is also minimally symptomatic. She did have some findings on MRI in her thyroid and thyroid ultrasound was recommended. I will order this and she will follow up with her PCP. Coding Level of Care Code Est Pt Level 4 (92792) Diagnoses Supraspinatus tendon tear M75.100
--- OUTSIDE RECORDS SUMMARY | 2024-06-27 10:24 | XMS_ITS | Patient Health Record ---
Author Organization [facility] Address [address] [place] [address] Care Team Providers Care Airplane Patrol Pilot Name Role Phone Mian FOWLER, Maria E Zimmerman Primary Care Provider Un available Lyudmila Cantu Unavailable [phone] Allergies Allergen (clinical drug ingredient) Drug/Non Drug [...] Insured Coverage Start Date Coverage End Date [facility] [address] [place] [address] [id number] Blossom Lozada Self - patient is the [...]
== END 2024-06-27 10:41 | disposition home or self-care (01) ==
LOC: HO.HOS 10:04
PROVIDERS: PCP Internal Medicine; Visit Provider Orthopaedic Surgery
DX: M75.102 Unspecified rotator cuff tear or rupture of left shoulder, not specified as traumatic (principal)
CPT/HCPCS: 99213

== ENCOUNTER 2024-07-08 07:23 | Outpatient (REF) | payer BC, SELFPAY ==
[2024-07-08 10:42] LABS: Alanine Aminotransferase 32 U/L (0-31); Albumin Level 4.4 g/dL (3.5-5.0); Alkaline Phosphatase 65 U/L (39-117); Aspartate Amino Transferase 18 U/L (5-31); Bilirubin Direct < 0.2 mg/dL (0.0-0.5); Bilirubin Total 0.2 mg/dL (0.0-1.0); Cholesterol 213 mg/dL (<200); HDL Cholesterol 47 mg/dL (>40); LDL Cholesterol Calculated 128 mg/dL (<100); Total Protein 7.3 g/dL (6.5-8.0); Triglycerides 193 mg/dL (<150)
== END 2024-07-08 07:24 | disposition home or self-care (01) ==
LOC: HO.HMGCLDS 07:23
PROVIDERS: PCP Internal Medicine; Visit Provider Internal Medicine
DX: E04.1 Nontoxic single thyroid nodule (principal); R74.8 Abnormal levels of other serum enzymes
CPT/HCPCS: 36415; 80061; 80076

== ENCOUNTER 2024-07-09 09:02 | Outpatient (REF) | payer BC, SELFPAY ==
[2024-07-09 14:20] LABS: Free T4 (Free Thyroxine) 0.92 ng/dL (0.71-1.85); Thyroid Stimulating Hormone 1.37 uIU/mL (0.32-4.0)
[2024-07-10 19:08] LABS: Thyroid Peroxidase Antibodies <1 IU/mL (<9)
== END 2024-07-09 09:03 | disposition home or self-care (01) ==
LOC: HO.HMGCLDS 09:02
PROVIDERS: PCP Internal Medicine; Visit Provider Internal Medicine
DX: E04.1 Nontoxic single thyroid nodule (principal)
CPT/HCPCS: 36415; 84439; 84443; 86376

== ENCOUNTER 2024-07-09 09:02 | Outpatient (AMB) | payer BC, SELFPAY ==
--- NOTE | 2024-07-09 09:04 | A.OFFPC_ITS ---
Vital Signs 07/09/24 09:06 Height 5 ft 4 in Weight 224 lb 8 oz BMI 38.5 BP 132/88 Blood Pressure Location Rt brachial Position Sitting Respiration 22 H Pulse 79 Pulse Source Pulse Oximeter Temp 98.3 F Temp Source Oral Pulse Oximetry (%) 98 Oxygen Delivery Method Room Air Intake Visit Reasons: 2m f/u Allergies Penicillins Allergy (Severe, Verified 07/09/24 09:27) Anaphylaxis Medication List - Last Reconciled 07/09/24 by Maria E Pappas MD albuterol sulfate 90 mcg/actuation 2 puffs inhalation Q4-6H PRN 30 days alprazolam (Xanax) 1 mg PO ONCE clotrimazole-betamethasone 1-0.05 % 1 appl topical BID 10 days docusate sodium 100 mg PO DAILY PRN famotidine 20 mg PO DAILY lidocaine HCl-hydrocortison ac 3-0.5 % 1 appl [place] BEDTIME lidocaine HCl-hydrocortison ac 3-0.5 % appl topical BEDTIME lisinopril 5 mg PO DAILY loratadine (Claritin) 10 mg PO DAILY montelukast 10 mg PO DAILY naproxen 500 mg PO BID PRN triamcinolone acetonide 0.5% 1 appl topical BID 10 days Tobacco use date assessed: 07/09/24 Dental Screening Dental Screen Date: 07/09/24 Did you have a dental visit in the last 12 months?: No Did you have a dental problem in the last 6 months where you did not have access to dental care?: No Was dental information given to patient?: Patient has dentist HPI 2m f/u HPI Details 49-year-old lady here today for follow-u p on her lipids. She states that she has not been very compliant with her diet, has been eating a lot of junk food, consisting mainly potato chips and cookies, and has not been getting any regular exercise at home due to pain in her posterior neck and left shoulder.. Latest fasting labs showed higher triglycerides but there has been improvement in her LDL cholesterol levels and total cholesterol, and liver enzymes is starting to normalize.. She recently had. Her nail d an MRI of her cervical spine ordered by Dr. Randall and an incidental finding of a left thyroid nodule was seen. Patient denies any pain over thyroid gland but does complain of occasional regularly swallowing especially with pills. Denies any palpitations, no increased fatigue or alteration in bowel habits. She also complains of discoloration in her left big toenail which has been present now for the last several weeks. No history of trauma or strenuous ex ertion reported. Affected nail is not painful to touch. Complains of frequent heartburn especially worse at night. She was initially taking omeprazole but had to stop taking it due to episodes of diarrhea and cramping. She has been seen by her GI specialist and omeprazole was switched to Pepcid AC instead, which he states was ineffective in controlling her heartburn symptoms. [facility] Medical History (Updated 07/09/24 @ 09:46 by Maria E Pappas MD) Mixed dyslipidemia GERD (gastroesophageal reflux disease) Supraspinatus tendon tear Elevated liver enzymes Dyslipidemia Allergic rhinitis Environmental and seasonal allergies Hearing loss in left ear History of torn meniscus of left knee Pain of left shoulder with external rotation Acquired deformity of toenail Postsurgical menopause Depression with anxiety Tendinitis of knee History of gestational diabetes Congenital hearing loss of left ear Plantar fasciitis BARBY on CPAP Obesity (BMI 30-39.9) Surgical History Hx of colonoscopy Hx of knee surgery History of bilateral breast reduction surgery History of sinus surgery History of tubal ligation History of hysterectomy, supracervical Family History Father CAD (coronary artery disease) Mother HTN (hypertension) Social History Household Members Other:: son Housing: House Are you a primary healthcare management to a significant other at home: No Do you presently have visiting nurse or other home services: No Alcohol intake: current Alcohol intake frequency: holidays/special occasions only Patient Tobacco Use Status: Never used Tobacco e-Cigarette/Vaping Use: Never Used Second Hand Smoke Exposure: Yes service: No Current occupational status: employed 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 1. Little interest or pleasure in doing things: several days 2. Feeling down, depressed, or hopeless: several days 3. Trouble falling or staying asleep, or sleeping too much: several days 4. Feeling tired or having little energy: several days 5. Poor appetite or overeating: nearly every day 6. Feeling bad about yourself - or that you are a failure or have let yourself or your family down: not at all 7. Trouble concentrating on things, such as reading the newspaper or watching television: nearly every day 8. Moving or speaking so slowly that other people could have noticed. Or the opposite - being so fidgety or restless that you have been moving around a lot more than usual: not at all 9. Thoughts that you would be better off or of hurting yourself in some way: not at all Total score: 10 Source: Developed by Drs. Jin Butler, Otis Brown and colleagues, with an educational rashad from [employer]. Thrive Questionnaire Date Thrive assessed: 04/14/24 I am a: Patient What is your living situation today?: I have a steady place to live Within the past 12 months, did the food you bought not last and you didn't have the money to get more?: Sometimes True Within the past 12 months, did you worry whether your food would run out before you got money to buy more?: Sometimes True Do you have trouble paying for medicines?: Yes Do you have trouble getting transportation to medical appointments?: No Do you have trouble paying your heating and electricity bill?: No Do you have trouble taking care of your child, family member or friend?: No Do you have trouble with day-to-day activities such as bathing, preparing meals, shopping, managing finances, etc.?: Yes Are you currently unemployed and looking for a job?: No Are you interested in more education?: No Please select the resources that you would like help with: None Currently or been in a relationship where the following occur: No concerns reported THRIVE Score: 2 MARQUISE-7 AMB Questionnaire MARQUISE-7 Date MARQUISE - 7 assessed: 04/14/24 Source: Developed by Drs. Jin Butler, Joleen B.W. Otis Velasco and colleagues, with an educational rashad from [employer]. Review of Systems Const Reports no additional complaints Eyes Denies change in vision ENT Details: Unable to palpate thyroid gland, area nontender to palpation Reports no additional complaints Card Denies chest pain, Denies chest pain with activity, Denies rapid heart rate, Denies irregular heart rhythm, Denies lightheadedness and Denies dyspnea Resp Denies dyspnea GI Reports no additional complaints Reports no additional complaints and Denies nipple discharge Musc Details: Discomfort on abduction of left shoulder joint, slight tenderness on palpation over left AC joint, no overlying erythema or swelling noted. Skin/Breast Denies breast pain, Denies breast mass, Denies nipple discharge and Denies rash Neuro Reports no additional complaints Endo Reports no additional complaints Crispin/Lymph Reports no additional complaints Aller/Immun Reports no additional complaints Physical exam (Primary Care) Vital Signs: Last Vital Signs Temp 98.3 F 07/09/24 09:06 Pulse 79 07/09/24 09:06 Resp 22 H 07/09/24 09:06 BP 132/88 07/09/24 09:06 Pulse Ox 98 07/09/24 09:06 Oxygen Delivery Method Room Air 07/09/24 09:06 BMI result Body Mass Index 38.5 Tobacco/Smoking Status: Tobacco use Status Tobacco use date assessed 07/09/24 07/09/24 09:14 Patient Tobacco Use Status Never used Tobacco 07/09/24 09:14 e-Cigarette/Vaping Use Never Used 07/09/24 09:14 PHQ-9: PHQ-9 Score PHQ-9: Total score 10 07/10/24 00:30 Thrive Assessment: Date of Thrive Assessment Date Thrive assessed 04/14/24 07/09/24 09:14 Currently or been in a relationship where the following occur: No concerns reported Const General: cooperative, comfortable and no acute distress Nutritional Appearance: obese Orientation/consciousness: patient oriented x3 HENMT Head: Yes normocephalic General nose exam: Normal external nose present and No nasal discharge present Mouth: oropharynx normal and moist mucous membranes Eyes General: appearance normal, both eyes and all related structures Neck Neck: Yes full ROM, Yes no lymphadenopathy and Yes supple Thyroid: nontender Chest Breast/axilla inspection: normal inspection of the breasts Breast/axilla palpation: normal palpation of the breasts Resp Effort & Inspection: normal respiratory effort and able to speak in complete sentences Auscultation: clear to auscultation bilaterally Cardio Rate: regular rate Rhythm: regular rhythm Heart sounds: S1 normal heart sound present and S2 normal heart sound present GI Inspection: Yes normal to inspection Palpation (GI): Soft to palpation, nontender and no masses Auscultation: normal bowel sounds Skin General skin exam: no rashes or lesions noted Nails: discolored (Brownish pigmentation underneath left big toenail) Neuro General: patient oriented x3, gait normal, tone normal, moves all extremities, Normal light touch and pain sensation and no focal motor deficits Cognition (Neuro): normal cognition Gait exam (Neuro): Normal gait present Motor exam (neuro): 5/5 motor strength present throughout Extrem General: Yes no joint enlargement, Yes no pedal edema and Yes normal gait Psych Appearance: grossly normal Mental Status: mental status grossly normal Speech and movement: Normal speech and movement present Affect: normal affect Attitude: cooperative Thought process: Normal thought process present Thought content: Normal thought content present Results Reviewed Results Reviewed: Name: Blossom Lozada Age/Sex: 49/F : 1975 Unit#: [id number] Attend Dr: Maria E Pappas MD Re07/08/24 Status: DEP REF Location: [facility] Disch: SPEC : [id number] HARMONY: 07/08/24 STATUS: COMP REQ : [id number] RECD: 07/08/[address]: Maria E Pappas MD COMP: 07/08/241042 ENTERED: 07/08/24 [facility]: ORDERED: Liver Panel, Lipid Panel Test Result Flag Reference Total Bili 0.2 0.0-1.0 mg/dL Direct Bili < 0.2 0.0-0.5 mg/dL AST (GOT) 18 5-31 U/L ALT (GPT) 32 H 0-31 U/L Protein, Total 7.3 6.5-8.0 g/dL Alb 4.4 3.5-5.0 g/dL Triglyceride 193 H <150 mg/dL Desirable Triglyceride: less than 150 mg/dL Borderline High Triglyceride 150-199 mg/dL High Triglyceride: 200-499 mg/dL Very High Triglyceride: greater than or equal to 5OO mg/dL Cholesterol 213 H <200 mg/dL Desirable Cholesterol: less than 200 mg/dL Borderline High Cholesterol: 200-239 mg/dL High Cholesterol: greater than 239 mg/dL LDL Calculated 128 H <100 mg/dL Desirable LDL: less than 100 mg/dL Near Optimal/Above Optimal LDL: 110-129 mg/dL Borderline High LDL: 130-159 mg/dL High LDL: 160-189 mg/dL Very High LDL: greater than or equal to 190 mg/dL HDL 47 >40 mg/dL Desirable HDL: greater than 40 mg/dL Note: This HDL assay may give artificially low results in patients with liver disease. Alk Phos 65 39-117 U/L Coding Level of Care Code Est Pt Level 4 (66578) Complex EM visit Add On G2211 Diagnoses Thyroid nodule incidentally noted on imaging study E04.1 GERD (gastroesophageal reflux disease) K21.9 Dysplasia of toenail Q84.6 Mixed dyslipidemia E78.2 Essential hypertension I10 Assessment & Plan Assessment & Plan (1) Thyroid nodule incidentally noted on imaging study: Code(s): E04.1 - Nontoxic single thyroid nodule Category: Medical Plan: Already booked for a thyroid ultrasound 07/31/2024, ordered TSH, free T4 thumb thyroid peroxidase antibody, referral made for her to see endocrine clinic for further evaluation management (2) GERD (gastroesophageal reflux disease): Code(s): K21.9 - Gastro-esophageal reflux disease without esophagitis Category: Medical Plan: Prescription sent for pantoprazole 20 mg per capsule to take once a day an hour before eating take it for 2 months. 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 Pinto (4) Mixed dyslipidemia: Code(s): E78.2 - Mixed hyperlipidemia Category: Medical Plan: Recent fasting labs showed elevated triglycerides, and elevated cholesterol and lower LDL cholesterol levels. Advised to adhere to a healthy diet, avoidance of a lot of junk foods, processed foods, sugars with juices, reinforced importance of following a healthy diet. And getting at least 30 minutes of regular exercise of moderate intensity 3 to 4 times a week. She is up-to-date with her Tdap, does not want to get any further flu vaccine and never had a COVID vaccination (5) Essential hypertension: Code(s): I10 - Essential (primary) hypertension Category: Medical Plan: Reinforced importance of following a low-salt diet and getting regular exercise. Continue with lisinopril 5 mg once a day Orders: Orders Thyroid Peroxidase Antibodies 07/09/24 E04.1 - Nontoxic single thyroid nodule Thyroid Stimulating Hormone 07/09/24 E04.1 - Nontoxic single thyroid nodule Free T4 (Free Thyroxine) 07/09/24 E04.1 - Nontoxic single thyroid nodule Aspartate Amino Transferase 11/17/24 E78.2 - Mixed hyperlipidemia, K21.9 - Gastro-esophageal reflux disease without esophagitis, R74.8 - Abnormal levels of other serum enzymes Basic Metabolic Panel Fasting 11/17/24 E78.2 - Mixed hyperlipidemia, K21.9 - Gastro-esophageal reflux disease without esophagitis, R74.8 - Abnormal levels of other serum enzymes Lipid Panel 11/17/24 E78.2 - Mixed hyperlipidemia, K21.9 - Gastro-esophageal reflux disease without esophagitis, R74.8 - Abnormal levels of other serum enzymes Hemoglobin A1c 11/17/24 E78.2 - Mixed hyperlipidemia, K21.9 - Gastro-esophageal reflux disease without esophagitis, R74.8 - Abnormal levels of other serum enzymes Alanine Aminotransferase 11/17/24 E78.2 - Mixed hyperlipidemia, K21.9 - Gastro- esophageal reflux disease without esophagitis, R74.8 - Abnormal levels of other serum enzymes Referrals Podiatry Referral 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
[2024-07-09 09:06] VITALS: BP 132/88; PULSE 79; RESP 22; TEMP 36.8; O2SAT 98; BMI 38.5
--- OUTSIDE RECORDS SUMMARY | 2024-07-09 09:34 | XMS_ITS | Patient Health Record ---
[facility] Organization [facility] Address [address] [place] [address] Care Team Providers Care Cigarette Lighter Repairer Name Role Phone Mian FOWLER, Maria E Zimmerman Primary Care Provider Un available Lyudmila Cantu Unavailable [phone] Allergies Allergen (clinical drug ingredient) Drug/Non Drug [...] Insured Coverage Start Date Coverage End Date [facility] [address] [place] [address] [id number] Blossom Lozada Self - patient is the [...]
== END 2024-07-09 10:14 | disposition home or self-care (01) ==
LOC: HO.HMCC 09:03
PROVIDERS: PCP Internal Medicine; Visit Provider Internal Medicine
DX: E04.1 Nontoxic single thyroid nodule (principal); K21.9 Gastro-esophageal reflux disease without esophagitis; Q84.6 Other congenital malformations of nails; E78.2 Mixed hyperlipidemia; I10 Essential (primary) hypertension

== ENCOUNTER 2024-07-31 11:28 | Outpatient (REF) | payer BC, SELFPAY ==
--- NOTE | ~2024-07-31 | US_ITS ---
EXAMINATION: US THYROID CLINICAL INFORMATION: Nontoxic single thyroid nodule. COMPARISON: None available. TECHNIQUE: Linear transducer grayscale and color Doppler examination with attention to the region of the thyroid. FINDINGS: SIZE: Measurements of the thyroid lobes and nodules are given in sagittal, anteroposterior and transverse dimensions respectively. Right Thyroid Lobe: 3.7 x 1.5 x 1.5 cm, volume 4.6 mL. Parenchyma: The gland echotexture is normal. Thyroid vascularity is normal. Left Thyroid Lobe: 4.3 x 2.5 x 3.0 cm, volume 16.2 mL. Parenchyma: The gland echotexture is heterogeneous. Thyroid vascularity is normal. Isthmus: 0.5 cm in maximum AP dimension. Estimated total number of nodules greater than or equal to 1 cm: 1. In Store Marketing Associate nodules are described as follows: 1. Location: Left-sided lobe. Size: 2.4 x 2.5 x 3.6 cm, volume 11.4 mL. Nodule characteristics: Composition: Solid (2). Echogenicity: Hypoechoic (2). Shape: Not taller than wide (0). Margins: Smooth (0). Echogenic Foci: None (0). ACR TI-RADS total points: 4 ACR TI-RADS category: 4 NODES: No lymphadenopathy is seen in the tissue surrounding the thyroid gland. US/US thyroid IMPRESSION: ACR TI-RADS category: 4, left thyroid lobe. ACR TI-RADS RECOMMENDATION REFERENCE: Ultrasound-guided fine-needle aspiration, followup ultrasound, no further follow up. * TR1 (0 point) and TR2 (2 points): No FNA or follow up. * TR3 (3 points): FNA if more than or equal to 2.5 cm in maximum dimension, followup ultrasound in 1, 3 and 5 years if 1.5 to 2.4 cm in maximum dimension. * TR4 (4-6 points): FNA if more than or equal to 1.5 cm in maximum dimension, followup ultrasound in 1, 2, 3 and 5 years if 1 to 1.4 cm in maximum dimension. * TR5 (more than or equal to 7 points): FNA if more than or equal to 1 cm in maximum dimension, followup ultrasound every year for 5 years if 0.5 to 0.9 cm in maximum dimension. * TR3, TR4 or TR5 nodules that are below the size threshold for followup receive no follow up. Electronically signed by: Ari Ortiz MD 07/31/2024 12:00 PM EDT
--- OUTSIDE RECORDS SUMMARY | 2024-07-31 13:01 | XMS_ITS | Patient Health Record ---
Author Organization [facility] Address [address] [place] [address] Care Team Providers Care Folder Taper Operator Name Role Phone Mian FOWLER, Maria E Zimmerman Primary Care Provider Un available Lyudmila Cantu Unavailable [phone] Marco French Unavailable [phone] Allergies Allergen (clinical drug ingredient) Drug/Non Drug [...] Are you an other tobacco user? No Encounters Encounter Location Date Provider Diagnosis [facility] [address] [place] [address] 07/31/2024 Marco Barbosaier Plan Of Treatment Pending Test Test Name Order Date *Liver Function Test (LFT) 06/27/2022 Next Appt Details Provider Name:Marco French , 08/06/2024 01:15:00 PM, [address] [facility], [facility] [address], [place], [address], Insurance Providers Payer Name Payer Address Payer Phone Subscriber Number Group Number Insured Name Patient Relationship to Insured Coverage Start Date Coverage End Date [facility] [address] [place] [address] [id number] Blossom Lozada Self - patient is the [...]
== END 2024-07-31 11:29 | disposition home or self-care (01) ==
LOC: HO.HMGCX 11:28
PROVIDERS: PCP Internal Medicine; Visit Provider Orthopaedic Surgery
DX: E04.1 Nontoxic single thyroid nodule (principal)
CPT/HCPCS: 76536

== ENCOUNTER → 2024-07-31 11:32 | Outpatient (BNV) | payer BC, SELFPAY | PROVIDERS: PCP Internal Medicine; Visit Provider Radiology Diagnostic Radiology | DX: E04.2 Nontoxic multinodular goiter (principal) | CPT/HCPCS: 76536 ==

== ENCOUNTER 2024-07-31 13:44 | Outpatient (AMB) | payer BC, SELFPAY ==
[2024-07-31 13:46] VITALS: BP 132/76; PULSE 67; O2SAT 97; BMI 38.7
--- NOTE | 2024-07-31 13:46 | A.OFFVIS_ITS ---
Vital Signs 07/31/24 13:46 Height 5 ft 4 in Weight 225 lb 4.999 oz BMI 38.7 BP 132/76 Blood Pressure Location Lt brachial Position Sitting Pulse 67 Pulse Source Pulse Oximeter Pulse Oximetry (%) 97 Oxygen Delivery Method Room Air Intake Visit Reasons: Nontoxic single thyroid nodule Intake Note: Patient present today for Nontoxic single thyroid nodule. 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 Required: No Accompanied by: Self / Same As Patient Allergies Penicillins Allergy (Severe, Verified 07/31/24 13:50) Anaphylaxis Medication List - Last Reconciled 07/31/24 by Colleen Varela MD albuterol sulfate 90 mcg/actuation 2 puffs inhalation Q4-6H PRN 30 days alprazolam (Xanax) 1 mg PO ONCE clotrimazole-betamethasone 1-0.05 % 1 appl topical BID 10 days docusate sodium 100 mg PO DAILY PRN lansoprazole 15 mg PO DAILY lidocaine HCl-hydrocortison ac 3-0.5 % 1 appl AL BEDTIME lidocaine HCl-hydrocortison ac 3-0.5 % appl topical BEDTIME lisinopril 5 mg PO DAILY loratadine (Claritin) 10 mg PO DAILY montelukast 10 mg PO DAILY naproxen 500 mg PO BID PRN triamcinolone acetonide 0.5% 1 appl topical BID 10 days HPI Comments Details: 49-year-old female here today for initial evaluation of nontoxic multinodular goiter She had a cervical spine MRI for neck pain radiating down the arm, in May 2024 which showed a T2 hyperintense left thyroid nodule measuring 2.9 next 3.4 cm. Ultrasound of the thyroid 07/31/2024 I reviewed the images myself which show a heterogenous left gland, with a left mid lobe 3.6 cm solid hypoechoic TR 4 category nodule meeting criteria for FNA. Other subcentimeter right-sided cysts noted. A right midpole 0.6 cm solid isoechoic nodule also noted. Normal TFTs June 2024. Patient currently denies heat or cold intolerance, diarrhea or constipation, hair loss, palpitation, , weight changes, mood changes, low energy, changes in appearance of eyes or vision changes, tremors, increased diaphoresis or dry skin. ?reports history of anxiety. Reports some worsening dysphagia over the past year. Patient denies pain on swallowing or voice changes or difficulty breathing. Patient denies any history of childhood neck radiation. Denies having ever used lithium, amiodarone or biotin supplements. Patient denies any family history of thyroid cancer or thyroid disease. 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 COMPARISON: None available. TECHNIQUE: Linear transducer grayscale and color Doppler examination with attention to the region of the thyroid. FINDINGS: SIZE: Measurements of the thyroid lobes and nodules are given in sagittal, anteroposterior and transverse dimensions respectively. Right Thyroid Lobe: 3.7 x 1.5 x 1.5 cm, volume 4.6 mL. Parenchyma: The gland echotexture is normal. Thyroid vascularity is normal. Left Thyroid Lobe: 4.3 x 2.5 x 3.0 cm, volume 16.2 mL. Parenchyma: The gland echotexture is heterogeneous. Thyroid vascularity is normal. Isthmus: 0.5 cm in maximum AP dimension. Estimated total number of nodules greater than or equal to 1 cm: 1. Environmental Sciences Professor nodules are described as follows: 1. Location: Left-sided lobe. Size: 2.4 x 2.5 x 3.6 cm, volume 11.4 mL. Nodule characteristics: Composition: Solid (2). Echogenicity: Hypoechoic (2). Shape: Not taller than wide (0). Margins: Smooth (0). Echogenic Foci: None (0). ACR TI-RADS total points: 4 ACR TI-RADS category: 4 NODES: No lymphadenopathy is seen in the tissue surrounding the thyroid gland. US/US thyroid IMPRESSION: ACR TI-RADS category: 4, left thyroid lobe. MR CERVICAL SPINE WITHOUT CONTRAST 07/31/24 CLINICAL INFORMATION: Cervical radiculopathy; neck pain traveling down left shoulder, arm, as well as to the left lower extremity. COMPARISON: None TECHNIQUE: Multiplanar multisequence MR imaging of the cervical spine was done prior to and without the administration IV gadolinium. Examination was performed on a 1.5 Sheila Siemens unit, using standard sequences. FINDINGS: CORONAL ALIGNMENT: -Normal, without significant scoliosis. SAGITTAL ALIGNMENT: -Mild reversal of the normal lordosis centered at C5. -There is a trace 2 mm degenerative type anterolisthesis of C4 on C5. Trace retrolisthesis of C6 on C7. CRANIOCERVICAL JUNCTION/C1-2 ARTICULATIONS: -Intact and aligned. Mild degenerative arthrosis of the C1-2 articulation. VERTEBRAL BODIES/BONE MARROW: -No compression deformities or suspicious bone lesions. No bone marrow edema identified. DISCS: -There is mild to moderate diffuse loss of disc height and signal, more moderate changes at C5-6 and C6-7. CERVICAL CORD: -Normal in caliber and signal throughout. No regions of cord impingement identified. PARAVERTEBRAL SOFT TISSUES: -Normal. -The thyroid is largely obscured by a saturation band. There appears to be a T2 hyperintense left thyroid nodule measuring 2.9 x 3.4 cm, only seen on the oblique T2 sequences (series 10, image 2). VISUALIZED INTRACRANIAL STRUCTURES: -Normal. AXIAL DISC SPACE IMAGING: C2-C3: No central canal or neural foraminal narrowing. Normal facets. C3-C4: Minimal disc bulging without significant mass effect. Mild bilateral uncinate spurs. Normal facets. Minimal central canal narrowing and minimal left lateral recess narrowing. There is mild right and moderate left neural foraminal encroachment. C4-C5: No significant disc bulge. Mild left greater than right uncinate spurring bilaterally. Normal appearing facets. No central canal or lateral recess narrowing. There is mild to moderate left neural foraminal narrowing. The right neural foramen is patent. C5-C6: There is a shallow diffuse disc bulge with a superimposed right lateral protrusion of disc material. This indents upon the ventral thecal sac, minimally flattens the right ventral aspect of the cord, however there is preserved CSF signal dorsal to the cord. No cord signal abnormality. There is mild central canal stenosis. There are normal facets. There is mild to moderate right greater than left uncinate spurring. There is mild right and mild to moderate moderate left neural foraminal. C6-C7: There is a shallow disc bulge with a superimposed shallow right paracentral broad-based protrusion of disc material. This indents upon the ventral thecal sac mildly, but does not contact the cord. There is minimal central canal narrowing. No significant lateral recess narrowing. Mild to moderate uncinate spurring bilaterally, with minimal facet spurring bilaterally. There is mild right and [id number] left neural foraminal narrowing. C7-T1: There is no significant central canal or neural foraminal narrowing. Normal facets. T1-T2: No central canal or neural foraminal narrowing. T2-T3: Broad-based disc bulge without significant mass effect upon the cord. Mild central canal narrowing. Patent neural foramen. T3-T4: Broad-based disc bulge without significant mass effect upon the cord. Mild central canal narrowing. Patent neural foramen. MR/MR cervical spine wo con IMPRESSION: 1. Mild to moderate multilevel spondylosis. No regions of significant central canal narrowing, cord impingement or cord signal abnormality. No high-grade lateral recess or neural foraminal stenosis at any level. See above for details on individual disc levels. 2. Incidental note made of a T2 hyperintense 2.9 x 3.4 cm left thyroid nodule, incompletely imaged on this exam. Consider correlating with ultrasound if not already performed. Electronically signed by: Glenn Lott MD 05/27/2024 08:34 AM EDT [facility] Medical History (Updated 07/31/24 @ 14:10 by Colleen Varela MD) Multinodular goiter (nontoxic) Mixed dyslipidemia GERD (gastroesophageal reflux disease) Supraspinatus tendon tear Elevated liver enzymes Dyslipidemia Allergic rhinitis Environmental and seasonal allergies Hearing loss in left ear History of torn meniscus of left knee Pain of left shoulder with external rotation Acquired deformity of toenail Postsurgical menopause Depression with anxiety Tendinitis of knee History of gestational diabetes Congenital hearing loss of left ear Plantar fasciitis BARBY on CPAP Obesity (BMI 30-39.9) Surgical History Hx of colonoscopy Hx of knee surgery History of bilateral breast reduction surgery History of sinus surgery History of tubal ligation History of hysterectomy, supracervical Family History Father CAD (coronary artery disease) Mother HTN (hypertension) Social History (Reviewed 07/31/24 @ 13:52 by GRANT Blevins Household Members Other:: son Housing: House Are you a primary home health aide caregiver to a significant other at home: No Do you presently have visiting nurse or other home services: No Alcohol intake: current Alcohol intake frequency: holidays/special occasions only Patient Tobacco Use Status: Never used Tobacco e-Cigarette/Vaping Use: Never Used Second Hand Smoke Exposure: Yes service: No Current occupational status: employed 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 Current occupational exposures/hazards: No Sexual orientation: Straight/Heterosexual Gender identity: Female Cognitive needs: No Hearing needs: No Vision needs: No Female Reproductive History Menstrual Age of Menarche: 12 Physical Exam Vital Signs: Last Vital Signs Pulse 67 07/31/24 13:46 BP 132/76 07/31/24 13:46 Pulse Ox 97 07/31/24 13:46 Oxygen Delivery Method Room Air 07/31/24 13:46 BMI result Body Mass Index 38.7 Assessment & Plan Assessment & Plan (1) Multinodular goiter (nontoxic): Code(s): E04.2 - Nontoxic multinodular goiter Category: Medical Plan: 49-year-old female with no family history of thyroid cancer, with no personal history of head or neck radiation coming in today for initial evaluation of nontoxic multinodular goiter. She had a cervical spine MRI for neck pain radiating down the arm, in May 2024 which showed a T2 hyperintense left thyroid nodule measuring 2.9 next 3.4 cm. Ultrasound of the thyroid 07/31/2024 I reviewed the images myself which show a heterogenous left gland, with a left mid lobe 3.6 cm solid hypoechoic TR 4 category nodule meeting criteria for FNA. Other subcentimeter right-sided cysts noted. A right midpole 0.6 cm solid isoechoic nodule also noted. She does have some degree of compressive symptoms. Normal TFTs from July 2024. I explained that it is common to have thyroid nodules. About 95% of the time these nodules are benign. However if the nodule is > 1 cm in size or suspicious on ultrasound then a fine need aspiration biopsy is recommended. We discussed that a FNAB involves 4-5 passes with a small gauge needle and material obtained is sent off for cytology.If the cytopathology is benign then the nodule will be followed annually with repeat ultrasounds. However if it is suspicious or malignant, we will need to discuss further management. Indeterminate cytology can be further investigated with repeat FNA, genetic testing or empiric lobectomy. Malignant cytology is managed with either lobectomy or total thyroidectomy. We discussed briefly that thyroid cancer is, in most patients, an indolent disease that does not affect mortality. We will arrange for FNA left midpole 3.6 cm thyroid nodule at next available opening and patient will follow up with me in clinic thereafter for results and further decision making. Plan: -scheduled for FNA of the left midpole 3.6 cm thyroid nodule and a follow up 2 weeks after to discuss results Plan I spent 45 minutes in reviewing the record, seeing the patient and documenting in the medical record. Orders: Orders US biopsy thyroid Today E04.2 - Nontoxic multinodular goiter Coding Level of Care Code New Pt Level 4 (97394) Diagnoses Multinodular goiter (nontoxic) E04.2 Time Spent (min) 45
== END 2024-07-31 14:21 | disposition home or self-care (01) ==
PROVIDERS: PCP Internal Medicine; Visit Provider Student in an Organized Health Care Education/Training Program
DX: E04.2 Nontoxic multinodular goiter (principal)
CPT/HCPCS: 99204

== ENCOUNTER 2024-08-06 08:26 | Outpatient (REF) | payer BC, SELFPAY ==
--- OUTSIDE RECORDS SUMMARY | 2024-08-06 08:41 | XMS_ITS | Patient Health Record ---
Author Organization [facility] [place] Address [address] [place] [address] Care Team Providers Care Auto Body Man Name Role Phone Mian FOWLER, Maria E Zimmerman Primary Care Provider Un available Lyudmila Cantu Unavailable [phone] Marco French Unavailable [phone] Allergies Allergen (clinical drug ingredient) Drug/Non Drug Allergy documented on EMR Reaction Allergy Type Onset Date Status Penicillin Unknown Drug Allergy Active Reason For Referral Diagnosis 1 Tinea unguium (B35.1 ) Diagnosis 2 Tinea pedis (B35.3) Diagnosis 3 Dystrophic nail (L60 .3) Referring Provider First Name Maria E Deleon Referring Provider Last Name Mina Referring Provider Speciality Internal M edicine [facility] Referred Provider Marco French Referred Address [address],[place], [place],[address], Referred Provider Specialty Podiatry Referral Priority Routine Medications Medication SIG (Take, Route, Frequency, Duration) [...] No Encounters Encounter Location Date Provider Diagnosis [facility] [place] [address] [place] [address] 07/31/2024 Marco French Plan Of Treatment Pending Test Test Name Order Date *Liver Function Test (LFT) 06/27/2022 Next Appt Details Provider Name:Marco French , 08/06/2024 01:15:00 PM, [address] [address], [place], [address], Insurance Providers Payer Name Payer Address Payer Phone Subscriber Number Group Number Insured Name Patient Relationship to Insured Coverage Start Date Coverage End Date [facility] [address] [place] [address] [id number] Blossom Lozada Self - patient is [...]
--- NOTE | 2024-08-06 09:18 | PM.PROC ---
Brief Operative Note Date of procedure: 08/06/24 Pre-op diagnosis: left mid pole 3.6 cm thyroid nodule FNA biopsy Post-op diagnosis: same Procedure: THYROID FINE NEEDLE ASPIRATION PROCEDURE NOTE ? PROCEDURE PERFORMED: Ultrasound-guided FNA of thyroid nodule ? OPERATORS: Dr. Colleen Varela ? INDICATION: left mid pole 3.6 cm thyroid nodule ; FNA performed to assess for malignancy ? DESCRIPTION OF PROCEDURE: The indications for FNA (to assess for malignancy) were reviewed with the patient in detail. Potential complications (e.g., bleeding, infection, damage to local structures, absence of clear diagnosis after FNA) were reviewed. Alternatives to FNA including conservative observation or surgery were described. The patient understood and agreed to proceed. This was documented by the signing of the written informed consent form. A time-out was performed to confirm the patient's identity and the site of planned FNA. The nodule of interest was identified using ultrasound (14 MHz linear array probe). The site of FNA was then draped in the usual fashion and carefully cleaned and prepared using alcohol swabs. The skin at the previously-identified site of needle insertion was iced and sprayed with numbing spray. Under ultrasound guidance, _4_ passes were performed using a 1.5-inch, 25-gauge needle, and sample was obtained via capillary action. The needle tip was clearly visualized to be within the nodule at the time of sampling for _4_ of 4__ passes The patient tolerated the procedure well. There were no immediate complications. A small adhesive bandage was applied, and the patient was advised to take acetaminophen (rather than NSAIDs) for any discomfort and to report any signs of inflammation/infection or marked swelling. IMPRESSION: Technically successful ultrasound-guided fine needle aspiration of left mid pole 3.6 cm thyroid nodule . PLAN: The patient was advised that I will provide follow-up regarding the cytology result and any subsequent plans. Colleen Varela MD Endocrinology Attending Condition: stable Disposition: same day
== END 2024-08-06 08:27 | disposition home or self-care (01) ==
LOC: HO.US 08:26
PROVIDERS: PCP Internal Medicine; Visit Provider Student in an Organized Health Care Education/Training Program
DX: E04.2 Nontoxic multinodular goiter (principal)
CPT/HCPCS: 10005; 88173; 88305

== ENCOUNTER → 2024-08-06 08:26 | Outpatient (BNV) | payer BC, SELFPAY | PROVIDERS: PCP Internal Medicine; Visit Provider Student in an Organized Health Care Education/Training Program | DX: E04.1 Nontoxic single thyroid nodule (principal) | CPT/HCPCS: 10005 ==

== ENCOUNTER 2024-08-20 14:46 | Outpatient (AMB) | payer BC, SELFPAY ==
[2024-08-20 14:48] VITALS: BP 100/72; PULSE 76; O2SAT 96; BMI 38.6
--- NOTE | 2024-08-20 14:48 | MHC.OFFVIS ---
Vital Signs 08/20/24 14:48 Height 5 ft 4 in Weight 224 lb 13.944 oz BMI 38.6 BP 100/72 Blood Pressure Location Lt brachial Position Sitting Pulse 76 Pulse Source Pulse Oximeter Pulse Oximetry (%) 96 Oxygen Delivery Method Room Air Intake Visit Reasons: Biopsy f/u Intake Note: Patient present today for biopsy results. Planning Rn Required: No Accompanied by: Self / Same As Patient Allergies Penicillins Allergy (Severe, Verified 08/20/24 14:51) Anaphylaxis Medication List - Last Reconciled 08/20/24 by Colleen Varela MD albuterol sulfate 90 mcg/actuation 2 puffs inhalation Q4-6H PRN 30 days alprazolam (Xanax) 1 mg PO ONCE clotrimazole-betamethasone 1-0.05 % 1 appl topical BID 10 days docusate sodium 100 mg PO DAILY PRN lansoprazole 15 mg PO DAILY lidocaine HCl-hydrocortison ac 3-0.5 % 1 appl ME BEDTIME lidocaine HCl-hydrocortison ac 3-0.5 % appl topical BEDTIME lisinopril 5 mg PO DAILY loratadine (Claritin) 10 mg PO DAILY montelukast 10 mg PO DAILY naproxen 500 mg PO BID PRN triamcinolone acetonide 0.5% 1 appl topical BID 10 days HPI Comments Details: 49-year-old female here today for follow up of nontoxic multinodular goiter HPI She had a cervical spine MRI for neck pain radiating down the arm, in May 2024 which showed a T2 hyperintense left thyroid nodule measuring 2.9 next 3.4 cm. Ultrasound of the thyroid 07/31/2024 I reviewed the images myself which show a heterogenous left gland, with a left mid lobe 3.6 cm solid hypoechoic TR 4 category nodule meeting criteria for FNA. Other subcentimeter right-sided cysts noted. A right midpole 0.6 cm solid isoechoic nodule also noted. Normal TFTs June 2024. Patient currently denies heat or cold intolerance, diarrhea or constipation, hair loss, palpitation, , weight changes, mood changes, low energy, changes in appearance of eyes or vision changes, tremors, increased diaphoresis or dry skin. ?reports history of anxiety. Reports some worsening dysphagia over the past year. Patient denies pain on swallowing or voice changes or difficulty breathing. Patient denies any history of childhood neck radiation. Denies having ever used lithium, amiodarone or biotin supplements. Patient denies any family history of thyroid cancer or thyroid disease. 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 Physical exam General: sitting comfortably in no acute distress HEENT: normocephalic/atraumatic Neck: supple, palpable 2 cm left nodule Cardiac: normal heart sounds Pulm: normal breath sounds B/L, no added breath sounds Abd: not distended, no tenderness Extremities: no edema, no signs of myxedema Laboratory Tests 07/09/24 10:17 TSH 1.37 Free T4 0.92 Thyroid Peroxidase Ab <1 US THYROID 07/31/2024 CLINICAL INFORMATION: Nontoxic single thyroid nodule. COMPARISON: None available. TECHNIQUE: Linear transducer grayscale and color Doppler examination with attention to the region of the thyroid. FINDINGS: SIZE: Measurements of the thyroid lobes and nodules are given in sagittal, anteroposterior and transverse dimensions respectively. Right Thyroid Lobe: 3.7 x 1.5 x 1.5 cm, volume 4.6 mL. Parenchyma: The gland echotexture is normal. Thyroid vascularity is normal. Left Thyroid Lobe: 4.3 x 2.5 x 3.0 cm, volume 16.2 mL. Parenchyma: The gland echotexture is heterogeneous. Thyroid vascularity is normal. Isthmus: 0.5 cm in maximum AP dimension. Estimated total number of nodules greater than or equal to 1 cm: 1. Religious Education Coordinator nodules are described as follows: 1. Location: Left-sided lobe. Size: 2.4 x 2.5 x 3.6 cm, volume 11.4 mL. Nodule characteristics: Composition: Solid (2). Echogenicity: Hypoechoic (2). Shape: Not taller than wide (0). Margins: Smooth (0). Echogenic Foci: None (0). ACR TI-RADS total points: 4 ACR TI-RADS category: 4 NODES: No lymphadenopathy is seen in the tissue surrounding the thyroid gland. US/US thyroid IMPRESSION: ACR TI-RADS category: 4, left thyroid lobe. MR CERVICAL SPINE WITHOUT CONTRAST 07/31/24 CLINICAL INFORMATION: Cervical radiculopathy; neck pain traveling down left shoulder, arm, as well as to the left lower extremity. COMPARISON: None TECHNIQUE: Multiplanar multisequence MR imaging of the cervical spine was done prior to and without the administration IV gadolinium. Examination was performed on a 1.5 Sheila Siemens unit, using standard sequences. FINDINGS: CORONAL ALIGNMENT: -Normal, without significant scoliosis. SAGITTAL ALIGNMENT: -Mild reversal of the normal lordosis centered at C5. -There is a trace 2 mm degenerative type anterolisthesis of C4 on C5. Trace retrolisthesis of C6 on C7. CRANIOCERVICAL JUNCTION/C1-2 ARTICULATIONS: -Intact and aligned. Mild degenerative arthrosis of the C1-2 articulation. VERTEBRAL BODIES/BONE MARROW: -No compression deformities or suspicious bone lesions. No bone marrow edema identified. DISCS: -There is mild to moderate diffuse loss of disc height and signal, more moderate changes at C5-6 and C6-7. CERVICAL CORD: -Normal in caliber and signal throughout. No regions of cord impingement identified. PARAVERTEBRAL SOFT TISSUES: -Normal. -The thyroid is largely obscured by a saturation band. There appears to be a T2 hyperintense left thyroid nodule measuring 2.9 x 3.4 cm, only seen on the oblique T2 sequences (series 10, image 2). VISUALIZED INTRACRANIAL STRUCTURES: -Normal. AXIAL DISC SPACE IMAGING: C2-C3: No central canal or neural foraminal narrowing. Normal facets. C3-C4: Minimal disc bulging without significant mass effect. Mild bilateral uncinate spurs. Normal facets. Minimal central canal narrowing and minimal left lateral recess narrowing. There is mild right and moderate left neural foraminal encroachment. C4-C5: No significant disc bulge. Mild left greater than right uncinate spurring bilaterally. Normal appearing facets. No central canal or lateral recess narrowing. There is mild to moderate left neural foraminal narrowing. The right neural foramen is patent. C5-C6: There is a shallow diffuse disc bulge with a superimposed right lateral protrusion of disc material. This indents upon the ventral thecal sac, minimally flattens the right ventral aspect of the cord, however there is preserved CSF signal dorsal to the cord. No cord signal abnormality. There is mild central canal stenosis. There are normal facets. There is mild to moderate right greater than left uncinate spurring. There is mild right and mild to moderate moderate left neural foraminal. C6-C7: There is a shallow disc bulge with a superimposed shallow right paracentral broad-based protrusion of disc material. This indents upon the ventral thecal sac mildly, but does not contact the cord. There is minimal central canal narrowing. No significant lateral recess narrowing. Mild to moderate uncinate spurring bilaterally, with minimal facet spurring bilaterally. There is mild right and [id number] left neural foraminal narrowing. C7-T1: There is no significant central canal or neural foraminal narrowing. Normal facets. T1-T2: No central canal or neural foraminal narrowing. T2-T3: Broad-based disc bulge without significant mass effect upon the cord. Mild central canal narrowing. Patent neural foramen. T3-T4: Broad-based disc bulge without significant mass effect upon the cord. Mild central canal narrowing. Patent neural foramen. MR/MR cervical spine wo con IMPRESSION: 1. Mild to moderate multilevel spondylosis. No regions of significant central canal narrowing, cord impingement or cord signal abnormality. No high-grade lateral recess or neural foraminal stenosis at any level. See above for details on individual disc levels. 2. Incidental note made of a T2 hyperintense 2.9 x 3.4 cm left thyroid nodule, incompletely imaged on this exam. Consider correlating with ultrasound if not already performed. Electronically signed by: Glenn Lott MD 05/27/2024 08:34 AM EDT [facility] Medical History (Updated 07/31/24 @ 14:10 by Colleen Varela MD) Multinodular goiter (nontoxic) Mixed dyslipidemia GERD (gastroesophageal reflux disease) Supraspinatus tendon tear Elevated liver enzymes Dyslipidemia Allergic rhinitis Environmental and seasonal allergies Hearing loss in left ear History of torn meniscus of left knee Pain of left shoulder with external rotation Acquired deformity of toenail Postsurgical menopause Depression with anxiety Tendinitis of knee History of gestational diabetes Congenital hearing loss of left ear Plantar fasciitis BARBY on CPAP Obesity (BMI 30-39.9) Surgical History Hx of colonoscopy Hx of knee surgery History of bilateral breast reduction surgery History of sinus surgery History of tubal ligation History of hysterectomy, supracervical Family History Father CAD (coronary artery disease) Mother HTN (hypertension) Social History Household Members Other:: son Housing: House Are you a primary urgent care nurse practitioner to a significant other at home: No Do you presently have visiting nurse or other home services: No Alcohol intake: current Alcohol intake frequency: holidays/special occasions only Patient Tobacco Use Status: Never used Tobacco e-Cigarette/Vaping Use: Never Used Second Hand Smoke Exposure: Yes service: No Current occupational status: employed 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 She had a cervical spine MRI for neck pain radiating down the arm, in May 2024 which showed a T2 hyperintense left thyroid nodule measuring 2.9 next 3.4 cm. Ultrasound of the thyroid 07/31/2024 I reviewed the images myself which show a heterogenous left gland, with a left mid lobe 3.6 cm solid hypoechoic TR 4 category nodule meeting criteria for FNA. Other subcentimeter right-sided cysts noted. A right midpole 0.6 cm solid isoechoic nodule also noted. She does have some degree of compressive symptoms. Normal TFTs from July 2024. 08/06/2024: Status post FNA of the left mid 3.6 cm nodule, which came back as nondiagnostic, [place] category 1. I discussed with the patient nondiagnostic results yield a 3-20% chance of malignancy. At this time we would recommend repeating the biopsy in about 3 months. Plan: -scheduled for repeat FNA of the left midpole 3.6 cm thyroid nodule in 3 months and a follow up 2 weeks after to discuss results Plan See above Orders: Orders US biopsy thyroid Today E04.2 - Nontoxic multinodular goiter Coding Level of Care Code Est Pt Level 3 (30534) Diagnoses Multinodular goiter (nontoxic) E04.2
--- OUTSIDE RECORDS SUMMARY | 2024-08-20 15:16 | XMS_ITS | Patient Health Record ---
Author Organization [facility] [place] [facility] Address [address] [place] [address] Care Team Providers Care Manager Assembly Name Role Phone Mian FOWLER, Maria E Zimmerman Primary Care Provider Un available Marco French Unavailable [phone] Allergies Allergen (clinical drug ingredient) Drug/Non Drug Allergy documented on EMR Reaction Allergy Type Onset Date Status Penicillin Unknown Drug Allergy Active Reason For Referral Diagnosis 1 Tinea unguium (B35.1 ) Diagnosis 2 Tinea pedis (B35.3) Diagnosis 3 Dystrophic nail (L60 .3) Referring Provider First Name Maria E Deleon Referring Provider Last Name Mian Referring Provider Speciality Internal M edicine [facility] Referred Provider Marco French Referred Address [address] [facility],[place],[address], Referred Provider Specialty Podiatry Referral Priority Routine Medications Medication SIG (Take, Route, Frequency, Duration) Notes Start Date End Date Status Lisinopril 5 MG 1 tablet Orally Once a day Active Montelukast Sodium 10 MG 1 tablet Orally Once a day Active Clotrimazole-Betamethason e 1-0.05 % 1 application Externally Twice a day Active busPIRone HCl 5 MG 1 tablet Orally Twic e a day Active Triamcinolone Acetonide 0.5 % 1 application Externally Two times a Week Active Fexofenadine-Pseudoephed ER 180-240 MG 1 tablet Orally Once a day Active Naproxen 500 MG 1 tablet with food o r milk as needed Orally every 12 hrs PRN Active Ciclopirox 0.77 % 1 application thin f ilm topically to nails Externally Once a day; Duration: 30 days Active Albuterol Sulfate 108 (90 Base) MCG/ACT 1 puff as needed Inhalation every 4 hrs Active LamISIL 250 MG 1 tablet Orally Once a day; Duration: 30 days Not-Takin g Ciclopirox Olamine 0.77 % USE 1 APPLICAT ION TO AFFECTED AREA EXTERNALLY TO FEET TWICE A DAY 30 DAYS; Duration: 30 Active Docusate Sodium 100 MG 1 capsule as need ed Orally Once a day Active Social History Tobacco Use: Social History Observation Description Date Details (start date - stop date) Never Smoker NA - NA Alcohol Screen Question Answer Notes Did you have a drink contain ing alcohol in the past year? Yes How often did you have a dri nk containing alcohol in the past year? Monthly or less (1 point) Points 1 Interpretation Negative Tobacco use other than smoking: Question Answer Notes Are you an other tobacco user? No Tobacco Control (Standard) Question Answer Notes Tobacco use: Nonsmoker Additional Findings: Tobacco non-user Current no nsmoker Vital Signs Blood pressure diastolic 70 mm Hg 08/06/2024 Height 5ft 4in in 08/06/2024 Blood pressure systolic 125 mm Hg 08/06/2024 Weight 211 lbs 08/06/2024 BMI 36.21 kg/m2 08/06/2024 Encounters Encounter [facility] Date [facility] [address] 08/06/2024 Marco French Onychomycosis B35.1 and Pain in left toe(s) M79.675 [facility] [address] [place] [address] 07/31/2024 Marco French Assessments Encounter Date Diagnosis (ICD Code) Assessment Notes Treatment Notes Treatment Clinical Notes Section Notes 08/06/2024 Pain in left toe(s) (ICD-10 - M79.675) 08/06/2024 Onychomycosis (ICD-10 - B35.1) Plan Of Treatment Pending Test Test Name Order Date *Liver Function Test (LFT) 06/27/2022 Next Appt Details Provider Name:Marco French , 11/06/2024 03:30:00 PM, [address] [place] [address], [place], [address], Insurance Providers Payer Name Payer Address Payer Phone Subscriber Number Group Number Insured Name Patient Relationship to Insured Coverage Start Date Coverage End Date [facility] [address] [place] [address] [id number] Blossom Lozada Self - patient is [...] tubal ligation colonoscopy knee surgery- left 10/2015 thyroid biopsy 08/06/24
== END 2024-08-20 15:06 | disposition home or self-care (01) ==
LOC: HO.ENCR 14:47
PROVIDERS: PCP Internal Medicine; Visit Provider Student in an Organized Health Care Education/Training Program
DX: E04.2 Nontoxic multinodular goiter (principal)
CPT/HCPCS: 99213

== ENCOUNTER 2024-10-02 15:47 | Outpatient (AMB) | payer BC, SELFPAY ==
--- OUTSIDE RECORDS SUMMARY | 2024-10-02 15:50 | XMS_ITS | Patient Health Record ---
Author Organization [facility] [place] Address [address] [place] [address] Care Team Providers Care Marketing Operations Assistant Name Role Phone Mian FOWLER, Maria E iZmmerman Primary Care Provider Un available Marco French Unavailable [phone] Allergies Allergen (clinical drug ingredient) Drug/Non Drug Allergy documented on EMR Reaction Allergy Type Onset Date Status Penicillin Unknown Drug Allergy Active Reason For Referral Diagnosis 1 Tinea unguium (B35.1 ) Diagnosis 2 Tinea pedis (B35.3) Diagnosis 3 Dystrophic nail (L60 .3) Referring Provider First Name Maria E Deleon Referring Provider Last Name Mian Referring Provider Speciality Internal M edicine [facility] Referred Provider Marco French Referred Address [address] [facility],[place], [place],[address], Referred Provider Specialty Podiatry Referral Priority Routine [...] 08/06/2024 Encounters Encounter Location Date [facility] [address] 08/06/2024 Marco French Onychomycosis B35.1 and Pain in left toe(s) M79.675 [facility] [address] [place] [address] 07/31/2024 Marco French Assessments Encounter Date Diagnosis (ICD Code) Assessment Notes Treatment Notes Treatment Clinical Notes Section Notes 08/06/2024 Pain in left toe(s) (ICD-10 - M79.675) 08/06/2024 Onychomycosis (ICD-10 - B35.1) Plan Of Treatment Pending Test Test Name Order Date *Liver Function Test (LFT) 06/27/2022 Next Appt Details Provider Name:Marco French , 11/06/2024 03:30:00 PM, [address] [place] [address], [place], [address], Insurance Providers Payer Name Payer Address Payer Phone Subscriber Number Group Number Insured Name Patient Relationship to Insured Coverage Start Date Coverage End Date [facility] [address] [place] [address] [id number] Blossom Lozada Self - patient is [...]
[2024-10-02 16:03] VITALS: BP 140/70; PULSE 86; O2SAT 96; BMI 39.0
--- NOTE | 2024-10-02 16:03 | MHC.OFFVIS ---
Vital Signs 10/02/24 16:03 Height 5 ft 4 in Weight 227 lb 1.218 oz BMI 39.0 BP 140/70 H Blood Pressure Location Lt brachial Position Sitting Pulse 86 Pulse Source Pulse Oximeter Pulse Oximetry (%) 96 Oxygen Delivery Method Room Air Intake Visit Reasons: crow Intake Note: pt is here for follow up and states the cpap is working well Bone Grinder Required: No Allergies Penicillins Allergy (Severe, Verified 10/02/24 16:18) Anaphylaxis Medication List - Last Reconciled 10/02/24 by Mo Holcomb MD albuterol sulfate 90 mcg/actuation 2 puffs inhalation Q4-6H PRN 30 days clotrimazole-betamethasone 1-0.05 % 1 appl topical BID 10 days docusate sodium 100 mg PO DAILY PRN lansoprazole 15 mg PO DAILY lidocaine HCl-hydrocortison ac 3-0.5 % 1 appl MT BEDTIME lidocaine HCl-hydrocortison ac 3-0.5 % appl topical BEDTIME lisinopril 5 mg PO DAILY loratadine (Claritin) 10 mg PO DAILY montelukast 10 mg PO DAILY naproxen 500 mg PO BID PRN triamcinolone acetonide 0.5% 1 appl topical BID 10 days Do you need a note to return to daycare/school/sports/work: No HPI HPI crow: Details: THIS 49 YEARS OLD FEMALE A CASE OF GROSS OBESITY AND OBSTRUCTIVE SLEEP APNEA COMES AFTER. 6 MONTHS FOR FOLLOW-UP SHE USES CPAP EVERY NIGHT REGULARLY AND SLEEPS WELL. SHE DENIES ANY ISSUES WITH THE MASK OR CPAP DEVICE REGIONALLY SHE HAD LOST SOME WEIGHT BUT NOW FOR THE PAST 6 MONTHS SHE HAS BEEN GAINING . THIS IS BECAUSE SHE HAS NOT BEEN WATCHING HER DIET CLOSELY. NOW SHE PLANS TO START ON WEIGHT REDUCTION BY STRICT DIETING. BUT SHE IS UNDERGOING SOME TESTS FOR THE THYROID GLAND. PROBABLY A NEEDLE BIOPSY OF A NODULE. I LOOKED AT THE RESULTS AND I TOLD HER THAT HER THYROID FUNCTION REFLECTED BY T4 AND TSH A FEW MONTHS AGO WAS NORMAL. SHE USES CPAP VERY REGULARLY. AND SLEEPS GOOD SHE DOES HAVE MILD NASAL CONGESTION AND USES CLARITIN PRN ALSO SHE IS ON MONTELUKAST 10 MG DAILY. COUNT INCLUDES THE [facility] Medical History Multinodular goiter (nontoxic) Mixed dyslipidemia GERD (gastroesophageal reflux disease) Supraspinatus tendon tear Elevated liver enzymes Dyslipidemia Allergic rhinitis Environmental and seasonal allergies Hearing loss in left ear History of torn meniscus of left knee Pain of left shoulder with external rotation Acquired deformity of toenail Postsurgical menopause Depression with anxiety Tendinitis of knee History of gestational diabetes Congenital hearing loss of left ear Plantar fasciitis CROW on CPAP Obesity (BMI 30-39.9) Surgical History Hx of colonoscopy Hx of knee surgery History of bilateral breast reduction surgery History of sinus surgery History of tubal ligation History of hysterectomy, supracervical Family History Father CAD (coronary artery disease) Mother HTN (hypertension) Social History Household Members Other:: son Housing: House Are you a primary transitional care nurse to a significant other at home: No Do you presently have visiting nurse or other home services: No Alcohol intake: current Alcohol intake frequency: holidays/special occasions only Patient Tobacco Use Status: Never used Tobacco e-Cigarette/Vaping Use: Never Used Second Hand Smoke Exposure: Yes service: No Current occupational status: employed 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 Current occupational exposures/hazards: No Sexual orientation: Straight/Heterosexual Gender identity: Female Cognitive needs: No Hearing needs: No Vision needs: No Female Reproductive History Menstrual Age of Menarche: 12 Review of Systems Const All systems reviewed & are unremarkable except as noted in HPI and below Eyes Reports no additional complaints ENT Reports nasal congestion (Mild off and on) Card Denies chest pain, Denies leg edema and Denies radiating jaw, neck or arm pain Resp Reports no additional complaints, Denies cough and Denies pain with cough GI Reports heartburn (Controlled with med) Reports no additional complaints Musc Reports arthralgias (Left knee and ankle pain) Skin/Breast Reports system reviewed and no additional complaints, except as documented Neuro Reports no additional complaints Psych Reports no additional complaints Physical Exam Vital Signs: Last Vital Signs Pulse 86 10/02/24 16:03 BP 140/70 H 10/02/24 16:03 Pulse Ox 96 10/02/24 16:03 Oxygen Delivery Method Room Air 10/02/24 16:03 BMI result Body Mass Index 39.0 Const General: healthy appearing (Except for being overweight), comfortable, no acute distress, alert and awake Orientation/consciousness: patient oriented x3 HEENT Head: Yes normal to inspection General nose exam: No nasal polyps present and No nasal discharge present Face and sinus: Yes sinuses nontender Mouth: oropharynx normal Throat: Yes posterior oropharynx normal Eyes General: appearance normal, both eyes and all related structures Neck Neck: Yes normal visual inspection, Yes no lymphadenopathy, Yes trachea midline and Yes no JVD Thyroid: Thyroid normal Chest Chest palpation & inspection: normal inspection of the chest, normal palpation of entire chest wall and no tenderness Resp Effort & Inspection: normal respiratory effort Auscultation: clear to auscultation bilaterally, no rhonchi and no wheezes Percussion: percussion normal Cardio Palpation: normal PMI Rate: regular rate Rhythm: regular rhythm Heart sounds: no gallops and no murmurs Peripheral pulses: Peripheral pulses 2+ throughout GI Palpation (GI): Soft to palpation, nontender, No hepatosplenomegaly present and no masses Auscultation: normal bowel sounds Back/Spine/Pelvis Thoracic/Lumbar Spine: thoracic and lumbar spine normal to inspection and thoraco-lumbar ROM limited Skin General skin exam: no rashes or lesions noted Neuro General: patient oriented x3 and no focal motor deficits Cranial nerves: Yes CN's II-XII intact bilaterally Extrem General: Yes normal to inspection, Yes no clubbing, cyanosis or edema and Yes no calf tenderness Psych Appearance: grossly normal and well kempt Speech and movement: Normal speech and movement present Results Reviewed Results Reviewed: COMPLIANCE REPORT FOR THE LAST 30 NIGHTS SHOWS THAT SHE HAS USED EVERY NIGHT EXCEPT FOR 1 NIGHT WHEN SHE WAS TRAVELING. AVERAGE USE IT PER NIGHT 8 HOURS 50 MINUTES WHICH IS EXCELLENT. PRESSURE SETTING CPAP OF 12 CM. SHE DOES HAVE SOME AIR LEAK BUT IT. DOES NOT BOTHER RESIDUAL AHI ONLY 0.7 Assessment & Plan Assessment & Plan (1) CROW on CPAP: Comment: SHE IS A KNOWN CASE OF OBSTRUCTIVE SLEEP APNEA RELATED TO HER GROSS OBESITY. USES CPAP VERY REGULARLY AND SLEEPS GOOD. NO ISSUES WITH THE CPAP MASK OR DEVICE. COMPLIANCE IS EXCELLENT. Code(s): G47.33 - Obstructive sleep apnea (adult) (pediatric); Z99.89 - Dependence on other enabling machines and devices Category: Medical Plan: COMMENDED FOR GOOD COMPLIANCE AND ADVISED THAT SHE SHOULD CONTINUE TO USE THE CPAP REGULARLY EVERY NIGHT (2) Allergic asthma: Comment: She has a mild intermittent bronchial asthma which is allergic in type, associated with her allergic rhinitis. Code(s): J45.909 - Unspecified asthma, uncomplicated Category: Medical Qualifiers: Asthma severity: mild Asthma persistence: intermittent Asthma complication type: with acute exacerbation Qualified Code(s): J45.21 - Mild intermittent asthma with (acute) exacerbation Plan: USE ALBUTEROL HFA 2 PUFFS Q 6 HOURS ONLY P.R.N. CONTINUE MONTELUKAST 10 MG DAILY (3) Obesity (BMI 30-39.9): Comment: Patient is aware of being overweight, has not been watching her diet strictly. And has gained some weight. Code(s): E66.9 - Obesity, unspecified Category: Medical Plan: She is fully aware of the issue of gaining weight and now she is going to watch her diet more carefully. Coding Level of Care Code Est Pt Level 3 (04012) Diagnoses CROW on CPAP G47.33; Z99.89 Mild intermittent extrinsic asthma with acute exacerbation J45.21 Asthma severity: mild Asthma persistence: intermittent Asthma complication type: with acute exacerbation Obesity (BMI 30-39.9) E66.9
== END 2024-10-02 16:18 | disposition home or self-care (01) ==
LOC: HO.HPS 15:48
PROVIDERS: PCP Internal Medicine; Visit Provider Internal Medicine
DX: G47.33 Obstructive sleep apnea (adult) (pediatric) (principal); Z99.89 Dependence on other enabling machines and devices; J45.21 Mild intermittent asthma with (acute) exacerbation; E66.9 Obesity, unspecified
CPT/HCPCS: 99213

== ENCOUNTER 2024-10-22 07:59 | Outpatient (REF) | payer BC, SELFPAY ==
--- OUTSIDE RECORDS SUMMARY | 2024-10-22 08:21 | XMS_ITS | Patient Health Record ---
Author Organization [facility] [place] [address] [place] Address [address] [place] [address] Care Team Providers Care Brake Machine Operator Name Role Phone Mian FOWLER, Maria E Zimmerman Primary Care Provider Un available Marco French Unavailable [phone] Allergies Allergen (clinical drug ingredient) Drug/Non Drug Allergy documented on EMR Reaction Allergy Type Onset Date Status Penicillin Unknown Drug Allergy Active Reason For Referral Diagnosis 1 Tinea unguium (B35.1 ) Diagnosis 2 Tinea pedis (B35.3) Diagnosis 3 Dystrophic nail (L60 .3) Referring Provider First Name Maria E Deleon Referring Provider Last Name Mian Referring Provider Speciality Internal M edicine Ref[facility] Referred Provider Marco French Referred Address [address] [facility],[place], [place],[address], Referred Provider Specialty Podiatry Referral Priority Routine [...] 08/06/2024 Encounters Encounter Location Date [facility] [address] 08/06/2024 Marco French Onychomycosis B35.1 and Pain in left toe(s) M79.675 [facility] [address] [place] [address] 07/31/2024 Marco French Assessments Encounter Date Diagnosis (ICD Code) Assessment Notes Treatment Notes Treatment Clinical Notes Section Notes 08/06/2024 Pain in left toe(s) (ICD-10 - M79.675) 08/06/2024 Onychomycosis (ICD-10 - B35.1) Plan Of Treatment Pending Test Test Name Order Date *Liver Function Test (LFT) 06/27/2022 Next Appt Details Provider Name:Marco French , 11/06/2024 03:30:00 PM, [address] [place] [address], [place], [address], Insurance Providers Payer Name Payer Address Payer Phone Subscriber Number Group Number Insured Name Patient Relationship to Insured Coverage Start Date Coverage End Date [facility] [address] [place] [address] [phone] [id number] Blossom Lozada Self - patient is [...]
--- NOTE | 2024-10-22 08:40 | PM.PROC ---
Brief Operative Note Date of procedure: 10/22/24 Pre-op diagnosis: left mid 3.6 cm thyroid nodule FNA biopsy Post-op diagnosis: same Procedure: THYROID FINE NEEDLE ASPIRATION PROCEDURE NOTE ? PROCEDURE PERFORMED: Ultrasound-guided FNA of thyroid nodule ? OPERATORS: Dr. Colleen Varela ? INDICATION: left mid 3.6 cm thyroid nodule ; FNA performed to assess for malignancy ? DESCRIPTION OF PROCEDURE: The indications for FNA (to assess for malignancy) were reviewed with the patient in detail. Potential complications (e.g., bleeding, infection, damage to local structures, absence of clear diagnosis after FNA) were reviewed. Alternatives to FNA including conservative observation or surgery were described. The patient understood and agreed to proceed. This was documented by the signing of the written informed consent form. A time-out was performed to confirm the patient's identity and the site of planned FNA. The nodule of interest was identified using ultrasound (14 MHz linear array probe). The site of FNA was then draped in the usual fashion and carefully cleaned and prepared using alcohol swabs. The skin at the previously-identified site of needle insertion was iced and sprayed with numbing spray. Under ultrasound guidance, _6_ passes were performed using a 1.5-inch, 25-gauge needle, and sample was obtained via capillary action. The needle tip was clearly visualized to be within the nodule at the time of sampling for _6_ of _6_ passes. For the second pass, the blood clotted in the syringe and sample could not be used. The patient tolerated the procedure well. There were no immediate complications. A small adhesive bandage was applied, and the patient was advised to take acetaminophen (rather than NSAIDs) for any discomfort and to report any signs of inflammation/infection or marked swelling. IMPRESSION: Technically successful ultrasound-guided fine needle aspiration of left mid 3.6 cm thyroid nodule. PLAN: The patient was advised that I will provide follow-up regarding the cytology result and any subsequent plans. Colleen Varela MD Endocrinology Attending Condition: stable Disposition: same day
== END 2024-10-22 08:00 | disposition home or self-care (01) ==
LOC: HO.US 07:59
PROVIDERS: PCP Internal Medicine; Visit Provider Student in an Organized Health Care Education/Training Program
DX: E04.2 Nontoxic multinodular goiter (principal)
CPT/HCPCS: 10005; 88173; 88305

== ENCOUNTER → 2024-10-22 07:59 | Outpatient (BNV) | payer BC, SELFPAY | PROVIDERS: PCP Internal Medicine; Visit Provider Student in an Organized Health Care Education/Training Program | DX: E04.1 Nontoxic single thyroid nodule (principal) | CPT/HCPCS: 10005 ==

== ENCOUNTER 2024-11-04 08:33 | Outpatient (AMB) | payer BC, SELFPAY ==
[2024-11-04 08:39] VITALS: BP 120/82; PULSE 73; RESP 16; TEMP 36.9; O2SAT 97; BMI 40.2
--- NOTE | 2024-11-04 08:39 | A.OFFPC_ITS ---
Vital Signs 11/04/24 08:39 Height 5 ft 4 in Weight 234 lb BMI 40.2 BP 120/82 Blood Pressure Location Rt brachial Position Sitting Respiration 16 Pulse 73 Pulse Source Pulse Oximeter Temp 98.4 F Temp Source Oral Pulse Oximetry (%) 97 Oxygen Delivery Method Room Air Intake Visit Reasons: Annual Physical Intake Note: Pt is here today for her PE: Last mammogram 11/24/23, papsmear 01/22/23, colonoscopy 04/13/22 Allergies Penicillins Allergy (Severe, Verified 11/09/24 22:29) Anaphylaxis Medication List - Last Reconciled 11/04/24 by Maria E Pappas MD albuterol sulfate 90 mcg/actuation 2 puffs inhalation Q4-6H PRN 30 days clotrimazole-betamethasone 1-0.05 % 1 appl topical BID 10 days docusate sodium 100 mg PO DAILY PRN lansoprazole 15 mg PO DAILY lidocaine HCl-hydrocortison ac 3-0.5 % 1 appl MO BEDTIME lidocaine HCl-hydrocortison ac 3-0.5 % appl topical BEDTIME lisinopril 5 mg PO DAILY loratadine (Claritin) 10 mg PO DAILY montelukast 10 mg PO DAILY naproxen 500 mg PO BID PRN triamcinolone acetonide 0.5% 1 appl topical BID 10 days Tobacco use date assessed: 11/04/24 Dental Screening Dental Screen Date: 11/04/24 Did you have a dental visit in the last 12 months?: Yes Did you have a dental problem in the last 6 months where you did not have access to dental care?: No Was dental information given to patient?: Patient has dentist HPI Annual Physical HPI Details 49-year-old lady with history of mixed d yslipidemia, gastroesophageal reflux disease, multinodular goiter, arthritis, hypertension and obstructive sleep apnea on CPAP, here today for her physical exam. Last mammogram was done in November 2023, already has an appointment scheduled for 11/29/2024 for her repeat breast cancer screening. Last cervical cancer screening was done in 2022 with benign findings, done at [facility] clinic. She had a screening colonoscopy done by Dr Hayden, with internal and external hemorrhoids seen. The patient has a history of dyslipidemia, which has been managed with atorvastatin, and her lipid levels are currently normal. She reports a slight deviation from her diet and a weight gain over the past summer. The patient has gastroesophageal reflux disease, for which she occasionally takes [id number] Pepcid. The patient has a multinodular goiter with nodules that have been biopsied twice, both resulting in nondiagnostic outcomes. She experiences difficulty swallowing, which she initially attributed to sleep apnea, but now suspects may be related to the thyroid nodules. The patient has arthritis, which is contributing to her joint pain and mobility issues. She has a history of a meniscal tear in the left knee, which has worse barb over time, and she is considering a second orthopedic opinion. The patient has hypertension, currently managed with lisinopril, and her blood pressure is well-controlled. The patient has sleep apnea and uses a CPAP machine, which she reports is effective, but has been having recurrent nasal congestion lately , which interferes with CPAP use, and has been advised to use otc allergy medications. The patient has a rotator cuff tear, which is contributing to her shoulder pain and functional limitations. [facility] Medical History (Updated 11/09/24 @ 22:45 by Maria E Pappas MD) Multinodular goiter (nontoxic) Mixed dyslipidemia GERD (gastroesophageal reflux disease) Supraspinatus tendon tear Elevated liver enzymes Allergic rhinitis Environmental and seasonal allergies Hearing loss in left ear History of torn meniscus of left knee Pain of left shoulder with external rotation Acquired deformity of toenail Postsurgical menopause Depression with anxiety Tendinitis of knee History of gestational diabetes Congenital hearing loss of left ear Plantar fasciitis BARBY on CPAP Obesity (BMI 30-39.9) Surgical History Hx of colonoscopy Hx of knee surgery History of bilateral breast reduction surgery History of sinus surgery History of tubal ligation History of hysterectomy, supracervical Family History Father CAD (coronary artery disease) Mother HTN (hypertension) Social History Household Members Other:: son Housing: House Are you a primary home health care worker to a significant other at home: No Do you presently have visiting nurse or other home services: No Alcohol intake: current Alcohol intake frequency: holidays/special occasions only Patient Tobacco Use Status: Never used Tobacco e-Cigarette/Vaping Use: Never Used Second Hand Smoke Exposure: Yes service: No Current occupational status: employed 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 1. Little interest or pleasure in doing things: not at all 2. Feeling down, depressed, or hopeless: not at all 3. Trouble falling or staying asleep, or sleeping too much: several days 4. Feeling tired or having little energy: several days 5. Poor appetite or overeating: several days 6. Feeling bad about yourself - or that you are a failure or have let yourself or your family down: not at all 7. Trouble concentrating on things, such as reading the newspaper or watching television: several days 8. Moving or speaking so slowly that other people could have noticed. Or the opposite - being so fidgety or restless that you have been moving around a lot more than usual: not at all 9. Thoughts that you would be better off or of hurting yourself in some way: not at all Total score: 4 Depression Screening Interpretation: Negative Depression Screening Done: Yes 82402 - PHQ-9 Billing: Yes Source: Developed by Drs. Jin Butler, Joleen Velasco, Otis Ceballos and colleagues, with an educational rashad from [employer]. Thrive Questionnaire Date Thrive assessed: 04/14/24 I am a: Patient What is your living situation today?: I have a steady place to live Within the past 12 months, did the food you bought not last and you didn't have the money to get more?: Sometimes True Within the past 12 months, did you worry whether your food would run out before you got money to buy more?: Sometimes True Do you have trouble paying for medicines?: Yes Do you have trouble getting transportation to medical appointments?: No Do you have trouble paying your heating and electricity bill?: No Do you have trouble taking care of your child, family member or friend?: No Do you have trouble with day-to-day activities such as bathing, preparing meals, shopping, managing finances, etc.?: Yes Are you currently unemployed and looking for a job?: No Are you interested in more education?: No Please select the resources that you would like help with: None Currently or been in a relationship where the following occur: No concerns reported THRIVE Score: 2 AUDIT C Alcohol Use Questionnaire (AUDIT-C) 2. How many drinks containing alcohol do you have on a typical day when you are drinking?: 1 or 2 3. How often do you have six or more drinks on one occasion?: Less than monthly Total Score: 1 MARQUISE-7 AMB Questionnaire MARQUISE-7 Date MARQUISE - 7 assessed: 11/04/24 Feeling nervous, anxious, or on edge: 0 = Not at all Not being able to stop or control worryin = Not at all Worrying too much about different things: 0 = Not at all Trouble relaxin = Not at all Being so restless that it is hard to sit still: 0 = Not at all Becoming easily annoyed or irritable: 0 = Not at all Feeling afraid as if something awful might happen: 0 = Not at all Total MARQUISE-7 score (0-4 normal; 5-9 mild; 10-14 moderate; 15-21 severe): 0 Source: Developed by Drs. Jin Butler, Joleen Velasco, Otis Ceballos and colleagues, with an educational rashad from [employer]. MARQUISE-7 Assessment Billing MARQUISE-7 Assessment Tool: MARQUISE-7 Assessment 75673 Review of Systems Const Reports as per HPI and Reports no additional complaints Eyes Denies change in vision ENT Details: Unable to palpate thyroid gland, area nontender to palpation Reports no additional complaints Card Denies chest pain, Denies chest pain with activity, Denies rapid heart rate, Denies irregular heart rhythm, Denies lightheadedness and Denies dyspnea Resp Denies cough, Denies dyspnea and Denies wheezing GI Reports no additional complaints Reports no additional complaints and Denies nipple discharge Musc Details: Discomfort on abduction of left shoulder joint, slight tenderness on palpation over left AC joint, no overlying erythema or swelling noted. Skin/Breast Denies breast pain, Denies breast mass, Denies nipple discharge and Denies rash Neuro Reports no additional complaints Psych Reports no additional complaints Endo Reports no additional complaints Crispin/Lymph Reports no additional complaints Aller/Immun Reports seasonal rhinorrhea and Denies wheezing Physical exam (Primary Care) Vital Signs: Last Vital Signs Temp 98.4 F 11/04/24 08:39 Pulse 73 11/04/24 08:39 Resp 16 11/04/24 08:39 BP 120/82 11/04/24 08:39 Pulse Ox 97 11/04/24 08:39 Oxygen Delivery Method Room Air 11/04/24 08:39 BMI result Body Mass Index 40.2 Tobacco/Smoking Status: Tobacco use Status Tobacco use date assessed 11/04/24 11/04/24 08:42 Patient Tobacco Use Status Never used Tobacco 11/04/24 08:39 e-Cigarette/Vaping Use Never Used 11/04/24 08:39 PHQ-9: PHQ-9 Score PHQ-9: Total score 10 11/04/24 09:00 Depression Screening Interpretation: Negative Thrive Assessment: Date of Thrive Assessment Date Thrive assessed 04/14/24 11/04/24 08:39 Currently or been in a relationship where the following occur: No concerns reported Advance Care Planning discussion: Completed/Scanned Date of discussion: 11/04/24 Who was present: Patient Forms completed: Health Care Proxy Time spent: 16-45 minutes Actual minutes spent: 2 Const General: no acute distress Nutritional Appearance: obese Orientation/consciousness: patient oriented x3 HENMT Head: Yes normocephalic General nose exam: Normal external nose present and No nasal discharge present Mouth: oropharynx normal and moist mucous membranes Eyes General: appearance normal, both eyes and all related structures Neck Neck: Yes full ROM, Yes no lymphadenopathy and Yes supple Thyroid: nontender Chest Breast/axilla inspection: normal inspection of the breasts Breast/axilla palpation: normal palpation of the breasts Resp Effort & Inspection: normal respiratory effort and able to speak in complete sentences Auscultation: clear to auscultation bilaterally Cardio Rate: regular rate Rhythm: regular rhythm Heart sounds: S1 normal heart sound present and S2 normal heart sound present GI Inspection: Yes normal to inspection Palpation (GI): Soft to palpation, nontender and no masses Auscultation: normal bowel sounds Other: sees C [facility] General: Yes no CVA tenderness Back/Spine/Pelvis Other: Increase range of motion of right shoulder due to pain, unable to abduct more than 90 degrees without pain Back: no CVA tenderness and No back tenderness Skin General skin exam: no rashes or lesions noted Neuro General: patient oriented x3, gait normal, tone normal, Normal light touch and pain sensation and no focal motor deficits Cognition (Neuro): normal cognition Gait exam (Neuro): Normal gait present Extrem Other: Pain over medial aspect of left knee, no gross bone deformity or joint swelling seen. Decreased range of motion in right shoulder joint due to pain, slight tenderness on palpation over right AC General: Yes no joint enlargement, Yes no pedal edema and Yes normal gait Psych Appearance: grossly normal Mental Status: mental status grossly normal Speech and movement: Normal speech and movement present Affect: normal affect Results Reviewed Results Reviewed: Laboratory Tests 07/09/24 10:17 TSH 1.37 Free T4 0.92 Name: Blossom Lozada Age/Sex: 49/F : 1975 Unit#: [id number] Attend Dr: Maria E Pappas MD Re07/08/24 Status: DEP [facility] Disch: SPEC : [id number] HARMONY: 07/08/24 STATUS: COMP REQ : [id number] RECD: 07/08/[address]: Maria E Pappas MD COMP: 07/08/24 ENTERED: 07/08/[address] [facility] [address]: ORDERED: Liver Panel, Lipid Panel Test Result Flag Reference Total Bili 0.2 0.0-1.0 mg/dL Direct Bili < 0.2 0.0-0.5 mg/dL AST (GOT) 18 5-31 U/L ALT (GPT) 32 H 0-31 U/L Protein, Total 7.3 6.5-8.0 g/dL Alb 4.4 3.5-5.0 g/dL Triglyceride 193 H <150 mg/dL Desirable Triglyceride: less than 150 mg/dL Borderline High Triglyceride 150-199 mg/dL High Triglyceride: 200-499 mg/dL Very High Triglyceride: greater than or equal to 5OO mg/dL Cholesterol 213 H <200 mg/dL Desirable Cholesterol: less than 200 mg/dL Borderline High Cholesterol: 200-239 mg/dL High Cholesterol: greater than 239 mg/dL LDL Calculated 128 H <100 mg/dL Desirable LDL: less than 100 mg/dL Near Optimal/Above Optimal LDL: 110-129 mg/dL Borderline High LDL: 130-159 mg/dL High LDL: 160-189 mg/dL Very High LDL: greater than or equal to 190 mg/dL HDL 47 >40 mg/dL Desirable HDL: greater than 40 mg/dL Note: This HDL assay may give artificially low results in patients with liver disease. Alk Phos 65 39-117 U/L Coding Level of Care Code Est Pt Prev Care 40-64y(19302) Diagnoses Acute meniscal tear of left knee, subsequent encounter S83.207D Encounter type: subsequent encounter Dysphagia, unspecified type R13.10 Dysphagia type: unspecified Essential hypertension I10 Mixed dyslipidemia E78.2 Multinodular goiter (nontoxic) E04.2 Obesity (BMI 30-39.9) E66.9 GERD (gastroesophageal reflux disease) K21.9 Supraspinatus tendon tear M75.100 Environmental and seasonal allergies J30.89 Plantar fasciitis M72.2 BARBY on CPAP G47.33; Z99.89 Annual visit for general adult medical examination with abnormal findings Z00.01 Advance directive discussed with patient Z71.89 Additional Codes MARQUISE-7 Assessment Billing - MARQUISE-7 Assessment Tool: MARQUISE-7 Assessment 44946 ([id number]) PHQ-9 - 32709 - PHQ-9 Billing: Yes ([id number]) Vital Signs *Quality* - Advance Care Planning discussion: Completed/Scanned ([id number]) Vital Signs *Quality* - Time spent: 16-45 minutes ([id number]) Assessment & Plan Assessment & Plan (1) Acute meniscal tear of left knee: Code(s): S83.207A - Unspecified tear of unspecified meniscus, current injury, left knee, initial encounter Qualifiers: Encounter type: subsequent encounter Qualified Code(s): S83.207D - Unspecified tear of unspecified meniscus, current injury, left knee, subsequent encounter Plan: Followed by [facility] orthopedics. (2) Dysphagia: Code(s): R13.10 - Dysphagia, unspecified Qualifiers: Dysphagia type: unspecified Qualified Code(s): R13.10 - Dysphagia, unspecified Plan: Ordered barium swallow (3) Essential hypertension: Code(s): I10 - Essential (primary) hypertension Category: Medical Plan: Blood pressure at goal of less than 130/80. Continue lisinopril 5 mg daily Reinforced importance of following a low sodium diet, getting regular exercise, and lowering stress levels. (4) Mixed dyslipidemia: Code(s): E78.2 - Mixed hyperlipidemia Category: Medical Plan: Fasting lipids are within normal limits, continued adherence to healthy eating habits and regular exercise (5) Multinodular goiter (nontoxic): Code(s): E04.2 - Nontoxic multinodular goiter Category: Medical Plan: Thyroid levels are within normal limits. Has had 2 nondiagnostic fine-needle aspiration biopsy of nodule. 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 And has gained some weight. Code(s): E66.9 - Obesity, unspecified Category: Medical Plan: Referred for medical weight management. Discussed need to increase activity and weight reduction. Recommended focusing on improving health instead of dieting. Mediterranean diet is a healthy diet that helps, limit food high in fat, sugar, and calories. Eat slowly, pay attention to portion sizes, plan your meals ahead of time, start regular physical activity, at least 150 minutes of moderate intensity exercise, or 90 minutes per week of vigorous exercise. (7) GERD (gastroesophageal reflux disease): Code(s): K21.9 - Gastro-esophageal reflux disease without esophagitis Category: Medical Plan: Continue lansoprazole (8) Supraspinatus tendon tear: Code(s): M75.100 - Unspecified rotator cuff tear or rupture of unspecified shoulder, not specified as traumatic Category: Medical Plan: Referred back to orthopedics for further evaluation (9) Environmental and seasonal allergies: Code(s): J30.89 - Other allergic rhinitis Category: Medical Plan: Advised to take Claritin 10 mg daily and continue montelukast 10 mg once a day (10) Plantar fasciitis: Comment: Sees Dr. French Code(s): M72.2 - Plantar fascial fibromatosis Category: Medical Plan: Followed by podiatry (11) BARBY on CPAP: Comment: SHE IS A KNOWN CASE OF OBSTRUCTIVE SLEEP APNEA RELATED TO HER GROSS OBESITY. USES CPAP VERY REGULARLY AND SLEEPS GOOD. NO ISSUES WITH THE CPAP MASK OR DEVICE. COMPLIANCE IS EXCELLENT. Code(s): G47.33 - Obstructive sleep apnea (adult) (pediatric); Z99.89 - Dependence on other enabling machines and devices Category: Medical Plan: Continue CPAP, take antihistamines as needed to help with clearing nasal passages (12) Annual visit for general adult medical examination with abnormal findings: Code(s): Z00.01 - Encounter for general adult medical examination with abnormal findings Plan: Reviewed recent fasting lab results with patient. Recommended dental visit every 6 months and regular eye exams, at least every 2 years. Take adequate calcium in diet and vitamin-D 3 at 2000 IU per cap once a day, in addition to weight-bearing exercises to help maintain good muscle tone and weight control. Instructed to do self-breast exam, and continue to get yearly mammogram, goes to [facility] clinic for her routine Pap and pelvic exam which is currently up-to-date. Up-to-date with her screening colonoscopy. Up-to-date with her Tdap, but does not want to get flu or COVID vaccines (13) Advance directive discussed with patient: Code(s): Z71.89 - Other specified counseling Plan: Initiated the conversation about Advanced Directives. Advanced Directives help patients prepare for current and future decisions about their medical treatment and place of care. Discussed with patient that it is a process where a patients current condition and prognosis are reviewed, their wishes for information regarding their illness are elicited, and likely medical dilemmas are presented and options discussed. Healthcare proxy form completed today. The form can be amended as needed, reviewed yearly and make changes as needed Orders: Orders [place] barium swallow 11/04/24 R13.10 - Dysphagia, unspecified Referrals Orthopedics Referral M75.100 - Unspecified rotator cuff tear or rupture of unspecified shoulder, not specified as traumatic, S83.207A - Unspecified tear of unspecified meniscus, current injury, left knee, initial encounter Medical Weight Management Referral E66.9 - Obesity, unspecified
--- OUTSIDE RECORDS SUMMARY | 2024-11-04 09:33 | XMS_ITS | Patient Health Record ---
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 Name Role Phone Mian FOWLER, Maria E Zimmerman Primary Care Provider Un available Marco French Unavailable [phone] Allergies Allergen (clinical drug ingredient) Drug/Non Drug Allergy documented on EMR Reaction Allergy Type Onset Date Status Penicillin Unknown Drug Allergy Active Reason For Referral Diagnosis 1 Tinea unguium (B35.1 ) Diagnosis 2 Tinea pedis (B35.3) Diagnosis 3 Dystrophic nail (L60 .3) Referring Provider First Name Maria E Deleon Referring Provider Last Name Mian Referring Provider Speciality Internal M edicine [facility]erred Provider Marco French Referred Address [address],[place], [place],[address], Referred Provider Specialty Podiatry Referral Priority Routine [...] 08/06/2024 Encounters Encounter Location Date [facility] [address] 08/06/2024 Marco French Onychomycosis B35.1 and Pain in left toe(s) M79.675 [facility] [address] [place] [address] 07/31/2024 Marco French Assessments Encounter Date Diagnosis (ICD Code) Assessment Notes Treatment Notes Treatment Clinical Notes Section Notes 08/06/2024 Pain in left toe(s) (ICD-10 - M79.675) 08/06/2024 Onychomycosis (ICD-10 - B35.1) Plan Of Treatment Pending Test Test Name Order Date *Liver Function Test (LFT) 06/27/2022 Next Appt Details Provider Name:Marco French , 11/06/2024 03:30:00 PM, [address] [place] [address], [place], [address], Insurance Providers Payer Name Payer Address Payer Phone Subscriber Number Group Number Insured Name Patient Relationship to Insured Coverage Start Date Coverage End Date [facility] [address] [place] [address] [phone] [id number] Blossom Lozada Self - patient is [...]
== END 2024-11-04 10:09 | disposition home or self-care (01) ==
LOC: HO.HMCC 08:34
PROVIDERS: PCP Internal Medicine; Visit Provider Internal Medicine
DX: Z00.01 Encounter for general adult medical examination with abnormal findings (principal); S83.207D Unspecified tear of unspecified meniscus, current injury, left knee, subsequent encounter; R13.10 Dysphagia, unspecified; I10 Essential (primary) hypertension; E78.2 Mixed hyperlipidemia; E04.2 Nontoxic multinodular goiter; E66.9 Obesity, unspecified; K21.9 Gastro-esophageal reflux disease without esophagitis; M75.100 Unspecified rotator cuff tear or rupture of unspecified shoulder, not specified as traumatic; J30.89 Other allergic rhinitis; M72.2 Plantar fascial fibromatosis; G47.33 Obstructive sleep apnea (adult) (pediatric); Z99.89 Dependence on other enabling machines and devices; Z71.89 Other specified counseling

== ENCOUNTER → 2024-11-04 08:33 | Outpatient (BNVA) | payer BC, SELFPAY | PROVIDERS: PCP Internal Medicine; Visit Provider Internal Medicine | DX: Z00.01 Encounter for general adult medical examination with abnormal findings (principal); E78.2 Mixed hyperlipidemia; K21.9 Gastro-esophageal reflux disease without esophagitis; I10 Essential (primary) hypertension; G47.33 Obstructive sleep apnea (adult) (pediatric); E04.2 Nontoxic multinodular goiter; R13.10 Dysphagia, unspecified; M75.100 Unspecified rotator cuff tear or rupture of unspecified shoulder, not specified as traumatic; J30.89 Other allergic rhinitis; M72.2 Plantar fascial fibromatosis; E66.9 Obesity, unspecified; S83.207D Unspecified tear of unspecified meniscus, current injury, left knee, subsequent encounter; X58.XXXD Exposure to other specified factors, subsequent encounter; Z71.89 Other specified counseling; Z68.41 Body mass index [BMI] 40.0-44.9, adult; Z99.89 Dependence on other enabling machines and devices | CPT/HCPCS: 96127 ==

== ENCOUNTER 2024-11-05 15:30 | Outpatient (AMB) | payer BC, SELFPAY ==
[2024-11-05 15:33] VITALS: BP 120/82; PULSE 74; O2SAT 97; BMI 40.1
--- NOTE | 2024-11-05 15:33 | MHC.OFFVIS ---
Vital Signs 11/05/24 15:33 Height 5 ft 4 in Weight 233 lb 11.04 oz BMI 40.1 BP 120/82 Blood Pressure Location Lt brachial Position Sitting Pulse 74 Pulse Source Pulse Oximeter Pulse Oximetry (%) 97 Oxygen Delivery Method Room Air Intake Visit Reasons: Biopsy f/u Intake Note: Patient present today for biopsy results. Retail Advertising Sales Manager Required: No Accompanied by: Self / Same As Patient Allergies Penicillins Allergy (Severe, Verified 11/05/24 15:38) Anaphylaxis Medication List - Last Reconciled 11/05/24 by Colleen Varela MD albuterol sulfate 90 mcg/actuation 2 puffs inhalation Q4-6H PRN 30 days clotrimazole-betamethasone 1-0.05 % 1 appl topical BID 10 days docusate sodium 100 mg PO DAILY PRN lansoprazole 15 mg PO DAILY lidocaine HCl-hydrocortison ac 3-0.5 % 1 appl [place] BEDTIME lidocaine HCl-hydrocortison ac 3-0.5 % appl topical BEDTIME lisinopril 5 mg PO DAILY loratadine (Claritin) 10 mg PO DAILY montelukast 10 mg PO DAILY naproxen 500 mg PO BID PRN triamcinolone acetonide 0.5% 1 appl topical BID 10 days HPI Comments Details: 49-year-old female here today for follow up of nontoxic multinodular goiter HPI She had a cervical spine MRI for neck pain radiating down the arm, in May 2024 which showed a T2 hyperintense left thyroid nodule measuring 2.9 next 3.4 cm. Ultrasound of the thyroid 07/31/2024 I reviewed the images myself which show a heterogenous left gland, with a left mid lobe 3.6 cm solid hypoechoic TR 4 category nodule meeting criteria for FNA. Other subcentimeter right-sided cysts noted. A right midpole 0.6 cm solid isoechoic nodule also noted. Normal TFTs June 2024. Patient currently denies heat or cold intolerance, diarrhea or constipation, hair loss, palpitation, , weight changes, mood changes, low energy, changes in appearance of eyes or vision changes, tremors, increased diaphoresis or dry skin. ?reports history of anxiety. Reports some worsening dysphagia over the past year. Patient denies pain on swallowing or voice changes or difficulty breathing. Patient denies any history of childhood neck radiation. Denies having ever used lithium, amiodarone or biotin supplements. Patient denies any family history of thyroid cancer or thyroid disease. 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 Interval history 10/22/2024: Status post repeat FNA of the left midpole 3.6 cm nodule which again came back as nondiagnostic, [place] category 1. Too few follicular cells seen. Physical exam General: sitting comfortably in no acute distress HEENT: normocephalic/atraumatic Neck: supple, palpable 2 cm left nodule Cardiac: normal heart sounds Pulm: normal breath sounds B/L, no added breath sounds Abd: not distended, no tenderness Extremities: no edema, no signs of myxedema Laboratory Tests 07/09/24 10:17 TSH 1.37 Free T4 0.92 Thyroid Peroxidase Ab <1 US THYROID 07/31/2024 CLINICAL INFORMATION: Nontoxic single thyroid nodule. COMPARISON: None available. TECHNIQUE: Linear transducer grayscale and color Doppler examination with attention to the region of the thyroid. FINDINGS: SIZE: Measurements of the thyroid lobes and nodules are given in sagittal, anteroposterior and transverse dimensions respectively. Right Thyroid Lobe: 3.7 x 1.5 x 1.5 cm, volume 4.6 mL. Parenchyma: The gland echotexture is normal. Thyroid vascularity is normal. Left Thyroid Lobe: 4.3 x 2.5 x 3.0 cm, volume 16.2 mL. Parenchyma: The gland echotexture is heterogeneous. Thyroid vascularity is normal. Isthmus: 0.5 cm in maximum AP dimension. Estimated total number of nodules greater than or equal to 1 cm: 1. Iv Rn nodules are described as follows: 1. Location: Left-sided lobe. Size: 2.4 x 2.5 x 3.6 cm, volume 11.4 mL. Nodule characteristics: Composition: Solid (2). Echogenicity: Hypoechoic (2). Shape: Not taller than wide (0). Margins: Smooth (0). Echogenic Foci: None (0). ACR TI-RADS total points: 4 ACR TI-RADS category: 4 NODES: No lymphadenopathy is seen in the tissue surrounding the thyroid gland. US/US thyroid IMPRESSION: ACR TI-RADS category: 4, left thyroid lobe. MR CERVICAL SPINE WITHOUT CONTRAST 07/31/24 CLINICAL INFORMATION: Cervical radiculopathy; neck pain traveling down left shoulder, arm, as well as to the left lower extremity. COMPARISON: None TECHNIQUE: Multiplanar multisequence MR imaging of the cervical spine was done prior to and without the administration IV gadolinium. Examination was performed on a 1.5 Sheila Siemens unit, using standard sequences. FINDINGS: CORONAL ALIGNMENT: -Normal, without significant scoliosis. SAGITTAL ALIGNMENT: -Mild reversal of the normal lordosis centered at C5. -There is a trace 2 mm degenerative type anterolisthesis of C4 on C5. Trace retrolisthesis of C6 on C7. CRANIOCERVICAL JUNCTION/C1-2 ARTICULATIONS: -Intact and aligned. Mild degenerative arthrosis of the C1-2 articulation. VERTEBRAL BODIES/BONE MARROW: -No compression deformities or suspicious bone lesions. No bone marrow edema identified. DISCS: -There is mild to moderate diffuse loss of disc height and signal, more moderate changes at C5-6 and C6-7. CERVICAL CORD: -Normal in caliber and signal throughout. No regions of cord impingement identified. PARAVERTEBRAL SOFT TISSUES: -Normal. -The thyroid is largely obscured by a saturation band. There appears to be a T2 hyperintense left thyroid nodule measuring 2.9 x 3.4 cm, only seen on the oblique T2 sequences (series 10, image 2). VISUALIZED INTRACRANIAL STRUCTURES: -Normal. AXIAL DISC SPACE IMAGING: C2-C3: No central canal or neural foraminal narrowing. Normal facets. C3-C4: Minimal disc bulging without significant mass effect. Mild bilateral uncinate spurs. Normal facets. Minimal central canal narrowing and minimal left lateral recess narrowing. There is mild right and moderate left neural foraminal encroachment. C4-C5: No significant disc bulge. Mild left greater than right uncinate spurring bilaterally. Normal appearing facets. No central canal or lateral recess narrowing. There is mild to moderate left neural foraminal narrowing. The right neural foramen is patent. C5-C6: There is a shallow diffuse disc bulge with a superimposed right lateral protrusion of disc material. This indents upon the ventral thecal sac, minimally flattens the right ventral aspect of the cord, however there is preserved CSF signal dorsal to the cord. No cord signal abnormality. There is mild central canal stenosis. There are normal facets. There is mild to moderate right greater than left uncinate spurring. There is mild right and mild to moderate moderate left neural foraminal. C6-C7: There is a shallow disc bulge with a superimposed shallow right paracentral broad-based protrusion of disc material. This indents upon the ventral thecal sac mildly, but does not contact the cord. There is minimal central canal narrowing. No significant lateral recess narrowing. Mild to moderate uncinate spurring bilaterally, with minimal facet spurring bilaterally. There is mild right and [id number] left neural foraminal narrowing. C7-T1: There is no significant central canal or neural foraminal narrowing. Normal facets. T1-T2: No central canal or neural foraminal narrowing. T2-T3: Broad-based disc bulge without significant mass effect upon the cord. Mild central canal narrowing. Patent neural foramen. T3-T4: Broad-based disc bulge without significant mass effect upon the cord. Mild central canal narrowing. Patent neural foramen. MR/MR cervical spine wo con IMPRESSION: 1. Mild to moderate multilevel spondylosis. No regions of significant central canal narrowing, cord impingement or cord signal abnormality. No high-grade lateral recess or neural foraminal stenosis at any level. See above for details on individual disc levels. 2. Incidental note made of a T2 hyperintense 2.9 x 3.4 cm left thyroid nodule, incompletely imaged on this exam. Consider correlating with ultrasound if not already performed. Electronically signed by: Glenn Lott MD 05/27/2024 08:34 AM EDT [facility] Medical History Multinodular goiter (nontoxic) Mixed dyslipidemia GERD (gastroesophageal reflux disease) Supraspinatus tendon tear Elevated liver enzymes Dyslipidemia Allergic rhinitis Environmental and seasonal allergies Hearing loss in left ear History of torn meniscus of left knee Pain of left shoulder with external rotation Acquired deformity of toenail Postsurgical menopause Depression with anxiety Tendinitis of knee History of gestational diabetes Congenital hearing loss of left ear Plantar fasciitis BARBY on CPAP Obesity (BMI 30-39.9) Surgical History Hx of colonoscopy Hx of knee surgery History of bilateral breast reduction surgery History of sinus surgery History of tubal ligation History of hysterectomy, supracervical Family History Father CAD (coronary artery disease) Mother HTN (hypertension) Social History Household Members Other:: son Housing: House Are you a primary progressive care unit registered nurse to a significant other at home: No Do you presently have visiting nurse or other home services: No Alcohol intake: current Alcohol intake frequency: holidays/special occasions only Patient Tobacco Use Status: Never used Tobacco e-Cigarette/Vaping Use: Never Used Second Hand Smoke Exposure: Yes service: No Current occupational status: employed 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 Current occupational exposures/hazards: No Sexual orientation: Straight/Heterosexual Gender identity: Female Cognitive needs: No Hearing needs: No Vision needs: No Female Reproductive History Menstrual Age of Menarche: 12 Physical Exam Vital Signs: Last Vital Signs Pulse 74 11/05/24 15:33 BP 120/82 11/05/24 15:33 Pulse Ox 97 11/05/24 15:33 Oxygen Delivery Method Room Air 11/05/24 15:33 BMI result Body Mass Index 40.1 Assessment & Plan Assessment & Plan (1) Multinodular goiter (nontoxic): Code(s): E04.2 - Nontoxic multinodular goiter Category: Medical Plan: 49-year-old female with no family history of thyroid cancer, with no personal history of head or neck radiation coming in today for follow up of nontoxic multinodular goiter. She had a cervical spine MRI for neck pain radiating down the arm, in May 2024 which showed a T2 hyperintense left thyroid nodule measuring 2.9 next 3.4 cm. Ultrasound of the thyroid 07/31/2024 I reviewed the images myself which show a heterogenous left gland, with a left mid lobe 3.6 cm solid hypoechoic TR 4 category nodule meeting criteria for FNA. Other subcentimeter right-sided cysts noted. A right midpole 0.6 cm solid isoechoic nodule also noted. Normal TFTs from July 2024. 08/06/2024: Status post FNA of the left mid 3.6 cm nodule, which came back as nondiagnostic, [place] category 1. 10/22/2024: Status post repeat FNA of the left midpole 3.6 cm nodule which again came back as nondiagnostic, [place] category 1. Too few follicular cells seen. At this point I again discussed with her that nondiagnostic results yield a 5-20% risk of malignancy. We have 2 options 1 is to continue to monitor this nodule with repeat ultrasounds especially given it appears like a low risk nodule, versus surgery for diagnostic purposes. At this point patient also describes that she has been having worsening compressive symptoms with difficulty swallowing and fullness in her neck. I discussed with her that it could possibly be related to her thyroid nodule, however we can not say for sure if surgical management we will improve her symptoms. At this point patient would like to get a surgical evaluation. I discussed with her that she has bilateral nodules, however I would recommend left diagnostic lobectomy as that is her main dominant nodule and could possibly improve her compressive symptoms. Discussed with her need for levothyroxine 50% of the time after lobectomy, versus 100% of the time after total thyroidectomy. She had good vitamin-D levels from April 2024, I have asked her to start taking vitamin-D 1000 units daily. Plan: -start taking vitamin-D 1000 units daily -referral placed for surgical evaluation to Dr. Dl Hoff for consideration of left diagnostic lobectomy -follow up in 6 months, however if she decides to proceed with surgery, she will call and let us know about surgical date and I told her I will have to see her 6 weeks postoperatively. Plan See above Orders: Referrals General Surgery Referral E04.2 - Nontoxic multinodular goiter Coding Level of Care Code Est Pt Level 4 (61479) Diagnoses Multinodular goiter (nontoxic) E04.2 Time Spent (min) 30
--- OUTSIDE RECORDS SUMMARY | 2024-11-05 17:51 | XMS_ITS | Patient Health Record ---
Author Organization [facility] [place] Address [address] [place] [address] Care Team Providers Care Energy Conservation Technician Name Role Phone Mian FOWLER, Maria E Zimmerman Primary Care Provider Un available Marco French Unavailable [phone] Allergies Allergen (clinical drug ingredient) Drug/Non Drug Allergy documented on EMR Reaction Allergy Type Onset Date Status Penicillin Unknown Drug Allergy Active Reason For Referral Diagnosis 1 Tinea unguium (B35.1 ) Diagnosis 2 Tinea pedis (B35.3) Diagnosis 3 Dystrophic nail (L60 .3) Referring Provider First Name Maria E Deleon Referring Provider Last Name Mian Referring Provider Speciality Internal M edicine [facility]erred Provider Marco French Referred Address [address] [facility],[place], [place],[address], Referred Provider Specialty Podiatry Referral Priority Routine [...] 08/06/2024 Encounters Encounter [facility] Date [facility] [address] 08/06/2024 Marco French Onychomycosis B35.1 and Pain in left toe(s) M79.675 [facility] [address] [place] [address] 07/31/2024 Marco French Assessments Encounter Date Diagnosis (ICD Code) Assessment Notes Treatment Notes Treatment Clinical Notes Section Notes 08/06/2024 Pain in left toe(s) (ICD-10 - M79.675) 08/06/2024 Onychomycosis (ICD-10 - B35.1) Plan Of Treatment Pending Test Test Name Order Date *Liver Function Test (LFT) 06/27/2022 Next Appt Details Provider Name:Marco French , 11/06/2024 03:30:00 PM, [address] [place] [address], [place], [address], Insurance Providers Payer Name Payer Address Payer Phone Subscriber Number Group Number Insured Name Patient Relationship to Insured Coverage Start Date Coverage End Date [facility] [address] [place] [address] [id number] Blossom Lozada Self - patient is [...]
== END 2024-11-05 15:54 | disposition home or self-care (01) ==
LOC: HO.ENCR 15:31
PROVIDERS: PCP Internal Medicine; Visit Provider Student in an Organized Health Care Education/Training Program
DX: E04.2 Nontoxic multinodular goiter (principal)
CPT/HCPCS: 99214

== ENCOUNTER 2024-11-29 07:52 | Outpatient (REF) | payer BC, SELFPAY ==
--- NOTE | ~2024-11-29 | MM_ITS ---
EXAMINATION: MM SCREENING DIGITAL BREAST TOMOSYNTHESIS, BILATERAL CLINICAL INFORMATION: Screening. Asymptomatic. COMPARISON: Mammography: Comparison is made with available priors TECHNIQUE: Digital breast mammography with tomosynthesis is performed in both the craniocaudal and mediolateral oblique views along with computer-aided detection (CAD). FINDINGS: There are scattered areas of fibroglandular density. Bilateral reduction mammoplasty. Right: Asymmetry inferior breast posterior depth on MLO view. No suspicious calcifications or other abnormal findings. Left: There are no significant masses, abnormal calcifications, or other abnormalities. MM/MM tomosynthesis screening BI IMPRESSION: Additional imaging is recommended ASSESSMENT: BI-RADS Category 0: Incomplete - Need additional Imaging Evaluation RECOMMENDATION: 1. Additional views of the ...... 2. Targeted ultrasound if warranted after review of the additional views. 3. Radiology department staff will contact the patient for additional imaging. Additional Imaging required Electronically signed by: Ktae Chapin DO 12/02/2024 09:59 AM EDT
--- OUTSIDE RECORDS SUMMARY | 2024-11-29 07:55 | XMS_ITS | Patient Health Record ---
[facility] [place] [facility] [place] Address [address] [place] [address] Care Team Providers Care It Programmer Analyst Name Role Phone Mian FOWLER, Maria E Zimmerman Primary Care Provider Un available Marco French Unavailable [phone] Allergies Allergen (clinical drug ingredient) Drug/Non Drug Allergy documented on EMR Reaction Allergy Type Onset Date Status Penicillin Unknown Drug Allergy Active Reason For Referral Diagnosis 1 Tinea unguium (B35.1 ) Diagnosis 2 Tinea pedis (B35.3) Diagnosis 3 Dystrophic nail (L60 .3) Referring Provider First Name Maria E Deleon Referring Provider Last Name Mian Referring Provider Speciality Internal M edicine [facility] Referred Provider Marco French Referred Address [address] [facility],[place], [place],[address], Referred Provider Specialty Podiatry Referral Priority Routine Medications Medication SIG (Take, Route, Frequency, Duration) Notes Start Date End Date Status Ciclopirox 0.77 % 1 application thin f ilm topically to nails Externally Once a day; Duration: 30 days Active Ciclopirox Olamine 0.77 % USE 1 APPLICAT ION TO AFFECTED AREA EXTERNALLY TO FEET TWICE A DAY 30 DAYS; Duration: 30 Active Docusate Sodium 100 MG 1 capsule as need ed Orally Once a day Active Fexofenadine-Pseudoephed ER 180-240 MG 1 tablet Orally Once a day Active Montelukast Sodium 10 MG 1 tablet Orally Once a day Active Clotrimazole-Betamethason e 1-0.05 % 1 application Externally Twice a day Active busPIRone HCl 5 MG 1 tablet Orally Twic e a day Active Albuterol Sulfate 108 (90 Base) MCG/ACT 1 puff as needed Inhalation every 4 hrs Active LamISIL 250 MG 1 tablet Orally Once a day; Duration: 30 days Not-Takin g Naproxen 500 MG 1 tablet with food o r milk as needed Orally every 12 hrs PRN Active Triamcinolone Acetonide 0.5 % 1 application Externally Two times a Week Active Lisinopril 5 MG 1 tablet Orally Once a day Active Social History Tobacco Use: Social History Observation Description Date Details (start date - stop date) Never Smoker NA - NA Tobacco use other than smoking: Question Answer Notes Are you an other tobacco user? No Tobacco Control (Standard) Question Answer Notes Tobacco use: Nonsmoker Additional Findings: Tobacco non-user Current no nsmoker AUDIT-C (Standard) Question Answer Notes Did you have a drink contain ing alcohol in the past year? Yes How often did you have a dri nk containing alcohol in the past year? Monthly or less (1 point) How many drinks did you have on a typical day when you were drinking in the past year? 1 or 2 drinks (0 point) How often did you have six o r more drinks on one occasion in the past year? Never (0 point) Points 1 Interpretation Negative Vital Signs Heart Rate 74 /min 11/06/2024 Blood pressure diastolic 93 R mm Hg 11/06/2024 Height 5ft 4in in 11/06/2024 Blood pressure systolic 159 mm Hg 11/06/2024 Weight 233 lbs 11/06/2024 BMI 39.99 kg/m2 11/06/2024 Encounters Encounter Location Date Provider Diagnosis [facility] [address] 08/06/2024 Marco French Onychomycosis B35.1 and Pain in left toe(s) [facility]79.[facility] [address] 11/06/2024 Marco French Onychomycosis B35.1 and Pain in left toe(s) M79.675 [facility] [address] [place] [address] 07/31/2024 Marco French Assessments Encounter Date Diagnosis (ICD Code) Assessment Notes Treatment Notes Treatment Clinical Notes Section Notes 08/06/2024 Pain in left toe(s) (ICD-10 - M79.675) 08/06/2024 Onychomycosis (ICD-10 - B35.1) 11/06/2024 Pain in left toe(s) (ICD-10 - M79.675) 11/06/2024 Onychomycosis (ICD-10 - B35.1) Response to treatment - Unchanged Plan Of Treatment Pending Test Test Name Order Date *Liver Function Test (LFT) 06/27/2022 Next Appt Details Provider Name:Marco French , 02/25/2025 04:00:00 PM, [address] [facility] [address], [place], [address], Insurance Providers Payer Name Payer Address Payer Phone Subscriber Number Group Number Insured Name Patient Relationship to Insured Coverage Start Date Coverage End Date [facility] [address] [place] [address] [id number] Blossom Lozada Self - patient is [...]
== END 2024-11-29 07:53 | disposition home or self-care (01) ==
LOC: HO.MAMMO 07:52
PROVIDERS: PCP Internal Medicine; Visit Provider Internal Medicine
DX: Z12.31 Encounter for screening mammogram for malignant neoplasm of breast (principal)
CPT/HCPCS: 77063; 77067

== ENCOUNTER → 2024-11-29 08:00 | Outpatient (BNV) | payer BC, SELFPAY | PROVIDERS: PCP Internal Medicine; Visit Provider Internal Medicine | DX: Z12.31 Encounter for screening mammogram for malignant neoplasm of breast (principal) | CPT/HCPCS: 77063; 77067 ==

== ENCOUNTER 2024-12-23 09:00 | Outpatient (REF) | payer BC, SELFPAY ==
--- NOTE | ~2024-12-23 | US_ITS ---
EXAMINATION(S): 1. MM DIAGNOSTIC DIGITAL BREAST TOMOSYNTHESIS, RIGHT 2. TARGETED ULTRASOUND OF THE RIGHT BREAST CLINICAL INFORMATION: Callback from screening for asymmetry in the inferior breast posterior depth on the MLO view. Personal history of reduction mammoplasty. COMPARISON: Comparison made to multiple prior, most recent November 29, 2024, and most remote September 06, 2016. TECHNIQUE: Digital breast tomosynthesis is performed in field ML 90 degrees and MLO views along with computer-aided detection (CAD). Synthesized 2D images are generated from the tomosynthesis. Spot compression tomosynthesis in MLO were obtained. FINDINGS: BREAST COMPOSITION: There are scattered areas of fibroglandular density. RIGHT BREAST: History of previous reduction mammoplasty. Previously suggested asymmetry in the lower breast is pliable with spot compression. On today's images, the local parenchyma has similar appearance to multiple prior studies as far back as 2016, and most likely represented overlapping fibroglandular breast tissue. Targeted ultrasound of the right breast was performed at the location of the mammographic finding. The survey throughout the lower outer quadrant did not reveal suspicious sonographic findings. US/US Breast RT Limited Mamm Only IMPRESSION: RIGHT BREAST: Benign, no evidence of malignancy. Normal interval follow-up is recommended in 12 months. ASSESSMENT: BI-RADS: Category 2: Benign RECOMMENDATION: 1 year F/U Results were provided to the patient at time of visit by the technologist. This patient's information was entered into a reminder system with a target due date for their next mammogram. Electronically signed by: Sherry Hills MD 12/23/2024 01:11 PM KENNETH GARCIA
--- OUTSIDE RECORDS SUMMARY | 2024-12-23 09:36 | XMS_ITS | Patient Health Record ---
[facility] [place] [facility] [place] Address [address] [place] [address] Care Team Providers Care Parts Puller Name Role Phone Mian FOWLER, Maria E Zimmerman Primary Care Provider Un available Marco French Unavailable [phone] Allergies Allergen (clinical drug ingredient) Drug/Non Drug Allergy documented on EMR Reaction Allergy Type Onset Date Status Penicillin Unknown Drug Allergy Active Reason For Referral Diagnosis 1 Tinea unguium (B35.1 ) Diagnosis 2 Tinea pedis (B35.3) Diagnosis 3 Dystrophic nail (L60 .3) Referring Provider First Name Maria E Deleon Referring Provider Last Name Mian Referring Provider Speciality Internal M edicine [facility] Referred Provider Mraco French Referred Address [address] [facility],[place],[address], Referred Provider Specialty Podiatry Referral Priority Routine [...] 11/06/2024 Encounters Encounter Location Date Provider Diagnosis [facility] [address] 08/06/2024 Marco French Onychomycosis B35.1 and Pain in left toe(s) M79.675 [facility] [address] 11/06/2024 Marco French Onychomycosis B35.1 and Pain in left toe(s) M79.675 [facility] [address] [place] [address] 07/31/2024 Marco French Assessments Encounter Date Diagnosis [...] Name:Marco French , 02/25/2025 04:00:00 PM, [address] [facility], [facility] [address], [place], [address], Insurance Providers Payer Name Payer Address Payer Phone Subscriber Number Group Number Insured Name Patient Relationship to Insured Coverage Start Date Coverage End Date [facility] [address] [place] [address] [id number] Blossom Lozada Self - patient is [...]
== END 2024-12-23 09:01 | disposition home or self-care (01) ==
LOC: HO.MAMMO 09:00
PROVIDERS: PCP Internal Medicine; Visit Provider Internal Medicine
DX: N64.89 Other specified disorders of breast (principal)
CPT/HCPCS: 76642; 77061; 77065

== ENCOUNTER → 2024-12-23 09:00 | Outpatient (BNV) | payer BC, SELFPAY | PROVIDERS: PCP Internal Medicine; Visit Provider Radiology Body Imaging | DX: R92.8 Other abnormal and inconclusive findings on diagnostic imaging of breast (principal) | CPT/HCPCS: 76642; 77061; 77065 ==

== ENCOUNTER 2025-01-12 09:44 | Outpatient (REF) | payer BC, SELFPAY ==
--- NOTE | ~2025-01-12 | XR_ITS ---
EXAMINATION: XR KNEE, LEFT CLINICAL INFORMATION: M25.562 - Pain in left knee COMPARISON: Previous x-ray March 2023 TECHNIQUE: Four views of the left knee. FINDINGS: There is medial subluxation of the distal femur respect to the proximal tibia. Bone alignment is otherwise normal. No fracture or dislocation. There is tricompartment arthritis greatest at the medial femoral tibial joint. This is increased from previous exam. There is a moderate to large joint effusion. XR/XR knee LT 4V IMPRESSION: Slight medial subluxation of the distal femur with respect to the proximal tibia. Tricompartment arthritis increased from March 2023 exam. Moderate to large joint effusion. Electronically signed by: Meghna Albert MD 01/12/2025 11:30 AM KENNETH
--- OUTSIDE RECORDS SUMMARY | 2025-01-12 14:36 | XMS_ITS | Continuity of Care Document ---
Author Organization [place] - [facility], [place] - [facility] 2nd floor Address [address] [place] [address] Assessment No assessment recorded. Plan of Treatment Reminders Order Date Submit Date Provider Last Modified By Organization Details Last Modified Time Details Appointments None recorded. Lab None recorded. Referral None recorded. Procedures None recorded. Surgeries None recorded. Imaging XR, shoulder, 2 or more view - room 220 left shoulder/ lateral cervical [facility]24 [facility] [address], [place], [address], 5 12:57:56 XR, cervical spine, 1 view - room 220 lateral cervical 2024 025 [facility] Office, [address], [address], [place], [address], 5 12:57:56 Medication Orders None recorded. Patient [...] a4ajBk vP9nXo QUaueC m3YtLR FvZlgJ JJ8mAn HZtai3 2e6132 AC0KlY 3%2BHU aanKiQ trMwF INTERFACE [facility] [address], [place], [address], 12/24/2024 08:37:47 12/25/19 25 12/24/2024 XR, cervi ras spine , 1 view http:/ [email or web address] ?Encry pted=s hAaTro YD8dLq bEUv6g %2BXZw aYqtaq 0bqfl% 2Fg9IQ a4ajBk vP9nXo QUaueC m3YtLR FvZlgJ JJ8mAn HZtai3 1d1927 AC0KlY 3%2BHU aanKiQ trMwF INTERFACE [facility] [address], [place], [address], 12/24/2024 08:37:49 12/25/19 25 12/24/2024 XR, shoul neil, 2 or more view http:/ [email or web address] ?Encry pted=s hAaTro YD8dLq bEUv6g %2BXZw aYqtaq 0bqfl% 2Fg9IQ a4ajBk vP9nXo QUaueC m3YtLR FvZlgJ JJ8mAn HZtai3 2w6626 AC0KlY 3%2BHU aamKiQ trMwF INTERFACE [facility] [address], [place], [address], 12/24/2024 08:41:07 12/25/19 25 12/24/2024 XR, shoul neil, 2 or more view http:/ [email or web address] ?Encry pted=s hAaTro YD8dLq bEUv6g %2BXZw aYqtaq 0bqfl% 2Fg9IQ a4ajBk vP9nXo QUaueC m3YtLR FvZlgJ JJ8mAn HZtai3 7f4682 AC0KlY 3%2BHU aamKiQ trMwF INTERFACE [facility] [address] [facility] [address], [place], [address], 12/24/2024 08:41:09 Result Notes Documentation Provider Name and Address Organization Details Recorded Time Xr, Cervical Spine, 1 View : [email or web address] Encrypted=irWcQwlGA3gJmkV Uv6g%3SSOrjXwciv1cbyk%2Fg 7JOc3kpIseC5jXgZHjvbHr1Kn FRLwApjDYD7dEfVJqso81q076 3RC0BjB5%2BHUaanKiQtrMwF Not Available [facility] 12/24/2024 08:3 7:48 Xr, Cervical Spine, 1 View : [email or web address] Encrypted=gkBgRvkMQ1fLgtI Uv6g%0MTCuxBvvat7qbre%2Fg 5QCh4ueHviN5dHzLMwzkHe8Up JDSaUehEKJ1tCuZIwec77g751 5QJ0PqT8%2BHUaanKiQtrMwF Not Available [facility] 12/24/2024 08:3 7:49 Xr, Shoulder, 2 Or More View : [email or web address] Encrypted=trOzDrlLS1fJqcG Uv6g%6ORAxjRbual7tgzf%2Fg 7CDl1kjTcyE9cHsVIybnCa6Wj UVOkGmcSSB5dUxMJhsf22e254 9ED3VqI8%2BHUaamKiQtrMwF Not Available [facility] 12/24/2024 08:4 1:08 Xr, Shoulder, 2 Or More View : [email or web address] Encrypted=ehZxDszAB0aPhrF Uv6g%4KZYwrLrxyz4cxir%2Fg 4XOp9mjRogI2nEzSAhpbLo1Ir ODLcExwTDG9hDrYYubo53j735 8DX6BiI3%2BHUaamKiQtrMwF Not Available [facility] 12/24/2024 08:4 1:09 Problems Name Problem SNOMED Code Status Onset Date Resolution Date Notes Provider Name and Address Organization Details Recorded Time Pain of left shoulder region Active 2024 Tu Gutierrez PA-C [address], [place], [address], [facility] 5 08:30:59 Inflammation of joint of left shoulder region Active 2024 Tu Gutierrez PA-C [address], [place], [address], [facility] 5 09:38:59 Neck pain 70906685 Active 2024 Tu Gutierrez PA-C [address], [place], [address], [facility] 5 09:39:05 Problem Notes None recorded. Medical Equipment None Reported. Allergies Allergen ID Allergen Name Allergen Category Reaction Reaction Severity Criticality Documentation Date Start Date Code Code System Note Provider Name and Address Organization Details Recorded Time 365519 Product containin g penicilli n (product) medicatio n Not available Not available Not available 12/24/2024 73743 8001 SNOMED Tu Gutierrez PA-C [address], [place], [address], [facility] 5 08:30:07 Medications Name [...] Updated DateTime 12/24/2024 162.56 cm 39.8 kg/m2 743470.43 g Tu Gutierrez PA-C [address] [facility] [address] [facility] [address], [place], [address] 12/24/2024 08:29:54 Social History Question Answer Notes LastModified by [employer]ód[employer] Details LastModified Time Tobacco Smoking Status Never Smoker Tu Gutierrez PA-C [address] [facility] [address], [place], [address], [facility] 12/24/2024 08:30:43 What Is Your Relationship Status? Single Information not available 12/24/2024 Sex: Unknown Functional Status Question Answer Note LastModified by [employer] Details LastModified Time How many times per [...] ICD10 Code Diagnosis IMO Codes Diagnosis Note [id number] Tu Gutierrez PA-C [facility] 2nd floor [address] [place] [address] 12/24/2024 08:22:43 01/01/2025 12:57:55 Pain of left shoulder region 0667439448 M25.512 47001142 Inflammati on of joint of left shoulder region 4361166448 97356 M19.012 87628679 Neck pain 04584304 M54.2 86652 Health Concerns Section Related Observation LastModified by [...] injury. She has been cared for at [place] [facility] Dr. Randall she has had 1 [...] ordered, obtained and independently reviewed today at [facility]. Four views of the Left shoulder [...] who she has seen in the past. [facility] speech recognition secondary education professor software was used to create portions of this document. An attempt at proofreading has been made to minimize errors. Please call for corrections. Tu Gutierrez PA-C [address], [place], [address], [facility] 12/24/2024 09:39:27 OBGyn Episode No OBEpisode recorded.
--- OUTSIDE RECORDS SUMMARY | 2025-01-12 14:36 | XMS_ITS | Data Portability ---
Author Organization [facility], [facility] Address [address] [place] [address] Assessment No assessment recorded. Plan of Treatment Reminders Order Date Submit Date Provider Last Modified By Organization Details Last Modified Time Details Appointments None recorded. Lab None recorded. Referral None recorded. Procedures None recorded. Surgeries None recorded. Imaging XR, shoulder, 2 or more view - room 220 left shoulder/ lateral cervical 2024 [facility], [address], [place], [address], 5 12:57:56 XR, cervical spine, 1 view - room 220 lateral cervical [facility], [address], [address], [place], [address], 5 12:57:56 Medication Orders None recorded. Patient [...] a4ajBk vP9nXo QUaueC m3YtLR FvZlgJ JJ8mAn HZtai3 3h6894 AC0KlY 3%2BHU aanKiQ trMwF INTERFACE [facility] [address], [place], [address], 12/24/2024 08:37:47 12/25/19 25 12/24/2024 XR, cervi ras spine , 1 view http:/ [email or web address] ?Encry pted=s hAaTro YD8dLq bEUv6g %2BXZw aYqtaq 0bqfl% 2Fg9IQ a4ajBk vP9nXo QUaueC m3YtLR FvZlgJ JJ8mAn HZtai3 6h4119 AC0KlY 3%2BHU aanKiQ trMwF INTERFACE [facility] [address], [place], [address], 12/24/2024 08:37:49 12/25/19 25 12/24/2024 XR, shoul neil, 2 or more view http:/ [email or web address] ?Encry pted=s hAaTro YD8dLq bEUv6g %2BXZw aYqtaq 0bqfl% 2Fg9IQ a4ajBk vP9nXo QUaueC m3YtLR FvZlgJ JJ8mAn HZtai3 5n8323 AC0KlY 3%2BHU aamKiQ trMwF INTERFACE [facility] [address], [place], [address], 12/24/2024 08:41:07 12/25/19 25 12/24/2024 XR, shoul neil, 2 or more view http:/ [email or web address] ?Encry pted=s hAaTro YD8dLq bEUv6g %2BXZw aYqtaq 0bqfl% 2Fg9IQ a4ajBk vP9nXo QUaueC m3YtLR FvZlgJ JJ8mAn HZtai3 1m5729 AC0KlY 3%2BHU aamKiQ trMwF INTERFACE [facility] [address], [place], [address], 12/24/2024 08:41:09 Result Notes Documentation Provider Name and Address Organization Details Recorded Time Xr, Cervical Spine, 1 View : [email or web address] Encrypted=ohFsCutIZ2iIqvH Uv6g%6PRKfjZzxuq0nvmv%2Fg 9QMj3zmMtlK8hZsEZyqhOj8Af LNPhYhoBAQ5tKzDWnpr24j998 2SI2PpT1%2BHUaanKiQtrMwF Not Available [facility] 12/24/2024 08:3 7:48 Xr, Cervical Spine, 1 View : [email or web address] Encrypted=tzDvQrfVY9rBanU Uv6g%7LSCcaDpvqv8huej%2Fg 2FMw6xhXolY2eZtJFykvYt7Cb LQYnSxbHVS2lPcMJens24g680 8JQ2YjF3%2BHUaanKiQtrMwF Not Available [facility] 12/24/2024 08:3 7:49 Xr, Shoulder, 2 Or More View : [email or web address]? Encrypted=qaQoLjvJC4jFzmM Uv6g%2PJIofQjdme4qshi%2Fg 5UEx6mzXzyS2sYjFVceoXd6Ku NXXlTvoGWZ5cKqXUyde86x193 4RK5ZgA7%2BHUaamKiQtrMwF Not Available [facility] 12/24/2024 08:4 1:08 Xr, Shoulder, 2 Or More View : [email or web address] Encrypted=piPlFusXD9uLjhE Uv6g%2JGSgcGvlzd0nlmf%2Fg 9GJy3piRtyD6iNfLJannXz5Bq KRClYcpSOA9bEiSXnck28h760 2JN1LpJ1%2BHUaamKiQtrMwF Not Available [facility] 12/24/2024 08:4 1:09 Problems Name Problem SNOMED Code Status Onset Date Resolution Date Notes Provider Name and Address Organization Details Recorded Time Pain of left shoulder region Active 2024 Tu Gutierrez PA-C [address], [place], [address], [facility] 5 08:30:59 Inflammation of joint of left shoulder region Active 2024 Tu Gutierrez PA-C [address], [place], [address], [facility] 5 09:38:59 Neck pain 95284462 Active 2024 Tu Gutierrez PA-C [address], [place], [address], [facility] 5 09:39:05 Problem Notes None recorded. Medical Equipment None Reported. Allergies Allergen ID Allergen Name Allergen Category Reaction Reaction Severity Criticality Documentation Date Start Date Code Code System Note Provider Name and Address Organization Details Recorded Time 884755 Product containin g penicilli n (product) medicatio n Not available Not available Not available 12/24/2024 07404 8001 SNOMED Tu Gutierrez PA-C [address], [place], [address], [facility] 5 08:30:07 Medications Name [...] Updated DateTime 12/24/2024 162.56 cm 39.8 kg/m2 666196.43 g Tu Gutierrez PA-C [address] [facility] [address], [place], [address] 12/24/2024 08:29:54 Social History Question Answer Notes LastModified by Connected Details LastModified Time Tobacco Smoking Status Never Smoker Tu Gutierrez PA-C [address] [facility] [address], [place], [address], [facility] 12/24/2024 08:30:43 What Is Your Relationship Status? Single Information not available 12/24/2024 Sex: Unknown Functional Status Question Answer Note LastModified by Connected Details LastModified Time How many times per [...] ICD10 Code Diagnosis IMO Codes Diagnosis Note [id number] Tu Gutierrez PA-C [facility] 2nd floor [address] [place] [address] 12/24/2024 08:22:43 01/01/2025 12:57:55 Pain of left shoulder region 2817814248 M25.512 90794942 Inflammati on of joint of left shoulder region 1594062428 59666 M19.012 63149172 Neck pain 73735754 M54.2 45157 Health Concerns Section Related Observation LastModified by Organization Detai ls LastModified Time None Recorded Concern Status LastModified by Organization Details LastModified Time None Recorded Advance Directives Directive None Recorded Payers Insurance Date Sequence Insurance Name Policy Number Policy Sanders Covered Member ID Sanders Member ID Guarantor Name 01/01/[address] [facility] [place] [place] [id number] Blossom Campa Neville [id number] Blossom Lozada Notes Date Note Type [...] injury. She has been cared for at [facility] [facility] Dr. Randall she has had 1 [...] ordered, obtained and independently reviewed today at [facility]. Four views of the Left shoulder demonstrate [...] who she has seen in the past. [facility] speech recognition drywall finisher software was used to create portions of this document. An attempt at proofreading has been made to minimize errors. Please call for corrections. Tu Gutierrez PA-C [address], [place], [address], [facility] 12/24/2024 09:39:27 OBGyn Episode No OBEpisode recorded.
== END 2025-01-12 09:45 | disposition home or self-care (01) ==
LOC: HO.HMGCX 09:44
PROVIDERS: PCP Internal Medicine; Visit Provider Physician Assistant Medical
DX: M25.562 Pain in left knee (principal); G89.29 Other chronic pain
CPT/HCPCS: 73564

== ENCOUNTER 2025-01-12 09:44 | Outpatient (AMB) | payer BC, SELFPAY ==
[2025-01-12 10:15] VITALS: BP 140/90; PULSE 77; O2SAT 96; BMI 40.0
--- NOTE | 2025-01-12 10:15 | AM.OFFWIN_ITS ---
Intake Vital Signs 01/12/25 10:15 Height 5 ft 4 in Weight 233 lb BMI 40.0 BP 140/90 H Blood Pressure Location Rt brachial Position Sitting Pulse 77 Pulse Source Pulse Oximeter Pulse Oximetry (%) 96 Oxygen Delivery Method Room Air Intake Visit Reasons: EP-lt knee pain Intake Note: Patient presents c/o left knee pain/swelling x4 days. Patient states hurts to put pressure/weight on it. Patient Tobacco Use Status: Never used Tobacco Allergies Penicillins Allergy (Severe, Verified 01/12/25 10:18) Anaphylaxis HPI HPI Comments History of Present Illness Details History of Present Illness - The patient is a 49 year old individua l presenting with left knee pain and swelling. - The patient's left knee pain began on Sunday after prolonged standing the previous day, and the patient awoke with swelling. - The patient is unable to bear weight o n the affected knee. - Initial self-treatment with ice and el evation did not provide relief. - The pain is located in the back of the knee, radiates down the calf to the ankle, and is accompanied by a tingling sensation in a toe and down the back of the leg. - The patient also reports swelling in t he left ankle, to the extent that shoes do not fit, and a sensation of pressure in the leg. - The patient has a history of a torn me niscus in the same knee, which was previously treated with surgery. - The patient reports currently having a recurrent torn meniscus in the same knee. - Additional medical history includes a supraspinatus tear of the shoulder and a thyroid issue, for which the patient is scheduled to see a surgeon, which has delayed orthopedic follow-up. - She denies trauma or fall. - She denies upper leg pain or hip pain. Physical Exam General: Cooperative, healthy appearing, comfortable, no acute distress and well developed Respiratory: Normal respiratory effort and able to speak in complete sentences. Clear to auscultation bilaterally Cardiovascular: Regular rate and rhythm. Normal S1 and S2 Skin: No rashes or lesions noted. Musculoskeletal: Swelling noted in the left knee. FROM of the knee. No click noted. Pain and tenderness noted in the posterior fossa and back of the knee. TTP of the medial and lateral meniscus and suprapatellar region on the left. Negative anterior drawer test. Negative Bobby noted. DTR are 1+ on the LE. Negative Homans noted. Swelling noted in the ankle. NO TTP of the left ankle. Ambulates with a steady gait. Strength is 5/5 on the LE bilaterally. Neuro: Sensation is intact on the LE bilaterally. [facility] Medical History (Updated 11/09/24 @ 22:45 by Maria E Pappas MD) Multinodular goiter (nontoxic) Mixed dyslipidemia GERD (gastroesophageal reflux disease) Supraspinatus tendon tear Elevated liver enzymes Allergic rhinitis Environmental and seasonal allergies Hearing loss in left ear History of torn meniscus of left knee Pain of left shoulder with external rotation Acquired deformity of toenail Postsurgical menopause Depression with anxiety Tendinitis of knee History of gestational diabetes Congenital hearing loss of left ear Plantar fasciitis BARBY on CPAP Obesity (BMI 30-39.9) Surgical History Hx of colonoscopy Hx of knee surgery History of bilateral breast reduction surgery History of sinus surgery History of tubal ligation History of hysterectomy, supracervical Family History Father CAD (coronary artery disease) Mother HTN (hypertension) Social History Household Members Other:: son Housing: House Are you a primary home care consultant to a significant other at home: No Do you presently have visiting nurse or other home services: No Alcohol intake: current Alcohol intake frequency: holidays/special occasions only Patient Tobacco Use Status: Never used Tobacco e-Cigarette/Vaping Use: Never Used Second Hand Smoke Exposure: Yes service: No Current occupational status: employed 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 Current occupational exposures/hazards: No Sexual orientation: Straight/Heterosexual Gender identity: Female Cognitive needs: No Hearing needs: No Vision needs: No Female Reproductive History Menstrual Age of Menarche: 12 Review of Systems Const All systems reviewed & are unremarkable except as noted in HPI and below Physical Exam Vital Signs: Last Vital Signs Pulse 77 01/12/25 10:15 BP 140/90 H 01/12/25 10:15 Pulse Ox 96 01/12/25 10:15 Oxygen Delivery Method Room Air 01/12/25 10:15 BMI result Body Mass Index 40.0 Assessment & Plan Assessment & Plan (1) Left knee pain: Code(s): M25.562 - Pain in left knee Qualifiers: Chronicity: chronic Qualified Code(s): M25.562 - Pain in left knee; G89.29 - Other chronic pain Plan Most likely due to meniscal tear plan - will order an xray today - rest, ice and elevation - encouraged her to wear her knee brace - naproxen as needed for pain - will add Diclofenac gel for pain - pt was referred to ortho in Oct and needs to call [facility] for an appt - will call her with the results of the xray - wants to be out of work until she is seen by ortho but I am only allowed to give her 3 days - needs to f/u with her PCP Medications: New diclofenac sodium 3% 1 appl topical BID 100 grams 0RF Coding Level of Care Code Est Pt Level 4 (86440) Diagnoses Chronic pain of left knee M25.562; G89.29 Chronicity: chronic
--- OUTSIDE RECORDS SUMMARY | 2025-01-12 11:42 | XMS_ITS | Continuity of Care Document ---
Author Organization [place] - [facility], [place] - [facility] 2nd floor Address [address] [place] [address] Assessment No assessment recorded. Plan of Treatment Reminders Order Date Submit Date Provider Last Modified By Organization Details Last Modified Time Details Appointments None recorded. Lab None recorded. Referral None recorded. Procedures None recorded. Surgeries None recorded. Imaging XR, shoulder, 2 or more view - room 220 left shoulder/ lateral cervical [facility] [address], [address], [place], [address], 5 12:57:56 XR, cervical spine, 1 view - room 220 lateral cervical 2024 025 [facility] Office, [address], [address], [place], [address], 5 12:57:56 Medication Orders None recorded. Patient TargetsNo targets recorded. Patient InstructionsNo instructions recorded. Reason for Referral None Reported. Results Created Date Observation Date Name Description Value Unit Range Abnormal Flag Note LastModifiedBy Organization Detail LastModifiedTime 12/25/19 25 12/24/2024 XR, cervi ras spine , 1 view http:/ [email or web address] ?Encry pted=s hAaTro YD8dLq bEUv6g %2BXZw aYqtaq 0bqfl% 2Fg9IQ a4ajBk vP9nXo QUaueC m3YtLR FvZlgJ JJ8mAn HZtai3 4x4337 AC0KlY 3%2BHU aanKiQ trMwF INTERFACE [facility] [address], [place], [address], 12/24/2024 08:37:47 12/25/19 25 12/24/2024 XR, cervi ras spine , 1 view http:/ [email or web address] ?Encry pted=s hAaTro YD8dLq bEUv6g %2BXZw aYqtaq 0bqfl% 2Fg9IQ a4ajBk vP9nXo QUaueC m3YtLR FvZlgJ JJ8mAn HZtai3 2h0242 AC0KlY 3%2BHU aanKiQ trMwF INTERFACE [facility] [address], [place], [address], 12/24/2024 08:37:49 12/25/19 25 12/24/2024 XR, shoul neil, 2 or more view http:/ [email or web address] ?Encry pted=s hAaTro YD8dLq bEUv6g %2BXZw aYqtaq 0bqfl% 2Fg9IQ a4ajBk vP9nXo QUaueC m3YtLR FvZlgJ JJ8mAn HZtai3 4f6443 AC0KlY 3%2BHU aamKiQ trMwF INTERFACE [facility] [address], [place], [address], 12/24/2024 08:41:07 12/25/19 25 12/24/2024 XR, shoul neil, 2 or more view http:/ [email or web address] ?Encry pted=s hAaTro YD8dLq bEUv6g %2BXZw aYqtaq 0bqfl% 2Fg9IQ a4ajBk vP9nXo QUaueC m3YtLR FvZlgJ JJ8mAn HZtai3 6a5499 AC0KlY 3%2BHU aamKiQ trMwF INTERFACE [facility] [address] [facility] [address], [place], [address], 12/24/2024 08:41:09 Result Notes Documentation Provider Name and Address Organization Details Recorded Time Xr, Cervical Spine, 1 View : [email or web address] Encrypted=jiSoLdiSF2oFrgT Uv6g%8DUMnuUacbu5zhzl%2Fg 8EEo4ujBddQ2hQoTOctrRd1Fj LNNhBrgIJW7qGbTGths67d229 6ZN2RsR7%2BHUaanKiQtrMwF Not Available [facility] 12/24/2024 08:3 7:48 Xr, Cervical Spine, 1 View : [email or web address] Encrypted=omJfYvyWI9wOciN Uv6g%9HSLhuJwmia4vazp%2Fg 8EAc0vzUhqE2yCeAKdgtHx8Af VEWbUepBCS8wLwUYswh90u842 1VC5DbA8%2BHUaanKiQtrMwF Not Available [facility] 12/24/2024 08:3 7:49 Xr, Shoulder, 2 Or More View : [email or web address]? Encrypted=euPuOglFD0fRipP Uv6g%6FZXivWecqw6iveb%2Fg 9RYs1hgGynX1sAjCFhltYu8Nf TPOrWsuMTL9nKxWIuly32s639 8QU2YnJ1%2BHUaamKiQtrMwF Not Available [facility] 12/24/2024 08:4 1:08 Xr, Shoulder, 2 Or More View : [email or web address] Encrypted=hxPhIbnIG3rTrfN Uv6g%1DYIasEqxrc4hsvu%2Fg 7JVw0uiIhaS2mPgJPqvzEw3Zj ANZkHbzHRP4kVgAWmab79z811 7RE6XhV4%2BHUaamKiQtrMwF Not Available [facility] 12/24/2024 08:4 1:09 Problems Name Problem SNOMED Code Status Onset Date Resolution Date Notes Provider Name and Address Organization Details Recorded Time Pain of left shoulder region Active 2024 Tu Gutierrez PA-C [address], [place], [address], [facility] 5 08:30:59 Inflammation of joint of left shoulder region Active 2024 Tu Gutierrez PA-C [address], [employer] [place] [place], [address], [facility] 5 09:38:59 Neck pain 78015900 Active 2024 Tu Gutierrez PA-C [address], [place], [address], [facility] 5 09:39:05 Problem Notes None recorded. Medical Equipment None Reported. Allergies Allergen ID Allergen Name Allergen Category Reaction Reaction Severity Criticality Documentation Date Start Date Code Code System Note Provider Name and Address Organization Details Recorded Time 992223 Product containin g penicilli n (product) medicatio n Not available Not available Not available 12/24/2024 33282 8001 SNOMED Tu Gutierrez PA-C [address], [place], [address], [facility] 5 08:30:07 Medications Name Sig Start Date Stop Date Status Note LastModified by Organization Details LastModified Time alprazolam 1 mg tablet TAKE 1 TAB BY MOUTH ONCE TAKE 30-60 MIN PRIOR TO MRI active Not Available Not Available No t Available lorazepam 0.5 mg tablet TAKE 1 TABLET BY MOUTH 30 MINUTES PRIOR TO EXAM, ANOTHER NEEDED. DO NOT DRIVE WHILE TAKING active Not Available Not Available No t Available clotrimazole -betamethaso ne 1 %-0.05 % topical cream APPLY TOPICALLY TWICE A DAY FOR 10 DAYS active Not Available Not Available Not Available lisinopril 5 mg tablet TAKE 1 TABLET BY MOUTH EVERY DAY active Not Available Not Available No t Available albuterol sulfate HFA 90 mcg/actuatio n aerosol inhaler INHALE 2 PUFFS BY MOUTH EVERY 4 TO 6 HOURS NEEDED FOR SHORTNESS OF BREATH OR WHEEZE active Not Available Not Available No t Available naproxen 500 mg tablet TAKE 1 TABLET BY MOUTH TWICE A DAY NEEDED FOR PAIN active Not Available Not Available No t Available ciclopirox 0.77 % topical gel APPLY 1 A THIN FILM TOPICALLY TO NAILS ONCE DAILY X 30 DAYS active Not Available Not Available No t Available Vitals Date Recorded Body height Body mass index (BMI) Body weight Provider Name and Address Organization Details Last Updated DateTime 12/24/2024 162.56 cm 39.8 kg/m2 692431.43 g Tu Gutierrez PA-C [address] [facility] [address] [facility] [address] [facility] [address], [place], [address] 12/24/2024 08:29:54 Social History Question Answer Notes LastModified by [employer] Details LastModified Time Tobacco Smoking Status Never Smoker Tu Gutierrez PA-C [address] [facility] [address], [place], [address], [facility] 12/24/2024 08:30:43 What Is Your Relationship Status? Single Information not available 12/24/2024 Sex: Unknown Functional Status Question Answer Note LastModified by [employer] Details LastModified Time How many times per week do you consume alcohol? Less than 1 time per week Information not available 12/24/2024 Do you use any illicit or recreational drugs? No Information not available 12/24/2024 What is your level of alcohol consumption? Occasional Information not available 12/24/2024 Mental Status None recorded. Family History Nothing Reported. Medical History Condition Response Anxiety/Depression Y Anemia Y Thyroid Problems Y Hypertension Y Asthma Y Gynecological HistoryNo gynecological history recorded. Obstetrics History GPAL:G 0 P 0 0 0 0 Past Encounters Encounter ID Performer Location Encounter Start Date Encounter Closed Date Diagnosis/Indication Diagnosis SNOMED-CT Code Diagnosis ICD10 Code Diagnosis IMO Codes Diagnosis Note [id number] Tu Gutierrez PA-C [facility] 2[address] floor [address] [place] [address] 12/24/2024 08:22:43 01/01/2025 12:57:55 Pain of left shoulder region 5271495946 M25.512 71754805 Inflammati on of joint of left shoulder region 3241462728 26107 M19.012 38301924 Neck pain 74026396 M54.2 06829 Health Concerns Section Related Observation LastModified by Organization Detai ls LastModified Time None Recorded Concern Status LastModified by Organization Details LastModified Time None Recorded Payers None recorded. Notes Date Note Type Note Provider Name and Address Organization Details Recorded Time 12/24/2024 text/html I am seeing this patient under the supervision of Dr. Christensen who was available but did not see the patient. HPI: Patient is a 49-year-old female presents the office today for evaluation chief complaint of left shoulder pain. She reports approximately 1 year duration of symptoms have been ongoing without a specific injury. She has been cared for at [facility] Dr. Randall she has had 1 injection which gave her an adverse reaction. She has limited range of motion intermittent symptoms into her neck. She has had no prior physical therapy, she has been utilizing oral NSAIDs. Frustrated by that she now presents to the office for orthopedic evaluation with outside MRI scan of the cervical spine and MRI. PFMSH and ROS has been reviewed, updated, and signed by me and is located in the patient s chart. PHYSICAL EXAMINATION: The patient is well appearing and in no apparent distress. Alert and oriented x 3. Gait is symmetric. Examination of the shoulder findings include: Forward elevation to 110 degrees, external rotates 15 degrees, internal rotates back pocket, rotator cuff strength 4+/5 with external rotation and forward elevation, AC joint nontender, deltoid supple bicep contour normal. Cervical ROM slightly restricted however without radicular symptoms. No erythema, no redness, no warmth. Peripheral, vascular, lymphatic examination, skin, neurological, coordination, reflexes, sensation are within normal limits. X-RAY REPORT: X-rays were ordered, obtained and independently reviewed today at [facility]. Four views of the Left shoulder demonstrate advanced clinical joint arthritis with B2 glenoid, inferior humeral head osteophyte, type III acromion. Lateral C-spine x-ray shows loss of normal cervical lordosis but otherwise good preservation. MRI findings of the left shoulder independently reviewed today findings demonstrate mild rotator cuff tendinopathy but no evidence of rotator cuff tear, intact subscapularis, mild biceps tendinopathy, advanced glenohumeral joint arthritis. MRI findings of the cervical spine demonstrate some mild multilevel degenerative disc disease without significant neuroforaminal stenosis. IMPRESSION: Advanced left shoulder glenohumeral joint osteoarthritis with intact rotator cuff and mild intermittent cervical complaints. PLAN: Today we had a brief conversation with Danielle and we talked about do's and don'ts going forward recommend slow return to normal activities she understands that definitive treatment for her condition is anatomic total shoulder arthroplasty however secondary to her young age we will try to optimize conservative treatment. Complicating factors she has recently been diagnosed with a thyroid nodule which is going through formal workup at this time. She will contact us once this has been completed and if so I think she would be a good candidate for anatomic total shoulder arthroplasty with Dr. Ovalles who she has seen in the past. [facility] speech recognition databases computer consultant software was used to create portions of this document. An attempt at proofreading has been made to minimize errors. Please call for corrections. Tu Gutierrez PA-C [address], [place], [address], [facility] 12/24/2024 09:39:27 OBGyn Episode No OBEpisode recorded.
--- OUTSIDE RECORDS SUMMARY | 2025-01-12 11:42 | XMS_ITS | Data Portability ---
Author Organization [facility], [facility] Address [address] [place] [address] Assessment No assessment recorded. Plan of Treatment Reminders Order Date Submit Date Provider Last Modified By Organization Details Last Modified Time Details Appointments None recorded. Lab None recorded. Referral None recorded. Procedures None recorded. Surgeries None recorded. Imaging XR, shoulder, 2 or more view - room 220 left shoulder/ lateral cervical [facility]24 [facility], [address], [place], [address], 5 12:57:56 XR, cervical spine, 1 view - room 220 lateral cervical [facility], [address], [address], [place], [address], 5 12:57:56 Medication Orders None recorded. Patient [...] a4ajBk vP9nXo QUaueC m3YtLR FvZlgJ JJ8mAn HZtai3 8a4803 AC0KlY 3%2BHU aanKiQ trMwF INTERFACE [facility] [address], [place], [address], 12/24/2024 08:37:47 12/25/19 25 12/24/2024 XR, cervi ras spine , 1 view http:/ [email or web address] ?Encry pted=s hAaTro YD8dLq bEUv6g %2BXZw aYqtaq 0bqfl% 2Fg9IQ a4ajBk vP9nXo QUaueC m3YtLR FvZlgJ JJ8mAn HZtai3 1f8059 AC0KlY 3%2BHU aanKiQ trMwF INTERFACE [facility] [address], [place], [address], 12/24/2024 08:37:49 12/25/19 25 12/24/2024 XR, shoul neil, 2 or more view http:/ [email or web address] ?Encry pted=s hAaTro YD8dLq bEUv6g %2BXZw aYqtaq 0bqfl% 2Fg9IQ a4ajBk vP9nXo QUaueC m3YtLR FvZlgJ JJ8mAn HZtai3 8o9705 AC0KlY 3%2BHU aamKiQ trMwF INTERFACE [facility] [address], [place], [address], 12/24/2024 08:41:07 12/25/19 25 12/24/2024 XR, shoul neil, 2 or more view http:/ [email or web address] ?Encry pted=s hAaTro YD8dLq bEUv6g %2BXZw aYqtaq 0bqfl% 2Fg9IQ a4ajBk vP9nXo QUaueC m3YtLR FvZlgJ JJ8mAn HZtai3 5m4986 AC0KlY 3%2BHU aamKiQ trMwF INTERFACE [facility] [address], [place], [address], 12/24/2024 08:41:09 Result Notes Documentation Provider Name and Address Organization Details Recorded Time Xr, Cervical Spine, 1 View : [email or web address] Encrypted=pkHzTsgKA1lFovM Uv6g%9FMYmoHzawa5osjc%2Fg 9EBi8qwXfoA7vJzEAvqiUt0Pk LSDcEjdMNO5wXjMUgsu42f632 6QI5WfY9%2BHUaanKiQtrMwF Not Available [facility] 12/24/2024 08:3 7:48 Xr, Cervical Spine, 1 View : [email or web address]? Encrypted=dkXeGerTY9sSgaE Uv6g%9JHZpkDxqzb0isql%2Fg 3UHb9nuKwyS7sDqZUjoxYr7If JYPdLdeDRJ5kWgPVyfk01j635 9HB5ThL4%2BHUaanKiQtrMwF Not Available [facility] 12/24/2024 08:3 7:49 Xr, Shoulder, 2 Or More View : [email or web address] Encrypted=zhPuEhzPA6qHoyJ Uv6g%3TALatEakuj2lcyn%2Fg 9UCq2gtQejV5lYxTWgpeAd2Ah MZXjQllJTZ8oKrVKddw97t673 1IB6DcW8%2BHUaamKiQtrMwF Not Available [facility] 12/24/2024 08:4 1:08 Xr, Shoulder, 2 Or More View : [email or web address] Encrypted=bcAsEfoWK6jUatW Uv6g%4XQDaqTvdwq5dwwg%2Fg 9LDg6lcNueI2sTnMSmunTg2Ss KVEcWnfNKD5uFwZElpi44n607 4CV9XhY7%2BHUaamKiQtrMwF Not Available [facility] 12/24/2024 08:4 1:09 Problems Name Problem SNOMED Code Status Onset Date Resolution Date Notes Provider Name and Address Organization Details Recorded Time Pain of left shoulder region Active 2024 Tu Gutierrez PA-C [address], [employer] [place], [address], [facility] 5 08:30:59 Inflammation of joint of left shoulder region Active 2024 Tu Gutierrez PA-C [address], [place], [address], [facility] 5 09:38:59 Neck pain 40215178 Active 2024 Tu Gutierrez PA-C [address], [employer], [address], [facility] 5 09:39:05 Problem Notes None recorded. Medical Equipment None Reported. Allergies Allergen ID Allergen Name Allergen Category Reaction Reaction Severity Criticality Documentation Date Start Date Code Code System Note Provider Name and Address Organization Details Recorded Time 174304 Product containin g penicilli n (product) medicatio n Not available Not available Not available 12/24/2024 88892 8001 SNOMED Tu Gutierrez PA-C [address], [employer], [address], [facility] 5 08:30:07 Medications Name [...] Updated DateTime 12/24/2024 162.56 cm 39.8 kg/m2 488244.43 g Tu Gutierrez PA-C [address] [facility] [address], [place], [address] 12/24/2024 08:29:54 Social History Question Answer Notes LastModified by [employer] Details LastModified Time Tobacco Smoking Status Never Smoker Tu Gutierrez PA-C [address] [facility] [address], [place], [address], [facility] 12/24/2024 08:30:43 What Is Your Relationship Status? Single Information not available 12/24/2024 Sex: Unknown Functional Status Question Answer Note LastModified by [employer] Details LastModified Time How many times per [...] ICD10 Code Diagnosis IMO Codes Diagnosis Note [id number] Tu Gutierrez PA-C [facility] [address] [place] [address] 12/24/2024 08:22:43 01/01/2025 12:57:55 Pain of left shoulder region 1417105127 M25.512 17408160 Inflammati on of joint of left shoulder region 6657226087 99546 M19.012 34517501 Neck pain 12819690 M54.2 62228 Health Concerns Section Related Observation LastModified by Organization Detai ls LastModified Time None Recorded Concern Status LastModified by Organization Details LastModified Time None Recorded Advance Directives Directive None Recorded Payers Insurance Date Sequence Insurance Name Policy Number Policy Sanders Covered Member ID Sanders Member ID Guarantor Name 01/01/2025 1 [facility] [place] [facility] [id number] Blossom [place] [id number] Blossom Lozada Notes Date Note Type Note Provider Name [...] injury. She has been cared for at [facility] Dr. Randall she has had 1 [...] ordered, obtained and independently reviewed today at [facility]. Four views of the Left shoulder demonstrate [...] who she has seen in the past. [facility] speech recognition machine packager software was used to create portions of this document. An attempt at proofreading has been made to minimize errors. Please call for corrections. Tu Gutierrez PA-C [address], [place], [address], [facility] 12/24/2024 09:39:27 OBGyn Episode No OBEpisode recorded.
== END 2025-01-12 11:15 | disposition home or self-care (01) ==
PROVIDERS: PCP Internal Medicine; Visit Provider Physician Assistant Medical
DX: M25.562 Pain in left knee (principal); G89.29 Other chronic pain

== ENCOUNTER → 2025-01-12 11:15 | Outpatient (BNV) | payer BC, SELFPAY | PROVIDERS: PCP Internal Medicine; Visit Provider Radiology Diagnostic Radiology | DX: M17.12 Unilateral primary osteoarthritis, left knee (principal); M25.462 Effusion, left knee | CPT/HCPCS: 73564 ==

== ENCOUNTER 2025-01-19 16:12 | Outpatient (AMB) | payer BC, SELFPAY ==
[2025-01-19 16:36] VITALS: BP 132/80; PULSE 84; TEMP 36.9; O2SAT 96; BMI 40.0
--- NOTE | 2025-01-19 16:36 | AM.OFFWIN_ITS ---
Intake Vital Signs 01/19/25 16:36 Height 5 ft 4 in Weight 233 lb BMI 40.0 BP 132/80 Blood Pressure Location Lt brachial Position Sitting Pulse 84 Pulse Source Pulse Oximeter Temp 98.5 F Temp Source Oral Pulse Oximetry (%) 96 Oxygen Delivery Method Room Air Intake Visit Reasons: EP Pain in left calf Intake Note: pt presents with left calf pain and tightness and sometimes warm for 7 days directly after joint fluid aspirated from left knee at [facility] also c/o left eye swelling and irritation starting yesterday Patient Tobacco Use Status: Never used Tobacco Allergies Penicillins Allergy (Severe, Verified 01/19/25 16:40) Anaphylaxis Do you need a note to return to daycare/school/sports/work: Yes HPI HPI Comments History of Present Illness Details 49 y/o female presents to the walk-in [facility] with complaints of left eye swelling and redness since this morning. Describes the eye as ?heavy? but denies pain. Denies vision changes, photophobia, discharge, tearing, or foreign- body sensation. Denies recent URI symptoms or infections. Denies use of new cosmetic eye products. Does not wear contact lenses. Also reports left calf pain and tightness for the past 7 days, sometimes feels warm. Symptoms started directly after joint fluid aspiration from the left knee performed at [facility]. Denies trauma, recent prolonged travel, chest pain, shortness of breath, fever, or chills. [facility] Medical History (Updated 01/19/25 @ 17:26 by Cheyenne Bryant NP) Hordeolum externum left upper eyelid Multinodular goiter (nontoxic) Mixed dyslipidemia GERD (gastroesophageal reflux disease) Supraspinatus tendon tear Elevated liver enzymes Allergic rhinitis Environmental and seasonal allergies Hearing loss in left ear History of torn meniscus of left knee Pain of left shoulder with external rotation Acquired deformity of toenail Postsurgical menopause Depression with anxiety Tendinitis of knee History of gestational diabetes Congenital hearing loss of left ear Plantar fasciitis BARBY on CPAP Obesity (BMI 30-39.9) Surgical History Hx of colonoscopy Hx of knee surgery History of bilateral breast reduction surgery History of sinus surgery History of tubal ligation History of hysterectomy, supracervical Family History Father CAD (coronary artery disease) Mother HTN (hypertension) Social History Household Members Other:: son Housing: House Are you a primary personal care service provider to a significant other at home: No Do you presently have visiting nurse or other home services: No Alcohol intake: current Alcohol intake frequency: holidays/special occasions only Patient Tobacco Use Status: Never used Tobacco e-Cigarette/Vaping Use: Never Used Second Hand Smoke Exposure: Yes service: No Current occupational status: employed 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 Current occupational exposures/hazards: No Sexual orientation: Straight/Heterosexual Gender identity: Female Cognitive needs: No Hearing needs: No Vision needs: No Female Reproductive History Menstrual Age of Menarche: 12 Review of Systems Const All systems reviewed & are unremarkable except as noted in HPI and below Physical Exam Vital Signs: Last Vital Signs Temp 98.5 F 01/19/25 16:36 Pulse 84 01/19/25 16:36 BP 132/80 01/19/25 16:36 Pulse Ox 96 01/19/25 16:36 Oxygen Delivery Method Room Air 01/19/25 16:36 BMI result Body Mass Index 40.0 Const General: no acute distress Nutritional Appearance: obese Orientation/consciousness: patient oriented x3 Eyes Other: Left eye: Mild periorbital swelling and erythema noted. No conjunctival i njection, no discharge. No tenderness on palpation. Extraocular movements intact without pain. Vision grossly intact. No proptosis. Neuro General: patient oriented x3, gait normal and moves all extremities Psych Speech and movement: Normal speech and movement present Assessment & Plan Assessment & Plan (1) Hordeolum externum left upper eyelid: Code(s): H00.014 - Hordeolum externum left upper eyelid Plan: Left eye periorbital swelling ? likely allergic or irritant conjunctival/periorbital inflammation; less likely Pre-septal cellulitis given absence of pain, fever, or tenderness. Start warm compresses 10?15 minutes, 3?4x/day. Trial oral antihistamine (Claritin/Zyrtec) daily. Return precautions: eye pain, fever, worsening swelling, vision changes. Consider ophthalmology follow-up if symptoms persist >48?72 hours. Knee not evaluated - Pt to call [facility] for a F/U appointment after Aspiration. Coding Level of Care Code Est Pt Level 4 (54069) Diagnoses Hordeolum externum left upper eyelid H00.014 Time Spent (min) 20
--- OUTSIDE RECORDS SUMMARY | 2025-01-20 01:43 | XMS_ITS | Continuity of Care Document ---
Author Organization [facility] Surgeons [facility], VAL Am[place] 2nd floor Address [address] [place] [address] Care Team Providers Care Splitter Machine Name Role Phone ELSIE MOFFETT Primary Care Provider Assessment No assessment recorded. Plan of Treatment Reminders Order Date Submit Date Provider Last Modified By Organization Details Last Modified Time Details Appointments None recorded. Lab None recorded. Referral None recorded. Procedures None recorded. Surgeries None recorded. Imaging XR, shoulder, 2 or more view - room 220 left shoulder/ lateral cervical 2024 025 [facility] Office, [address], [place], [address], 5 12:57:56 XR, cervical spine, 1 view - room 220 lateral cervical 2024 025 [facility], [address], [place], [address], 5 12:57:56 Medication Orders None recorded. Patient TargetsNo targets recorded. Patient InstructionsNo instructions recorded. Reason for Referral None Reported. Results Created Date Observation Date Name Description Value Unit Range Abnormal Flag Note LastModifiedBy Organization Detail LastModifiedTime 12/25/1912/24/2024 XR, cervi ras spine , 1 view http:/ [email or web address] ?Encry pted=s hAaTro YD8dLq bEUv6g %2BXZw aYqtaq 0bqfl% 2Fg9IQ a4ajBk vP9nXo QUaueC m3YtLR FvZlgJ JJ8mAn HZtai3 8n9676 AC0KlY 3%2BHU aanKiQ trMwF INTERFACE [facility] [address], [place], [address], 12/24/2024 08:37:47 12/25/19 25 12/24/2024 XR, cervi ras spine , 1 view http:/ [email or web address] ?Encry pted=s hAaTro YD8dLq bEUv6g %2BXZw aYqtaq 0bqfl% 2Fg9IQ a4ajBk vP9nXo QUaueC m3YtLR FvZlgJ JJ8mAn HZtai3 3e2661 AC0KlY 3%2BHU aanKiQ trMwF INTERFACE [facility] [address] [facility] [address], [place], [address], 12/24/2024 08:37:49 12/25/19 25 12/24/2024 XR, shoul neil, 2 or more view http:/ [email or web address] ?Encry pted=s hAaTro YD8dLq bEUv6g %2BXZw aYqtaq 0bqfl% 2Fg9IQ a4ajBk vP9nXo QUaueC m3YtLR FvZlgJ JJ8mAn HZtai3 3z7514 AC0KlY 3%2BHU aamKiQ trMwF INTERFACE [facility] [address] [facility] [address], [place], [address], 12/24/2024 08:41:07 12/25/19 25 12/24/2024 XR, shoul neil, 2 or more view http:/ [email or web address] ?Encry pted=s hAaTro YD8dLq bEUv6g %2BXZw aYqtaq 0bqfl% 2Fg9IQ a4ajBk vP9nXo QUaueC m3YtLR FvZlgJ JJ8mAn HZtai3 3r7569 AC0KlY 3%2BHU aamKiQ trMwF INTERFACE [facility] [address] [facility] [address], [place], [address], 12/24/2024 08:41:09 01/14/20 25 01/13/2025 XR, knee, 3 view http:/ [email or web address] ?Encry pted=s hAaTro YD8dLq bEUv6g %2BXZw aYqtaq 0bqfl% 2Fg9IQ a4ajBk vP9nXo QUaueC m3YtLR FvZlgJ JJ8mAn HZtai3 2r5396 AC0Kka n2NUaG vKiQtr MwF INTERFACE [facility] [address] [facility] [address], [place], [address], 01/13/2025 15:53:04 01/14/20 25 01/13/2025 XR, knee, 3 view http:/ [email or web address] ?Encry pted=s hAaTro YD8dLq bEUv6g %2BXZw aYqtaq 0bqfl% 2Fg9IQ a4ajBk vP9nXo QUaueC m3YtLR FvZlgJ JJ8mAn HZtai3 8x5579 AC0Kka n2NUaG vKiQtr MwF INTERFACE [facility] [address] [address], [place], [address], 01/13/2025 15:53:07 Result Notes Documentation Provider Name and Address Organization Details Recorded Time Xr, Cervical Spine, 1 View : [email or web address] Encrypted=jhZxWhjWL8kFyxG Uv6g%5RAHkvQsqaf0itdv%2Fg 2XPp0ifSqdF7uUxBLlhwGv6Ew SVLuTiiQID6nMbWJuhy60g306 4XB9NrZ5%2BHUaanKiQtrMwF Not Available [facility] 12/24/2024 08:3 7:48 Xr, Cervical Spine, 1 View : [email or web address] Encrypted=msPiYibZU9fSbmN Uv6g%4RJYduCfzqo4ntpl%2Fg 6CJk1ymJmiF6cTpVLrvnHe7Sf FBStSbkYBP8sFmIWvkg55z033 0RN1HuT2%2BHUaanKiQtrMwF Not Available [facility] 12/24/2024 08:3 7:49 Xr, Shoulder, 2 Or More View : [email or web address] Encrypted=soXmYouTS5mIgoD Uv6g%2GLFjhEbwon8teyc%2Fg 0MMo2ivZmgX6pArDMqoeSg7Qb DTQvOqiBCR7lXpPTlyj64p876 0NR5DiD5%2BHUaamKiQtrMwF Not Available [facility] 12/24/2024 08:4 1:08 Xr, Shoulder, 2 Or More View : [email or web address] Encrypted=wxBzFzlKC7kQquS Uv6g%4ZUCrfIdfvz4mmvr%2Fg 9LMg4njMzeT9iPvRLxplNq3Iy BRAiHdsAGR9gNmZIhau48v248 7NH1QwC2%2BHUaamKiQtrMwF Not Available [facility] 12/24/2024 08:4 1:09 Problems Name Problem SNOMED Code Status Onset Date Resolution Date Notes Provider Name and Address Organization Details Recorded Time Pain of left shoulder region Active 2024 Tu Gutierrez PA-C [address], [place], [address], [facility] 08:30:59 Inflammatio n of joint of left shoulder region Active 2024 Tu Gutierrez PA-C [address], [place], [address], [facility] 5 09:38:59 Neck pain 31645989 Active 2024 Tu Gutierrez PA-C [address], [place], [address], [facility] 5 09:39:05 Osteoarthri tis of left knee joint 7371810196917 09 Active 2024 Adam Sosa PA-C [address] [facility] [address], [place], [address], [facility] 5 07:07:42 Problem Notes None recorded. Procedures Surgical History Date Name Laterality Status Provider Name and Address Organization Details Recorded Time 01/13/2025 Sports Knee Asp & Inj completed Adam Sosa PA-C [address], [place], [address], [facility] 01/14/2025 07:07:32 Imaging Results None recorded. Procedure Notes None recorded. Medical Equipment None Reported. Allergies Allergen ID Allergen Name Allergen Category Reaction Reaction Severity Criticality Documentation Date Start Date Code Code System Note Provider Name and Address Organization Details Recorded Time 609866 Product containin g penicilli n (product) medicatio n Not available Not available Not available 12/24/2024 22076 8001 SNOMED Tu Gutierrez PA-C [address], [place], [address], [facility] 5 08:30:07 Medications Name [...] Updated DateTime 12/24/2024 162.56 cm 39.8 kg/m2 117710.43 g Tu Gutierrez PA-C [address] [facility] [address], [place], [address] 12/24/2024 08:29:54 Social History Question Answer Notes LastModified by [employer] Details LastModified Time Tobacco Smoking Status Never Smoker Tu Gutierrez PA-C [address] [facility] [address], [place], [address], [facility] 12/24/2024 08:30:43 What Is Your Relationship Status? Single Information not available 12/24/2024 Sex: Unknown Functional Status Question Answer Note LastModified by [employer] Details LastModified Time How many times per [...] ICD10 Code Diagnosis IMO Codes Diagnosis Note [id number] Tu Gutierrez PA-C [facility] [address] 2[address] floor [address] [place] [address] 12/24/2024 08:22:43 01/01/2025 12:57:55 Pain of left shoulder region 7975464781 M25.512 50354441 Inflammati on of joint of left shoulder region 7357422120 16480 M19.012 75972597 Neck pain 16542617 M54.2 06308 Health Concerns Section Related Observation LastModified by [...] injury. She has been cared for at [facility] Dr. Randall she has had 1 [...] ordered, obtained and independently reviewed today at [facility]. Four views of the Left shoulder [...] who she has seen in the past. [facility] speech recognition drafter structural software was used to create portions of this document. An attempt at proofreading has been made to minimize errors. Please call for corrections. Tu Gutierrez PA-C [address], [place], [address], [facility] 12/24/2024 09:39:27 OBGyn Episode No OBEpisode recorded.
--- OUTSIDE RECORDS SUMMARY | 2025-01-20 01:43 | XMS_ITS | Data Portability ---
Author Organization [facility], [facility] [place] [facility] Address [address] [place] [address] Care Team Providers Care Acquisition Marketing Manager Name Role Phone ELSIE MOFFETT Primary Care Provider Assessment No assessment recorded. Plan of Treatment Reminders Order Date Submit Date Provider Last Modified By Organization Details Last Modified Time Details Appointments None recorded. Lab None recorded. Referral None recorded. Procedures None recorded. Surgeries None recorded. Imaging XR, knee, 3 view - 3v left knee 2024 025 [facility], [address], [place], [address], 5 16:33:54 XR, shoulder, 2 or more view - room 220 left shoulder/ lateral cervical 2024 025 [facility], [address], [place], [address], 5 12:57:56 XR, cervical spine, 1 view - room 220 lateral cervical 2024 025 [facility], [address], [place], [address], 5 12:57:56 Medication Orders None recorded. Patient [...] a4ajBk vP9nXo QUaueC m3YtLR FvZlgJ JJ8mAn HZtai3 9q3044 AC0KlY 3%2BHU aanKiQ trMwF INTERFACE [facility] [address], [place], [address], 12/24/2024 08:37:47 12/25/19 25 12/24/2024 XR, cervi ras spine , 1 view [email or web address]:/ [email or web address] ?Encry pted=s hAaTro YD8dLq bEUv6g %2BXZw aYqtaq 0bqfl% 2Fg9IQ a4ajBk vP9nXo QUaueC m3YtLR FvZlgJ JJ8mAn HZtai3 1k8948 AC0KlY 3%2BHU aanKiQ trMwF INTERFACE [facility] [address], [place], [address], 12/24/2024 08:37:49 12/25/19 25 12/24/2024 XR, shoul neil, 2 or more view http:/ [email or web address] ?Encry pted=s hAaTro YD8dLq bEUv6g %2BXZw aYqtaq 0bqfl% 2Fg9IQ a4ajBk vP9nXo QUaueC m3YtLR FvZlgJ JJ8mAn HZtai3 5g5976 AC0KlY 3%2BHU aamKiQ trMwF INTERFACE [facility] [address], [place], [address], 12/24/2024 08:41:07 12/25/19 25 12/24/2024 XR, shoul neil, 2 or more view http:/ [email or web address] ?Encry pted=s hAaTro YD8dLq bEUv6g %2BXZw aYqtaq 0bqfl% 2Fg9IQ a4ajBk vP9nXo QUaueC m3YtLR FvZlgJ JJ8[place] HZtai3 0n2589 AC0KlY 3%2BHU aamKiQ trMwF INTERFACE [facility] [address], [place], [address], 12/24/2024 08:41:09 01/14/20 25 01/13/2025 XR, knee, 3 view [email or web address]:/ [email or web address] ?Encry pted=s hAaTro YD8dLq bEUv6g %2BXZw aYqtaq 0bqfl% 2Fg9IQ a4ajBk vP9nXo QUaueC m3YtLR Zl JJ8[place] HZtai3 5d7833 AC0Kka n2NUaG vKiQtr MwF INTERFACE [facility] [address] [facility] [address], [place], [address], 01/13/2025 15:53:04 01/14/20 25 01/13/2025 XR, knee, 3 view http:/ [email or web address] ?Encry pted=s hAaTro YD8dLq bEUv6g %2BXZw aYqtaq 0bqfl% 2Fg9IQ a4ajBk vP9nXo QUaueC m3YtLR FvZl JJ8mAn HZtai3 4l3234 AC0Kka n2NUaG vKiQtr MwF INTERFACE [facility] [address] [facility] [address], [place], [address], 01/13/2025 15:53:07 Result Notes Documentation Provider Name and Address Organization Details Recorded Time Xr, Cervical Spine, 1 View : [email or web address] Encrypted=peZeEbbYO9yObiN Uv6g%7IDPpnGtzgg1cyzs%2Fg 6IMj8pgCfhA7fFvHZaneXj6Ic KXRdJkhSJQ1sKlTFuth79d648 2YV6WjA4%2BHUaanKiQtrMwF Not Available [facility] 12/24/2024 08:3 7:48 Xr, Cervical Spine, 1 View : [email or web address] Encrypted=rcKfBmcHX1dApoZ Uv6g%0BYUwyGnweh7pvym%2Fg 7HUy2fwNttI9mKeFMbikOk4Rx AOJaQreAFL6nAiCZjzd72u552 4VR2GzT9%2BHUaanKiQtrMwF Not Available [facility] 12/24/2024 08:3 7:49 Xr, Shoulder, 2 Or More View : [email or web address] Encrypted=krHjPlvUV4vHllM Uv6g%5PCGmrXskpl9ymly%2Fg 3MAz2zyAqpL3qOnNNuggPe6Pc TJOzEpgLWU2nHtFJetx42l369 6OS0MnP2%2BHUaamKiQtrMwF Not Available [facility] 12/24/2024 08:4 1:08 Xr, Shoulder, 2 Or More View : [email or web address] Encrypted=zjGvJwlLL0dHhuN Uv6g%2ZJSmrVekyy4ifhw%2Fg 8WHj7ajFlsP9kVoAEsycUi1Iy XJCbJidJEJ1jIoBXvea06k422 2ZU6DyG2%2BHUaamKiQtrMwF Not Available [facility] 12/24/2024 08:4 1:09 Xr, Knee, 3 View : [email or web address] Encrypted=xeBwVznIK5uLrtP Uv6g%6JEYmaMkhyt4fepw%2Fg 2RAt0juPcnT9sSiOOxqbFi8Wy PNSeBwkNMM6aSjXQfls22v434 5UP7Dyhw5ZOnLgRsMuoNjA Not Available [facility] 01/13/2025 15:53: 06 Xr, Knee, 3 View : [email or web address] Encrypted=bbCeRnePK5fIfzD Uv6g%1KBZjhWwnbs7wfcg%2Fg 6OVl7gaNkvO6sRnGMhznAd3Zj CVMoFwtCZT7xJhYVdlw94o705 8HJ1Aeni2ADjTwRzFuiVgK Not Available [facility] 01/13/2025 15:53: 07 Problems Name Problem SNOMED Code Status Onset Date Resolution Date Notes Provider Name and Address Organization Details Recorded Time Pain of left shoulder region Active 2024 Tu Gutierrez PA-C [address], [place], [address], [facility] 5 08:30:59 Inflammatio n of joint of left shoulder region Active 2024 Tu Gutierrez PA-C [address], [place], [address], [facility] 5 09:38:59 Neck pain 12118312 Active 2024 Tu Gutierrez PA-C [address], [place], [address], [facility] 5 09:39:05 Osteoarthri tis of left knee joint 5272216760962 09 Active 2024 Adam Sosa PA-C [address], [place], [address], [facility] 5 07:07:42 Problem Notes None recorded. Procedures Surgical History Date Name Laterality Status Provider Name and Address Organization Details Recorded Time 01/13/2025 Sports Knee Asp & Inj completed Adam Sosa PA-C [address], [place], [address], [facility] 01/14/2025 07:07:32 Imaging Results None recorded. Procedure Notes None recorded. Medical Equipment None Reported. Allergies Allergen ID Allergen Name Allergen Category Reaction Reaction Severity Criticality Documentation Date Start Date Code Code System Note Provider Name and Address Organization Details Recorded Time 569981 Product containin g penicilli n (product) medicatio n Not available Not available Not available 12/24/2024 30555 8001 SNOMED Tu Gutierrez PA-C [address], [place], [address], [facility] 08:30:07 Medications Name Sig Start Date Stop [...] Updated DateTime 12/24/2024 162.56 cm 39.8 kg/m2 004241.43 lisa Gutierrez PA-C [address], [place], [address] 12/24/2024 08:29:54 Date Recorded Body height Body mass index (BMI) Body weight Provider Name and Address Organization Details Last Updated DateTime 01/13/2025 162.56 cm 39.8 kg/m2 407087.43 lisa Mobley Doyle [facility] 01/13/2025 15:58:33 Social History Question Answer Notes LastModified by Super Details LastModified Time Tobacco Smoking Status Never Smoker Tu Gutierrez PA-C [address], [address] 12/24/2024 08:30:43 What Is Your Relationship Status? Single Information not available 12/24/2024 Sex: Unknown Functional Status Question Answer Note LastModified by Organizat ion Details LastModified Time How many times per week do you consume alcohol? Less than 1 time per week Information not available 12/24/2024 Do you use any illicit or recreational drugs? No Information not available 12/24/2024 What is your level of alcohol consumption? Occasional Information not available 12/24/2024 Mental Status None recorded. Family History Nothing Reported. Medical History Condition Response Anxiety/Depression Y Thyroid Problems Y Anemia Y Asthma Y Hypertension Y Gynecological HistoryNo gynecological history recorded. Obstetrics History GPAL:G 0 P 0 0 0 0 Past Encounters Encounter ID Performer Location Encounter Start Date Encounter Closed Date Diagnosis/Indication Diagnosis SNOMED-CT Code Diagnosis ICD10 Code Diagnosis IMO Codes Diagnosis Note [id number] NATHANAEL Allen 2nd floor [address] [place] [address] 12/24/2024 08:22:43 01/01/2025 12:57:55 Pain of left shoulder region 2413945369 M25.512 78435737 Inflammati on of joint of left shoulder region 7819997307 06951 M19.012 53791956 Neck pain 89482483 M54.2 [id number] [place] [address] 01/13/2025 15:33:40 01/14/2025 07:08:32 Pain of left knee region 5155316019 41802 M25.562 11939518 Osteoarthr itis of left knee joint 1487505029 10774 M17.12 7630097 Health Concerns Section Related Observation LastModified by Organization Detai ls LastModified Time None Recorded Concern Status LastModified by Organization Details LastModified Time None Recorded Advance Directives Directive None Recorded Payers Insurance Date Sequence Insurance Name Policy Number Policy Sanders Covered Member ID Sanders Member ID Guarantor Name 01/12/2025 1 [facility] [id number] Blossom Lozada [id number] Blossom Lozada Notes Date Note Type [...] injury. She has been cared for at [facility] Dr. Randall she has had 1 [...] ordered, obtained and independently reviewed today at [facility]. Four views of the Left shoulder demonstrate [...] who she has seen in the past. [employer] speech recognition psych coordinator software was used to create portions of this document. An attempt at proofreading has been made to minimize errors. Please call for corrections. Tu Gutierrez PA-C [address] [place] [address] [address], [place], [address], [facility] 12/24/2024 09:39:27 01/13/2025 text/html I am seeing the patient today under the supervision of Dr. Hunt who was available but who did not see the patient. Dx: Severe end-stage grade 4 osteoarthritis left knee, left knee joint effusion HPI: Blossom is a 49-year-old female presents for initial orthopedic evaluation regarding her left knee. History of prior left knee arthroscopy by Dr. Ovalles 2017. Postoperatively did have an injection. She has had persistent ongoing pain in the knee since surgery 7 8 years ago. Now reporting increased constant pain with everyday activities. She has noted significant swelling about her knee. Has been under the care of [facility] and had an MRI of the knee as well as a prior knee injection intra-articularly about a year ago. Current treatment has included naproxen, ice, heat, knee brace. Past Medical/Surgical History/Meds/Allergie s reviewed and charted. Patient has history of left-sided shoulder arthritis which she was seen in our office for a month ago. Physical Examination: The patient is well appearing and in no apparent distress. Alert and oriented x3. Gait is symmetric. afebrile, vital signs stable, in no apparent distress, oriented to person/place/time. Pain Rated: 10/10 Gait antalgic on the left side. Difficulty arising from sitting. Skin: intact without erythema. Orthopedic Knee Exam: Pertinent orthopedic exam of the left knee notable for a moderate-sized joint effusion. Irritability about the knee mostly medial joint line. No laxities. No redness or warmth. The calf soft and nontender. Peripheral, vascular, lymphatic examination, skin, neurological, coordination, reflexes, sensation are within normal limits. Radiographs: 4 views of the left knee including standing AP, standing Gutierrez, lateral and sunrise/merchant patella views were obtained. These are notable for severe end-stage grade 4 osteoarthritis. Weightbearing AP shows complete joint space loss medially with varus alignment and marginal osteophytes. Impression: Left knee joint effusion, left knee severe osteoarthritis Plan: Discussion with Blossom regarding nature of this problem and treatment options. She is advised of potential need for knee arthroplasty in the future. For now we discussed nonsurgical measures including knee aspiration and injection which she can repeat in the future as needed. Continued use of NSAIDs and topical treatments with ice and heat as needed. Recheck as needed Medical Practice speech recognition psych coordinator software was used to create portions of this document. An attempt at proofreading has been made to minimize errors. Please call for corrections. Adam Sosa PA-C [address] [place] [address] [facility], [place], [address], [facility] 01/14/2025 07:08:30 OBGyn Episode No OBEpisode recorded.
--- OUTSIDE RECORDS SUMMARY | 2025-01-20 01:43 | XMS_ITS | Continuity of Care Document ---
Author Organization [facility], [facility] Clinical Address [address] [place] [address] Care Team Providers Care Target Network Analyst Name Role Phone ELSIE MOFFETT Primary Care Provider [phone] Assessment No assessment recorded. Plan of Treatment Reminders Order Date Submit Date Provider Last Modified By Organization Details Last Modified Time Details Appointments None record ed. Lab None record ed. Referral None record ed. Procedures None record ed. Surgeries None record ed. Imaging XR, knee, 3 view - 3v left knee 025 01/14/20 [email or web address], [address] [facility] [employer], [address], [place], [address], 16:33:54 Medication Orders None record ed. Patient TargetsNo targets recorded. Patient InstructionsNo instructions recorded. Reason for Referral None Reported. Results Created Date Observation Date Name Description Value Unit Range Abnormal Flag Note LastModifiedBy Organization Detail LastModifiedTime 12/25/19 25 12/24/2024 XR, cervi ras spine , 1 view [email or web address]:/ [email or web address] ?Encry pted=s hAaTro YD8dLq bEUv6g %2BXZw aYqtaq 0bqfl% 2Fg9IQ a4ajBk vP9nXo QUaueC m3YtLR FvZlgJ JJ8mAn HZtai3 1a8800 AC0KlY 3%2BHU aanKiQ trMwF INTERFACE [facility] [address], [place], [address], 12/24/2024 08:37:47 12/25/19 25 12/24/2024 XR, cervi ras spine , 1 view [email or web address]:/ [email or web address] ?Encry pted=s hAaTro YD8dLq bEUv6g %2BXZw aYqtaq 0bqfl% 2Fg9IQ a4ajBk vP9nXo QUaueC m3YtLR FvZlgJ JJ8mAn HZtai3 4x2766 AC0KlY 3%2BHU aanKiQ trMwF INTERFACE [facility] [address], [place], [address], 12/24/2024 08:37:49 12/25/19 25 12/24/2024 XR, shoul neil, 2 or more view http:/ [email or web address] ?Encry pted=s hAaTro YD8dLq bEUv6g %2BXZw aYqtaq 0bqfl% 2Fg9IQ a4ajBk vP9nXo QUaueC m3YtLR FvZlgJ JJ8mAn HZtai3 7f6229 AC0KlY 3%2BHU aamKiQ trMwF INTERFACE [facility] [address], [place], [address], 12/24/2024 08:41:07 12/25/19 25 12/24/2024 XR, shoul neil, 2 or more view [email or web address]:/ [email or web address] ?Encry pted=s hAaTro YD8dLq bEUv6g %2BXZw aYqtaq 0bqfl% 2Fg9IQ a4ajBk vP9nXo QUaueC m3YtLR FvZlgJ JJ8mAn HZtai3 3m2796 AC0KlY 3%2BHU aamKiQ trMwF INTERFACE [facility] [address], [place], [address], 12/24/2024 08:41:09 01/14/20 25 01/13/2025 XR, knee, 3 view [email or web address]:/ [email or web address] ?Encry pted=s hAaTro YD8dLq bEUv6g %2BXZw aYqtaq 0bqfl% 2Fg9IQ a4ajBk vP9nXo QUaueC m3YtLR FvZlgJ JJ8mAn HZtai3 2t2876 AC0Kka n2NUaG vKiQtr MwF INTERFACE [facility] [address] [facility] [address], [address], 01/13/2025 15:53:04 01/14/20 25 01/13/2025 XR, knee, 3 view http:/ [email or web address] ?Encry pted=s hAaTro YD8dLq bEUv6g %2BXZw aYqtaq 0bqfl% 2Fg9IQ a4ajBk vP9nXo QUaueC m3YtLR FvZlgJ [facility] 2e5255 AC0Kka n2NUaG vKiQtr MwF INTERFACE [facility] [address] [facility] [address], [address], 01/13/2025 15:53:07 Result Notes Documentation Provider Name and Address Organization Details Recorded Time Xr, Knee, 3 View : [email or web address]? Encrypted=arXvSfrKB5sYzgR Uv6g%2UVHcfWyaqw7kyhf%2Fg 8SJh3khRkuA6yFpHWcmsGh2Ug ITCrAmyKUR5dEyICack80i706 1AC3Ssjg8FUgOtQuFpfSxF Not Available [facility] 01/13/2025 15:53: 06 Xr, Knee, 3 View : [email or web address] Encrypted=qsLeMwpMG7wBxkZ Uv6g%0IVSpiDxpck7ggmd%2Fg 1MXt0tdCrcE3xVzLZnxcZi9Lm JOFlVkaABH3rOkETqxb08m370 0PC7Lbwc1DLpEhXfOfdWgQ Not Available [facility] 01/13/2025 15:53: 07 Problems Name Problem SNOMED Code Status Onset Date Resolution Date Notes Provider Name and Address Organization Details Recorded Time Pain of left shoulder region Active 2024 Tu Gutierrez PA-C [address], [place], [address], [facility] 5 08:30:59 Inflammatio n of joint of left shoulder region Active 2024 Tu Gutierrez PA-C [address], [place], [address], [facility] 5 09:38:59 Neck pain 44484454 Active 2024 Tu Gutierrez PA-C [address], [place], [address], [facility] 5 09:39:05 Osteoarthri tis of left knee joint 2695880396653 09 Active 2024 Adam Sosa PA-C [address], [place], [address], [facility] 5 07:07:42 Problem Notes None recorded. Procedures Surgical History Date Name Laterality Status Provider Name and Address Organization Details Recorded Time 01/13/2025 Sports Knee Asp & Inj completed Adam Sosa PA-C [address], [place], [address], [facility] 01/14/2025 07:07:32 Imaging Results None recorded. Procedure Notes None recorded. Medical Equipment None Reported. Allergies Allergen ID Allergen Name Allergen Category Reaction Reaction Severity Criticality Documentation Date Start Date Code Code System Note Provider Name and Address Organization Details Recorded Time 437229 Product containin g penicilli n (product) medicatio n Not available Not available Not available 12/24/2024 98080 8001 SNOMED Tu Gutierrez PA-C [address], [place], [address], [facility] 08:30:07 Medications Name Sig Start Date Stop [...] Updated DateTime 01/13/2025 162.56 cm 39.8 kg/m2 222478.43 g Leandra Simms [facility] 01/13/2025 15:58:33 Social History Question Answer Notes LastModified by [employer] Private Details LastModified Time Tobacco Smoking Status Never Smoker Tu Gutierrez PA-C [address], [place], [address], [facility] 12/24/2024 08:30:43 What Is Your Relationship Status? [email or web address] Information not available 12/24/2024 Sex: Unknown Functional Status Question Answer Note LastModified by [employer] Private Details LastModified Time How many times per [...] ICD10 Code Diagnosis IMO Codes Diagnosis Note [id number] NATHANAEL Allen [address] [place] [address] 12/24/2024 08:22:43 01/01/2025 12:57:55 Pain of left shoulder region 7567494885 M25.512 10317993 Inflammati on of joint of left shoulder region 7526057687 91687 M19.012 [id number] Neck pain 08718648 M54.2 31056 [id number] NATHANAEL [facility] [address] [place] [address] 01/13/2025 15:33:40 01/14/2025 07:08:32 Pain of left knee region 1510696682 06166 M25.562 35311444 Osteoarthr itis of left knee joint 4402094264 20694 M17.12 [id number] Health Concerns Section Related Observation LastModified by Organization Detai ls LastModified Time None Recorded Concern Status LastModified by Organization Details LastModified Time None Recorded Payers Encounter Date Sequence Insurance Name Policy Number Policy Sanders Covered Member ID Sanders Member ID Guarantor Name 01/13/2025 1 [place] [facility] [id number] Blossom Campa Neville [id number] Blossom Neville Notes Date Note Type Note Provider Name and Address Organization Details Recorded Time 01/13/2025 text/html I am seeing the patient today under the supervision of Dr. Hunt who was available but who did not see the patient. Dx: Severe end-stage grade 4 osteoarthritis left knee, left knee joint effusion HPI: Blossom is a 49-year-old female presents for initial orthopedic evaluation regarding her left knee. History of prior left knee arthroscopy by Dr. Ovalles 2016. Postoperatively did have an injection. She has had persistent ongoing pain in the knee since surgery 7 8 years ago. Now reporting increased constant pain with everyday activities. She has noted significant swelling about her knee. Has been under the care of [facility] and had an MRI of the [...] Recheck as needed Medical Practice speech recognition medical technologist prn software was used to create portions of this document. An attempt at proofreading has been made to minimize errors. Please call for corrections. Adam Sosa PA-C [address] [place] [address], [place], [address], [facility] 01/14/2025 07:08:30 OBGyn Episode No OBEpisode recorded.
== END 2025-01-19 16:53 | disposition home or self-care (01) ==
PROVIDERS: PCP Internal Medicine; Visit Provider Nurse Practitioner Family
DX: H00.014 Hordeolum externum left upper eyelid (principal)